=== PATIENT | female | born 1980 | race Caucasian/White ===

== ENCOUNTER 2020-05-01 00:35 | Emergency (ER) | payer OTHER, SELFPAY ==
[2020-05-01 02:18] VITALS: BP 119/70; PULSE 99; RESP 18; TEMP 37.2; O2SAT 98; BMI 32.9
--- NOTE | 2020-05-01 02:30 | XR_ITS ---
EXAMINATION: XR TIBIA AND FIBULA, LEFT CLINICAL INFORMATION: Inflammation. COMPARISON: None TECHNIQUE: AP and lateral views of the left tibia and fibula were obtained. FINDINGS: No fracture or cortical disruption. No osseous erosion. Appropriate alignment of the knee and ankle. The soft tissues are unremarkable. IMPRESSION: Normal left tibia and fibula.
[2020-05-01 02:35] LABS: MANUAL DIFF FLAG NO
[2020-05-01 02:36] LABS: Basophils Percent Auto 0.3 % (0-2); Eosinophils Percent Auto 0.1 % (0-4); Hematocrit 32.9 % (37-47); Hemoglobin 10.9 g/dl (12.0-16.0); Imm Gran Abs Auto 0.08 X10*3/uL (0.00-0.03); Imm Gran Pct Auto 0.6 % (0.0-0.4); Lymphocytes Absolute Auto 2.3 X10*3/uL (1.2-4.9); Mean Corpuscular HGB Conc 33.1 g/dl (31.0-35.0); Mean Corpuscular Hemoglobin 28.4 pg (27.0-33.0); Mean Corpuscular Volume 85.7 fL (80-98); Mean Platelet Volume 9.7 fL (9.4-12.3); Monocytes Absolute Auto 1.2 X10*3/uL (0.1-1.2); Monocytes Percent Auto 8.3 % (2-11); Neutrophils Absolute Auto 10.6 X10*3/uL (2.0-8.3); Neutrophils Percent Auto 74.7 % (45-73); Platelet Count 291 X10*3/uL (160-400); Red Blood Count 3.84 X10*6/uL (4.20-5.50); Red Cell Distribution Width 12.5 % (11.0-16.0); White Blood Count 14.2 X10*3/uL (4.8-10.8)
[2020-05-01 02:41] LABS: INTERNATIONAL NORM RATIO 1.3 (0.9-1.1); Prothrombin Time 15.6 SEC (10.8-13.0)
[2020-05-01 02:44] LABS: Partial Thromboplastin Time 30.7 SEC (24.1-38.0)
[2020-05-01 03:02] LABS: Anion Gap 15 (12-20); Blood Urea Nitrogen 19 mg/dL (9-16); Calcium 8.3 mg/dL (8.4-10.2); Carbon Dioxide 24 mmol/L (22-29); Chloride 98 mmol/L (96-108); Creatinine Clr Calc Pharmacy 89.8; Estimated Glomerular Filt Rate > 60; Glucose Random 213 mg/dL (60-115); Potassium 3.6 mmol/l (3.3-5.1); Sodium 133 mmol/L (135-145)
[2020-05-01 04:00] VITALS: BP 103/55; PULSE 94; RESP 16; TEMP 36.5; O2SAT 95
[2020-05-01 04:24] LABS: Glucose, Whole Blood 253 mg/dL (60-115)
--- NOTE | 2020-05-01 05:06 | ED_ITS ---
HPI - Extremity Problem General Chief complaint: Extremity Problem Time Seen by Provider: 05/01/20 05:06 Source: patient Mode of arrival: ambulatory History of Present Illness HPI Narrative: left leg pain Complaint: extremity pain Onset (ago): day(s) (3) Pain Consistency: constant Radiation: none Associated symptoms: fever, myalgias and other (chills) Related Data Home Medications Medication Instructions Recorded Confirmed insulin glargine [Basaglar KwikPen 10 unit SUBCUT BEDTIME 05/01/20 05/01/20 U-100 Insulin] metformin 1 tab PO BID 05/01/20 05/01/20 Previous Rx's Medication Instructions Recorded cephalexin [Keflex] 500 mg PO QID #40 cap 05/01/20 naproxen [EC-Naprosyn] 375 mg PO BID #20 tab 05/01/20 Allergies Allergy/AdvReac Type Severity Reaction Status Date / Time No Known Allergies Allergy Verified 05/01/20 04:12 [No Known Allergies*] Review of Systems Constitutional: Constitutional: Reports fatigue and Reports fever(s) Eyes: Eyes: Reports no additional eye complaints ENT: Denies dizziness Cardiovascular: Cardiovascular: Reports no additional cardiovascular complaints Respiratory: Respiratory: Reports as per HPI Gastrointestinal: Gastrointestinal: Reports no additional gastrointestinal complaints Genitourinary: Genitourinary: Reports no additional female genitourinary complaints Musculoskeletal: Musculoskeletal: Reports no additional musculoskeletal complaints Integumentary/Breasts: Skin/Breast: Denies rash Neurologic: Reports system reviewed and no additional complaints, except as documented, Denies dizziness and Denies Sensory deficit (Neuro) Psychiatric: Psychiatric: Denies anxiety Endocrine: Endocrine: Reports fatigue [facility] Past Medical History Medical History 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, managed as type 2 Social History Social History Alcohol intake: current Alcohol intake frequency: holidays/special occasions only Smoking Status: Never smoker Use of substances other than those prescribed or required for medical reasons: No Advance Directives: No Advance Directives Information Provided: No Physical Exam Vital Signs and I&O and Narrative: Vital Signs and I&O: Vital Signs Temp 97.7 F 05/01/20 04:00 Pulse 94 05/01/20 04:00 Resp 16 05/01/20 04:00 BP 103/55 L 05/01/20 04:00 Pulse Ox 95 05/01/20 04:00 Intake & Output 04/30/20 04/30/20 05/01/20 06:59 18:59 06:59 Weight 81.647 kg Body Mass Index 32.9 Const: General: healthy appearing Nutritional Appearance: average body habitus Orientation/consciousness: oriented to person and patient oriented x3 Limitations: no limitations HENMT: Head: Yes normal to inspection Ears: external ears normal General nose exam: Normal external nose present Mouth: Normal oral and palatal mucosa present and oropharynx normal Throat: Yes posterior oropharynx normal Eyes: General: appearance normal, both eyes and all related structures Neck: Other: supple Neck: Yes normal visual inspection Chest: Chest palpation & inspection: normal inspection of the chest Resp: Auscultation: clear to auscultation bilaterally Cardio: Jugular venous distension: no JVD Rate: regular rate Rhythm: regular rhythm Heart sounds: S1 normal heart sound present and S2 normal heart sound present GI: Inspection: Yes normal to inspection Palpation (GI): Soft to palpation, nontender and No hepatosplenomegaly present Auscultation: normal bowel sounds : General: Yes no CVA tenderness Back/Spine/Pelvis: Back: no CVA tenderness Skin: Other: erythema to lower extremitiy consistent with cellulitis. There is tenderness to the area Neuro: General: oriented to person and patient oriented x3 Cranial nerves: Yes CN's II-XII intact bilaterally Motor exam (neuro): 5/5 motor strength present throughout Sensory Exam: No Sensory deficit (Neuro) Extrem: General: Yes normal to inspection Psych: Appearance: grossly normal Course Course Course Narrative: patient to recieve toradol and keflex for cellulitis MDM - Extremity (Nontraumatic) MDM Narrative Medical decision making narrative: cellulitis will treate with keflex Lab Data Result diagrams: 05/01/20 02:29 05/01/20 02:29 Labs: Lab Results 05/01/20 05/01/20 05/01/20 Range/Units 02:29 02:29 02:29 WBC 14.2 H (4.8-10.8) X10*3/uL RBC 3.84 L (4.20-5.50) X10*6/uL Hgb 10.9 L (12.0-16.0) g/dl Hct 32.9 L (37-47) % MCV 85.7 (80-98) fL MCH 28.4 (27.0-33.0) pg MCHC 33.1 (31.0-35.0) g/dl RDW 12.5 (11.0-16.0) % Plt Count 291 (160-400) X10*3/uL MPV 9.7 (9.4-12.3) fL Immature Gran % (Auto) 0.6 H (0.0-0.4) % Neut % (Auto) 74.7 H (45-73) % Lymph % (Auto) 16.0 L (20-40) % [place] % (Auto) 8.3 (2-11) % Eos % (Auto) 0.1 (0-4) % Baso % (Auto) 0.3 (0-2) % Neut # (Auto) 10.6 H (2.0-8.3) X10*3/uL Lymph # (Auto) 2.3 (1.2-4.9) X10*3/uL [place] # (Auto) 1.2 (0.1-1.2) X10*3/uL Eos # (Auto) 0.0 (0.0-0.4) X10*3/uL Baso # (Auto) 0.0 (0.0-0.2) X10*3/uL Abs Immat Gran (auto) 0.08 H (0.00-0.03) X10*3/uL Absolute Nucleated RBC 0.000 (0.0-0.012) X10*3/uL Nucleated RBC % (auto) 0.0 (0.0-0.2) /100WBC PT 15.6 H (10.8-13.0) SEC INR 1.3 H (0.9-1.1) APTT 30.7 (24.1-38.0) SEC Sodium 133 L (135-145) mmol/L Potassium 3.6 (3.3-5.1) mmol/l Chloride 98 (96-108) mmol/L Carbon Dioxide 24 (22-29) mmol/L Anion Gap 15 (12-20) BUN 19 H (9-16) mg/dL Creatinine 0.84 (0.5-1.4) mg/dL Estim Creat Clear Calc 89.8 Estimated GFR > 60 POC Glucose (60-115) mg/dL Random Glucose 213 H (60-115) mg/dL Calcium 8.3 L (8.4-10.2) mg/dL 05/01/20 Range/Units 04:20 WBC (4.8-10.8) X10*3/uL RBC (4.20-5.50) X10*6/uL Hgb (12.0-16.0) g/dl Hct (37-47) % MCV (80-98) fL MCH (27.0-33.0) pg MCHC (31.0-35.0) g/dl RDW (11.0-16.0) % Plt Count (160-400) X10*3/uL MPV (9.4-12.3) fL Immature Gran % (Auto) (0.0-0.4) % Neut % (Auto) (45-73) % Lymph % (Auto) (20-40) % [place] % (Auto) (2-11) % Eos % (Auto) (0-4) % Baso % (Auto) (0-2) % Neut # (Auto) (2.0-8.3) X10*3/uL Lymph # (Auto) (1.2-4.9) X10*3/uL [place] # (Auto) (0.1-1.2) X10*3/uL Eos # (Auto) (0.0-0.4) X10*3/uL Baso # (Auto) (0.0-0.2) X10*3/uL Abs Immat Gran (auto) (0.00-0.03) X10*3/uL Absolute Nucleated RBC (0.0-0.012) X10*3/uL Nucleated RBC % (auto) (0.0-0.2) /100WBC PT (10.8-13.0) SEC INR (0.9-1.1) APTT (24.1-38.0) SEC Sodium (135-145) mmol/L Potassium (3.3-5.1) mmol/l Chloride (96-108) mmol/L Carbon Dioxide (22-29) mmol/L Anion Gap (12-20) BUN (9-16) mg/dL Creatinine (0.5-1.4) mg/dL Estim Creat Clear Calc Estimated GFR POC Glucose 253 H (60-115) mg/dL Random Glucose (60-115) mg/dL Calcium (8.4-10.2) mg/dL Discharge Plan Discharge Clinical Impression: Cellulitis Qualifiers: Site of cellulitis: extremity Site of cellulitis of extremity: lower extremity Laterality: left Qualified Code(s): L03.116 - Cellulitis of left lower limb Patient Disposition: Home, Self-Care Instructions: Cellulitis (ED) Additional Instructions: follow up with your doctor this week Prescriptions: New cephalexin [Keflex] 500 mg capsule 500 mg PO QID Qty: 40 RF: 0 naproxen [EC-Naprosyn] 375 mg tablet,delayed release (DR/EC) 375 mg PO BID Qty: 20 RF: 0 No Action metformin 500 mg tablet 1 tab PO BID RF: 0 Basaglar KwikPen U-100 Insulin 100 unit/mL (3 mL) insulin pen 10 unit subcut BEDTIME RF: 0
[2020-05-01] MEDS: cephALEXin 500 MG CAPSULE PO (05:41)
[2020-05-01] MEDS: Ketorolac Tromethamine 60 MG/2 ML VIAL IM (05:41)
== END 2020-05-01 05:55 | disposition home or self-care (01) ==
PROVIDERS: Emergency Provider Emergency Medicine
DX: L03.116 Cellulitis of left lower limb (principal); Z79.899 Other long term (current) drug therapy
CPT/HCPCS: 36415; 73590; 80048; 82947; 85025; 85610; 85730; 96372; 99284; J1885

== ENCOUNTER 2021-02-08 12:35 | Emergency (ER) | payer OTHER, SELFPAY ==
[2021-02-08] VITALS (7 sets, daily range): BP systolic 153–197; BP diastolic 89–103; PULSE 80–89; RESP 16–18; TEMP 37.2; O2SAT 99; BMI 32.9
--- NOTE | ~2021-02-08 | CT_ITS ---
EXAMINATION: CT HEAD WITHOUT CONTRAST CLINICAL INFORMATION: Hypertensive. COMPARISON: None TECHNIQUE: Contiguous axial imaging was performed from the skull base to vertex without intravenous administration of contrast. This CT examination was performed using dose optimization techniques as appropriate, variously including the following: *Automated exposure control *Adjustment of mA and/or kV according to patient size (this includes techniques or standardized protocols for targeted exams where dose is matched to indication/reason for exam; i.e. extremities or head) *Use of iterative reconstruction technique DLP: 768 mGy-cm FINDINGS: No intracranial hemorrhage tumors or infarcts are identified. The ventricles and sulci are normal in size and configuration. No focal parenchymal lesions of the brain or abnormal extra-axial fluid collections are identified. The visualized paranasal sinuses, mastoid air cells and middle ear cavities are clear. The orbits and globes are normal in appearance. CT/CT head/brain wo con IMPRESSION: Normal unenhanced CT of the head.
--- NOTE | 2021-02-08 13:15 | ECG_ITS ---
Test Reason : HTN Blood Pressure : / mmHG Vent. Rate : 084 BPM Atrial Rate : 084 BPM P-R Int : 146 ms QRS Dur : 086 ms QT Int : 388 ms P-R-T Axes : 045 -13 026 degrees QTc Int : 458 ms Normal sinus rhythm Possible Left atrial enlargement Borderline ECG No previous ECGs available Referred By: Barbara Cosby Electronically Signed By:Boogie Cartagena
--- NOTE | 2021-02-08 14:15 | ED.GENADULT ---
HPI - General Adult General Chief complaint: General Medical Stated complaint: hbp Time Seen by Provider: 02/08/21 13:15 Source: patient Mode of arrival: ambulatory Limitations: no limitations History of Present Illness HPI narrative: Patient presents to ED for elevated blood pressure during preop. Patient has known history of high blood pressure. Patient is taking lisinopril. Patient denies any chest pain, shortness of breath, headache, dizziness, weakness, fever, chills, blurry vision, loss of vision, slurred speech, facial droop, or paralysis of extremities. Related Data Home Medications Medication Instructions Recorded Confirmed insulin glargine [Basaglar KwikPen 10 unit SUBCUT BEDTIME 05/01/20 05/01/20 U-100 Insulin] metformin 1 tab PO BID 05/01/20 05/01/20 Previous Rx's Medication Instructions Recorded cephalexin [Keflex] 500 mg PO QID #40 cap 05/01/20 naproxen [EC-Naprosyn] 375 mg PO BID #20 tab 05/01/20 Allergies Allergy/AdvReac Type Severity Reaction Status Date / Time No Known Allergies Allergy Verified 02/08/21 13:01 [No Known Allergies*] Review of Systems Review of Systems: Yes all other systems are reviewed and are negative Constitutional: Constitutional: Reports as per HPI and Reports no additional constitutional complaints Eyes: Eyes: Reports as per HPI and Reports no additional eye complaints ENT: Reports system reviewed and no additional complaints, except as documented and Reports as per HPI Cardiovascular: Cardiovascular: Reports as per HPI and Reports no additional cardiovascular complaints Respiratory: Respiratory: Reports as per HPI and Reports no additional respiratory complaints Gastrointestinal: Gastrointestinal: Reports as per HPI and Reports no additional gastrointestinal complaints Musculoskeletal: Musculoskeletal: Reports no additional musculoskeletal complaints and Reports as per HPI Neurologic: Reports system reviewed and no additional complaints, except as documented and Reports as per HPI Psychiatric: Psychiatric: Reports no additional psychiatric complaints and Reports as per HPI [facility] Past Medical History Medical History 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, managed as type 2 Social History Social History Alcohol intake: unknown Patient Tobacco Use Status: Never used Tobacco Use of substances other than those prescribed or required for medical reasons: No Advance Directives: No Advance Directives Information Provided: Yes Patient : No Physical Exam Vital Signs: Vital Signs: Last Vital Signs Temp 98.9 F 02/08/21 13:02 Pulse 80 02/08/21 16:00 Resp 16 02/08/21 16:00 BP 153/89 H 02/08/21 16:00 Pulse Ox 99 02/08/21 13:02 Body Mass Index 32.9 Const: General: cooperative, healthy appearing, comfortable, no acute distress, well developed, alert and awake Orientation/consciousness: patient oriented x3 HENMT: Head: Yes normal to inspection, Yes No palpable skull fracture present, Yes normocephalic, Yes atraumatic and No abrasion Eyes: General: appearance normal, both eyes and all related structures Neck: Neck: Yes normal visual inspection, Yes full ROM, Yes no lymphadenopathy, Yes no meningeal signs, Yes trachea midline, Yes supple and No tender Chest: Chest palpation & inspection: normal inspection of the chest and normal palpation of entire chest wall Resp: Effort & Inspection: normal respiratory effort and able to speak in complete sentences Auscultation: clear to auscultation bilaterally Cardio: Jugular venous distension: no JVD Heart sounds: S1 normal heart sound present and S2 normal heart sound present GI: Inspection: Yes normal to inspection and No abdominal wall ecchymosis Palpation (GI): Soft to palpation, not firm, nontender, no guarding and not rigid : General: No CVA tenderness and Yes no CVA tenderness Back/Spine/Pelvis: Back: no CVA tenderness, No CVA tenderness and No back tenderness Skin: General skin exam: no rashes or lesions noted and elasticity normal Neuro: Other: Negative facial droop. Negative slurred speech. Negative for any drift. All extremities equal strength 5+. [id number] rapid hand movement intact. Negative Romberg. General: patient oriented x3, gait normal, no meningeal signs and CN's II-XI intact bilaterally Cranial nerves: Yes CN's II-XII intact bilaterally Extrem: General: Yes normal to inspection and Yes full ROM Psych: Appearance: grossly normal, well kempt and not disheveled Course Course Course Narrative: Patient asymptomatic blood will do labs and make sure patient is not in hypertensive emergency. Systolic blood pressure 188 Reevaluation(s) Reevaluation #1: Patient given clonidine p.o. for blood pressure control for patient sent for head CT scan due to elevated pressure although patient neuro exam is intact. Patient's troponin negative patient's EKG negative. Rest of labs are normal. Waiting for CT results Time: 15:03 Reevaluation #2: CT scan results of the head came back normal. Patient blood pressure improved. Patient is still asymptomatic. Patient troponin came back negative. Patient's kidney function came back normal. Patient informed to follow-up with her PCP. Time: 17:43 Medical Decision Making MDM Narrative Medical decision making narrative: Hypertension Lab Data Result diagrams: 02/08/21 15:03 02/08/21 15:03 Labs: Lab Results 02/08/21 02/08/21 02/08/21 Range/Units 15:03 15:03 15:03 WBC 8.6 (4.8-10.8) X10*3/uL RBC 3.33 L (4.20-5.50) X10*6/uL Hgb 9.5 L (12.0-16.0) g/dl Hct 28.3 L (37-47) % MCV 85.0 (80-98) fL MCH 28.5 (27.0-33.0) pg MCHC 33.6 (31.0-35.0) g/dl RDW 12.4 (11.0-16.0) % Plt Count 367 D (160-400) X10*3/uL MPV 9.4 (9.4-12.3) fL Immature Gran % (Auto) 0.4 (0.0-0.4) % Neut % (Auto) 55.6 (45-73) % Lymph % (Auto) 33.3 (20-40) % [place] % (Auto) 7.9 (2-11) % Eos % (Auto) 2.3 (0-4) % Baso % (Auto) 0.5 (0-2) % Lymph # (Auto) 2.9 (1.2-4.9) X10*3/uL [place] # (Auto) 0.7 (0.1-1.2) X10*3/uL Eos # (Auto) 0.2 (0.0-0.4) X10*3/uL Baso # (Auto) 0.0 (0.0-0.2) X10*3/uL Abs Immat Gran (auto) 0.03 (0.00-0.03) X10*3/uL Absolute Neuts (auto) 4.8 (2.0-8.3) X10*3/uL Absolute Nucleated RBC 0.000 (0.0-0.012) X10*3/uL Nucleated RBC % (auto) 0.0 (0.0-0.2) /100WBC PT 10.3 (9.9-13.0) SEC INR 0.9 (0.9-1.1) APTT 33.7 (24.1-38.0) SEC Sodium 138 (135-145) mmol/L Potassium 4.3 (3.3-5.1) mmol/L Chloride 105 (96-108) mmol/L Carbon Dioxide 26 (22-29) mmol/L Anion Gap 11 L (12-20) BUN 20 H (9-16) mg/dL Creatinine 0.99 (0.5-1.4) mg/dL Estim Creat Clear Calc 75.5 Estimated GFR > 60 Random Glucose 273 H (60-115) mg/dL Calcium 9.0 D (8.4-10.2) mg/dL Total Bilirubin 0.3 (0.0-1.0) mg/dL AST 14 (5-31) U/L ALT 13 (0-31) U/L Alkaline Phosphatase 97 (39-117) U/L Troponin I High Sens (<3.5-17.0) ng/L Total Protein 7.4 (6.5-8.0) g/dL Albumin 3.8 (3.5-5.0) g/dL 02/08/21 Range/Units 15:03 WBC (4.8-10.8) X10*3/uL RBC (4.20-5.50) X10*6/uL Hgb (12.0-16.0) g/dl Hct (37-47) % MCV (80-98) fL MCH (27.0-33.0) pg MCHC (31.0-35.0) g/dl RDW (11.0-16.0) % Plt Count (160-400) X10*3/uL MPV (9.4-12.3) fL Immature Gran % (Auto) (0.0-0.4) % Neut % (Auto) (45-73) % Lymph % (Auto) (20-40) % [place] % (Auto) (2-11) % Eos % (Auto) (0-4) % Baso % (Auto) (0-2) % Lymph # (Auto) (1.2-4.9) X10*3/uL [place] # (Auto) (0.1-1.2) X10*3/uL Eos # (Auto) (0.0-0.4) X10*3/uL Baso # (Auto) (0.0-0.2) X10*3/uL Abs Immat Gran (auto) (0.00-0.03) X10*3/uL Absolute Neuts (auto) (2.0-8.3) X10*3/uL Absolute Nucleated RBC (0.0-0.012) X10*3/uL Nucleated RBC % (auto) (0.0-0.2) /100WBC PT (9.9-13.0) SEC INR (0.9-1.1) APTT (24.1-38.0) SEC Sodium (135-145) mmol/L Potassium (3.3-5.1) mmol/L Chloride (96-108) mmol/L Carbon Dioxide (22-29) mmol/L Anion Gap (12-20) BUN (9-16) mg/dL Creatinine (0.5-1.4) mg/dL Estim Creat Clear Calc Estimated GFR Random Glucose (60-115) mg/dL Calcium (8.4-10.2) mg/dL Total Bilirubin (0.0-1.0) mg/dL AST (5-31) U/L ALT (0-31) U/L Alkaline Phosphatase (39-117) U/L Troponin I High Sens 3.8 (<3.5-17.0) ng/L Total Protein (6.5-8.0) g/dL Albumin (3.5-5.0) g/dL ECG Data Interpretation: Normal sinus rhythm. Ventricular rate 84. Pr interval 146. QRS 86. QTC 418 Discharge Plan Discharge Clinical Impression: Hypertension Patient Disposition: Home, Self-Care Instructions: Hypertension (ED) Additional Instructions: Return to the ED for any headache, slurred speech, loss of vision, paralysis of extremities, weakness, dizziness, abdominal pain, chest pain, shortness of breath, or any other concerning symptoms. Please follow-up with your PCP in in regards to blood pressure management. Prescriptions: No Action metformin 500 mg tablet 1 tab PO BID RF: 0 Basaglar KwikPen U-100 Insulin 100 unit/mL (3 mL) insulin pen 10 unit subcut BEDTIME RF: 0 cephalexin [Keflex] 500 mg capsule 500 mg PO QID Qty: 40 RF: 0 naproxen [EC-Naprosyn] 375 mg tablet,delayed release (DR/EC) 375 mg PO BID Qty: 20 RF: 0 Print Language: Swedish
[2021-02-08 15:11] LABS: MANUAL DIFF FLAG NO
[2021-02-08 15:15] LABS: Basophils Percent Auto 0.5 % (0-2); Eosinophils Absolute Auto 0.2 X10*3/uL (0.0-0.4); Eosinophils Percent Auto 2.3 % (0-4); Hematocrit 28.3 % (37-47); Hemoglobin 9.5 g/dl (12.0-16.0); Imm Gran Abs Auto 0.03 X10*3/uL (0.00-0.03); Imm Gran Pct Auto 0.4 % (0.0-0.4); Lymphocytes Absolute Auto 2.9 X10*3/uL (1.2-4.9); Lymphocytes Percent Auto 33.3 % (20-40); Mean Corpuscular HGB Conc 33.6 g/dl (31.0-35.0); Mean Corpuscular Hemoglobin 28.5 pg (27.0-33.0); Mean Platelet Volume 9.4 fL (9.4-12.3); Monocytes Absolute Auto 0.7 X10*3/uL (0.1-1.2); Monocytes Percent Auto 7.9 % (2-11); Neutrophils Absolute Auto 4.8 X10*3/uL (2.0-8.3); Neutrophils Percent Auto 55.6 % (45-73); Platelet Count 367 X10*3/uL (160-400); Red Blood Count 3.33 X10*6/uL (4.20-5.50); Red Cell Distribution Width 12.4 % (11.0-16.0); White Blood Count 8.6 X10*3/uL (4.8-10.8)
[2021-02-08 15:20] LABS: INTERNATIONAL NORM RATIO 0.9 (0.9-1.1); Prothrombin Time 10.3 SEC (9.9-13.0)
[2021-02-08 15:23] LABS: Partial Thromboplastin Time 33.7 SEC (24.1-38.0)
[2021-02-08 15:40] LABS: Alanine Aminotransferase 13 U/L (0-31); Albumin Level 3.8 g/dL (3.5-5.0); Alkaline Phosphatase 97 U/L (39-117); Anion Gap 11 (12-20); Aspartate Amino Transferase 14 U/L (5-31); Bilirubin Total 0.3 mg/dL (0.0-1.0); Blood Urea Nitrogen 20 mg/dL (9-16); Carbon Dioxide 26 mmol/L (22-29); Chloride 105 mmol/L (96-108); Creatinine Clr Calc Pharmacy 75.5; Estimated Glomerular Filt Rate > 60; Glucose Random 273 mg/dL (60-115); Potassium 4.3 mmol/L (3.3-5.1); Sodium 138 mmol/L (135-145); Total Protein 7.4 g/dL (6.5-8.0)
[2021-02-08 15:42] LABS: Troponin-I High Sensitivity 3.8 ng/L (<3.5-17.0)
[2021-02-08] MEDS: cloNIDine HCL 0.1 MG TABLET PO (15:45)
== END 2021-02-08 18:16 | disposition home or self-care (01) ==
PROVIDERS: Emergency Medicine; Physician Assistant; Emergency Provider Internal Medicine; PCP Nurse Practitioner Family
DX: I10 Essential (primary) hypertension (principal); E13.9 Other specified diabetes mellitus without complications; Z79.84 Long term (current) use of oral hypoglycemic drugs; Z79.899 Other long term (current) drug therapy
CPT/HCPCS: 36415; 70450; 80053; 84484; 85025; 85610; 85730; 93005; 99285

== ENCOUNTER 2021-02-14 05:59 | Inpatient (IN) | payer OTHER, SELFPAY ==
[2021-02-14] VITALS (7 sets, daily range): BP systolic 109–191; BP diastolic 63–100; PULSE 83–96; RESP 16–20; TEMP 36.2–37.3; O2SAT 97–100; BMI 32.9
--- NOTE | ~2021-02-14 | CT_ITS ---
EXAMINATION: CT ABDOMEN AND PELVIS WITHOUT CONTRAST CLINICAL INFORMATION: Abdominal pain COMPARISON: None TECHNIQUE: Multidetector volumetric imaging was performed from the superior aspect of the liver through the pubic symphysis. Sagittal and coronal reformatted images were obtained on the technologist's workstation. This CT examination was performed using dose optimization techniques as appropriate, variously including the following: *Automated exposure control *Adjustment of mA and/or kV according to patient size (this includes techniques or standardized protocols for targeted exams where dose is matched to indication/reason for exam; i.e. extremities or head) *Use of iterative reconstruction technique DLP: 620 mGy-cm FINDINGS: LUNG BASES: There is platelike atelectasis in the lingula. The lung bases are clear. The heart size is normal. LIVER, GALLBLADDER, AND BILIARY TREE: The liver is normal in size, shape, and attenuation. No focal hepatic lesion or biliary ductal dilatation is present. There are at least 2 or maybe more small radiopaque mobile gallstones in the range of 2 to 3 mm. There is a larger 2.5 impacted stone in the fundus. No gallbladder wall thickening seen no pericholecystic fluid collection. PANCREAS: Unremarkable. SPLEEN: The spleen is unremarkable except for a punctate central gland calcification. ADRENAL GLANDS: Unremarkable. KIDNEYS AND URETERS: The kidneys are normal in size, shape, and attenuation. No hydronephrosis, hydroureter, or calculi seen. No perinephric stranding. BLADDER: Unremarkable. GASTROINTESTINAL TRACT: There is scattered stool and gas seen in colon without distention. The stomach is unremarkable. The small bowel loops are normal caliber. The appendix is normal caliber. ABDOMINAL WALL: No significant hernia is appreciated. LYMPH NODES: Normal. VASCULAR: Unremarkable. PELVIC VISCERA: The uterus is anteverted and appears unremarkable. There are several phleboliths along the cervix. There is no free fluid or free air. OSSEOUS STRUCTURES: Mild degenerative disc changes L4-L5 disc level with posterior spondylosis CT/CT abdomen pelvis wo con IMPRESSION: Cholelithiasis with a large 2.5 cm impacted gallstone in the fundus. No wall thickening seen. No radiopaque urolith or hydronephrosis. Mild constipation.
[2021-02-14 07:21] LABS: Glucose, Whole Blood 187 mg/dL (60-115)
--- NOTE | 2021-02-14 07:25 | ED.ABDPAIN ---
HPI - Abdominal Pain General Chief Complaint: Abdominal Pain Stated Complaint: multiple complaints Time Seen by Provider: 02/14/21 07:23 History of Present Illness HPI narrative: 40-year-old female presented with having abdominal pain nausea vomiting diarrhea generalized malaise. Positive coughing as well. Patient is from home. She works at a gas station. Coughing nonproductive in nature. Vomiting mostly food. Patient had previous history of hysterectomy in the past no other abdominal surgery. She had tubal ligation over 10 years ago have not been since. No fever positive generalized malaise. Symptoms been ongoing for few days. Patient is not vaccinated. Related Data Home Medications Medication Instructions Recorded Confirmed atorvastatin 1 tab PO DAILY 02/14/21 insulin glargine [Lantus Solostar 19 unit SUBCUT BEDTIME 02/14/21 U-100 Insulin] lisinopril 1 tab PO DAILY 02/14/21 metformin 1 tab PO BID 02/14/21 sertraline 1 tab PO DAILY 02/14/21 Allergies Allergy/AdvReac Type Severity Reaction Status Date / Time No Known Allergies Allergy Verified 02/08/21 13:01 [No Known Allergies*] Review of Systems Review of Systems Positive nausea, vomiting, diarrhea Positive coughing upper respiratory symptoms All systems reviewed otherwise negative Physical Exam Vital Signs: Vital Signs: Last Vital Signs Temp 98.5 F 02/14/21 07:09 Pulse 89 02/14/21 11:59 Resp 16 02/14/21 11:59 BP 175/98 H 02/14/21 11:59 Pulse Ox 98 02/14/21 11:59 Body Mass Index 32.9 Appearance: Alert. Oriented X3. No acute distress. Eyes: Pupils equal, round and reactive to light. ENT: Pharynx normal. Neck: Normal inspection. Neck supple. No lymph nodes noted. No crepitus CVS: Normal heart rate and rhythm. Pulses normal. Normal S1 and S2 Respiratory: No respiratory distress. Breath sounds normal. No Wheezing. No rales Abdomen: Soft and nontender. No rigidity. No distention. good BS x4 Skin: Skin warm and dry. Normal skin color. Normal skin turgor. Extremities: No lower extremity edema. Neurovascular intact to all extremities. No Lacerations. No Rash Neuro: Oriented X 3. No motor deficit. No sensory deficit. Moving all extermities. No slurred speech MDM - Abdominal Pain MDM Narrative Medical decision making narrative: Patient's labs has an elevated BUN and creatinine consistent with pre renal insufficiency. Will give additional IV fluids. CT scan of the abdomen did not show any acute evidence of obstruction or abscess. There is a large gallstone at the neck of the gallbladder. However there is no abdominal pain there is no gallbladder wall thickening and LFTs are normal adult think this is the acute problem. Will admit patient for further hydration and monitoring of kidney functions. Lab Data Result diagrams: 02/14/21 08:20 02/14/21 08:20 Labs: Lab Results 02/14/21 02/14/21 02/14/21 Range/Units 07:18 08:15 08:16 WBC (4.8-10.8) X10*3/uL RBC (4.20-5.50) X10*6/uL Hgb (12.0-16.0) g/dl Hct (37-47) % MCV (80-98) fL MCH (27.0-33.0) pg MCHC (31.0-35.0) g/dl RDW (11.0-16.0) % Plt Count (160-400) X10*3/uL MPV (9.4-12.3) fL Immature Gran % (Auto) (0.0-0.4) % Neut % (Auto) (45-73) % Lymph % (Auto) (20-40) % [place] % (Auto) (2-11) % Eos % (Auto) (0-4) % Baso % (Auto) (0-2) % Lymph # (Auto) (1.2-4.9) X10*3/uL [place] # (Auto) (0.1-1.2) X10*3/uL Eos # (Auto) (0.0-0.4) X10*3/uL Baso # (Auto) (0.0-0.2) X10*3/uL Abs Immat Gran (auto) (0.00-0.03) X10*3/uL Absolute Neuts (auto) (2.0-8.3) X10*3/uL Absolute Nucleated RBC (0.0-0.012) X10*3/uL Nucleated RBC % (auto) (0.0-0.2) /100WBC Sodium (135-145) mmol/L Potassium (3.3-5.1) mmol/L Chloride (96-108) mmol/L Carbon Dioxide (22-29) mmol/L Anion Gap (12-20) BUN (9-16) mg/dL Creatinine (0.5-1.4) mg/dL Estim Creat Clear Calc Estimated GFR POC Glucose 187 H (60-115) mg/dL Random Glucose (60-115) mg/dL Calcium (8.4-10.2) mg/dL Total Bilirubin (0.0-1.0) mg/dL Direct Bilirubin (0.0-0.5) mg/dL AST (5-31) U/L ALT (0-31) U/L Alkaline Phosphatase (39-117) U/L Total Protein (6.5-8.0) g/dL Albumin (3.5-5.0) g/dL Lipase (8-78) U/L Urine Color YELLOW Urine Appearance HAZY Urine pH 6.0 (5.0-8.0) Ur Specific [place] 1.015 (1.005-1.025) Urine Protein 2+ H (NEG-TRACE) MG/DL Urine Glucose (UA) NEG (NEG) MG/DL Urine Ketones NEG (NEG) MG/DL Urine Blood TRACE (NEG) Urine Nitrite NEG (NEG) Ur Leukocyte Esterase 1+ H (NEG) Urine RBC 0-2 (0) /HPF Urine WBC 30-49 H (0-4) /HPF Ur Squamous Epith Cells 2+ /LPF Urine Bacteria 4+ /LPF Urine Test (NEGATIVE) COVID-19 (ANN MARIE) Negative (Negative) COVID-19 Clin Com See Note 02/14/21 02/14/21 02/14/21 Range/Units 08:16 08:20 08:20 WBC 8.7 (4.8-10.8) X10*3/uL RBC 3.50 L (4.20-5.50) X10*6/uL Hgb 10.1 L (12.0-16.0) g/dl Hct 29.7 L (37-47) % MCV 84.9 (80-98) fL MCH 28.9 (27.0-33.0) pg MCHC 34.0 (31.0-35.0) g/dl RDW 12.4 (11.0-16.0) % Plt Count 379 (160-400) X10*3/uL MPV 9.7 (9.4-12.3) fL Immature Gran % (Auto) 0.2 (0.0-0.4) % Neut % (Auto) 60.4 (45-73) % Lymph % (Auto) 28.7 (20-40) % [place] % (Auto) 8.1 (2-11) % Eos % (Auto) 2.0 (0-4) % Baso % (Auto) 0.6 (0-2) % Lymph # (Auto) 2.5 (1.2-4.9) X10*3/uL [place] # (Auto) 0.7 (0.1-1.2) X10*3/uL Eos # (Auto) 0.2 (0.0-0.4) X10*3/uL Baso # (Auto) 0.1 (0.0-0.2) X10*3/uL Abs Immat Gran (auto) 0.02 (0.00-0.03) X10*3/uL Absolute Neuts (auto) 5.3 (2.0-8.3) X10*3/uL Absolute Nucleated RBC 0.020 H (0.0-0.012) X10*3/uL Nucleated RBC % (auto) 0.2 (0.0-0.2) /100WBC Sodium 136 (135-145) mmol/L Potassium 4.3 (3.3-5.1) mmol/L Chloride 96 (96-108) mmol/L Carbon Dioxide 29 (22-29) mmol/L Anion Gap 15 (12-20) BUN 31 H D (9-16) mg/dL Creatinine 2.32 H (0.5-1.4) mg/dL Estim Creat Clear Calc 32.2 Estimated GFR 23 POC Glucose (60-115) mg/dL Random Glucose 175 H D (60-115) mg/dL Calcium 9.0 (8.4-10.2) mg/dL Total Bilirubin 0.5 (0.0-1.0) mg/dL Direct Bilirubin 0.2 (0.0-0.5) mg/dL AST 22 D (5-31) U/L ALT 19 (0-31) U/L Alkaline Phosphatase 84 (39-117) U/L Total Protein 7.4 (6.5-8.0) g/dL Albumin 3.8 (3.5-5.0) g/dL Lipase 56 (8-78) U/L Urine Color Urine Appearance Urine pH (5.0-8.0) Ur Specific [place] (1.005-1.025) Urine Protein (NEG-TRACE) MG/DL Urine Glucose (UA) (NEG) MG/DL Urine Ketones (NEG) MG/DL Urine Blood (NEG) Urine Nitrite (NEG) Ur Leukocyte Esterase (NEG) Urine RBC (0) /HPF Urine WBC (0-4) /HPF Ur Squamous Epith Cells /LPF Urine Bacteria /LPF Urine Test NEGATIVE (NEGATIVE) COVID-19 (ANN MARIE) (Negative) COVID-19 Clin Com Discharge Plan Discharge Clinical Impression: Dehydration, Renal failure Patient Disposition: Admitted As Inpatient [facility] Past Medical History Attestation statement: The following information was validated with the patient. 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
[2021-02-14] MEDS: Metoclopramide HCl 10 MG/2 ML VIAL IVPUSH (08:03)
[2021-02-14] MEDS: 0.9 % Sodium Chloride 1,000 ML 999 ML IV ×3 (08:03→13:15)
[2021-02-14 08:27] LABS: MANUAL DIFF FLAG NO
[2021-02-14 08:30] LABS: Glucose Urine UA NEG (NEG); Leukocyte Esterase Urine 1+ (NEG); Nitrite Urine NEG (NEG); Specific Gravity - Urine 1.015 (1.005-1.025); UACC Culture Trigger YES; Urine Blood TRACE (NEG); Urine Ketones NEG (NEG); Urine Protein 2+ MG/DL (NEG-TRACE)
[2021-02-14 08:32] LABS: Appearance Urine HAZY; Color Urine YELLOW
[2021-02-14 08:33] LABS: UPreg QC Valid YES; Urine Pregnancy NEGATIVE (NEGATIVE)
[2021-02-14 08:34] LABS: Basophils Absolute Auto 0.1 X10*3/uL (0.0-0.2); Basophils Percent Auto 0.6 % (0-2); Eosinophils Absolute Auto 0.2 X10*3/uL (0.0-0.4); Hematocrit 29.7 % (37-47); Hemoglobin 10.1 g/dl (12.0-16.0); Imm Gran Abs Auto 0.02 X10*3/uL (0.00-0.03); Imm Gran Pct Auto 0.2 % (0.0-0.4); Lymphocytes Absolute Auto 2.5 X10*3/uL (1.2-4.9); Lymphocytes Percent Auto 28.7 % (20-40); Mean Corpuscular Hemoglobin 28.9 pg (27.0-33.0); Mean Corpuscular Volume 84.9 fL (80-98); Mean Platelet Volume 9.7 fL (9.4-12.3); Monocytes Absolute Auto 0.7 X10*3/uL (0.1-1.2); Monocytes Percent Auto 8.1 % (2-11); NRBC Pct Auto 0.2 /100WBC (0.0-0.2); Neutrophils Absolute Auto 5.3 X10*3/uL (2.0-8.3); Neutrophils Percent Auto 60.4 % (45-73); Platelet Count 379 X10*3/uL (160-400); Red Cell Distribution Width 12.4 % (11.0-16.0); White Blood Count 8.7 X10*3/uL (4.8-10.8)
[2021-02-14 08:37] LABS: Bacteria Urine 4+ /LPF; RBC Urine 0-2 /HPF (0); Squamous Epithelial Cell Urine 2+ /LPF; WBC Urine 30-49 /HPF (0-4)
[2021-02-14 08:42] LABS: COVID-19 Test Negative (Negative)
[2021-02-14 09:03] LABS: Alanine Aminotransferase 19 U/L (0-31); Albumin Level 3.8 g/dL (3.5-5.0); Alkaline Phosphatase 84 U/L (39-117); Anion Gap 15 (12-20); Aspartate Amino Transferase 22 U/L (5-31); Bilirubin Direct 0.2 mg/dL (0.0-0.5); Bilirubin Total 0.5 mg/dL (0.0-1.0); Blood Urea Nitrogen 31 mg/dL (9-16); Carbon Dioxide 29 mmol/L (22-29); Chloride 96 mmol/L (96-108); Creatinine Clr Calc Pharmacy 32.2; Estimated Glomerular Filt Rate 23; Glucose Random 175 mg/dL (60-115); Lipase 56 U/L (8-78); Potassium 4.3 mmol/L (3.3-5.1); Sodium 136 mmol/L (135-145); Total Protein 7.4 g/dL (6.5-8.0)
--- NOTE | 2021-02-14 13:16 | PM.IMHP ---
History of Present Illness Date of Service: 02/14/21 Chief Complaint: n/v 40F presented with about 3 days of nausea, vomitting, inability to tolerate po, mild diffuse abd pain. denies chest pain, sob, fever, chills. some family members did have URI, but no GI symptoms. in ED found to have AMISHA, creatinine 2.32, CT abd normal expect large gallstone, no cholecystitis, LFTs normal, no RUQ tenderness, and vague mild abdominal pain not c/w with gallstone cause. 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, managed as type 2 Social History Alcohol intake: unknown Patient Tobacco Use Status: Never used Tobacco Advance Directives: No Advance Directives Information Provided: Yes Meds Allergies Allergy/AdvReac Type Severity Reaction Status Date / Time No Known Allergies Allergy Verified 02/08/21 13:01 [No Known Allergies*] Active Medications: Current Medications Generic Name Dose Route Start Last Admin Trade Name Freq PRN Reason Stop Dose Admin Sodium Chloride 1,000 mls @ 999 mls/hr 02/14/21 12:45 02/14/21 13:15 Ns IV 02/14/21 13:45 999 mls/hr .[id number] LUIS Administration Pharmacy Consult 1 each 02/14/21 12:33 Consult Rx Perform Med Rec MISCELLANE ONCE PRN Consult order Home Medications Medication Instructions Recorded Confirmed Last Taken Type atorvastatin 1 tab PO DAILY 02/14/21 Unknown History insulin glargine [Lantus Solostar 19 unit SUBCUT BEDTIME 02/14/21 Unknown History U-100 Insulin] lisinopril 1 tab PO DAILY 02/14/21 Unknown History metformin 1 tab PO BID 02/14/21 Unknown History sertraline 1 tab PO DAILY 02/14/21 Unknown History Physical Exam Vital Signs and Narrative: Vital Signs: Last Vital Signs Temp 98.5 F 02/14/21 07:09 Pulse 89 02/14/21 11:59 Resp 16 02/14/21 11:59 BP 175/98 H 02/14/21 11:59 Pulse Ox 98 02/14/21 11:59 Body Mass Index 32.9 General: no acute distress HEENT: atraumatic Neck: normal to visual inspection CVS: S1, S2, RRR Resp: CTA bilateral Chest: non tender GI: soft, non tender, non distended : no CVA tenderness Skin: no rashes Extremities: no edema Neuro: Oriented X3, grossly intact Psych: cooperative Results Labs CBC and Chem 7: 02/14/21 08:20 02/14/21 08:20 Labs: Laboratory Results - last 24 hr 02/14/21 02/14/21 02/14/21 07:18 08:15 08:16 MCV MCH MCHC RDW Plt Count MPV Immature Gran % (Auto) Neut % (Auto) Lymph % (Auto) [place] % (Auto) Eos % (Auto) Baso % (Auto) Lymph # (Auto) [place] # (Auto) Eos # (Auto) Baso # (Auto) Abs Immat Gran (auto) Absolute Neuts (auto) Absolute Nucleated RBC Nucleated RBC % (auto) Anion Gap Estim Creat Clear Calc Estimated GFR POC Glucose 187 H Random Glucose Calcium Total Bilirubin Direct Bilirubin AST ALT Alkaline Phosphatase Total Protein Albumin Lipase Urine Color YELLOW Urine Appearance HAZY Urine pH 6.0 Ur Specific [place] 1.015 Urine Protein 2+ H Urine Glucose (UA) NEG Urine Ketones NEG Urine Blood TRACE Urine Nitrite NEG Ur Leukocyte Esterase 1+ H Urine RBC 0-2 Urine WBC 30-49 H Ur Squamous Epith Cells 2+ Urine Bacteria 4+ Urine Test COVID-19 (ANN MARIE) Negative COVID-19 Clin Com See Note 02/14/21 02/14/21 02/14/21 08:16 08:20 08:20 MCV 84.9 MCH 28.9 MCHC 34.0 RDW 12.4 Plt Count 379 MPV 9.7 Immature Gran % (Auto) 0.2 Neut % (Auto) 60.4 Lymph % (Auto) 28.7 [place] % (Auto) 8.1 Eos % (Auto) 2.0 Baso % (Auto) 0.6 Lymph # (Auto) 2.5 [place] # (Auto) 0.7 Eos # (Auto) 0.2 Baso # (Auto) 0.1 Abs Immat Gran (auto) 0.02 Absolute Neuts (auto) 5.3 Absolute Nucleated RBC 0.020 H Nucleated RBC % (auto) 0.2 Anion Gap 15 Estim Creat Clear Calc 32.2 Estimated GFR 23 POC Glucose Random Glucose 175 H D Calcium 9.0 Total Bilirubin 0.5 Direct Bilirubin 0.2 AST 22 D ALT 19 Alkaline Phosphatase 84 Total Protein 7.4 Albumin 3.8 Lipase 56 Urine Color Urine Appearance Urine pH Ur Specific [place] Urine Protein Urine Glucose (UA) Urine Ketones Urine Blood Urine Nitrite Ur Leukocyte Esterase Urine RBC Urine WBC Ur Squamous Epith Cells Urine Bacteria Urine Test NEGATIVE COVID-19 (ANN MARIE) COVID-19 Clin Com Imaging Radiologist's Impressions: Impressions Abdomen/Pelvis CT 02/14/21 07:23 IMPRESSION: Cholelithiasis with a large 2.5 cm impacted gallstone in the fundus. No wall thickening seen. No radiopaque urolith or hydronephrosis. Mild constipation. Assessment and Plan (1) Dehydration: Status: Acute 40F presented with n/v found to have AMISHA AMISHA due to n/v/dehydration IVF, hold jered-i, metformin monitor nausea improved, will start diet DM basal bolus insulin HTN- uncontrolled hold jered-i, will start amlodipine anxiety sertraline hld statin gallstone appears asymptomatic can follow up with surgery outpatient if symptoms develop Quality Stroke Does the patient have a stroke diagnosis?: No VTE Prior VTE?: No VTE Risk Level:: Medical - moderate - high VTE Device Contraindication: Treatment Not Indicated VTE Drug Contraindication: N/A - Med Ordered
[2021-02-14] MEDS: amLODIPine Besylate 5 MG TABLET PO (13:32)
--- NOTE | 2021-02-14 13:36 | PHA.MEDREC ---
Pharmacy Consult ? Medication Reconciliation Pharmacy has completed the medication reconciliation. There aer no remarkable issues for provider's attention. Ludmila Sepulveda, DashawnD
[2021-02-14] MEDS: 0.9 % Sodium Chloride Flush 3 ML SYRINGE IVFLUSH (15:52)
[2021-02-14] MEDS: Lactated Ringers 1,000 ML 100 ML IVCONT ×2 (16:14→22:43)
[2021-02-14 18:32] LABS: Glucose, Whole Blood 130 mg/dL (60-115)
[2021-02-14 21:27] LABS: Glucose, Whole Blood 174 mg/dL (60-115)
[2021-02-14] MEDS: Insulin Glargine,Hum.rec.anlog 100 UNIT/ML 10 ML VIAL 19 UNIT SUBCUT (22:42)
[2021-02-15 06:23] LABS: Hematocrit 28.9 % (37-47); Hemoglobin 9.5 g/dl (12.0-16.0); Mean Corpuscular HGB Conc 32.9 g/dl (31.0-35.0); Mean Corpuscular Hemoglobin 28.6 pg (27.0-33.0); Mean Platelet Volume 9.9 fL (9.4-12.3); Platelet Count 350 X10*3/uL (160-400); Red Blood Count 3.32 X10*6/uL (4.20-5.50); Red Cell Distribution Width 12.2 % (11.0-16.0); White Blood Count 8.1 X10*3/uL (4.8-10.8)
[2021-02-15 06:57] LABS: Anion Gap 11 (12-20); Blood Urea Nitrogen 23 mg/dL (9-16); Calcium 8.7 mg/dL (8.4-10.2); Carbon Dioxide 27 mmol/L (22-29); Chloride 104 mmol/L (96-108); Creatinine Clr Calc Pharmacy 49.5; Estimated Glomerular Filt Rate 38; Glucose Random 149 mg/dL (60-115); Potassium 4.6 mmol/L (3.3-5.1); Sodium 137 mmol/L (135-145)
[2021-02-15 07:30] LABS: Glucose, Whole Blood 251 mg/dL (60-115)
[2021-02-15 08:00] VITALS: BP 168/88; PULSE 86; RESP 18; TEMP 36.5; O2SAT 98
[2021-02-15 08:11] VITALS: BP 168/88
[2021-02-15] MEDS: Sertraline HCL 50 MG TABLET PO (08:11)
[2021-02-15] MEDS: Insulin Lispro 100 UNIT/ML 3 ML VIAL SUBCUT (08:11)
[2021-02-15] MEDS: amLODIPine Besylate 5 MG TABLET PO (08:11)
--- NOTE | 2021-02-15 08:47 | PM.DS ---
DS: Providers Provider Date of Service: 02/15/21 Date of admission: 02/14/21 13:14 Primary care physician: Hailey Daniel NP DS: Diagnosis Discharge Diagnosis (1) Dehydration: Status: Acute (2) Renal failure: Status: Acute DS: Medications Discharge Medications Home Medications: Home Medications Medication Instructions Recorded Confirmed Lantus Solostar U-100 Insulin 19 unit SUBCUT BEDTIME 02/14/21 02/14/21 metformin 1 tab PO BID 02/14/21 02/14/21 sertraline 1 tab PO DAILY 02/14/21 02/14/21 Previous Rx's Medication Instructions Recorded amlodipine 5 mg PO DAILY #30 tab 02/15/21 DS: Summary Hospital Course Hospital Course: patient was admitted for gastroenteritis complicated by dehydration and AMISHA. she was given IV fluids, antiemetics. her nausea improved and she was able to tolerate solid diet. her creatinine improved from 2.32 to 1.51. her lisinopril was held and she was started on amlodipine 5mg daily. henok is feeling much better and would like to go home. she will follow up labs in about one week, continue amlodipine instead of lisinpril, if labs okay and BP still elevated would restart lisinopril. patient was incenditally noted to have large gallstone on CT. this was not felt to be etiology of her symptoms, but if she does develop RUQ pain in future, should be considered. Time Spent with Patient Time attestation: Total time spent providing and/or coordinating discharge services: Discharge coordination time: Greater than 30 minutes Quality: Stroke Does the patient have a stroke diagnosis?: No Physical Exam Vital Signs: Vital Signs: Last Vital Signs Temp 97.7 F 02/15/21 08:00 Pulse 86 02/15/21 08:00 Resp 18 02/15/21 08:00 BP 168/88 H 02/15/21 08:11 Pulse Ox 98 02/15/21 08:00 Body Mass Index 32.9 General: AO X 3, no acute distress Resp: CTA bilateral CVS: S1,S2,RRR GI: soft, non tender, non distended Neuro: motor grossly intact Psych: appropriate affect DS: Data Data Completed and Pending Labs on day of discharge: Laboratory Results - last 24 hr 02/14/21 02/14/21 02/14/21 08:20 18:24 21:20 WBC RBC Hgb Hct MCV MCH MCHC RDW Plt Count MPV Absolute Nucleated RBC Nucleated RBC % (auto) Sodium 136 Potassium 4.3 Chloride 96 Carbon Dioxide 29 Anion Gap 15 BUN 31 H D Creatinine 2.32 H Estim Creat Clear Calc 32.2 Estimated GFR 23 POC Glucose 130 H 174 H Random Glucose 175 H D Calcium 9.0 Total Bilirubin 0.5 Direct Bilirubin 0.2 AST 22 D ALT 19 Alkaline Phosphatase 84 Total Protein 7.4 Albumin 3.8 Lipase 56 02/15/21 02/15/21 02/15/21 05:44 05:44 07:19 WBC 8.1 RBC 3.32 L Hgb 9.5 L Hct 28.9 L MCV 87.0 MCH 28.6 MCHC 32.9 RDW 12.2 Plt Count 350 MPV 9.9 Absolute Nucleated RBC 0.000 Nucleated RBC % (auto) 0.0 Sodium 137 Potassium 4.6 Chloride 104 Carbon Dioxide 27 Anion Gap 11 L BUN 23 H Creatinine 1.51 H Estim Creat Clear Calc 49.5 Estimated GFR 38 POC Glucose 251 H Random Glucose 149 H Calcium 8.7 Total Bilirubin Direct Bilirubin AST ALT Alkaline Phosphatase Total Protein Albumin Lipase Discharge Plan Discharge Patient Disposition: Home, Self-Care Discharge Diagnosis: amisha Referrals: Hailey Daniel NP [Primary Care Provider] - 1 Week Discharge Medications: New amlodipine 5 mg Tablet 5 mg PO DAILY Qty: 30 RF: 0 Continued metformin 1,000 mg tablet 1 tab PO BID RF: 0 sertraline 50 mg tablet 1 tab PO DAILY RF: 0 Lantus Solostar U-100 Insulin 100 unit/mL (3 mL) insulin pen 19 unit subcut BEDTIME RF: 0 Discontinued lisinopril 5 mg tablet 1 tab PO DAILY RF: 0 Discharge Orders: Discharge Order (Routine); Ordered 02/15/21 Ordered By: Kin Vines Diet: advance to usual diet Activity on Discharge: As tolerated Stand Alone Forms: Patient Portal Discharge page Other Ambulatory Orders: Basic Metabolic Panel (Routine) Timeframe: 1 Week Facility: [facility] - Location: Laboratory Ordered By: Kin Vines Care Plan Goals: recovery Health Concerns: amisha Plan of Treatment: stop lisinopril for now, take amlodipine instead, recheck labs in about one week, follow up with pcp, consider restarting lisinpril if labs ok and bp still high Assessment: see above
--- NOTE | 2021-02-15 08:53 | MHC.CM.PN ---
PT CLEARED TO [facility] [facility] TODAY WITH NO SERVICES.
== END 2021-02-15 10:01 | disposition home or self-care (01) | DRG 249 ==
LOC: HO.ED 12:34 → HO.EDOVER 13:26 → HO.IMC 19:41
PROVIDERS: Admitting Provider Internal Medicine; Emergency Provider Emergency Medicine Emergency Medical Services; PCP Nurse Practitioner Family; Visit Provider Internal Medicine
DX: K52.9 Noninfective gastroenteritis and colitis, unspecified (principal); N17.9 Acute kidney failure, unspecified; K80.80 Other cholelithiasis without obstruction; E86.0 Dehydration; E11.9 Type 2 diabetes mellitus without complications; I10 Essential (primary) hypertension; F41.9 Anxiety disorder, unspecified; Z20.822 Contact with and (suspected) exposure to COVID-19; Z79.4 Long term (current) use of insulin; Z79.899 Other long term (current) drug therapy
CPT/HCPCS: 36415; 74176; 80048; 80076; 81001; 81003; 81025; 82947; 83690; 85025; 85027; 87086; 87088; 87186; 87635; 99285; J2765

== ENCOUNTER 2021-12-16 12:37 | Emergency (ER) | payer OTHER, SELFPAY ==
--- NOTE | 2021-12-15 06:24 | ECG_ITS ---
Test Reason : BILAT LEGSWELLING Blood Pressure : / mmHG Vent. Rate : 094 BPM Atrial Rate : 094 BPM P-R Int : 138 ms QRS Dur : 084 ms QT Int : 374 ms P-R-T Axes : 049 -22 046 degrees QTc Int : 467 ms Normal sinus rhythm Cannot rule out Anterior infarct , age undetermined Abnormal ECG When compared with ECG of 08-FEB-2021 13:55, No significant change was found Referred By: Generic ED Physician Electronically Signed By:Boogie Cartagena
[2021-12-16 13:31] VITALS: BP 219/102; PULSE 88; RESP 20; TEMP 36.9; O2SAT 96; BMI 31.7
== END 2021-12-16 22:47 | disposition left against medical advice (07) ==
LOC: HO.ED 22:55
PROVIDERS: Emergency Provider Emergency Medicine
DX: M79.89 Other specified soft tissue disorders (principal); I10 Essential (primary) hypertension; E11.9 Type 2 diabetes mellitus without complications
CPT/HCPCS: 93005; 99281; 99283

== ENCOUNTER 2022-07-12 08:31 | Inpatient (IN) | payer OTHER, SELFPAY ==
[2022-07-12] VITALS (10 sets, daily range): BP systolic 152–219; BP diastolic 68–99; PULSE 94–109; RESP 14–27; TEMP 36.2–37.1; O2SAT 91–100; BMI 36.6
--- NOTE | ~2022-07-12 | CT_ITS ---
EXAMINATION: CT ABDOMEN AND PELVIS WITHOUT CONTRAST CLINICAL INFORMATION: Acute kidney injury COMPARISON: CT abdomen pelvis February 14, 2021 TECHNIQUE: Multidetector volumetric imaging was performed from the superior aspect of the liver through the pubic symphysis. Sagittal and coronal reformatted images were obtained on the technologist's workstation. This CT examination was performed using dose optimization techniques as appropriate, variously including the following: *Automated exposure control *Adjustment of mA and/or kV according to patient size (this includes techniques or standardized protocols for targeted exams where dose is matched to indication/reason for exam; i.e. extremities or head) *Use of iterative reconstruction technique DLP: 852 mGy-cm FINDINGS: Visualized lung bases demonstrate small bilateral pleural effusions with overlying airspace disease, suspect atelectasis. The liver demonstrates normal size, contour and attenuation. Gallstones are again appreciated within a decompressed gallbladder. The pancreas, spleen and adrenal glands are unremarkable. Symmetrically sized kidneys. No renal calculi or hydronephrosis of either kidney. There is mild bilateral perinephric stranding which appears new compared with prior imaging from January 2021. Debris-filled stomach. Normal caliber loops of small and large bowel. There is diffuse subcutaneous edema/stranding in the region of the umbilicus without well-defined fluid collection, nonspecific. Normal caliber abdominal aorta demonstrating only minimal atherosclerotic disease. No retroperitoneal lymphadenopathy. The bladder is normally distended and unremarkable in appearance. Unremarkable CT appearance of the uterus no gross free pelvic fluid. Shotty bilateral inguinal lymph nodes appear similar. No acute osseous abnormality. CT/CT abdomen pelvis wo IV con IMPRESSION: 1. No renal calculi or hydronephrosis of either kidney. There is mild bilateral perinephric stranding which appears new compared with prior imaging from January 2021. Clinical correlation recommended. 2. Cholelithiasis. 3. Small bilateral pleural effusions with overlying airspace disease, suspect atelectasis. 4. Diffuse subcutaneous edema/stranding in the region of the umbilicus without well-defined fluid collection. Fleischner guidelines were followed.
--- NOTE | ~2022-07-12 | XR_ITS ---
EXAMINATION: XR CHEST CLINICAL INFORMATION: Dyspnea COMPARISON: Chest x-ray June 27, 2019 TECHNIQUE: Frontal view of the chest was obtained. FINDINGS: Cardiac silhouette is at the upper limits of normal in size. The lungs are adequately aerated. No lobar consolidation. No pleural effusion or pneumothorax. XR/XR chest 1V IMPRESSION: No acute pulmonary pathology.
--- NOTE | 2022-07-12 09:04 | ECG_ITS ---
Test Reason : SOB Blood Pressure : / mmHG Vent. Rate : 098 BPM Atrial Rate : 098 BPM P-R Int : 124 ms QRS Dur : 082 ms QT Int : 364 ms P-R-T Axes : 044 -03 065 degrees QTc Int : 464 ms Normal sinus rhythm Normal ECG When compared with ECG of 16-DEC-2021 13:36, No significant change was found Referred By: Generic ED Physician Electronically Signed By:KARINA ROSARIO
--- NOTE | 2022-07-12 09:09 | ED_ITS ---
HPI - SOB/Dyspnea General Chief Complaint: Dyspnea Stated Complaint: diff breathing, swollen legs/feet Time Seen by Provider: 07/12/22 09:08 Source: patient and old records reviewed Mode of arrival: ambulatory Limitations: no limitations History of Present Illness HPI Narrative: 41 yo female with history of DM on insulin, HTN, HLD, depression who has been noncompliant with all medications for the last few months presents to the ER for evaluation of worsening SOB and LE swelling for the last week. She states her breathing has been getting worse over the last week or so, it is worse with any exertion or when lying down. She has not been sleeping well due to the shortness of breath. She also reports pain due to lower extremity swelling, both of her lower legs are tense and tender. she states she has not taken her water pills, insulin or blood pressure medications in several months. She is upset at herself for being noncompliant. she reports poor p.o. intake due to ongoing nausea. She states her medications make her feel unwell and nauseous. MD elicited complaint: shortness of breath Pertinent past history: diabetes Onset (ago): week(s) (1) Timing: progressively worsening Severity: moderate Exacerbating factors: lying flat and exertion Relieving factors: oxygen and upright position Known history of: diabetes Associated symptoms: abdominal pain Treatment prior to arrival: none Related Data Home oxygen amount: none Home Medications Medication Instructions Recorded Confirmed insulin glargine 100 unit/mL (3 19 unit subcut BEDTIME 02/14/21 02/14/21 mL) subcutaneous pen (Lantus Solostar U-100 Insulin) metformin 1,000 mg tablet 1 tab PO BID 02/14/21 02/14/21 sertraline 50 mg tablet 1 tab PO DAILY 02/14/21 02/14/21 Previous Rx's Medication Instructions Recorded amlodipine 5 mg tablet 5 mg PO DAILY #30 tabs 02/15/21 Allergies Allergy/AdvReac Type Severity Reaction Status Date / Time No Known Allergies Allergy Verified 07/12/22 09:01 [No Known Allergies*] Review of Systems Review of Systems: Constitutional: No Fever, No Chills ENT/Mouth: No sore throat, No Rhinorrhea, No Swallowing Difficulty Eyes: No Eye Pain, No Swelling, No Redness Cardiovascular: No Chest Pain, +SOB, + Orthopnea, + Edema Respiratory: No Cough, No Sputum, No Wheezing, + dyspnea Gastrointestinal: + Nausea, No Vomiting, No Diarrhea, + abdominal Pain, No Hematochezia, No Melena Genitourinary: No Dysuria, No Urinary Frequency, No Hematuria Musculoskeletal: No joint pain, No Myalgias Skin: No Skin Lesions, No rash Neuro: No Weakness, No Numbness, No Dizziness, No Headache Psych: + Anxiety/Panic, + Depression Heme/Lymph: No Bruising, No Lymphadenopathy Endocrine: No Polyuria, No Polydipsia [facility] Past Medical History Medical History Anxiety 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, managed as type 2 Social History Social History Household Members: Family Housing: House Do you presently have visiting nurse or other home services: No Unable to assess alcohol history related to: Unknown Alcohol intake: current Alcohol intake frequency: holidays/special occasions only Patient Tobacco Use Status: Never used Tobacco Smoked in Last 30 Days: Yes Use of substances other than those prescribed or required for medical reasons: No Advance Directives: No Patient : No Physical Exam Vital Signs: Vital Signs: Last Vital Signs Temp 98.3 F 07/12/22 09:28 Pulse 101 H 07/12/22 10:29 Resp 26 H 07/12/22 10:29 BP 180/89 H 07/12/22 10:29 Pulse Ox 95 07/12/22 10:29 O2 Del Method 07/12/22 10:29 O2 Flow Rate 4 07/12/22 10:29 BMI result Body Mass Index 36.6 Appearance: Alert. Oriented X3. pale, mild respiratory distress with tachypnea Eyes: Pupils equal, round and reactive to light. ENT: Pharynx normal. Neck: Normal inspection. Neck supple. +JVD CVS: Tachycardic, heart rate low 1 100s, regular rhythm. Pulses normal. Respiratory: Mild respiratory distress Respiratory rate in the mid 20s. Breath sounds Diminished at the bases, no appreciated rales or wheezes. Abdomen: Soft and nontender. +BS x4 Skin: Skin warm and dry. Normal skin color. Normal skin turgor. No rashes. Extremities: 3+ pitting lower extremity edema, skin is taught and shiny without erythema or warmth. Neuro: Oriented X 3. No motor deficit. No sensory deficit. Course Course Course Narrative: 41-year-old female with history of hypertension, diabetes on insulin, depression, history of renal failure in the presents to the ER for evaluation of shortness of Breath and lower extremity edema worsening over the last 1 week in the setting of medication noncompliance. On arrival to the ER she is hypertensive with a systolic blood pressure of 219. She is tachypneic mid 20s, SpO2 91% on RA. Concern for acute CHF and volume overload. Nitro paste ordered in improve BP and reduce afterload. CXR, labs, viral swab ordered. Anticipate admission. Reevaluation(s) Reevaluation #1: now on 4 L nasal cannula with SpO2 95%. Chest x-ray is clear, although person ally reviewed and looks like she has some increased pulmonary vascular congestion. She has an AMISHA with creatinine of 3.5, potassium is 6.0 with mild peaked T waves in lateral leads. She is slightly acidotic from her renal failure. She is also anemic with hemoglobin of 7.3, likely dilutional given her volume overload. Guaiac stool is negative. She denies any melena or evidence of GI bleed at home. Hold off on transfusion for now. will treat hyperkalemia with insulin, D50, calcium, Lokelma, Lasix. Will require admission. Reevaluation #2: BNP 1100. No ECHO on file. Given 60 mg lasix. Will closely monitor UOP. Hospitalist TT for admission. Medications Administered Discontinued Medications Generic Name Dose Route Start Last Admin Trade Name Johnq PRN Reason Stop Dose Admin Dextrose 25 gm 07/12/22 10:07 07/12/22 10:21 Dextrose 50 % 25 Gm/50 Ml Syringe IVPUSH 07/12/22 10:08 25 gm ONCE ONE Administration Furosemide 60 mg 07/12/22 10:07 07/12/22 10:21 Furosemide 100 Mg/10 Ml Vial IVPUSH 07/12/22 10:08 60 mg ONCE ONE Administration Protocol Calcium Gluconate 1 gm in 50 mls @ 50 mls/hr 07/12/22 10:07 07/12/22 10:18 Calcium Gluconate IV 07/12/22 11:06 50 mls/hr ONCE ONE Administration Insulin Human Regular 5 unit 07/12/22 10:07 07/12/22 10:19 Insulin Regular, Human 100 Unit/Ml 3 Ml Vial IVPUSH 07/12/22 10:08 5 unit ONCE ONE Administration Nitroglycerin 1 inch 07/12/22 09:16 07/12/22 09:41 Nitroglycerin 2 % Oint 1 Gm Packet TRANSDERMA 07/12/22 09:17 1 inch ONCE ONE Administration Sodium Zirconium Cyclosilicate 10 gm 07/12/22 10:07 07/12/22 10:19 Sodium Zirconium Cyclosilicate 10 Gm Powd.Pack PO 07/12/22 10:08 10 gm ONCE ONE Administration Medical Decision Making Consult Healthcare Provider Management of the patient was discussed with: Hospitalist Lab Data MDM Lab Attestation statement: I reviewed the patient's lab results. Result Diagrams: 07/12/22 09:20 07/12/22 09:20 Labs: Lab Results 07/12/22 07/12/22 07/12/22 Range/Units 09:20 09:20 09:20 WBC 7.3 (4.8-10.8) X10*3/uL RBC 2.58 L (4.20-5.50) X10*6/uL Hgb 7.3 L (12.0-16.0) g/dl Hct 23.3 L (37.0-47.0) % MCV 90.3 (80.0-98.0) fL MCH 28.3 (27.0-33.0) pg MCHC 31.3 (31.0-35.0) g/dl RDW 13.2 (11.0-16.0) % Plt Count 323 (160-400) X10*3/uL MPV 10.0 (9.4-12.3) fL Immature Gran % (Auto) 0.3 (0.0-0.4) % Neut % (Auto) 66.0 (45-73) % Lymph % (Auto) 22.4 (20-40) % [place] % (Auto) 6.2 (2-11) % Eos % (Auto) 4.4 H (0-4) % Baso % (Auto) 0.7 (0-2) % Lymph # (Auto) 1.6 (1.2-4.9) X10*3/uL [place] # (Auto) 0.5 (0.1-1.2) X10*3/uL Eos # (Auto) 0.3 (0.0-0.4) X10*3/uL Baso # (Auto) 0.1 (0.0-0.2) X10*3/uL Abs Immat Gran (auto) 0.02 (0.00-0.03) X10*3/uL Absolute Neuts (auto) 4.8 (2.0-8.3) x10*3/uL Absolute Nucleated RBC 0.000 (0.0-0.012) X10*3/uL Nucleated RBC % (auto) 0.0 (0.0-0.2) /100WBC VBG pH (7.32-7.43) VBG pCO2 mmHg VBG pO2 mmHg VBG HCO3 (22-26) mmol/L VBG O2 Saturation % VBG Base Excess mmol/L Sodium 137 (135-145) mmol/L Potassium 6.0 H* D (3.3-5.1) mmol/L Chloride 113 H (96-108) mmol/L Carbon Dioxide 13 L (22-29) mmol/L Anion Gap 17 (12-20) BUN 42 H (9-16) mg/dL Creatinine 3.58 H (0.5-1.4) mg/dL Estim Creat Clear Calc 21.8 Estimated GFR 14 POC Glucose (60-115) mg/dL Random Glucose 242 H (60-115) mg/dL Calcium 7.3 L D (8.4-10.2) mg/dL Iron 26 L (30-160) mcg/dL TIBC 241 (228-428) mcg/dL % Saturation 11 L (15-50) % Unsat Iron Binding 215 ug/dL Troponin I High Sens 14.4 (<3.5-17.0) ng/L B-Natriuretic Peptide (<100) pg/mL Urine Osmolality (373-1093) mosm/kg Ur Random Sodium mmol/L Urine Creatinine mg/dL Stool Occult Blood (NEGATIVE) Influenza Type A (PCR) (Negative) Influenza Type B (PCR) (Negative) RSV RNA Qual (PCR) (Negative) SARS-CoV-2 RNA (RT-PCR) (Negative) 07/12/22 07/12/22 07/12/22 Range/Units 09:20 09:22 09:38 WBC (4.8-10.8) X10*3/uL RBC (4.20-5.50) X10*6/uL Hgb (12.0-16.0) g/dl Hct (37.0-47.0) % MCV (80.0-98.0) fL MCH (27.0-33.0) pg MCHC (31.0-35.0) g/dl RDW (11.0-16.0) % Plt Count (160-400) X10*3/uL MPV (9.4-12.3) fL Immature Gran % (Auto) (0.0-0.4) % Neut % (Auto) (45-73) % Lymph % (Auto) (20-40) % [place] % (Auto) (2-11) % Eos % (Auto) (0-4) % Baso % (Auto) (0-2) % Lymph # (Auto) (1.2-4.9) X10*3/uL [place] # (Auto) (0.1-1.2) X10*3/uL Eos # (Auto) (0.0-0.4) X10*3/uL Baso # (Auto) (0.0-0.2) X10*3/uL Abs Immat Gran (auto) (0.00-0.03) X10*3/uL Absolute Neuts (auto) (2.0-8.3) x10*3/uL Absolute Nucleated RBC (0.0-0.012) X10*3/uL Nucleated RBC % (auto) (0.0-0.2) /100WBC VBG pH (7.32-7.43) VBG pCO2 mmHg VBG pO2 mmHg VBG HCO3 (22-26) mmol/L VBG O2 Saturation % VBG Base Excess mmol/L Sodium (135-145) mmol/L Potassium (3.3-5.1) mmol/L Chloride (96-108) mmol/L Carbon Dioxide (22-29) mmol/L Anion Gap (12-20) BUN (9-16) mg/dL Creatinine (0.5-1.4) mg/dL Estim Creat Clear Calc Estimated GFR POC Glucose 226 H (60-115) mg/dL Random Glucose (60-115) mg/dL Calcium (8.4-10.2) mg/dL Iron (30-160) mcg/dL TIBC (228-428) mcg/dL % Saturation (15-50) % Unsat Iron Binding ug/dL Troponin I High Sens (<3.5-17.0) ng/L B-Natriuretic Peptide 1147 H (<100) pg/mL Urine Osmolality (373-1093) mosm/kg Ur Random Sodium mmol/L Urine Creatinine mg/dL Stool Occult Blood (NEGATIVE) Influenza Type A (PCR) NEGATIVE (Negative) Influenza Type B (PCR) NEGATIVE (Negative) RSV RNA Qual (PCR) NEGATIVE (Negative) SARS-CoV-2 RNA (RT-PCR) NEGATIVE (Negative) 07/12/22 07/12/22 07/12/22 Range/Units 09:42 09:51 10:32 WBC (4.8-10.8) X10*3/uL RBC (4.20-5.50) X10*6/uL Hgb (12.0-16.0) g/dl Hct (37.0-47.0) % MCV (80.0-98.0) fL MCH (27.0-33.0) pg MCHC (31.0-35.0) g/dl RDW (11.0-16.0) % Plt Count (160-400) X10*3/uL MPV (9.4-12.3) fL Immature Gran % (Auto) (0.0-0.4) % Neut % (Auto) (45-73) % Lymph % (Auto) (20-40) % [place] % (Auto) (2-11) % Eos % (Auto) (0-4) % Baso % (Auto) (0-2) % Lymph # (Auto) (1.2-4.9) X10*3/uL [place] # (Auto) (0.1-1.2) X10*3/uL Eos # (Auto) (0.0-0.4) X10*3/uL Baso # (Auto) (0.0-0.2) X10*3/uL Abs Immat Gran (auto) (0.00-0.03) X10*3/uL Absolute Neuts (auto) (2.0-8.3) x10*3/uL Absolute Nucleated RBC (0.0-0.012) X10*3/uL Nucleated RBC % (auto) (0.0-0.2) /100WBC VBG pH 7.31 L (7.32-7.43) VBG pCO2 27 mmHg VBG pO2 53 mmHg VBG HCO3 14 L (22-26) mmol/L VBG O2 Saturation 81.0 % VBG Base Excess -10.6 mmol/L Sodium (135-145) mmol/L Potassium (3.3-5.1) mmol/L Chloride (96-108) mmol/L Carbon Dioxide (22-29) mmol/L Anion Gap (12-20) BUN (9-16) mg/dL Creatinine (0.5-1.4) mg/dL Estim Creat Clear Calc Estimated GFR POC Glucose (60-115) mg/dL Random Glucose (60-115) mg/dL Calcium (8.4-10.2) mg/dL Iron (30-160) mcg/dL TIBC (228-428) mcg/dL % Saturation (15-50) % Unsat Iron Binding ug/dL Troponin I High Sens (<3.5-17.0) ng/L B-Natriuretic Peptide (<100) pg/mL Urine Osmolality (373-1093) mosm/kg Ur Random Sodium 87.0 mmol/L Urine Creatinine 50.47 mg/dL Stool Occult Blood NEGATIVE (NEGATIVE) Influenza Type A (PCR) (Negative) Influenza Type B (PCR) (Negative) RSV RNA Qual (PCR) (Negative) SARS-CoV-2 RNA (RT-PCR) (Negative) 07/12/22 Range/Units 10:32 WBC (4.8-10.8) X10*3/uL RBC (4.20-5.50) X10*6/uL Hgb (12.0-16.0) g/dl Hct (37.0-47.0) % MCV (80.0-98.0) fL MCH (27.0-33.0) pg MCHC (31.0-35.0) g/dl RDW (11.0-16.0) % Plt Count (160-400) X10*3/uL MPV (9.4-12.3) fL Immature Gran % (Auto) (0.0-0.4) % Neut % (Auto) (45-73) % Lymph % (Auto) (20-40) % [place] % (Auto) (2-11) % Eos % (Auto) (0-4) % Baso % (Auto) (0-2) % Lymph # (Auto) (1.2-4.9) X10*3/uL [place] # (Auto) (0.1-1.2) X10*3/uL Eos # (Auto) (0.0-0.4) X10*3/uL Baso # (Auto) (0.0-0.2) X10*3/uL Abs Immat Gran (auto) (0.00-0.03) X10*3/uL Absolute Neuts (auto) (2.0-8.3) x10*3/uL Absolute Nucleated RBC (0.0-0.012) X10*3/uL Nucleated RBC % (auto) (0.0-0.2) /100WBC VBG pH (7.32-7.43) VBG pCO2 mmHg VBG pO2 mmHg VBG HCO3 (22-26) mmol/L VBG O2 Saturation % VBG Base Excess mmol/L Sodium (135-145) mmol/L Potassium (3.3-5.1) mmol/L Chloride (96-108) mmol/L Carbon Dioxide (22-29) mmol/L Anion Gap (12-20) BUN (9-16) mg/dL Creatinine (0.5-1.4) mg/dL Estim Creat Clear Calc Estimated GFR POC Glucose (60-115) mg/dL Random Glucose (60-115) mg/dL Calcium (8.4-10.2) mg/dL Iron (30-160) mcg/dL TIBC (228-428) mcg/dL % Saturation (15-50) % Unsat Iron Binding ug/dL Troponin I High Sens (<3.5-17.0) ng/L B-Natriuretic Peptide (<100) pg/mL Urine Osmolality 384 (373-1093) mosm/kg Ur Random Sodium mmol/L Urine Creatinine mg/dL Stool Occult Blood (NEGATIVE) Influenza Type A (PCR) (Negative) Influenza Type B (PCR) (Negative) RSV RNA Qual (PCR) (Negative) SARS-CoV-2 RNA (RT-PCR) (Negative) Independent Interpretation I performed an independent interpretation of an: EKG Interpretation: normal sinus rhythm, HR 98, normal [place] interval, normla [place] interval, mild peaked T waves in V2-V5. no ST segment elevations or depressions Radiology Impression Discussion of test interpretation with radiology: I have reviewed the radiologist's reading. External Record Review External record reviewed: Prior outpatient labs and Prior outpatient radiology Chronic Conditions Patient?s care impacted by: Diabetes and Hypertension noncompliance Critical Care Time Critical Care Time Critical Care Time: Yes Total Critical Care Time: 42 Attestation: I have personally provided critical care time exclusive of time spent on separately billable procedures. Time includes review of lab data, radiology results, discussion with consultants, and monitoring for potential deco mpensation. Intervention performed as documented. Discharge Plan Discharge Clinical Impression: AMISHA (acute kidney injury), Hypertensive urgency, Acute hyperkalemia, Acute respiratory failure with hypoxia, Volume overload, Anemia Patient Disposition: Admitted As Inpatient
--- OUTSIDE RECORDS SUMMARY | 2022-07-12 09:25 | XMS_ITS | Continuity of Care Document ---
:1980 Author Organization [facility] Address [address] [place] [id number]- Care Team Providers Name Role Phone Fredy DELCID, Hailey Bowman Primary Care Physician [phone] Encounter [facility] [place] Date(s): 01/09/21 - 01/16/21 [facility] [address] [place] [id number] Encounter Diagnosis Diabetic neuropathy associated with type 2 diabetes mellitus (Discharge Diagnosis) - 01/09/21 Major depression, recurrent (Discharge Diagnosis) - 01/09/21 Attending Physician: Fredy DELCID, Hailey Bowman Referring Physician: Rajiv Lyn MD Allergies, Adverse Reactions, Alerts Substance Reaction Severity Status NKA Active Medications Alcohol Wipes See Instructions, # 100 supp, Maintenance, before meals and at bedtime., 08/31/19 16:55:00 EST, Compound, 160, cm, 08/31/19 16:27:00 EST, Height Start Date: 08/31/19 Status: Orderedaspirin 81 mg oral delayed release tablet 81 mg, 1, tablet, By Mouth, Daily, # 90 tablet, Refills 1, Tot. Refills 1, Maintenance, 06/06/20 7:49:00 EST, Route to Pharmacy Electronically, [facility] #[id number], 158.8, cm, 05/25/20 9:00:00 EDT, Height, 79.7, kg, 05/10/20 16:46:00 EDT, Dry... Start Date: 06/06/20 Status: Orderedatorvastatin 10 mg oral tablet 1 tablet = 10 mg, By Mouth, Daily, # 90 tablet, 0 Refills, Maintenance, 12/10/20 12:19:00 EDT, [facility] #[id number], 158.8, cm, 06/06/20 8:02:00 EST, Height, 79.7, kg, 05/10/20 16:46:00 EDT, DryWeight Start Date: 12/10/20 Status: OrderedGlucose Monitor See Instructions, # 1 supp, Maintenance, use it before meals and at bedtime., 06/06/17 10:31:21, Compound Start Date: 06/06/17 Status: OrderedGlucose Test Strips See Instructions, # 100 supp, Maintenance, before meals and at bedtime., 06/06/17 10:31:23, Compound Start Date: 06/06/17 Status: OrderedHome Blood Pressure Monitor See Instructions, # 1 each, Maintenance, Use to check blood pressure daily, 08/31/19 17:07:00 EST, Compound Start Date: 08/31/19 Status: OrderedInsulin Syringes See Instructions, # 100 supp, Maintenance, at bedtime., 06/06/17 10:31:27, Compound Start Date: 06/06/17 Status: OrderedLancets See Instructions, # 100 supp, Maintenance, before meals and at bedtime., 06/06/17 10:31:31, Compound Start Date: 06/06/17 Status: OrderedLantus Solostar Pen 100 units/mL subcutaneous solution = 16 units, Subcutaneous Injection, Daily at bedtime, # 12 mL, 0 Refills, Maintenance, 12/06/20 12:38:00 EDT, Solution, [facility] #[id number], Replacing Basaglar 12/06/20, 158.8, cm, 06/06/20 8:02:00 EST, Height, 79.7, kg, 05/10/20 16:46:00 EDT,... Start Date: 12/06/20 Stop Date: 03/06/21 Status: Orderedlisinopril 2.5 mg oral tablet 2.5 mg, 1, tablet, By Mouth, Daily, # 90 tablet, Refills 1, Tot. Refills 1, Maintenance, 09/12/20 8:15:00 EST, Route to Pharmacy Electronically, [email or web address] #[id number], Partial fill upon patient request if the prescription is for a schedule II op... Start Date: 09/12/20 Status: OrderedmetFORMIN 1000 mg oral tablet 1 tablet = 1,000 mg, By Mouth, 2 times a day, # 60 tablet, 6 Refills, Maintenance, 05/31/20 16:22:00EST, [facility] #[id number], 158, cm, 05/10/20 9:19:00 EDT, Height, 82, kg, 05/10/20 9:19:00 EDT, Dry Weight Start Date: 05/31/20 Stop Date: 12/27/20 Status: OrderedPen [place], 29 G x 12.7 mm BD Ultra Fine See Instructions, # 300 each, Refills 5, Tot. Refills 5, Maintenance, DMII E11.9 Use with Basaglar KWIKPEN injection, 05/07/20 13:56:00 EDT, Supply, 162, cm, 02/01/20 15:55:00 EDT, Height Start Date: 05/07/20 Stop Date: 10/29/21 Status: Orderedsertraline 50 mg oral tablet 1 tablet = 50 mg, By Mouth, Daily, # 30 tablet, 1 Refills, Maintenance, 12/10/20 12:36:00 EDT, Tablet, [email or web address] #[id number], Partial fill upon patient request if the prescription is for a schedule II opioid drug., 158.8, cm, 06/06/20 8:02:00 ES... Start Date: 12/10/20 Status: Ordered Problem List Condition Effective Dates Status Health Status Informant Hyperlipidemia(Confirmed) Active Microalbuminuria(Confirmed) Active Diabetic neuropathy associated with Active type 2 diabetes mellitus(Confirmed) Abdominal obesity(Confirmed) Active Obesity (BMI 30.0-34.9)(Confirmed) Active Major depression, recurrent(Confirmed) Active Poor dentition(Confirmed) Active Type 2 diabetes mellitus(Confirmed) Active Diagnosis Diagnosis Type Effective Dates Health Clinical Infor mant Status Service Diabetic Discharge 01/09/21 neuropathy Diagnosis associated with type 2 diabetes mellitus Major depression, Discharge 01/09/21 recurrent Diagnosis Vital Signs Most recent to oldest [Reference Range]: 1 Height 158.8 cm (01/09/21 7:40 AM) Social History Social History Type Response Smoking Status Never (less than 100 in life time) entered on: 08/31/19 Sex
--- OUTSIDE RECORDS SUMMARY | 2022-07-12 09:25 | XMS_ITS | Continuity of Care Document ---
:1980 Author Organization [facility] Address [address] [place] [id number]- Care Team Providers Name Role Phone Fredy DELCID, Hailey Bowman Primary Care Physician [phone] Encounter [facility] [place] Date(s): 02/18/21 - 03/30/21 [facility] [address] [place] [id number] Attending Physician: Not on Staff, Attending MD Allergies, Adverse Reactions, Alerts Substance Reaction Severity Status NKA Active Medications Alcohol Wipes See Instructions, # 100 supp, Maintenance, before meals and at bedtime., 08/31/19 16:55:00 EST, Compound, 160, cm, 08/31/19 16:27:00 EST, Height Start Date: 08/31/19 Status: Orderedaspirin 81 mg oral delayed release tablet 81 mg, 1, tablet, By Mouth, Daily, # 90 tablet, Refills 1, Tot. Refills 1, Maintenance, 03/06/21 8:13:00 EDT, Route to Pharmacy Electronically, [facility] #[id number], 158.8, cm, 03/06/21 8:04:00 EDT, Height, 79.7, kg, 05/10/20 16:46:00 EDT, Dry... Start Date: 03/06/21 Status: Orderedatorvastatin 10 mg oral tablet 1 tablet = 10 mg, By Mouth, Daily, # 90 tablet, 1 Refills, Maintenance, 03/06/21 8:11:00 EDT, [facility] #[id number], 158.8, cm, 03/06/21 8:04:00 EDT, Height, 79.7, kg, 05/10/20 16:46:00 EDT, Dry Weight Start Date: 03/06/21 Status: OrderedGlucose Monitor See Instructions, # 1 [...] Solostar Pen 100 units/mL subcutaneous solution = 19 units, Subcutaneous Injection, Daily at bedtime, # 12 mL, 3 Refills, Maintenance, 03/06/21 12:38:00 EDT, Solution, [facility] #[id number], Replacing Tenzin 12/06/20, 158.8, cm, 01/23/21 8:45:00 EDT, Height, 79.7, kg, 05/10/20 16:46:00 EDT,... Start Date: 03/06/21 Stop Date: 03/01/22 Status: Orderedlisinopril 5 mg oral tablet 5 mg, 1, tablet, By Mouth, Daily, # 30 tablet, Refills 0, Tot. Refills 0, Maintenance, 03/13/21 13:42:00 EDT, Route to Pharmacy Electronically, [facility] #[id number], Partial fill upon patient request if the prescription is for a schedule II opi... Start Date: 03/13/21 Status: OrderedmetFORMIN 1000 mg oral tablet 1 tablet = 1,000 mg, By Mouth, 2 times a day, # 60 tablet, 6 Refills, Maintenance, 02/08/21 11:25:00EDT, [facility] #[id number], 158.8, cm, 02/08/21 11:22:00 EDT, Height, 79.7, kg, 05/10/20 16:46:00 EDT, Dry Weight Start Date: 02/08/21 Stop Date: 09/06/21 Status: OrderedPen [place], 29 G x 12.7 mm BD Ultra Fine See Instructions, # 300 each, Refills 5, Tot. Refills 5, Maintenance, DMII E11.9 Use with Basaglar KWIKPEN injection, 05/07/20 13:56:00 EDT, Supply, 162, cm, 02/01/20 15:55:00 EDT, Height Start Date: 05/07/20 Stop Date: 10/29/21 Status: Orderedsertraline 50 mg oral tablet 1 tablet = 50 mg, By Mouth, Daily, # 90 tablet, 1 Refills, Maintenance, 03/06/21 8:12:00 EDT, Tablet, [facility] #[id number], Partial fill upon patient request if the prescription is for a schedule II opioid drug., 158.8, cm, 03/06/21 8:04:00 EDT... Start Date: 03/06/21 Status: Ordered Problem List Condition Effective Dates Status Health Status Informant Hyperlipidemia(Confirmed) Active Microalbuminuria(Confirmed) Active Diabetic neuropathy associated with Active type 2 diabetes mellitus(Confirmed) Abdominal obesity(Confirmed) Active Obesity (BMI 30.0-34.9)(Confirmed) Active Major depression, recurrent(Confirmed) Active Poor dentition(Confirmed) Active Type 2 diabetes mellitus(Confirmed) Active Social History Social History Type Response Smoking Status Never (less than 100 in life time) entered on: 08/31/19 Sex
--- OUTSIDE RECORDS SUMMARY | 2022-07-12 09:25 | XMS_ITS | Continuity of Care Document ---
:1980 Author Organization [facility] Address [address] [place] [id number]- Care Team Providers Name Role Phone Fredy DELCID, Hailey Bowman Primary Care Physician [phone] Encounter [facility] [place] [id number] Date(s): 09/12/20 - 09/19/20 [facility] [address] [place] [address]- Encounter Diagnosis Type 2 diabetes mellitus (Discharge Diagnosis) - 09/12/20 Depression (Discharge Diagnosis) - 09/12/20 Diabetic neuropathy associated with type 2 diabetes mellitus (Discharge Diagnosis) - 09/12/20 Hyperlipidemia (Discharge Diagnosis) - 09/12/20 Attending Physician: Not on Staff, Attending MD [...] 06/06/20 7:49:00 EST, Route to Pharmacy Electronically, [facility] #[id number], 158.8, cm, 05/25/20 9:00:00 EDT, Height, 79.7, kg, 05/10/20 16:46:00 EDT, Dry... Start Date: 06/06/20 Status: Orderedatorvastatin 10 mg oral tablet 1 tablet = 10 mg, By Mouth, Daily, # 90 tablet, 1 Refills, Maintenance, 06/06/20 7:51:00 EST, [facility] #[id number], 158.8, cm, 05/25/20 9:00:00 EDT, Height, 79.7, kg, 05/10/20 16:46:00 EDT, Dry Weight Start Date: 06/06/20 Status: OrderedBasaglar KwikPen 100 units/mL subcutaneous solution = 16 units, Subcutaneous Injection, Daily at bedtime, rotate injection sites, # 12 mL, 0 Refills, Maintenance, 05/07/20 13:53:00 EDT, Solution, [facility] #[id number], 162, cm, 02/01/20 15:55:00 EDT, Height Start Date: 05/07/20 Stop Date: 08/05/20 Status: OrderedGlucose Monitor See Instructions, # 1 [...] 06/06/17 10:31:31, Compound Start Date: 06/06/17 Status: Orderedlisinopril 2.5 mg oral tablet 2.5 mg, 1, tablet, By Mouth, Daily, # 90 tablet, Refills 1, Tot. Refills 1, Maintenance, 09/12/20 8:15:00 EST, Route to Pharmacy Electronically, [facility] #[id number], Partial fill upon patient request if the prescription is for a schedule II op... Start Date: 09/12/20 Status: OrderedmetFORMIN 1000 mg oral tablet 1 tablet = 1,000 mg, By Mouth, 2 times a day, # 60 tablet, 6 Refills, Maintenance, 05/31/20 16:22:00EST, [facility] #[id number], 158, cm, 05/10/20 9:19:00 EDT, Height, 82, kg, 05/10/20 9:19:00 EDT, Dry Weight Start Date: 05/31/20 Stop Date: 12/27/20 Status: OrderedPen [place], 29 G x 12.7 mm BD Ultra Fine See Instructions, # 300 each, Refills 5, Tot. Refills 5, Maintenance, DMII E11.9 Use with Basaglar KWIKPEN injection, 05/07/20 13:56:00 EDT, Supply, 162, cm, 02/01/20 15:55:00 EDT, Height Start Date: 05/07/20 Stop Date: 10/29/21 Status: Ordered Problem List Condition Effective Dates Status Health Status Informant Depression(Confirmed) Active Hyperlipidemia(Confirmed) Active Microalbuminuria(Confirmed) Active Diabetic neuropathy associated with Active type 2 diabetes mellitus(Confirmed) Abdominal obesity(Confirmed) Active Obesity (BMI 30.0-34.9)(Confirmed) Active Poor dentition(Confirmed) Active Type 2 diabetes mellitus(Confirmed) Active Diagnosis Diagnosis Type Effective Dates Health Clinical Infor mant Status Service Type 2 diabetes Discharge 09/12/20 mellitus Diagnosis Depression Discharge 09/12/20 Diagnosis Diabetic neuropathy Discharge 09/12/20 associated with type Diagnosis 2 diabetes mellitus Hyperlipidemia Discharge 09/12/20 Diagnosis Social History Social History Type Response Smoking Status Never (less than 100 in life time) entered on: 08/31/19 Sex
--- OUTSIDE RECORDS SUMMARY | 2022-07-12 09:25 | XMS_ITS | Continuity of Care Document ---
:1980 Author Organization [facility] Address [address] [place] [address]- Care Team Providers Name Role Phone Santana Bolton MDmission hospital Primary Care Physician Encounter [facility] [place] Date(s): 04/30/22 - 05/30/22 [facility] [address] [place], [place] [address] Attending Physician: Feliz Swanson Admitting Physician: Admtr, Ar8 Referring Physician: Admtr, Ar8 Allergies, Adverse Reactions, Alerts No Known Allergies Medications Albuterol (Eqv-ProAir HFA) 90 mcg/inh inhalation aerosol 2 puffs, Inhalation, Every 6 hours, PRN Wheezing/Shortness of Breath, # 6.7 Gm, 0 Refills, Maintenance, 11/22/21 14:32:00 EDT, [facility] #[id number], Partial fill upon patient request if the prescription is for a schedule II opioid drug., 2 puff... Start Date: 11/22/21 Status: Orderedatorvastatin 80 mg oral tablet 1 tablet = 80 mg, By Mouth, Daily at bedtime, # 30 tablet, 11 Refills, Maintenance, 01/01/22 12:04:00 EDT, Tablet, [facility] #[id number], Partial fill upon patient request if the prescription is for a schedule II opioid drug., 157, cm, 01/01/22... Start Date: 01/01/22 Stop Date: 12/27/22 Status: Orderedbumetanide 1 mg oral tablet 1, tablet, By Mouth, Daily, # 30 tablet, Refills 0, Maintenance, 04/30/22 10:42:00 EDT, Route to Pharmacy Electronically, [facility] #[id number], 157, cm, 02/21/22 12:45:00 EDT, Height, 88.7, kg, 09/07/21 21:40:00 EST, Dry Weight Start Date: 04/30/22 Status: Orderedfamotidine 20 mg oral tablet 20 mg, 1, tablet, By Mouth, 2 times a day, PRN, # 30 tablet, Refills 0, Tot. Refills 0, Maintenance,stomach acid, 04/30/22 9:17:00 EDT, Route to Pharmacy Electronically, [facility] #[id number], Partial fill upon patient request if the prescripti... Start Date: 04/30/22 Stop Date: 05/15/22 Status: Orderedferrous sulfate 325 mg oral enteric coated tablet 325 mg, 1, tablet, By Mouth, 2 times a day, # 60 tablet, Refills 1, Tot. Refills 1, Maintenance, 09/10/21 10:40:00 EST, Route to Pharmacy Electronically, [facility], Partial fill upon patient request if the prescription is for a schedule... Start Date: 09/10/21 Stop Date: 11/09/21 Status: Orderedgabapentin 100 mg oral capsule 100 mg, 1, capsule, By Mouth, Daily at bedtime, # 30 capsule, Refills 2, Tot. Refills 2, Maintenance, 02/21/22 16:06:00 EDT, Route to Pharmacy Electronically, [facility] #[id number], Partial fill upon patient request if the prescription is for a... Start Date: 02/21/22 Stop Date: 05/22/22 Status: Orderedinsulin glargine 100 units/mL subcutaneous solution = 20 units, Subcutaneous Injection, Daily at bedtime, # 10 mL, 0 Refills, Maintenance, 09/10/21 10:23:00 EST, Injection, [facility], pen please, 157, cm, 09/09/21 23:52:00 EST, Height, 88.7, kg, 09/07/21 21:40:00 EST, Dry Weight Start Date: 09/10/21 Stop Date: 10/10/21 Status: Orderedinsulin lispro 100 units/mL injectable solution 2-10 units, Subcutaneous Injection, 3 times a day before meals, # 15 mL, 0 Refills, Maintenance, 09/10/21 10:23:00 EST, Injection, [facility], Pen please, 157, cm, 09/09/21 23:52:00 EST, Height, 88.7, kg, 09/07/21 21:40:00 EST, Dry Weight Start Date: 09/10/21 Status: OrderedLasix 40 mg oral tablet 40 mg, 1, tablet, By Mouth, Daily, # 30 tablet, Refills 0, Tot. Refills 0, Maintenance, 03/18/22 17:04:00 EDT, Route to Pharmacy Electronically, [facility] #[id number], Partial fill upon patient request if the prescription is for a schedule II op... Start Date: 03/18/22 Status: Orderedlisinopril 40 mg oral tablet 1 tablet = 40 mg, By Mouth, Daily, # 30 tablet, 0 Refills, Maintenance, 02/05/22 11:36:00 EDT, Tablet, [facility] #[id number], Partial fill upon patient request if the prescription is for a schedule II opioid drug., 157, cm, 02/05/22 11:12:00 EDT... Start Date: 02/05/22 Status: Orderedsertraline 50 mg oral tablet 1 tablet = 50 mg, By Mouth, Daily, # 90 tablet, 1 Refills, Maintenance, 02/21/22 16:05:00 EDT, Tablet, [facility] #[id number], Partial fill upon patient request if the prescription is for a schedule II opioid drug., 157, cm, 02/21/22 12:45:00 EDT... Start Date: 02/21/22 Status: Ordered Problem List Condition Confirmation Course Effective Dates Status Health I nformant Status Diastolic CHF Confirmed Active Edema Confirmed Active LIYA (generalized Confirmed Active anxiety disorder) Hyperlipidemia Confirmed Active Hypertension Confirmed Active Diabetic neuropathy Confirmed Active associated with type 2 diabetes mellitus Abdominal obesity Confirmed Active Obese class II Confirmed Active Major depression, Confirmed Active recurrent MDD (major depressive Confirmed Active disorder), recurrent episode, moderate Poor dentition Confirmed Active Type 2 diabetes Confirmed Active mellitus Social History Social History Type Response Smoking Status Never (less than 100 in life time) entered on: 08/31/19 Sex Patient Care team information PersonnelName: Che PINZON [facility] Address: Address: [address] [place] [address] [place] [address]-
--- OUTSIDE RECORDS SUMMARY | 2022-07-12 09:25 | XMS_ITS | Continuity of Care Document ---
:1980 Author Organization [facility] Address [address] [place] [address]- Care Team Providers Name Role Phone Fredy DELCID, Hailey Bowman Primary Care Physician [place] [facility] [place] 02/28/21 - 04/03/21 [facility] [address] [place] [id number]- Attending Physician: Fredy DELCID, Hailey Bowman Referring [...] 03/06/21 8:13:00 EDT, Route to Pharmacy Electronically, [facility] #[id number], 158.8, cm, 03/06/21 8:04:00 EDT, Height, 79.7, kg, 05/10/20 16:46:00 EDT, Dry... Start Date: 03/06/21 Status: Orderedatorvastatin 10 mg oral tablet 1 tablet = 10 mg, By Mouth, Daily, # 90 tablet, 1 Refills, Maintenance, 03/06/21 8:11:00 EDT, [facility] #[id number], 158.8, cm, 03/06/21 8:04:00 EDT, Height, 79.7, [...] 3 Refills, Maintenance, 03/06/21 12:38:00 EDT, Solution, [facility] #[id number], Replacing Basaglar 12/06/20, 158.8, cm, 01/23/21 8:45:00 EDT, Height, 79.7, kg, 05/10/20 16:46:00 EDT,... Start Date: 03/06/21 Stop Date: 03/01/22 Status: Orderedlisinopril 5 mg oral tablet 5 mg, 1, tablet, By Mouth, Daily, # 30 tablet, Refills 0, Tot. Refills 0, Maintenance, 03/13/21 13:42:00 EDT, Route to Pharmacy Electronically, [facility] #[id number], Partial fill upon patient request if the prescription is for a schedule II opi... Start Date: 03/13/21 Status: OrderedmetFORMIN 1000 mg oral tablet 1 tablet = 1,000 mg, By Mouth, 2 times a day, # 60 tablet, 6 Refills, Maintenance, 02/08/21 11:25:00EDT, [facility] #[id number], 158.8, cm, 02/08/21 11:22:00 EDT, Height, 79.7, kg, 05/10/20 16:46:00 EDT, Dry Weight Start Date: 02/08/21 Stop Date: 09/06/21 Status: OrderedPen [place], 29 G x 12.7 mm BD Ultra [...] 1 Refills, Maintenance, 03/06/21 8:12:00 EDT, Tablet, [facility] #[id number], Partial fill upon patient request if the [...]
--- OUTSIDE RECORDS SUMMARY | 2022-07-12 09:25 | XMS_ITS | Continuity of Care Document ---
:1980 Author Organization [facility] Address [address] [place] [address]- Care Team Providers Name Role Phone Fredy DELCID, Hailey Bowman Primary Care Physician [place] [facility] [place] 03[place]30/21 [facility] [address] [place] [id number] Allergies, Adverse Reactions, Alerts Substance Reaction Severity [...] 03/06/21 8:13:00 EDT, Route to Pharmacy Electronically, [facility] #[id number], 158.8, cm, 03/06/21 8:04:00 EDT, Height, 79.7, kg, 05/10/20 16:46:00 EDT, Dry... Start Date: 03/06/21 Status: Orderedatorvastatin 10 mg oral tablet 1 tablet = 10 mg, By Mouth, Daily, # 90 tablet, 1 Refills, Maintenance, 03/06/21 8:11:00 EDT, [facility] #[id number], 158.8, cm, 03/06/21 8:04:00 EDT, Height, 79.7, [...] 3 Refills, Maintenance, 03/06/21 12:38:00 EDT, Solution, [facility] #[id number], Replacing Basaglar 12/06/20, 158.8, cm, 01/23/21 8:45:00 EDT, Height, 79.7, kg, 05/10/20 16:46:00 EDT,... Start Date: 03/06/21 Stop Date: 03/01/22 Status: Orderedlisinopril 5 mg oral tablet 5 mg, 1, tablet, By Mouth, Daily, # 30 tablet, Refills 0, Tot. Refills 0, Maintenance, 03/13/21 13:42:00 EDT, Route to Pharmacy Electronically, [facility] #[id number], Partial fill upon patient request if the prescription is for a schedule II opi... Start Date: 03/13/21 Status: OrderedmetFORMIN 1000 mg oral tablet 1 tablet = 1,000 mg, By Mouth, 2 times a day, # 60 tablet, 6 Refills, Maintenance, 02/08/21 11:25:00EDT, [facility] #[id number], 158.8, cm, 02/08/21 11:22:00 EDT, Height, 79.7, kg, 05/10/20 16:46:00 EDT, Dry Weight Start Date: 02/08/21 Stop Date: 09/06/21 Status: OrderedPen [place], 29 G x 12.7 mm BD Ultra [...] 1 Refills, Maintenance, 03/06/21 8:12:00 EDT, Tablet, [email or web address] #[id number], Partial fill upon patient request if the [...]
--- OUTSIDE RECORDS SUMMARY | 2022-07-12 09:25 | XMS_ITS | Continuity of Care Document ---
:1980 Author Organization [facility] Address [address] [place] [address]- Care Team Providers Name Role Phone Fredy DELCID, Hailey Bowman Primary Care Physician [place] [facility] [place] 02/08/21 - 02/15/21 [facility] [address] [place] [address] Encounter Diagnosis Type 2 diabetes mellitus (Discharge Diagnosis) - 02/08/21 Hyperlipidemia (Discharge Diagnosis) - 02/08/21 Major depression, recurrent (Discharge Diagnosis) - 02/08/21 Cough (Discharge Diagnosis) - 02/08/21 Attending Physician: Not on Staff, Attending MD Referring Physician: Rajiv Lyn MD Allergies, Adverse [...] 06/06/20 7:49:00 EST, Route to Pharmacy Electronically, [facility] #[id number], 158.8, cm, 05/25/20 9:00:00 EDT, Height, 79.7, kg, 05/10/20 16:46:00 EDT, Dry... Start Date: 06/06/20 Status: Orderedatorvastatin 10 mg oral tablet 1 tablet = 10 mg, By Mouth, Daily, # 90 tablet, 0 Refills, Maintenance, 12/10/20 12:19:00 EDT, [facility] #[id number], 158.8, cm, 06/06/20 8:02:00 EST, Height, 79.7, [...] 3 Refills, Maintenance, 03/06/21 12:38:00 EDT, Solution, [facility] #[id number], Replacing Basaglar 12/06/20, 158.8, cm, 01/23/21 8:45:00 EDT, Height, 79.7, kg, 05/10/20 16:46:00 EDT,... Start Date: 03/06/21 Stop Date: 03/01/22 Status: Orderedlisinopril 5 mg oral tablet 5 mg, 1, tablet, By Mouth, Daily, This is an increase in dose, # 30 tablet, Refills 1, Tot. Refills 1, Maintenance, 01/23/21 8:46:00 EDT, Route to Pharmacy Electronically, [facility] #[id number], Partial fill upon patient request if the prescript... Start Date: 01/23/21 Status: OrderedmetFORMIN 1000 mg oral tablet 1 tablet = 1,000 mg, By Mouth, 2 times a day, # 60 tablet, 6 Refills, Maintenance, 02/08/21 11:25:00EDT, [facility] #[id number], 158.8, cm, 02/08/21 11:22:00 EDT, Height, 79.7, kg, 05/10/20 16:46:00 EDT, Dry Weight Start Date: 02/08/21 Stop Date: 09/06/21 Status: OrderedPen [place], 29 G x 12.7 mm BD Ultra [...] 1 Refills, Maintenance, 12/10/20 12:36:00 EDT, Tablet, [facility] #[id number], Partial fill upon patient request if the [...] Diagnosis Type Effective Dates Health Clinical Infor [facility] Status Service Type 2 diabetes Discharge 02/08/21 mellitus Diagnosis Hyperlipidemia Discharge 02/08/21 Diagnosis Major depression, Discharge 02/08/21 recurrent Diagnosis Cough Discharge 02/08/21 Diagnosis Vital Signs Most recent to oldest 1 2 3 [Reference Range]: Height 158.8 cm 158.8 cm 158.8 cm (02/08/21 11:38 AM) (02/08/21 11:22 AM) (02/08/21 1 1:10 AM) Weight 81 kg (02/08/21 11:10 AM) Oxygen Saturation [94-100 %] 100 % (02/08/21 11:10 AM) Pulse Rate [55-90 bpm] 91 bpm *H* (02/08/21 11:10 AM) Body Mass Index [18.5-24.99] 32.12 *>HHI* (02/08/21 11:10 AM) Blood Pressure [90-138/55-84 200/105 mm Hg 185/104 mm Hg 182 /99 mm Hg mm Hg] *H* *H* *H* (02/08/21 11:38 AM) (02/08/21 11:22 AM) (02/08/21 1 1:10 AM) Mode of Delivery (Oxygen) Room air (02/08/21 11:10 AM) Blood pressure sites Arm, left Arm, left (02/08/21 11:22 AM) (02/08/21 11:10 AM) Weight Obtained Via Standing scale (02/08/21 11:10 AM) Social History Social History Type Response Smoking Status Never (less than 100 in life time) entered on: 08/31/19 Sex
--- OUTSIDE RECORDS SUMMARY | 2022-07-12 09:25 | XMS_ITS | Continuity of Care Document ---
:1980 Author Organization [facility] Address [address] [place] [id number]- Care Team Providers Name Role Phone Fredy DELCID, Hailey Bowman Primary Care Physician Encounter [facility] [place] Date(s): 05/10/20 - 05/12/[address] [address] [facility] Discharge Disposition: A-D/C Home Attending Physician: Kristal Bhatia MD Admitting Physician: Moi Foster DO Referring Physician: Not on Staff, Referring MD Allergies, Adverse Reactions, Alerts Substance Reaction Severity Status NKA Active Medications acetaminophen 325 mg oral tablet 650 mg, 2, tablet, By Mouth, Every 6 hours, Refills 0, Maintenance, 05/12/20 8:32:00 EDT Start Date: 05/12/20 Status: OrderedAlcohol Wipes See Instructions, # 100 supp, Maintenance, before meals and at bedtime., 08/31/19 16:55:00 EST, [facility], 160, cm, 08/31/19 16:27:00 EST, Height Start Date: 08/31/19 Status: OrderedBasaglar KwikPen 100 units/mL subcutaneous solution = 10 units, Subcutaneous Injection, Daily at bedtime, # 10 mL, 0 Refills, Maintenance, 05/07/20 13:53:00 EDT, Solution, [facility] #[id number], 162, cm, 02/01/20 15:55:00 EDT, Height Start Date: 05/07/20 Stop Date: 08/05/20 Status: Ordereddoxycycline hyclate 100 mg oral tablet 1 capsule, By Mouth, Every 12 hours, for 5 days, # 10 tablet, 0 Refills, Acute 05/17/20 8:33:00 EDT,05/12/20 8:33:00 EDT, Capsule, [facility] #[id number], 158, cm, 05/12/20 8:19:00 EDT, Height, 79.7, kg, 05/10/20 16:46:00 EDT, Dry Weight Start Date: 05/12/20 Stop Date: 05/17/20 Status: Orderedescitalopram 10 mg oral tablet 1 tablet = 10 mg, By Mouth, Daily, # 30 tablet, 1 Refills, Maintenance, 02/01/20 16:27:00 EDT, Tablet, [facility] #[id number], 162, cm, 02/01/20 15:55:00 EDT, Height Start Date: 02/01/20 Status: OrderedGlucose Monitor See Instructions, # 1 [...] EST, Compound Start Date: 08/31/19 Status: OrderedInsulin Glargine Inj 0.16 mL = 16 units, Subcutaneous Injection, Daily at bedtime, 0 Refills, Maintenance, 05/12/20 8:32:00 EDT, Injection Start Date: 05/12/20 Status: OrderedInsulin Syringes See Instructions, # 100 supp, Maintenance, at bedtime., 06/06/17 10:31:27, Compound Start Date: 06/06/17 Status: OrderedLancets See Instructions, # 100 supp, Maintenance, before meals and at bedtime., 06/06/17 10:31:31, Compound Start Date: 06/06/17 Status: OrderedmetFORMIN 1000 mg oral tablet 1 tablet = 1,000 mg, By Mouth, 2 times a day, # 60 tablet, 6 Refills, Maintenance, 05/31/20 16:22:00EST, [facility] #[id number], 158, cm, 05/10/20 9:19:00 EDT, Height, 82, kg, 05/10/20 9:19:00 EDT, Dry Weight Start Date: 05/31/20 Stop Date: 12/27/20 Status: OrderedmetFORMIN 1000 mg oral tablet 1 tablet = 1,000 mg, By Mouth, 2 times a day, for 30 days, # 60 tablet, 3 Refills, Hard Stop 05/31/20 16:22:00 EST, 02/01/20 16:22:00 EDT, [facility] #[id number], 162, cm, 02/01/20 15:55:00 EDT, Height Start Date: 02/01/20 Stop Date: 05/31/20 Status: OrderedPen [place], 29 G x 12.7 mm BD Ultra Fine See Instructions, # 300 each, Refills 5, Tot. Refills 5, Maintenance, DMII E11.9 Use with Basaglar KWIKPEN injection, 05/07/20 13:56:00 EDT, Supply, 162, cm, 02/01/20 15:55:00 EDT, Height Start Date: 05/07/20 Stop Date: 10/29/21 Status: Ordered Problem List Condition Effective Dates Status Health Status Informant Depression(Confirmed) Active Abdominal obesity(Confirmed) Active Obesity (BMI 30.0-34.9)(Confirmed) Active Poor dentition(Confirmed) Active Type 2 diabetes, HbA1c goal < Active 7%(Confirmed) Vital Signs Most recent to oldest 1 2 3 [Reference Range]: Height 158 cm 158 cm 158 cm (05/12/20 8:19 AM) (05/12/20 3:00 AM) (05/11/20 8:34 PM) Weight 79.7 kg 80.5 kg 82 kg (05/10/20 4:46 PM) (05/10/20 4:05 PM) (05/10/20 9:19 AM) Oxygen Saturation [94-100 %] 92 % 99 % 95 % *L* (05/12/20 3:00 AM) (05/11/20 8:3 4 PM) (05/12/20 8:19 AM) Pulse Rate [55-90 bpm] 76 bpm 84 bpm 67 bpm (05/12/20 8:19 AM) (05/12/20 3:00 AM) (05/11/20 8:34 PM) Body Mass Index [18.5-24.99] 31.93 32.25 *>HHI* *>HHI* (05/10/20 4:46 PM) (05/10/20 4:05 PM) Blood Pressure [90-138/55-84 134/85 mm Hg 133/79 mm Hg 130 /59 mm Hg mm Hg] (05/12/20 8:19 AM) (05/12/20 3:00 AM) (05/11/20 8:34 PM) Respiratory Rate [16-30 18 br/min 18 br/min 17 br/mi n br/min] (05/12/20 8:19 AM) (05/12/20 8:00 AM) (05/12/20 4:03 AM) Temperature [96.8-100.4 98.2 DegF 98.6 DegF 98.2 Deg F DegF] (05/12/20 8:19 AM) (05/12/20 3:00 AM) (05/11/20 8:34 PM) Mode of Delivery (Oxygen) Room air Room air Room a ir (05/12/20 8:19 AM) (05/12/20 3:00 AM) (05/11/20 8:34 PM) Blood pressure sites Arm, right Arm, right Arm, right (05/12/20 3:00 AM) (05/11/20 8:34 PM) (05/11/20 3:26 PM) Temperature Route Oral Oral Oral (05/12/20 8:19 AM) (05/12/20 3:00 AM) (05/11/20 8:34 PM) Dry Weight 79.7 kg 82 kg (05/10/20 4:46 PM) (05/10/20 9:19 AM) Weight Obtained Via Bed scale (05/10/20 4:05 PM) Social History Social History Type Response Smoking Status Never (less than 100 in life time) entered on: 08/31/19 Sex
--- OUTSIDE RECORDS SUMMARY | 2022-07-12 09:25 | XMS_ITS | Continuity of Care Document ---
:1980 Author Organization [facility] Address [address] [place] [address]- Care Team Providers Name Role Phone Fredy DELCID, Hailey Bowman Primary Care Physician [phone] Encounter [facility] [place] Date(s): 02/03/20 - 03/18/[address] [address]- [facility] Attending Physician: Lopez Ladd MD Admitting Physician: Lopez Ladd MD Referring Physician: Fredy DELCID, Hailey Bowman Allergies, Adverse Reactions, Alerts Substance Reaction Severity Status NKA Active Medications Alcohol Wipes See Instructions, # 100 supp, Maintenance, before meals and at bedtime., 08/31/19 16:55:00 EST, [facility], 160, cm, 08/31/19 16:27:00 EST, Height Start Date: 08/31/19 Status: OrderedBasaglar KwikPen 100 units/mL subcutaneous solution = 10 units, Subcutaneous Injection, Daily at bedtime, # 10 mL, 0 Refills, Maintenance, 09/01/19 9:07:00 EST, Solution, [facility] [address], 160, cm, 08/31/19 17:04:00 EST, Height Start Date: 09/01/19 Status: Orderedescitalopram 10 mg oral tablet 1 tablet = 10 mg, By Mouth, Daily, # 30 tablet, 1 Refills, Maintenance, 02/01/20 16:27:00 EDT, Tablet, [facility] #[id number], 162, cm, 02/01/20 15:55:00 EDT, Height Start [...] 2 times a day, # 60 tablet, 3 Refills, Maintenance, 02/01/20 16:22:00EDT, [facility][id number], 162, cm, 02/01/20 15:55:00 EDT, Height Start Date: 02/01/20 Stop Date: 05/31/20 Status: Ordered Problem List Condition Effective Dates Status Health Status Informant Depression(Confirmed) Active Abdominal obesity(Confirmed) Active Obesity (BMI 30.0-34.9)(Confirmed) Active Poor dentition(Confirmed) Active Type 2 diabetes, HbA1c goal < Active 7%(Confirmed) Social History Social History Type Response Smoking Status Never (less than 100 in life time) entered on: 08/31/19 Sex
--- OUTSIDE RECORDS SUMMARY | 2022-07-12 09:25 | XMS_ITS | Continuity of Care Document ---
:1980 Author Organization [facility] Adult Address [address] [place] [address]- Care Team Providers Name Role Phone Fredy DELCID, Hailey Bowman Primary Care Physician [place] [facility] [place](s): 03/05/21 - 04/04/21 [facility] Adult [address] [place] [address]- Allergies, Adverse Reactions, Alerts Substance Reaction Severity [...] 03/06/21 8:13:00 EDT, Route to Pharmacy Electronically, [facility] #[id number], 158.8, cm, 03/06/21 8:04:00 EDT, Height, 79.7, kg, 05/10/20 16:46:00 EDT, Dry... Start Date: 03/06/21 Status: Orderedatorvastatin 10 mg oral tablet 1 tablet = 10 mg, By Mouth, Daily, # 90 tablet, 1 Refills, Maintenance, 03/06/21 8:11:00 EDT, [facility] #[id number], 158.8, cm, 03/06/21 8:04:00 EDT, Height, 79.7, [...] 3 Refills, Maintenance, 03/06/21 12:38:00 EDT, Solution, [facility] #[id number], Replacing Basaglar 12/06/20, 158.8, cm, 01/23/21 8:45:00 EDT, Height, 79.7, kg, 05/10/20 16:46:00 EDT,... Start Date: 03/06/21 Stop Date: 03/01/22 Status: Orderedlisinopril 5 mg oral tablet 5 mg, 1, tablet, By Mouth, Daily, # 30 tablet, Refills 0, Tot. Refills 0, Maintenance, 03/13/21 13:42:00 EDT, Route to Pharmacy Electronically, [facility] #[id number], Partial fill upon patient request if the prescription is for a schedule II opi... Start Date: 03/13/21 Status: OrderedmetFORMIN 1000 mg oral tablet 1 tablet = 1,000 mg, By Mouth, 2 times a day, # 60 tablet, 6 Refills, Maintenance, 02/08/21 11:25:00EDT, [facility] #[id number], 158.8, cm, 02/08/21 11:22:00 EDT, Height, 79.7, kg, 05/10/20 16:46:00 EDT, Dry Weight Start Date: 02/08/21 Stop Date: 09/06/21 Status: OrderedPen [place], 29 G x 12.7 mm BD Ultra [...] 1 Refills, Maintenance, 03/06/21 8:12:00 EDT, Tablet, [email or web address] #[id number], Partial fill upon patient request if the [...]
--- OUTSIDE RECORDS SUMMARY | 2022-07-12 09:26 | XMS_ITS | Continuity of Care Document ---
:1980 Author Organization [facility] Adult Address [address] [place] [address]- Care Team Providers Name Role Phone Fredy DELCID, Hailey Bowman Primary Care Physician [phone] [place] [facility] [place](s[place] 09/30/21 - 11/03/[address] [address] Attending Physician: Not on Staff, Attending MD Allergies, Adverse Reactions, Alerts No Known Allergies Medications atorvastatin 80 mg oral tablet 1 tablet = 80 mg, By Mouth, Daily at bedtime, # 30 tablet, 1 Refills, Maintenance, 09/10/21 10:20:00EST, Tablet, [facility], Partial fill upon patient request if the prescription is for a schedule II opioid drug., 157, cm, 09/09/21 23:5... Start Date: 09/10/21 Stop Date: 11/09/21 Status: Orderedbumetanide 1 mg oral tablet 1 mg, 1, tablet, By Mouth, Daily, # 30 tablet, Refills 1, Tot. Refills 1, Maintenance, 09/18/21 9:12:00 EST, Route to Pharmacy Electronically, [facility] #[id number], Partial fill upon patient request if the prescription is for a schedule II opio... Start Date: 09/18/21 Status: Orderedferrous sulfate 325 mg oral enteric coated tablet 325 mg, 1, tablet, By Mouth, 2 times a day, # 60 tablet, Refills 1, Tot. Refills 1, Maintenance, 09/10/21 10:40:00 EST, Route to Pharmacy Electronically, [facility], Partial fill upon patient request if the prescription is for a schedule... Start Date: 09/10/21 Stop Date: 11/09/21 Status: Orderedinsulin glargine 100 units/mL subcutaneous solution = 20 units, Subcutaneous Injection, Daily at bedtime, # 10 mL, 0 Refills, Maintenance, 09/10/21 10:23:00 EST, Injection, [facility], pen please, 157, cm, 09/09/21 23:52:00 EST, Height, 88.7, kg, 09/07/21 21:40:00 EST, Dry Weight Start Date: 09/10/21 Stop Date: 10/10/21 Status: Orderedinsulin lispro 100 units/mL injectable solution 2-10 units, Subcutaneous Injection, 3 times a day before meals, # 15 mL, 0 Refills, Maintenance, 09/10/21 10:23:00 EST, Injection, [facility], Pen please, 157, cm, 09/09/21 23:52:00 EST, Height, 88.7, kg, 09/07/21 21:40:00 EST, Dry Weight Start Date: 09/10/21 Status: OrderedNIFEdipine 90 mg oral tablet, extended release 90 mg, 1, tablet, By Mouth, Daily, # 30 tablet, Refills 1, Tot. Refills 1, Maintenance, 09/10/21 10:22:00 EST, Route to Pharmacy Electronically, [facility], Partial fill upon patient request if the prescription is for a schedule II opioi... Start Date: 09/10/21 Status: Orderedsertraline 50 mg oral tablet 1 tablet = 50 mg, By Mouth, Daily, # 90 tablet, 1 Refills, Maintenance, 03/06/21 8:12:00 EDT, Tablet, [facility] #[id number], Partial fill upon patient request if the prescription is for a schedule II opioid drug., 158.8, cm, 03/06/21 8:04:00 EDT... Start Date: 03/06/21 Status: Ordered Problem List Condition Effective Dates Status Health Status Informant Hyperlipidemia(Confirmed) Active Hypertension(Confirmed) Active Microalbuminuria(Confirmed) Active Diabetic neuropathy associated with Active type 2 diabetes mellitus(Confirmed) Abdominal obesity(Confirmed) Active Obese class I(Confirmed) Active Major depression, recurrent(Confirmed) Active Poor dentition(Confirmed) Active Type 2 diabetes mellitus(Confirmed) Active Social History Social History Type Response Smoking Status Never (less than 100 in life time) entered on: 08/31/19 Sex
--- OUTSIDE RECORDS SUMMARY | 2022-07-12 09:26 | XMS_ITS | Continuity of Care Document ---
:1980 Author Organization [facility] Adult Address [address] [place] [address]- Care Team Providers Name Role Phone Fredy DELCID, Hailey Bowman Primary Care Physician [phone] Encounter [facility] [place] Date(s): 09/18/21 - 09/25/21 [facility] Adult [address] [place] [address]- Encounter Diagnosis Acute CHF (congestive heart failure) (Discharge Diagnosis) - 09/18/21 Hypertension (Discharge Diagnosis) - 09/18/21 Type 2 diabetes mellitus (Discharge Diagnosis) - 09/18/21 Acute kidney injury (Discharge Diagnosis) - 09/18/21 Hyperlipidemia (Discharge Diagnosis) - 09/18/21 Major depression, recurrent (Discharge Diagnosis) - 09/18/21 Attending Physician: Not on Staff, Attending MD [...] 09/18/21 9:12:00 EST, Route to Pharmacy Electronically, [facility] #[id number], Partial fill upon patient request if the prescription is for a schedule II opio... Start Date: 09/18/21 Status: Orderedferrous sulfate 325 mg oral enteric coated tablet 325 mg, 1, tablet, By Mouth, 2 times a day, # 60 tablet, Refills 1, Tot. Refills 1, Maintenance, 09/10/21 10:40:00 EST, Route to Pharmacy Electronically, [facility], Partial fill upon patient request if the prescription is for a schedule... Start Date: 09/10/21 Stop Date: 11/09/21 Status: Orderedinsulin glargine 100 units/mL subcutaneous solution = 20 units, Subcutaneous Injection, Daily at bedtime, # 10 mL, 0 Refills, Maintenance, 09/10/21 10:23:00 EST, Injection, [facility], pen please, 157, cm, 09/09/21 23:52:00 EST, Height, 88.7, kg, 09/07/21 21:40:00 EST, Dry Weight Start Date: 09/10/21 Stop Date: 10/10/21 Status: Orderedinsulin lispro 100 units/mL injectable solution 2-10 units, Subcutaneous Injection, 3 times a day before meals, # 15 mL, 0 Refills, Maintenance, 09/10/21 10:23:00 EST, Injection, [facility] 3, Pen please, 157, cm, 09/09/21 23:52:00 EST, Height, 88.7, kg, 09/07/21 21:40:00 EST, Dry Weight Start Date: 09/10/21 Status: OrderedNIFEdipine 90 mg oral tablet, extended release 90 mg, 1, tablet, By Mouth, Daily, # 30 tablet, Refills 1, Tot. Refills 1, Maintenance, 09/10/21 10:22:00 EST, Route to Pharmacy Electronically, [facility], Partial fill upon patient request if the prescription is for a schedule II opioi... Start Date: 09/10/21 Status: Orderedsertraline 50 mg oral tablet 1 tablet = 50 mg, By Mouth, Daily, # 90 tablet, 1 Refills, Maintenance, 03/06/21 8:12:00 EDT, Tablet, [facility] #[id number], Partial fill upon patient request if the [...] Dates Health Clinical Infor mant Status Service Acute CHF Discharge 09/18/21 (congestive heart Diagnosis failure) Hypertension Discharge 09/18/21 Diagnosis Type 2 diabetes Discharge 09/18/21 mellitus Diagnosis Acute kidney injury Discharge 09/18/21 Diagnosis Hyperlipidemia Discharge 09/18/21 Diagnosis Major depression, Discharge 09/18/21 recurrent Diagnosis Vital Signs Most recent to oldest [Reference Range]: 1 Height 157 cm (09/18/21 8:43 AM) Weight 82.72 kg (09/18/21 8:43 AM) Body Mass Index [18.5-24.99] 33.56 *>HHI* (09/18/21 8:43 AM) Social History Social History Type Response Smoking Status Never (less than 100 in life time) entered on: 08/31/19 Sex
--- OUTSIDE RECORDS SUMMARY | 2022-07-12 09:26 | XMS_ITS | Continuity of Care Document ---
:1980 Author Organization [facility] Adult Address [address] [place] [address]- Care Team Providers Name Role Phone Fredy DELCID, Hailey Bowman Primary Care Physician [phone] [place] [facility] [place](s): 01/23/21 - 01/30/21 [facility] Adult [address] [place] [address]- Encounter Diagnosis Type 2 diabetes mellitus (Discharge Diagnosis) - 01/23/21 Elevated blood pressure reading (Discharge Diagnosis) - 01/23/21 Major depression, recurrent (Discharge Diagnosis) - 01/23/21 Attending Physician: Fredy DELCID, Hailey Bowman Referring [...] 06/06/20 7:49:00 EST, Route to Pharmacy Electronically, [facility] #[id number], 158.8, cm, 05/25/20 9:00:00 EDT, Height, 79.7, kg, 05/10/20 16:46:00 EDT, Dry... Start Date: 06/06/20 Status: Orderedatorvastatin 10 mg oral tablet 1 tablet = 10 mg, By Mouth, Daily, # 90 tablet, 0 Refills, Maintenance, 12/10/20 12:19:00 EDT, [facility] #[id number], 158.8, cm, 06/06/20 8:02:00 EST, Height, 79.7, [...] 3 Refills, Maintenance, 03/06/21 12:38:00 EDT, Solution, [facility] #[id number], Replacing Basaglar 12/06/20, 158.8, cm, 01/23/21 8:45:00 EDT, Height, 79.7, kg, 05/10/20 16:46:00 EDT,... Start Date: 03/06/21 Stop Date: 03/01/22 Status: OrderedLantus Solostar Pen 100 units/mL subcutaneous solution = 16 units, Subcutaneous Injection, Daily at bedtime, for 90 days, # 12 mL, 0 Refills, Hard Stop 03/06/21 12:38:00 EDT, 12/06/20 12:38:00 EDT, Solution, [facility] #[id number], Replacing Basaglar 12/06/20, 158.8, cm, 06/06/20 8:02:00 EST, Height,... Start Date: 12/06/20 Stop Date: 03/06/21 Status: Orderedlisinopril 5 mg oral tablet 5 mg, 1, tablet, By Mouth, Daily, This is an increase in dose, # 30 tablet, Refills 1, Tot. Refills 1, Maintenance, 01/23/21 8:46:00 EDT, Route to Pharmacy Electronically, [facility] #[id number], Partial fill upon patient request if the prescript... Start Date: 01/23/21 Status: OrderedmetFORMIN 1000 mg oral tablet 1 tablet = 1,000 mg, By Mouth, 2 times a day, # 60 tablet, 6 Refills, Maintenance, 05/31/20 16:22:00EST, [facility] #[id number], 158, cm, 05/10/20 9:19:00 EDT, Height, 82, kg, 05/10/20 9:19:00 EDT, Dry Weight Start Date: 05/31/20 Stop Date: 12/27/20 Status: OrderedPen [place], 29 G x 12.7 mm BD Ultra [...] 1 Refills, Maintenance, 12/10/20 12:36:00 EDT, Tablet, [facility] #[id number], Partial fill upon patient request if the [...] Active Diagnosis Diagnosis Type Effective Dates Health Status Clinical In formant Service Type 2 diabetes Discharge 01/23/21 mellitus Diagnosis Elevated blood Discharge 01/23/21 pressure reading Diagnosis Major Discharge 01/23/21 depression, Diagnosis recurrent Vital Signs Most recent to oldest 1 2 3 [Reference Range]: Height 158.8 cm 158.8 cm 158.8 cm (01/23/21 8:45 AM) (01/23/21 8:37 AM) (01/23/21 8:3 3 AM) Weight 81.3 kg (01/23/21 8:33 AM) Oxygen Saturation [94-100 %] 98 % (01/23/21 8:33 AM) Pulse Rate [55-90 bpm] 99 bpm 101 bpm *H* *H* (01/23/21 8:45 AM) (01/23/21 8:33 AM) Body Mass Index [18.5-24.99] 32.24 *>HHI* (01/23/21 8:33 AM) Blood Pressure [90-138/55-84 mm 158/99 mm Hg 163/101 mm Hg 173/97 mm Hg Hg] *H* *H* *H* (01/23/21 8:45 AM) (01/23/21 8:37 AM) (01/23/21 8:3 3 AM) Mode of Delivery (Oxygen) Room air (01/23/21 8:33 AM) Blood pressure sites Arm, left Arm, left (01/23/21 8:37 AM) (01/23/21 8:33 AM) Weight Obtained Via Standing scale (01/23/21 8:33 AM) Social History Social History Type Response Smoking Status Never (less than 100 in life time) entered on: 08/31/19 Sex
--- OUTSIDE RECORDS SUMMARY | 2022-07-12 09:26 | XMS_ITS | Continuity of Care Document ---
:1980 Author Organization [facility] Adult Address [address] [place] [address]- Care Team Providers Name Role Phone Fredy DELCID, Hailey Bowman Primary Care Physician [phone] En[place] [facility] [id number] Date(s): 06/06/20 - 07/20/20 [facility] Adult [address] [place] [id number] Attending Physician: Not on Staff, Attending [...] 06/06/20 7:49:00 EST, Route to Pharmacy Electronically, [facility] #[id number], 158.8, cm, 05/25/20 9:00:00 EDT, Height, 79.7, kg, 05/10/20 16:46:00 EDT, Dry... Start Date: 06/06/20 Status: Orderedatorvastatin 10 mg oral tablet 1 tablet = 10 mg, By Mouth, Daily, # 90 tablet, 1 Refills, Maintenance, 06/06/20 7:51:00 EST, [facility] #[id number], 158.8, cm, 05/25/20 9:00:00 EDT, Height, 79.7, kg, 05/10/20 16:46:00 EDT, Dry Weight Start Date: 06/06/20 Status: OrderedBasaglar KwikPen 100 units/mL subcutaneous solution = 16 units, Subcutaneous Injection, Daily at bedtime, rotate injection sites, # 12 mL, 0 Refills, Maintenance, 05/07/20 13:53:00 EDT, Solution, [facility] #[id number], 162, cm, 02/01/20 15:55:00 EDT, Height Start [...] 17:07:00 EST, Compound Start Date: 08/31/19 Status: OrderedhydrOXYzine hydrochloride 25 mg oral tablet 1 tablet = 25 mg, By Mouth, 4 times a day, PRN for anxiety, # 40 tablet, 1 Refills, Maintenance, 05/25/20 9:23:00 EDT, Tablet, [facility] #[id number], 158.8, cm, 05/25/20 9:00:00 EDT, Height, 79.7, kg, 05/10/20 16:46:00 EDT, Dry Weight Start Date: 05/25/20 Status: OrderedInsulin Syringes See Instructions, # 100 supp, Maintenance, at bedtime., 06/06/17 10:31:27, Compound Start Date: 06/06/17 Status: OrderedLancets See Instructions, # 100 supp, Maintenance, before meals and at bedtime., 06/06/17 10:31:31, Compound Start Date: 06/06/17 Status: OrderedmetFORMIN 1000 mg oral tablet 1 tablet = 1,000 mg, By Mouth, 2 times a day, # 60 tablet, 6 Refills, Maintenance, 05/31/20 16:22:00EST, [facility] #[id number], 158, cm, 05/10/20 9:19:00 EDT, Height, 82, kg, 05/10/20 9:19:00 EDT, Dry Weight Start Date: 05/31/20 Stop Date: 12/27/20 Status: OrderedPen [place], 29 G x 12.7 mm BD Ultra Fine See Instructions, # 300 each, Refills 5, Tot. Refills 5, Maintenance, DMII E11.9 Use with Basaglar KWIKPEN injection, 05/07/20 13:56:00 EDT, Supply, 162, cm, 02/01/20 15:55:00 EDT, Height Start Date: 05/07/20 Stop Date: 10/29/21 Status: Ordered Problem List Condition Effective Dates Status Health Status Informant Depression(Confirmed) Active Diabetic neuropathy associated with Active type 2 diabetes mellitus(Confirmed) Abdominal obesity(Confirmed) Active Obesity (BMI 30.0-34.9)(Confirmed) Active Poor dentition(Confirmed) Active Social History Social History Type Response Smoking Status Never (less than 100 in life time) entered on: 08/31/19 Sex
--- OUTSIDE RECORDS SUMMARY | 2022-07-12 09:26 | XMS_ITS | Continuity of Care Document ---
:1980 Author Organization [facility] Adult Address [address] [place] [address]- Care Team Providers Name Role Phone Kayode Bolton MD Primary Care Physician [place] [facility] [place] [facility] [address] [place] [address]- Encounter Diagnosis Diabetic neuropathy associated with type 2 diabetes mellitus (Discharge Diagnosis) - 02/21/22 Diastolic CHF (Discharge Diagnosis) - 02/21/22 Major depression, recurrent (Discharge Diagnosis) - 02/21/22 Obese class II (Discharge Diagnosis) - 02/21/22 Attending Physician: Kayode Bolton MD Allergies, Adverse Reactions, Alerts No Known Allergies Medications Albuterol (Eqv-ProAir HFA) 90 mcg/inh inhalation aerosol 2 puffs, Inhalation, Every 6 hours, PRN Wheezing/Shortness of Breath, # 6.7 Gm, 0 Refills, Maintenance, 11/22/21 14:32:00 EDT, [facility] #[id number], Partial fill upon patient request if the prescription is for a schedule II opioid drug., 2 puff... Start Date: 11/22/21 Status: Orderedatorvastatin 80 mg oral tablet 1 tablet = 80 mg, By Mouth, Daily at bedtime, # 30 tablet, 11 Refills, Maintenance, 01/01/22 12:04:00 EDT, [facility] #[id number], Partial fill upon patient request if the prescription is for a schedule II opioid drug., 157, cm, 01/01/22... Start Date: 01/01/22 Stop Date: 12/27/22 Status: Orderedferrous sulfate 325 mg oral enteric coated tablet 325 mg, 1, tablet, By Mouth, 2 times a day, # 60 tablet, Refills 1, Tot. Refills 1, Maintenance, 09/10/21 10:40:00 EST, Route to Pharmacy Electronically, [facility], Partial fill upon patient request if the prescription is for a schedule... Start Date: 09/10/21 Stop Date: 11/09/21 Status: Orderedgabapentin 100 mg oral capsule 100 mg, 1, capsule, By Mouth, Daily at bedtime, # 30 capsule, Refills 2, Tot. Refills 2, Maintenance, 02/21/22 16:06:00 EDT, Route to Pharmacy Electronically, [facility] #[id number], Partial fill upon patient request if the prescription is for a... Start Date: 02/21/22 Stop Date: 05/22/22 Status: Orderedinsulin glargine 100 units/mL subcutaneous solution = 20 units, Subcutaneous Injection, Daily at bedtime, # 10 mL, 0 Refills, Maintenance, 09/10/21 10:23:00 EST, Injection, [facility] 3, pen please, 157, cm, 09/09/21 23:52:00 EST, Height, 88.7, kg, 09/07/21 21:40:00 EST, Dry Weight Start Date: 09/10/21 Stop Date: 10/10/21 Status: Orderedinsulin lispro 100 units/mL injectable solution 2-10 units, Subcutaneous Injection, 3 times a day before meals, # 15 mL, 0 Refills, Maintenance, 09/10/21 10:23:00 EST, Injection, [facility] 3, Pen please, 157, cm, 09/09/21 23:52:00 EST, Height, 88.7, kg, 09/07/21 21:40:00 EST, Dry Weight Start Date: 09/10/21 Status: OrderedLasix 40 mg oral tablet 40 mg, 1, tablet, By Mouth, Daily, # 30 tablet, Refills 0, Tot. Refills 0, Maintenance, 02/05/22 11:36:00 EDT, Route to Pharmacy Electronically, [facility] #[id number], Partial fill upon patient request if the prescription is for a schedule II op... Start Date: 02/05/22 Status: Orderedlisinopril 40 mg oral tablet 1 tablet = 40 mg, By Mouth, Daily, # 30 tablet, 0 Refills, Maintenance, 02/05/22 11:36:00 EDT, Tablet, [facility] #[id number], Partial fill upon patient request if the prescription is for a schedule II opioid drug., 157, cm, 02/05/22 11:12:00 EDT... Start Date: 02/05/22 Status: Orderedsertraline 50 mg oral tablet 1 tablet = 50 mg, By Mouth, Daily, # 90 tablet, 1 Refills, Maintenance, 02/21/22 16:05:00 EDT, Tablet, [facility] #[id number], Partial fill upon patient request if the prescription is for a schedule II opioid drug., 157, cm, 02/21/22 12:45:00 EDT... Start Date: 02/21/22 Status: Ordered Problem List Condition Effective Dates Status Health Status Informant Diastolic CHF(Confirmed) Active Edema(Confirmed) Active Hyperlipidemia(Confirmed) Active Hypertension(Confirmed) Active Diabetic neuropathy associated with Active type 2 diabetes mellitus(Confirmed) Abdominal obesity(Confirmed) Active Obese class II(Confirmed) Active Major depression, recurrent(Confirmed) Active Poor dentition(Confirmed) Active Type 2 diabetes mellitus(Confirmed) Active Diagnosis Diagnosis Type Effective Dates Health Clinical Infor [facility] Status Service Diabetic Discharge 02/21/22 neuropathy Diagnosis associated with type 2 diabetes mellitus Diastolic CHF Discharge 02/21/22 Diagnosis Major depression, Discharge 02/21/22 recurrent Diagnosis Obese class II Discharge 02/21/22 Diagnosis Vital Signs Most recent to oldest [Reference Range]: 1 Height 157 cm (02/21/22 12:45 PM) Weight 86.36 kg (02/21/22 12:45 PM) Body Mass Index [18.5-24.99] 35.04 *>HHI* (02/21/22 12:45 PM) Weight Obtained Via Patient/family stated (02/21/22 12:45 PM) Social History Social History Type Response Smoking Status Never (less than 100 in life time) entered on: 08/31/19 Sex
--- OUTSIDE RECORDS SUMMARY | 2022-07-12 09:26 | XMS_ITS | Continuity of Care Document ---
:1980 Author Organization [facility] Adult Address [address] [place] [phone]- Care Team Providers Name Role Phone Che PINZON, [facility] Primary Care Physician Encounter [facility] [place] [place] Date(s): 05/08/22 - 06/07/22 [facility] Adult [address] [place] [id number] Attending Physician: Kiki, Feliz Admitting Physician: Admtr, Ar8 Referring Physician: Admtr, Ar8 Allergies, Adverse Reactions, Alerts No Known Allergies Medications Albuterol (Eqv-ProAir HFA) 90 mcg/inh inhalation aerosol 2 puffs, Inhalation, Every 6 hours, PRN Wheezing/Shortness of Breath, # 6.7 Gm, 0 Refills, Maintenance, 11/22/21 14:32:00 EDT, [facility] #[id number], Partial fill upon patient request if the prescription is for a schedule II opioid drug., 2 puff... Start Date: 11/22/21 Status: Orderedatorvastatin 80 mg oral tablet 1 tablet = 80 mg, By Mouth, Daily at bedtime, # 30 tablet, 11 Refills, Maintenance, 01/01/22 12:04:00 EDT, Tablet, [facility] #[id number], Partial fill upon patient request if the prescription is for a schedule II opioid drug., 157, cm, 01/01/22... Start Date: 01/01/22 Stop Date: 12/27/22 Status: Orderedbumetanide 1 mg oral tablet 1, tablet, By Mouth, Daily, # 30 tablet, Refills 0, Maintenance, 04/30/22 10:42:00 EDT, Route to Pharmacy Electronically, [facility] #[id number], 157, cm, 02/21/22 12:45:00 EDT, Height, 88.7, kg, 09/07/21 21:40:00 EST, Dry Weight Start Date: 04/30/22 Status: Orderedfamotidine 20 mg oral tablet 20 mg, 1, tablet, By Mouth, 2 times a day, PRN, # 30 tablet, Refills 0, Tot. Refills 0, Maintenance,stomach acid, 04/30/22 9:17:00 EDT, Route to Pharmacy Electronically, [facility] #[id number], Partial fill upon patient request if the prescripti... Start Date: 04/30/22 Stop Date: 05/15/22 Status: Orderedferrous sulfate 325 mg oral enteric coated tablet 325 mg, 1, tablet, By Mouth, 2 times a day, # 60 tablet, Refills 1, Tot. Refills 1, Maintenance, 09/10/21 10:40:00 EST, Route to Pharmacy Electronically, [facility], Partial fill upon patient request if the prescription is for a schedule... Start Date: 09/10/21 Stop Date: 11/09/21 Status: Orderedgabapentin 100 mg oral capsule 100 mg, 1, capsule, By Mouth, Daily at bedtime, # 30 capsule, Refills 2, Tot. Refills 2, Maintenance, 02/21/22 16:06:00 EDT, Route to Pharmacy Electronically, [facility] #[id number], Partial fill upon patient request if the prescription is for a... Start Date: 02/21/22 Stop Date: 05/22/22 Status: Orderedinsulin glargine 100 units/mL subcutaneous solution = 20 units, Subcutaneous Injection, Daily at bedtime, # 10 mL, 0 Refills, Maintenance, 09/10/21 10:23:00 EST, Injection, [facility], pen please, 157, cm, 09/09/21 23:52:00 EST, Height, 88.7, kg, 09/07/21 21:40:00 EST, Dry Weight Start Date: 09/10/21 Stop Date: 10/10/21 Status: Orderedinsulin lispro 100 units/mL injectable solution 2-10 units, Subcutaneous Injection, 3 times a day before meals, # 15 mL, 0 Refills, Maintenance, 09/10/21 10:23:00 EST, Injection, [facility], Pen please, 157, cm, 09/09/21 23:52:00 EST, Height, 88.7, kg, 09/07/21 21:40:00 EST, Dry Weight Start Date: 09/10/21 Status: OrderedLasix 40 mg oral tablet 40 mg, 1, tablet, By Mouth, Daily, # 30 tablet, Refills 0, Tot. Refills 0, Maintenance, 03/18/22 17:04:00 EDT, Route to Pharmacy Electronically, [facility] #[id number], Partial fill upon patient request if the prescription is for a schedule II op... Start Date: 03/18/22 Status: Orderedlisinopril 40 mg oral tablet 1 tablet = 40 mg, By Mouth, Daily, # 30 tablet, 0 Refills, Maintenance, 02/05/22 11:36:00 EDT, Tablet, [facility] #[id number], Partial fill upon patient request if the prescription is for a schedule II opioid drug., 157, cm, 02/05/22 11:12:00 EDT... Start Date: 02/05/22 Status: Orderedsertraline 50 mg oral tablet 1 tablet = 50 mg, By Mouth, Daily, # 90 tablet, 1 Refills, Maintenance, 02/21/22 16:05:00 EDT, Tablet, [facility] #[id number], Partial fill upon patient request if the [...] on: 08/31/19 Sex Patient Care team information Care Team PersonnelName: Hailey Meza Position: [facility] Outreach Member Role: Primary Care Nurse Name: Kd Grewal RN Position: [facility] RN Member Role: Primary Care Nurse Name: Tracy Mckeon RN Position: [facility] RN Member Role: Primary Care Nurse Name: Rosanna Gar RN Position: [facility] RN Member Role: Primary Care Nurse Name: Kayode Bolton MD Position: [facility] Primary Care Physician Member Role: PCP Address: Address: [address] [place] [address] [address] [place], [place] [id number] Name: Hailey Gonzalez RN Position: [facility] RN Member Role: Primary Care Nurse Name: Marika Ortiz RN Position: [facility] RN Member Role: Primary Care Nurse Name: Lou Medina RN Position: [facility] RN Member Role: Primary Care Nurse Name: Gaurang Wade RN Position: [facility] ED RN W/OE and Tasks Member Role: Primary Care Nurse Care Team Related PersonsName: SHWETHA TANG Address: [address] [address] Name: CHELSEA WHITING Address: [facility]
--- OUTSIDE RECORDS SUMMARY | 2022-07-12 09:26 | XMS_ITS | Continuity of Care Document ---
:1980 Author Organization [facility] Address [address] [place] [phone]- Care Team Providers Name Role Phone Fredy DELCID, Hailey Bowman Primary Care Physician [place] [facility] [place](s): 11/22/21 - 12/22/21 [facility] [address] [place] [id number] Allergies, Adverse Reactions, Alerts No Known Allergies Medications Albuterol (Eqv-ProAir HFA) 90 mcg/inh inhalation aerosol 2 puffs, Inhalation, Every 6 hours, PRN Wheezing/Shortness of Breath, # 6.7 Gm, 0 Refills, Maintenance, 11/22/21 14:32:00 EDT, [email or web address] #[id number], Partial fill upon patient request if the prescription is for a schedule II opioid drug., 2 puff... Start Date: 11/22/21 Status: Orderedatorvastatin 80 mg oral tablet 1 tablet = 80 mg, By Mouth, Daily at bedtime, # 30 tablet, 1 Refills, Maintenance, 09/10/21 10:20:00EST, Tablet, [facility], Partial fill upon patient request if the prescription is for a schedule II opioid drug., 157, cm, 09/09/21 23:5... Start Date: 09/10/21 Stop Date: 11/09/21 Status: Orderedbumetanide 1 mg oral tablet 1 mg, 1, tablet, By Mouth, Daily, # 30 tablet, Refills 1, Tot. Refills 1, Maintenance, 09/18/21 9:12:00 EST, Route to Pharmacy Electronically, [facility] #[id number], Partial fill upon patient request if the prescription is for a schedule II opio... Start Date: 09/18/21 Status: Orderedferrous sulfate 325 mg oral enteric coated tablet 325 mg, 1, tablet, By Mouth, 2 times a day, # 60 tablet, Refills 1, Tot. Refills 1, Maintenance, 09/10/21 10:40:00 EST, Route to Pharmacy Electronically, [facility], Partial fill upon patient request if the prescription is for a schedule... Start Date: 09/10/21 Stop Date: 11/09/21 Status: Orderedinsulin glargine 100 units/mL subcutaneous solution = 20 units, Subcutaneous Injection, Daily at bedtime, # 10 mL, 0 Refills, Maintenance, 09/10/21 10:23:00 EST, Injection, [facility], pen please, 157, cm, 09/09/21 23:52:00 EST, Height, 88.7, kg, 09/07/21 21:40:00 EST, Dry Weight Start Date: 09/10/21 Stop Date: 10/10/21 Status: Orderedinsulin lispro 100 units/mL injectable solution 2-10 units, Subcutaneous Injection, 3 times a day before meals, # 15 mL, 0 Refills, Maintenance, 09/10/21 10:23:00 EST, Injection, [facility], Pen please, 157, cm, 09/09/21 23:52:00 EST, Height, 88.7, kg, 09/07/21 21:40:00 EST, Dry Weight Start Date: 09/10/21 Status: OrderedNIFEdipine 90 mg oral tablet, extended release 90 mg, 1, tablet, By Mouth, Daily, # 30 tablet, Refills 1, Tot. Refills 1, Maintenance, 09/10/21 10:22:00 EST, Route to Pharmacy Electronically, [facility], Partial fill upon patient request if the prescription is for a schedule II opioi... Start Date: 09/10/21 Status: Orderedsertraline 50 mg oral tablet 1 tablet = 50 mg, By Mouth, Daily, # 90 tablet, 1 Refills, Maintenance, 03/06/21 8:12:00 EDT, Tablet, [facility] #[id number], Partial fill upon patient request if the [...]
--- OUTSIDE RECORDS SUMMARY | 2022-07-12 09:26 | XMS_ITS | Continuity of Care Document ---
:1980 Author Organization [facility] Adult Address [address] [place] [phone]- Care Team Providers Name Role Phone Fredy DELCID, Hailey Bowman Primary Care Physician [phone] [place] [facility] [place]/12/[place] - 10/12/[address] [address] Allergies, Adverse Reactions, Alerts No Known Allergies Medications atorvastatin 80 mg oral tablet 1 tablet = 80 mg, By Mouth, Daily at bedtime, # 30 tablet, 1 Refills, Maintenance, 09/10/21 10:20:00EST, Tablet, [facility], Partial fill upon patient request if the prescription is for a schedule II opioid drug., 157, cm, 09/09/21 23:5... Start Date: 09/10/21 Stop Date: 11/09/21 Status: Orderedbumetanide 1 mg oral tablet 1 mg, 1, tablet, By Mouth, Daily, # 30 tablet, Refills 1, Tot. Refills 1, Maintenance, 09/18/21 9:12:00 EST, Route to Pharmacy Electronically, [facility] #[id number], Partial fill upon patient request if the prescription is for a schedule II opio... Start Date: 09/18/21 Status: Orderedferrous sulfate 325 mg oral enteric coated tablet 325 mg, 1, tablet, By Mouth, 2 times a day, # 60 tablet, Refills 1, Tot. Refills 1, Maintenance, 09/10/21 10:40:00 EST, Route to Pharmacy Electronically, [facility], Partial fill upon patient request if the prescription is for a schedule... Start Date: 09/10/21 Stop Date: 11/09/21 Status: Orderedinsulin glargine 100 units/mL subcutaneous solution = 20 units, Subcutaneous Injection, Daily at bedtime, # 10 mL, 0 Refills, Maintenance, 09/10/21 10:23:00 EST, Injection, [facility], pen please, 157, cm, 09/09/21 23:52:00 EST, Height, 88.7, kg, 09/07/21 21:40:00 EST, Dry Weight Start Date: 09/10/21 Stop Date: 10/10/21 Status: Orderedinsulin lispro 100 units/mL injectable solution 2-10 units, Subcutaneous Injection, 3 times a day before meals, # 15 mL, 0 Refills, Maintenance, 09/10/21 10:23:00 EST, Injection, [facility], Pen please, 157, cm, 09/09/21 23:52:00 EST, Height, 88.7, kg, 09/07/21 21:40:00 EST, Dry Weight Start Date: 09/10/21 Status: OrderedNIFEdipine 90 mg oral tablet, extended release 90 mg, 1, tablet, By Mouth, Daily, # 30 tablet, Refills 1, Tot. Refills 1, Maintenance, 09/10/21 10:22:00 EST, Route to Pharmacy Electronically, [facility], Partial fill upon patient request if the prescription is for a schedule II opioi... Start Date: 09/10/21 Status: Orderedsertraline 50 mg oral tablet 1 tablet = 50 mg, By Mouth, Daily, # 90 tablet, 1 Refills, Maintenance, 03/06/21 8:12:00 EDT, Tablet, [facility] #[id number], Partial fill upon patient request if the [...]
--- OUTSIDE RECORDS SUMMARY | 2022-07-12 09:26 | XMS_ITS | Continuity of Care Document ---
:1980 [address] [facility] Adult Address [address] [place] [address]- Care Team Providers Name Role Phone Che PINZON, Kyaode Primary Care Physician Encounter [facility] [place] Date(s): 02/21/22 - 03/23/[address] [facility] Adult [address] [place] [phone]- Attending Physician: Feliz Swanson Admitting Physician: Admtr, Shemar8 Referring Physician: Admtr, Ar8 Allergies, Adverse Reactions, Alerts No Known Allergies Medications Albuterol (Eqv-ProAir HFA) 90 mcg/inh inhalation aerosol 2 puffs, Inhalation, Every 6 hours, PRN Wheezing/Shortness of Breath, # 6.7 Gm, 0 Refills, Maintenance, 11/22/21 14:32:00 EDT, [facility] #[id number], Partial fill upon patient request if the prescription is for a schedule II opioid drug., 2 puff... Start Date: 11/22/21 Status: Orderedatorvastatin 80 mg oral tablet 1 tablet = 80 mg, By Mouth, Daily at bedtime, # 30 tablet, 11 Refills, Maintenance, 01/01/22 12:04:00 EDT, Tablet, [facility] #[id number], Partial fill upon patient request if the prescription is for a schedule II opioid drug., 157, cm, 01/01/22... Start Date: 01/01/22 Stop Date: 12/27/22 Status: Orderedferrous sulfate 325 mg oral enteric coated tablet 325 mg, 1, tablet, By Mouth, 2 times a day, # 60 tablet, Refills 1, Tot. Refills 1, Maintenance, 09/10/21 10:40:00 EST, Route to Pharmacy Electronically, [facility], Partial fill upon patient request if the prescription is for a schedule... Start Date: 09/10/21 Stop Date: 11/09/21 Status: Orderedgabapentin 100 mg oral capsule 100 mg, 1, capsule, By Mouth, Daily at bedtime, # 30 capsule, Refills 2, Tot. Refills 2, Maintenance, 02/21/22 16:06:00 EDT, Route to Pharmacy Electronically, [facility] #[id number], Partial fill upon patient request if the prescription is for a... Start Date: 02/21/22 Stop Date: 05/22/22 Status: Orderedinsulin glargine 100 units/mL subcutaneous solution = 20 units, Subcutaneous Injection, Daily at bedtime, # 10 mL, 0 Refills, Maintenance, 09/10/21 10:23:00 EST, Injection, [facility], pen please, 157, cm, 09/09/21 23:52:00 EST, Height, 88.7, kg, 09/07/21 21:40:00 EST, Dry Weight Start Date: 09/10/21 Stop Date: 10/10/21 Status: Orderedinsulin lispro 100 units/mL injectable solution 2-10 units, Subcutaneous Injection, 3 times a day before meals, # 15 mL, 0 Refills, Maintenance, 09/10/21 10:23:00 EST, Injection, [facility], Pen please, 157, cm, 09/09/21 23:52:00 EST, Height, 88.7, kg, 09/07/21 21:40:00 EST, Dry Weight Start Date: 09/10/21 Status: OrderedLasix 40 mg oral tablet 40 mg, 1, tablet, By Mouth, Daily, # 30 tablet, Refills 0, Tot. Refills 0, Maintenance, 03/18/22 17:04:00 EDT, Route to Pharmacy Electronically, [facility] #[id number], Partial fill upon patient request if the prescription is for a schedule II op... Start Date: 03/18/22 Status: Orderedlisinopril 40 mg oral tablet 1 tablet = 40 mg, By Mouth, Daily, # 30 tablet, 0 Refills, Maintenance, 02/05/22 11:36:00 EDT, Tablet, [facility] #[id number], Partial fill upon patient request if the prescription is for a schedule II opioid drug., 157, cm, 02/05/22 11:12:00 EDT... Start Date: 02/05/22 Status: Orderedsertraline 50 mg oral tablet 1 tablet = 50 mg, By Mouth, Daily, # 90 tablet, 1 Refills, Maintenance, 02/21/22 16:05:00 EDT, Tablet, [facility][id number], Partial fill upon patient request if the prescription is for a schedule II opioid drug., 157, cm, 02/21/22 12:45:00 EDT... Start Date: 02/21/22 Status: Ordered Problem List Condition Effective Dates Status Health Status Informant Diastolic CHF(Confirmed) Active Edema(Confirmed) Active LIYA (generalized anxiety Active disorder)(Confirmed) Hyperlipidemia(Confirmed) Active Hypertension(Confirmed) Active Diabetic neuropathy associated with Active type 2 diabetes mellitus(Confirmed) Abdominal obesity(Confirmed) Active Obese class II(Confirmed) Active Major depression, recurrent(Confirmed) Active MDD (major depressive disorder), Active recurrent episode, moderate(Confirmed) Poor dentition(Confirmed) Active Type 2 diabetes mellitus(Confirmed) Active Social History Social History Type Response Smoking Status Never (less than 100 in life time) entered on: 08/31/19 Sex Care Team PersonnelName: Che PINZON, [facility] Address: [address] [place] [address] [address] [place], [place] [address]
--- OUTSIDE RECORDS SUMMARY | 2022-07-12 09:26 | XMS_ITS | Continuity of Care Document ---
:1980 Author Organization [facility] Adult Address [address] [place] [phone]- Care Team Providers Name Role Phone Fredy DELCID, Hailey Bowman Primary Care Physician Encounter [facility] [place] Date(s): 03/06/21 - 03/13/21 [facility] Adult [address] [place] [id number] Encounter Diagnosis Dehydration (Discharge Diagnosis) - 03/06/21 Poor dentition (Discharge Diagnosis) - 03/06/21 Type 2 diabetes mellitus (Discharge Diagnosis) - 03/06/21 Hyperlipidemia (Discharge Diagnosis) - 03/06/21 Major depression, recurrent (Discharge Diagnosis) - 03/06/21 Microalbuminuria (Discharge Diagnosis) - 03/06/21 Attending Physician: Fredy DELCID, Hailey Bowman Referring [...] 03/06/21 8:13:00 EDT, Route to Pharmacy Electronically, [facility] #[id number], 158.8, cm, 03/06/21 8:04:00 EDT, Height, 79.7, kg, 05/10/20 16:46:00 EDT, Dry... Start Date: 03/06/21 Status: Orderedatorvastatin 10 mg oral tablet 1 tablet = 10 mg, By Mouth, Daily, # 90 tablet, 1 Refills, Maintenance, 03/06/21 8:11:00 EDT, [facility] #[id number], 158.8, cm, 03/06/21 8:04:00 EDT, Height, 79.7, [...] 3 Refills, Maintenance, 03/06/21 12:38:00 EDT, Solution, [facility] #[id number], Replacing Basaglar 12/06/20, 158.8, cm, 01/23/21 8:45:00 EDT, Height, 79.7, kg, 05/10/20 16:46:00 EDT,... Start Date: 03/06/21 Stop Date: 03/01/22 Status: Orderedlisinopril 5 mg oral tablet 5 mg, 1, tablet, By Mouth, Daily, # 30 tablet, Refills 0, Tot. Refills 0, Maintenance, 03/13/21 13:42:00 EDT, Route to Pharmacy Electronically, [facility] #[id number], Partial fill upon patient request if the prescription is for a schedule II opi... Start Date: 03/13/21 Status: OrderedmetFORMIN 1000 mg oral tablet 1 tablet = 1,000 mg, By Mouth, 2 times a day, # 60 tablet, 6 Refills, Maintenance, 02/08/21 11:25:00EDT, [facility] #[id number], 158.8, cm, 02/08/21 11:22:00 EDT, Height, 79.7, kg, 05/10/20 16:46:00 EDT, Dry Weight Start Date: 02/08/21 Stop Date: 09/06/21 Status: OrderedPen [place], 29 G x 12.7 mm BD Ultra [...] 1 Refills, Maintenance, 03/06/21 8:12:00 EDT, Tablet, [facility] #[id number], Partial fill upon patient request if the [...] diabetes mellitus(Confirmed) Active Diagnosis Diagnosis Type Effective Health Clinical Informant Dates Status Service Type 2 diabetes Discharge 03/06/21 mellitus Diagnosis Hyperlipidemia Discharge 03/06/21 Diagnosis Major depression, Discharge 03/06/21 recurrent Diagnosis Poor dentition Discharge 03/06/21 Diagnosis Dehydration Discharge 03/06/21 Diagnosis Microalbuminuria Discharge 03/06/21 Diagnosis Vital Signs Most recent to oldest [Reference Range]: 1 Height 158.8 cm (03/06/21 8:04 AM) Weight 80 kg (03/06/21 8:04 AM) Oxygen Saturation [94-100 %] 98 % (03/06/21 8:04 AM) Pulse Rate [55-90 bpm] 98 bpm *H* (03/06/21 8:04 AM) Body Mass Index [18.5-24.99] 31.72 *>HHI* (03/06/21 8:04 AM) Blood Pressure [90-138/55-84 mm Hg] 133/77 mm Hg (03/06/21 8:04 AM) Mode of Delivery (Oxygen) Room air (03/06/21 8:04 AM) Blood pressure sites Arm, left (03/06/21 8:04 AM) Weight Obtained Via Standing scale (03/06/21 8:04 AM) Social History Social History Type Response Smoking Status Never (less than 100 in life time) entered on: 08/31/19 Sex
--- OUTSIDE RECORDS SUMMARY | 2022-07-12 09:26 | XMS_ITS | Continuity of Care Document ---
:1980 Author Organization [facility] Address [address] [place] [id number]- Care Team Providers Name Role Phone Fredy DELCID, Hailey Bowman Primary Care Physician [place] [facility] [place] 03/[place]21 - 07/04/21 [facility] [address] [place] [id number] Attending Physician: Kole DELCID, Ruth Mills Admitting Physician: Kole DELCID, Ruth Mills Referring Physician: Fredy DELCID, Hailey Bowman Allergies, [...] 03/06/21 8:13:00 EDT, Route to Pharmacy Electronically, [facility] #[id number], 158.8, cm, 03/06/21 8:04:00 EDT, Height, 79.7, kg, 05/10/20 16:46:00 EDT, Dry... Start Date: 03/06/21 Status: Orderedatorvastatin 10 mg oral tablet 1 tablet = 10 mg, By Mouth, Daily, # 90 tablet, 1 Refills, Maintenance, 03/06/21 8:11:00 EDT, [facility] #[id number], 158.8, cm, 03/06/21 8:04:00 EDT, Height, 79.7, [...] 3 Refills, Maintenance, 03/06/21 12:38:00 EDT, Solution, [facility] #[id number], Replacing Basaglar 12/06/20, 158.8, cm, 01/23/21 8:45:00 EDT, Height, 79.7, kg, 05/10/20 16:46:00 EDT,... Start Date: 03/06/21 Stop Date: 03/01/22 Status: Orderedlisinopril 5 mg oral tablet 5 mg, 1, tablet, By Mouth, Daily, # 30 tablet, Refills 0, Tot. Refills 0, Maintenance, 04/18/21 14:44:00 EDT, Route to Pharmacy Electronically, [facility] #[id number], Partial fill upon patient request if the prescription is for a schedule II opi... Start Date: 04/18/21 Status: OrderedmetFORMIN 1000 mg oral tablet 1 tablet = 1,000 mg, By Mouth, 2 times a day, # 60 tablet, 6 Refills, Maintenance, 02/08/21 11:25:00EDT, [facility] #[id number], 158.8, cm, 02/08/21 11:22:00 EDT, Height, 79.7, kg, 05/10/20 16:46:00 EDT, Dry Weight Start Date: 02/08/21 Stop Date: 09/06/21 Status: OrderedPen [place], 29 G x 12.7 mm BD [...] 1 Refills, Maintenance, 03/06/21 8:12:00 EDT, Tablet, [facility] #[id number], Partial fill upon patient request if the [...]
--- OUTSIDE RECORDS SUMMARY | 2022-07-12 09:26 | XMS_ITS | Continuity of Care Document ---
:1980 Author Organization [facility] Adult Address [address] [place] [phone]- Care Team Providers Name Role Phone Fredy DELCID, Hailey Bowman Primary Care Physician [phone] [place] [facility] [place](s): 10/04/21 - 11/03/[address] [id number] Allergies, Adverse Reactions, Alerts No Known Allergies Medications atorvastatin 80 mg oral tablet 1 tablet = 80 mg, By Mouth, Daily at bedtime, # 30 tablet, 1 Refills, Maintenance, 09/10/21 10:20:00EST, Tablet, [facility], Partial fill upon patient request if the prescription is for a schedule II opioid drug., 157, cm, 09/09/21 23:5... Start Date: 09/10/21 Stop Date: 11/09/21 Status: Orderedbumetanide 1 mg oral tablet 1 mg, 1, tablet, By Mouth, Daily, # 30 tablet, Refills 1, Tot. Refills 1, Maintenance, 09/18/21 9:12:00 EST, Route to Pharmacy Electronically, [facility][id number], Partial fill upon patient request if the prescription is for a schedule II opio... Start Date: 09/18/21 Status: Orderedferrous sulfate 325 mg oral enteric coated tablet 325 mg, 1, tablet, By Mouth, 2 times a day, # 60 tablet, Refills 1, Tot. Refills 1, Maintenance, 09/10/21 10:40:00 EST, Route to Pharmacy Electronically, [facility], Partial fill upon patient request if the prescription is for a schedule... Start Date: 09/10/21 Stop Date: 11/09/21 Status: Orderedinsulin glargine 100 units/mL subcutaneous solution = 20 units, Subcutaneous Injection, Daily at bedtime, # 10 mL, 0 Refills, Maintenance, 09/10/21 10:23:00 EST, Injection, [facility], pen please, 157, cm, 09/09/21 23:52:00 EST, Height, 88.7, kg, 09/07/21 21:40:00 EST, Dry Weight Start Date: 09/10/21 Stop Date: 10/10/21 Status: Orderedinsulin lispro 100 units/mL injectable solution 2-10 units, Subcutaneous Injection, 3 times a day before meals, # 15 mL, 0 Refills, Maintenance, 09/10/21 10:23:00 EST, Injection, [facility], Pen please, 157, cm, 09/09/21 23:52:00 EST, Height, 88.7, kg, 09/07/21 21:40:00 EST, Dry Weight Start Date: 09/10/21 Status: OrderedNIFEdipine 90 mg oral tablet, extended release 90 mg, 1, tablet, By Mouth, Daily, # 30 tablet, Refills 1, Tot. Refills 1, Maintenance, 09/10/21 10:22:00 EST, Route to Pharmacy Electronically, [facility], Partial fill upon patient request if the prescription is for a schedule II opioi... Start Date: 09/10/21 Status: Orderedsertraline 50 mg oral tablet 1 tablet = 50 mg, By Mouth, Daily, # 90 tablet, 1 Refills, Maintenance, 03/06/21 8:12:00 EDT, Tablet, [facility][id number], Partial fill upon patient request if the [...]
--- OUTSIDE RECORDS SUMMARY | 2022-07-12 09:26 | XMS_ITS | Continuity of Care Document ---
:1980 Author Organization [facility] Adult Address [address] [place] [phone]- Care Team Providers Name Role Phone Che PINZON, Kayode Primary Care Physician Encounter [facility] [place] Date(s): 01/01/22 - 01/08/22 [facility] [address] [place] [phone]- Encounter Diagnosis Edema (Discharge Diagnosis) - 01/01/22 Hypertension (Discharge Diagnosis) - 01/01/22 Attending Physician: Yarelis INDUSTRIAL [employer]YCHOLOGY TEACHER, Frances Carrillo Allergies, Adverse Reactions, Alerts No Known Allergies Medications Albuterol (Eqv-ProAir HFA) 90 mcg/inh inhalation aerosol 2 puffs, Inhalation, Every 6 hours, PRN Wheezing/Shortness of Breath, # 6.7 Gm, 0 Refills, Maintenance, 11/22/21 14:32:00 EDT, [facility][id number], Partial fill upon patient request if the prescription is for a schedule II opioid drug., 2 puff... Start Date: 11/22/21 Status: Orderedatorvastatin 80 mg oral tablet 1 tablet = 80 mg, By Mouth, Daily at bedtime, # 30 tablet, 11 Refills, Maintenance, 01/01/22 12:04:00 EDT, Tablet, [facility] #[id number], Partial fill upon patient request if the prescription is for a schedule II opioid drug., 157, cm, 01/01/22... Start Date: 01/01/22 Stop Date: 12/27/22 Status: Orderedbumetanide 1 mg oral tablet 1 mg, 1, tablet, By Mouth, Daily, # 30 tablet, Refills 11, Tot. Refills 11, Maintenance, 01/01/22 11:51:00 EDT, Route to Pharmacy Electronically, [facility] #[id number], Partial fill upon patient request if the prescription is for a schedule II o... Start Date: 01/01/22 Stop Date: 12/27/22 Status: Orderedferrous sulfate 325 mg oral enteric coated tablet 325 mg, 1, tablet, By Mouth, 2 times a day, # 60 tablet, Refills 1, Tot. Refills 1, Maintenance, 09/10/21 10:40:00 EST, Route to Pharmacy Electronically, [facility], Partial fill upon patient request if the prescription is for a schedule... Start Date: 09/10/21 Stop Date: 11/09/21 Status: Orderedinsulin glargine 100 units/mL subcutaneous solution = 20 units, Subcutaneous Injection, Daily at bedtime, # 10 mL, 0 Refills, Maintenance, 09/10/21 10:23:00 EST, Injection, [facility], pen please, 157, cm, 09/09/21 23:52:00 EST, Height, 88.7, kg, 09/07/21 21:40:00 EST, Dry Weight Start Date: 09/10/21 Stop Date: 10/10/21 Status: Orderedinsulin lispro 100 units/mL injectable solution 2-10 units, Subcutaneous Injection, 3 times a day before meals, # 15 mL, 0 Refills, Maintenance, 09/10/21 10:23:00 EST, Injection, [facility], Pen please, 157, cm, 09/09/21 23:52:00 EST, Height, 88.7, kg, 09/07/21 21:40:00 EST, Dry Weight Start Date: 09/10/21 Status: OrderedNIFEdipine 90 mg oral tablet, extended release 90 mg, 1, tablet, By Mouth, Daily, # 30 tablet, Refills 11, Tot. Refills 11, Maintenance, 01/01/22 11:51:00 EDT, Route to Pharmacy Electronically, [facility] #[id number], Partial fill upon patientrequest if the prescription is for a schedule II... Start Date: 01/01/22 Stop Date: 12/27/22 Status: Orderedsertraline 50 mg oral tablet 1 tablet = 50 mg, By Mouth, Daily, # 90 tablet, 1 Refills, Maintenance, 03/06/21 8:12:00 EDT, Tablet, [facility][id number], Partial fill upon patient request if the prescription is for a schedule II opioid drug., 158.8, cm, 03/06/21 8:04:00 EDT... Start Date: 03/06/21 Status: Ordered Problem List Condition Effective Dates Status Health Status Informant Edema(Confirmed) Active Hyperlipidemia(Confirmed) Active Hypertension(Confirmed) Active Microalbuminuria(Confirmed) Active Diabetic neuropathy associated with Active type 2 diabetes mellitus(Confirmed) Abdominal obesity(Confirmed) Active Obese class II(Confirmed) Active Major depression, recurrent(Confirmed) Active Poor dentition(Confirmed) Active Type 2 diabetes mellitus(Confirmed) Active Diagnosis Diagnosis Type Effective Dates Health Status Clinical In formant Service Edema Discharge 01/01/22 Diagnosis Hypertension Discharge 01/01/22 Diagnosis Vital Signs Most recent to oldest 1 2 3 [Reference Range]: Height 157 cm 157 cm 157 cm (01/01/22 12:03 PM) (01/01/22 11:38 AM) (01/01/22 11:2 4 AM) Weight 87.2 kg (01/01/22 11:24 AM) Oxygen Saturation [94-100 %] 100 % (01/01/22 11:24 AM) Pulse Rate [55-90 bpm] 86 bpm (01/01/22 11:24 AM) Body Mass Index [18.5-24.99] 35.38 *>HHI* (01/01/22 11:24 AM) Blood Pressure [90-138/55-84 mm 174/72 mm Hg 178/92 mm Hg 188/98 mm Hg Hg] *H* *H* *H* (01/01/22 12:03 PM) (01/01/22 11:38 AM) (01/01/22 11:2 4 AM) Temperature [96.8-100.4 DegF] 97.7 DegF (01/01/22 11:24 AM) Mode of Delivery (Oxygen) Room air (01/01/22 11:24 AM) Blood pressure sites Arm, left Arm, left Arm, left (01/01/22 12:03 PM) (01/01/22 11:38 AM) (01/01/22 11:2 4 AM) Temperature Route Temporal (01/01/22 11:24 AM) Weight Obtained Via Standing scale (01/01/22 11:24 AM) Social History Social History Type Response Smoking Status Never (less than 100 in life time) entered on: 08/31/19 Sex
--- OUTSIDE RECORDS SUMMARY | 2022-07-12 09:26 | XMS_ITS | Continuity of Care Document ---
:1980 Author Organization [facility] Address [address] [place] [phone]- Care Team Providers Name Role Phone Fredy DELCID, Hailey Bowman Primary Care Physician Encounter [facility] [place] Date(s): 09/07/21 - 09/10/[address] [phone]- Discharge Disposition: A-D/C Home Attending Physician: Harika Muñoz MD Admitting Physician: Dulce Armstrong MD Referring Physician: Not on Staff, Referring MD Allergies, Adverse Reactions, Alerts No Known Allergies Medications atorvastatin 80 mg oral tablet 1 tablet = 80 mg, By Mouth, Daily at bedtime, # 30 tablet, 1 Refills, Maintenance, 09/10/21 10:20:00EST, Tablet, [facility], Partial fill upon patient request if the prescription is for a schedule II opioid drug., 157, cm, 09/09/21 23:5... Start Date: 09/10/21 Stop Date: 11/09/21 Status: Orderedbumetanide 1 mg oral tablet 1 mg, 1, tablet, By Mouth, Daily, # 30 tablet, Refills 1, Tot. Refills 1, Maintenance, 09/10/21 10:22:00 EST, Route to Pharmacy Electronically, [facility], Partial fill upon patient request if the prescription is for a schedule II opioid... Start Date: 09/10/21 Status: Orderedferrous sulfate 325 mg oral enteric coated tablet 325 mg, 1, tablet, By Mouth, 2 times a day, # 60 tablet, Refills 1, Tot. Refills 1, Maintenance, 09/10/21 10:40:00 EST, Route to Pharmacy Electronically, [facility], Partial fill upon patient request if the prescription is for a schedule... Start Date: 09/10/21 Stop Date: 11/09/21 Status: Orderedinsulin glargine 100 units/mL subcutaneous solution = 20 units, Subcutaneous Injection, Daily at bedtime, # 10 mL, 0 Refills, Maintenance, 09/10/21 10:23:00 EST, Injection, [facility], pen please, 157, cm, 09/09/21 23:52:00 EST, Height, 88.7, kg, 09/07/21 21:40:00 EST, Dry Weight Start Date: 09/10/21 Stop Date: 10/10/21 Status: Orderedinsulin lispro 100 units/mL injectable solution 2-10 units, Subcutaneous Injection, 3 times a day before meals, # 15 mL, 0 Refills, Maintenance, 09/10/21 10:23:00 EST, Injection, [facility], Pen please, 157, cm, 09/09/21 23:52:00 EST, Height, 88.7, kg, 09/07/21 21:40:00 EST, Dry Weight Start Date: 09/10/21 Status: OrderedNIFEdipine 30 mg oral tablet, extended release 60 mg, ER Tablet, By Mouth, 09/10/21 9:00:00 EST Start Date: 09/10/21 Stop Date: 09/10/21 Status: CompletedNIFEdipine 90 mg oral tablet, extended release 90 mg, 1, tablet, By Mouth, Daily, # 30 tablet, Refills 1, Tot. Refills 1, Maintenance, 09/10/21 10:22:00 EST, Route to Pharmacy Electronically, [facility], Partial fill upon patient request if the prescription is for a schedule II opioi... Start Date: 09/10/21 Status: Orderedsertraline 50 mg oral tablet 1 tablet = 50 mg, By Mouth, Daily, # 90 tablet, 1 Refills, Maintenance, 03/06/21 8:12:00 EDT, Tablet, [facility] #[id number], Partial fill upon patient request if the [...] dentition(Confirmed) Active Type 2 diabetes mellitus(Confirmed) Active Results Radiology Reports Exam Date Time Procedure Performing Provider Status 09/07/21 2:22 PM Chest 2 Views Frontal and Lat Ying Cuellar; Auth (Verified) Notes:(Chest 2 Views Frontal and Lat) Reason For Exam: Chest Pain;Other:RESULT: Chest 2 Views Frontal and Lat Chest 2 Views Frontal and Lat Hx of Present Illness: pt reports bilateral lower leg swelling - I haven't been to my doctor yet -pt also reports intermittent lower chest pain and sob after eating - I fell bloated - pt denies any n v - no cough - no fever - STOPPED TAKING HER MEDS *; Reason: Other:; Chest Pain; Clinical Question(s): CHF COMPARISON: None. FINDINGS: LINES AND TUBES: None. LUNGS AND PLEURA: Bilateral opacification with lower lung predominance. No effusion on lateral view No pneumothorax. HEART, MEDIASTINUM AND VITO: Heart is normal in size. Normal upper mediastinal and hilar contour. BONES AND SOFT TISSUES: No acute abnormality. IMPRESSION: Bilateral opacification with lower lung predominance on the frontal view suggesting edema. However, this is not confirmed on the lateral view and therefore findings may be at least in part due to underpenetration on account of body habitus and overlying breasts. WSN: [id number] Ordering Physician: Anahi Madrid Dictated By: Rajiv Chandler MD Dictated Date/Time: 09/07/21 2:34 pm Reviewed By: Rajiv Chandler MD Signed By: Rajiv Chandler MD Signed Date/Time: 09/07/21 2:34 pm Transcribed By: JOYCELYN Transcribed Date/Time: 09/07/21 2:31 pm Vital Signs Most recent to oldest 1 2 3 [Reference Range]: Height 157 cm 157 cm 157 cm (09/10/21 11:13 AM) (09/10/21 7:46 AM) (09/10/21 7: 39 AM) Weight 83.45 kg 88.6 kg 88.7 kg (09/10/21 10:17 AM) (09/08/21 6:54 AM) (09/07/21 9: 40 PM) Oxygen Saturation [94-100 %] 95 % 96 % 100 % (09/10/21 11:13 AM) (09/10/21 7:39 AM) (09/09/21 11 :52 PM) Pulse Rate [55-90 bpm] 78 bpm 86 bpm 81 bpm (09/10/21 11:13 AM) (09/10/21 7:39 AM) (09/09/21 11 :52 PM) Body Mass Index [18.5-24.99] 35.99 *>HHI* (09/07/21 9:40 PM) Blood Pressure [90-138/55-84 153/91 mm Hg 163/82 mm Hg 163 /82 mm Hg mm Hg] *H* *H* *H* (09/10/21 11:13 AM) (09/10/21 8:19 AM) (09/10/21 7: 39 AM) Respiratory Rate [16-30 18 br/min 18 br/min 18 br/mi n br/min] (09/10/21 11:13 AM) (09/10/21 7:39 AM) (09/09/21 11 :52 PM) Temperature [96.8-100.4 98.5 DegF 97.6 DegF 97.8 Deg F DegF] (09/10/21 11:13 AM) (09/10/21 7:46 AM) (09/09/21 11 :52 PM) Liters per Minute 3 L/min 3 L/min 3 L/min (09/10/21 7:46 AM) (09/09/21 11:52 PM) (09/09/21 8: 38 PM) Mode of Delivery (Oxygen) Room air Nasal cannula Room a ir (09/10/21 11:13 AM) (09/10/21 7:46 AM) (09/10/21 7: 39 AM) Blood pressure sites Arm, right Arm, right Arm, right (09/10/21 11:13 AM) (09/10/21 7:39 AM) (09/09/21 11 :52 PM) Temperature Route Oral Oral Oral (09/10/21 11:13 AM) (09/10/21 7:46 AM) (09/09/21 11 :52 PM) Dry Weight 88.7 kg (09/07/21 9:40 PM) Weight Obtained Via Standing scale Bed scale (09/10/21 10:17 AM) (09/08/21 6:54 AM) Social History Social History Type Response Smoking Status Never (less than 100 in life time) entered on: 08/31/19 Sex
--- OUTSIDE RECORDS SUMMARY | 2022-07-12 09:26 | XMS_ITS | Continuity of Care Document ---
:1980 Author Organization [facility] Adult Address [address] [place] [phone]- Care Team Providers Name Role Phone Kayode Bolton MD Primary Care Physician Encounter [facility] Date(s): 02/05/22 - 02/12/22 [facility] [address] [place] [phone]- Encounter Diagnosis Diabetic neuropathy associated with type 2 diabetes mellitus (Discharge Diagnosis) - 02/05/22 Hyperlipidemia (Discharge Diagnosis) - 02/05/22 Hypertension (Discharge Diagnosis) - 02/05/22 Obese class II (Discharge Diagnosis) - 02/05/22 Major depression, recurrent (Discharge Diagnosis) - 02/05/22 Diastolic CHF (Discharge Diagnosis) - 02/05/22 Attending Physician: Kayode Bolton MD Allergies, Adverse Reactions, Alerts No Known Allergies Medications Albuterol (Eqv-ProAir HFA) 90 mcg/inh inhalation aerosol 2 puffs, Inhalation, Every 6 hours, PRN Wheezing/Shortness of Breath, # 6.7 Gm, 0 Refills, Maintenance, 11/22/21 14:32:00 EDT, [facility] #[id number], Partial fill upon patient request if the prescription is for a schedule II opioid drug., 2 puff... Start Date: 11/22/21 Status: Orderedatorvastatin 80 mg oral tablet 1 tablet = 80 mg, By Mouth, Daily at bedtime, # 30 tablet, 11 Refills, Maintenance, 01/01/22 12:04:00 EDT, [facility] #[id number], Partial fill upon patient request if the prescription is for a schedule II opioid drug., 157, cm, 01/01/22... Start Date: 01/01/22 Stop Date: 12/27/22 Status: Orderedferrous sulfate 325 mg oral enteric coated tablet 325 mg, 1, tablet, By Mouth, 2 times a day, # 60 tablet, Refills 1, Tot. Refills 1, Maintenance, 09/10/21 10:40:00 EST, Route to Pharmacy Electronically, [facility], Partial fill upon patient request if the prescription is for a schedule... Start Date: 09/10/21 Stop Date: 11/09/21 Status: Orderedinsulin glargine 100 units/mL subcutaneous solution = 20 units, Subcutaneous Injection, Daily at bedtime, # 10 mL, 0 Refills, Maintenance, 09/10/21 10:23:00 EST, Injection, [facility], pen please, 157, cm, 09/09/21 23:52:00 EST, Height, 88.7, kg, 09/07/21 21:40:00 EST, Dry Weight Start Date: 09/10/21 Stop Date: 10/10/21 Status: Orderedinsulin lispro 100 units/mL injectable solution 2-10 units, Subcutaneous Injection, 3 times a day before meals, # 15 mL, 0 Refills, Maintenance, 09/10/21 10:23:00 EST, Injection, [facility], Pen please, 157, cm, 09/09/21 23:52:00 EST, Height, 88.7, kg, 09/07/21 21:40:00 EST, Dry Weight Start Date: 09/10/21 Status: OrderedLasix 40 mg oral tablet 40 mg, 1, tablet, By Mouth, Daily, # 30 tablet, Refills 0, Tot. Refills 0, Maintenance, 02/05/22 11:36:00 EDT, Route to Pharmacy Electronically, [facility] #[id number], Partial fill upon patient request if the prescription is for a schedule II op... Start Date: 02/05/22 Status: Orderedlisinopril 40 mg oral tablet 1 tablet = 40 mg, By Mouth, Daily, # 30 tablet, 0 Refills, Maintenance, 02/05/22 11:36:00 EDT, Tablet, [facility] #[id number], Partial fill upon patient request if the prescription is for a schedule II opioid drug., 157, cm, 02/05/22 11:12:00 EDT... Start Date: 02/05/22 Status: Orderedsertraline 50 mg oral tablet 1 tablet = 50 mg, By Mouth, Daily, # 90 tablet, 1 Refills, Maintenance, 03/06/21 8:12:00 EDT, Tablet, [facility][id number], Partial fill upon patient request if the [...] Health Clinical Infor mant Status Service Diabetic neuropathy Discharge 02/05/22 associated with type Diagnosis 2 diabetes mellitus Hyperlipidemia Discharge 02/05/22 Diagnosis Hypertension Discharge 02/05/22 Diagnosis Obese class II Discharge 02/05/22 Diagnosis Major depression, Discharge 02/05/22 recurrent Diagnosis Diastolic CHF Discharge 02/05/22 Diagnosis Vital Signs Most recent to oldest [Reference Range]: 1 2 Height 157 cm 157 cm (02/05/22 11:12 AM) (02/05/22 10:59 AM) Weight 89 kg (02/05/22 10:59 AM) Oxygen Saturation [94-100 %] 99 % (02/05/22 10:59 AM) Pulse Rate [55-90 bpm] 89 bpm (02/05/22 10:59 AM) Body Mass Index [18.5-24.99] 36.11 *>HHI* (02/05/22 10:59 AM) Blood Pressure [90-138/55-84 mm Hg] 183/101 mm Hg 178/ 98 mm Hg *H* *H* (02/05/22 11:12 AM) (02/05/22 10:59 AM) Mode of Delivery (Oxygen) Room air (02/05/22 10:59 AM) Blood pressure sites Arm, left Arm, left (02/05/22 11:12 AM) (02/05/22 10:59 AM) Weight Obtained Via Standing scale (02/05/22 10:59 AM) Social History Social History Type Response Smoking Status Never (less than 100 in life time) entered on: 08/31/19 Sex
--- OUTSIDE RECORDS SUMMARY | 2022-07-12 09:26 | XMS_ITS | Continuity of Care Document ---
:1980 Author Organization [facility] Adult Address [address] [place] [address]- Care Team Providers Name Role Phone Che PINZON, Kayode Primary Care Physician [place] [facility] [place] 12/17/21 - 01/16/22 [facility] [address] [place] [address] [id number] Attending Physician: Yarelis DELCID, Frances Carrillo Allergies, Adverse Reactions, Alerts No Known Allergies Medications Albuterol (Eqv-ProAir HFA) 90 mcg/inh inhalation aerosol 2 puffs, Inhalation, Every 6 hours, PRN Wheezing/Shortness of Breath, # 6.7 Gm, 0 Refills, Maintenance, 11/22/21 14:32:00 EDT, [facility] #[id number], Partial fill upon patient request if the prescription is for a schedule II opioid drug., 2 puff... Start Date: 11/22/21 Status: Orderedatorvastatin 80 mg oral tablet 1 tablet = 80 mg, By Mouth, Daily at bedtime, # 30 tablet, 11 Refills, Maintenance, 01/01/22 12:04:00 EDT, Tablet, [facility] #[id number], Partial fill upon patient request if the prescription is for a schedule II opioid drug., 157, cm, 01/01/22... Start Date: 01/01/22 Stop Date: 12/27/22 Status: Orderedbumetanide 2 mg oral tablet 1 tablet = 2 mg, By Mouth, Daily, # 30 tablet, 0 Refills, Maintenance, 01/15/22 10:42:00 EDT, Tablet, [facility] #[id number], Partial fill upon patient request if the prescription is for a schedule II opioid drug., 157, cm, 01/15/22 10:16:00 EDT,... Start Date: 01/15/22 Stop Date: 02/14/22 Status: Orderedferrous sulfate 325 mg oral enteric coated tablet 325 mg, 1, tablet, By Mouth, 2 times a day, # 60 tablet, Refills 1, Tot. Refills 1, Maintenance, 09/10/21 10:40:00 EST, Route to Pharmacy Electronically, [facility], Partial fill upon patient request if the prescription is for a schedule... Start Date: 09/10/21 Stop Date: 11/09/21 Status: Orderedinsulin glargine 100 units/mL subcutaneous solution = 20 units, Subcutaneous Injection, Daily at bedtime, # 10 mL, 0 Refills, Maintenance, 09/10/21 10:23:00 EST, Injection, [facility], pen please, 157, cm, 09/09/21 23:52:00 EST, Height, 88.7, kg, 09/07/21 21:40:00 EST, Dry Weight Start Date: 09/10/21 Stop Date: 10/10/21 Status: Orderedinsulin lispro 100 units/mL injectable solution 2-10 units, Subcutaneous Injection, 3 times a day before meals, # 15 mL, 0 Refills, Maintenance, 09/10/21 10:23:00 EST, Injection, [facility], Pen please, 157, cm, 09/09/21 23:52:00 EST, Height, 88.7, kg, 09/07/21 21:40:00 EST, Dry Weight Start Date: 09/10/21 Status: OrderedNIFEdipine 90 mg oral tablet, extended release 90 mg, 1, tablet, By Mouth, Daily, # 30 tablet, Refills 11, Tot. Refills 11, Maintenance, 01/01/22 11:51:00 EDT, Route to Pharmacy Electronically, [facility] #[id number], Partial fill upon patientrequest if the prescription is for a schedule II... Start Date: 01/01/22 Stop Date: 12/27/22 Status: Orderedsertraline 50 mg oral tablet 1 tablet = 50 mg, By Mouth, Daily, # 90 tablet, 1 Refills, Maintenance, 03/06/21 8:12:00 EDT, Tablet, [facility] #[id number], Partial fill upon patient request if the [...]
--- OUTSIDE RECORDS SUMMARY | 2022-07-12 09:26 | XMS_ITS | Continuity of Care Document ---
:1980 Author Organization [facility] Adult Address [address] [place] [id number]- Care Team Providers Name Role Phone Kayode Bolton MD Primary Care Physician Encounter [facility] [place] Date(s): 02/06/22 - 06/06/22 [facility] Adult [address] [place] [phone]- Attending Physician: Kayode Bolton MD Allergies, Adverse Reactions, Alerts No Known Allergies Medications Albuterol (Eqv-ProAir HFA) 90 mcg/inh inhalation aerosol 2 puffs, Inhalation, Every 6 hours, PRN Wheezing/Shortness of Breath, # 6.7 Gm, 0 Refills, Maintenance, 11/22/21 14:32:00 EDT, [facility] #[id number], Partial fill upon patient request if the prescription is for a schedule II opioid drug., 2 puff... Start Date: 11/22/21 Status: Orderedatorvastatin 80 mg oral tablet 1 tablet = 80 mg, By Mouth, Daily at bedtime, # 30 tablet, 11 Refills, Maintenance, 01/01/22 12:04:00 EDT, Tablet, [facility] #[id number], Partial fill upon patient request if the prescription is for a schedule II opioid drug., 157, cm, 01/01/22... Start Date: 01/01/22 Stop Date: 12/27/22 Status: Orderedbumetanide 1 mg oral tablet 1, tablet, By Mouth, Daily, # 30 tablet, Refills 0, Maintenance, 04/30/22 10:42:00 EDT, Route to Pharmacy Electronically, [facility] #[id number], 157, cm, 02/21/22 12:45:00 EDT, Height, 88.7, kg, 09/07/21 21:40:00 EST, Dry Weight Start Date: 04/30/22 Status: Orderedfamotidine 20 mg oral tablet 20 mg, 1, tablet, By Mouth, 2 times a day, PRN, # 30 tablet, Refills 0, Tot. Refills 0, Maintenance,stomach acid, 04/30/22 9:17:00 EDT, Route to Pharmacy Electronically, [facility] #[id number], Partial fill upon patient request if the prescripti... Start Date: 04/30/22 Stop Date: 05/15/22 Status: Orderedferrous sulfate 325 mg oral enteric coated tablet 325 mg, 1, tablet, By Mouth, 2 times a day, # 60 tablet, Refills 1, Tot. Refills 1, Maintenance, 09/10/21 10:40:00 EST, Route to Pharmacy Electronically, [facility], Partial fill upon patient request if the prescription is for a schedule... Start Date: 09/10/21 Stop Date: 11/09/21 Status: Orderedgabapentin 100 mg oral capsule 100 mg, 1, capsule, By Mouth, Daily at bedtime, # 30 capsule, Refills 2, Tot. Refills 2, Maintenance, 02/21/22 16:06:00 EDT, Route to Pharmacy Electronically, [facility] #[id number], Partial fill upon patient request if the prescription is for a... Start Date: 02/21/22 Stop Date: 05/22/22 Status: Orderedinsulin glargine 100 units/mL subcutaneous solution = 20 units, Subcutaneous Injection, Daily at bedtime, # 10 mL, 0 Refills, Maintenance, 09/10/21 10:23:00 EST, Injection, [facility], pen please, 157, cm, 09/09/21 23:52:00 EST, Height, 88.7, kg, 09/07/21 21:40:00 EST, Dry Weight Start Date: 09/10/21 Stop Date: 10/10/21 Status: Orderedinsulin lispro 100 units/mL injectable solution 2-10 units, Subcutaneous Injection, 3 times a day before meals, # 15 mL, 0 Refills, Maintenance, 09/10/21 10:23:00 EST, Injection, [facility], Pen please, 157, cm, 09/09/21 23:52:00 EST, Height, 88.7, kg, 09/07/21 21:40:00 EST, Dry Weight Start Date: 09/10/21 Status: OrderedLasix 40 mg oral tablet 40 mg, 1, tablet, By Mouth, Daily, # 30 tablet, Refills 0, Tot. Refills 0, Maintenance, 03/18/22 17:04:00 EDT, Route to Pharmacy Electronically, [facility] #[id number], Partial fill upon patient request if the prescription is for a schedule II op... Start Date: 03/18/22 Status: Orderedlisinopril 40 mg oral tablet 1 tablet = 40 mg, By Mouth, Daily, # 30 tablet, 0 Refills, Maintenance, 02/05/22 11:36:00 EDT, Tablet, [facility] #[id number], Partial fill upon patient request if the prescription is for a schedule II opioid drug., 157, cm, 02/05/22 11:12:00 EDT... Start Date: 02/05/22 Status: Orderedsertraline 50 mg oral tablet 1 tablet = 50 mg, By Mouth, Daily, # 90 tablet, 1 Refills, Maintenance, 02/21/22 16:05:00 EDT, Tablet, [facility] #[id number], Partial fill upon patient request if the [...] information Care Team PersonnelName: Hailey Meza Position: [facility] Outreach Member Role: Primary Care Nurse Name: Kd Grewal RN Position: [facility] RN Member Role: Primary Care Nurse Name: Tracy Mckeon RN Position: S RN Member Role: Primary Care Nurse Name: Rosanna Gar RN Position: [facility] RN Member Role: Primary Care Nurse Name: Kayode Bolton MD Position: [facility] Primary Care Physician Member Role: PCP Address: Address: [address] [place] [id number]- Name: Hailey Gonzalez RN Position: [facility] RN Member Role: Primary Care Nurse Name: Marika Ortiz RN Position: [facility] RN Member Role: Primary Care Nurse Name: Lou Medina RN Position: [facility] RN Member Role: Primary Care Nurse Name: Gaurang Wade RN Position: [facility] ED RN W/OE and Tasks Member Role: Primary Care Nurse Care Team Related PersonsName: SHWETHA TANG Address: [address] [address] Name: CHELSEA WHITING Address: [facility]
--- OUTSIDE RECORDS SUMMARY | 2022-07-12 09:26 | XMS_ITS | Continuity of Care Document ---
:1980 Author Organization [facility] Adult Address [address] [place] [address]- Care Team Providers Name Role Phone Fredy DELCID, Hailey Bowman Primary Care Physician [place] [facility] [id number] Date(s): 12/10/20 - 12/17/20 [facility] Adult [address] [place] [id number] Attending Physician: Not on Staff, Attending MD [...] 06/06/20 7:49:00 EST, Route to Pharmacy Electronically, [facility] #[id number], 158.8, cm, 05/25/20 9:00:00 EDT, Height, 79.7, kg, 05/10/20 16:46:00 EDT, Dry... Start Date: 06/06/20 Status: Orderedatorvastatin 10 mg oral tablet 1 tablet = 10 mg, By Mouth, Daily, # 90 tablet, 0 Refills, Maintenance, 12/10/20 12:19:00 EDT, [facility] #[id number], 158.8, cm, 06/06/20 8:02:00 EST, Height, 79.7, [...] 0 Refills, Maintenance, 12/06/20 12:38:00 EDT, Solution, [facility] #[id number], Replacing Tenzin 12/06/20, 158.8, cm, 06/06/20 8:02:00 EST, Height, 79.7, kg, 05/10/20 16:46:00 EDT,... Start Date: 12/06/20 Stop Date: 03/06/21 Status: Orderedlisinopril 2.5 mg oral tablet 2.5 mg, 1, tablet, By Mouth, Daily, # 90 tablet, Refills 1, Tot. Refills 1, Maintenance, 09/12/20 8:15:00 EST, Route to Pharmacy Electronically, [facility] #[id number], Partial fill upon patient request if the prescription is for a schedule II op... Start Date: 09/12/20 Status: OrderedmetFORMIN 1000 mg oral tablet 1 tablet = 1,000 mg, By Mouth, 2 times a day, # 60 tablet, 6 Refills, Maintenance, 05/31/20 16:22:00EST, [facility] #[id number], 158, cm, 05/10/20 9:19:00 EDT, Height, 82, kg, 05/10/20 9:19:00 EDT, Dry Weight Start Date: 05/31/20 Stop Date: 12/27/20 Status: OrderedPen [place], 29 G x 12.7 mm BD Ultra [...] 1 Refills, Maintenance, 12/10/20 12:36:00 EDT, Tablet, [facility] #[id number], Partial fill upon patient request if the [...]
--- OUTSIDE RECORDS SUMMARY | 2022-07-12 09:26 | XMS_ITS | Continuity of Care Document ---
:1980 Author Organization [facility] Adult Address [address] [place] [address]- Care Team Providers Name Role Phone Fredy DELCID, Hailey Bowman Primary Care Physician [place] [facility] [place] 04[place]21 [facility] Adult [address] [place] [id number]- Attending Physician: Admshae, Shemar8 Admitting Physician: Admtr, Ar8 Referring Physician: Admtr, Ar8 Allergies, Adverse Reactions, Alerts Substance Reaction Severity [...] 03/06/21 8:13:00 EDT, Route to Pharmacy Electronically, [facility] #[id number], 158.8, cm, 03/06/21 8:04:00 EDT, Height, 79.7, kg, 05/10/20 16:46:00 EDT, Dry... Start Date: 03/06/21 Status: Orderedatorvastatin 10 mg oral tablet 1 tablet = 10 mg, By Mouth, Daily, # 90 tablet, 1 Refills, Maintenance, 03/06/21 8:11:00 EDT, [facility] #[id number], 158.8, cm, 03/06/21 8:04:00 EDT, Height, 79.7, [...] 3 Refills, Maintenance, 03/06/21 12:38:00 EDT, Solution, [facility] #[id number], Replacing Basaglar 12/06/20, 158.8, cm, 01/23/21 8:45:00 EDT, Height, 79.7, kg, 05/10/20 16:46:00 EDT,... Start Date: 03/06/21 Stop Date: 03/01/22 Status: Orderedlisinopril 5 mg oral tablet 5 mg, 1, tablet, By Mouth, Daily, # 30 tablet, Refills 0, Tot. Refills 0, Maintenance, 04/18/21 14:44:00 EDT, Route to Pharmacy Electronically, [facility] #[id number], Partial fill upon patient request if the prescription is for a schedule II opi... Start Date: 04/18/21 Status: OrderedmetFORMIN 1000 mg oral tablet 1 tablet = 1,000 mg, By Mouth, 2 times a day, # 60 tablet, 6 Refills, Maintenance, 02/08/21 11:25:00EDT, [facility] #[id number], 158.8, cm, 02/08/21 11:22:00 EDT, Height, 79.7, kg, 05/10/20 16:46:00 EDT, Dry Weight Start Date: 02/08/21 Stop Date: 09/06/21 Status: OrderedPen [place], 29 G x 12.7 mm BD Ultra [...] 1 Refills, Maintenance, 03/06/21 8:12:00 EDT, Tablet, [facility] #[id number], Partial fill upon patient request if the [...]
--- OUTSIDE RECORDS SUMMARY | 2022-07-12 09:26 | XMS_ITS | Continuity of Care Document ---
:1980 Author Organization [facility] Adult Address [address] [place] [address]- Care Team Providers Name Role Phone Fredy DELCID, Hailey Bowman Primary Care Physician [phone] En[place] [facility] [place] Date(s): 03/13/21 - 05/04/21 [facility] Adult [address] [place] [id number] Attending Physician: Che PINZON, Kayode Allergies, Adverse Reactions, Alerts Substance Reaction Severity [...] 03/06/21 8:13:00 EDT, Route to Pharmacy Electronically, [facility] #[id number], 158.8, cm, 03/06/21 8:04:00 EDT, Height, 79.7, kg, 05/10/20 16:46:00 EDT, Dry... Start Date: 03/06/21 Status: Orderedatorvastatin 10 mg oral tablet 1 tablet = 10 mg, By Mouth, Daily, # 90 tablet, 1 Refills, Maintenance, 03/06/21 8:11:00 EDT, [facility] #[id number], 158.8, cm, 03/06/21 8:04:00 EDT, Height, 79.7, [...] 3 Refills, Maintenance, 03/06/21 12:38:00 EDT, Solution, [facility] #[id number], Replacing Basaglar 12/06/20, 158.8, cm, 01/23/21 8:45:00 EDT, Height, 79.7, kg, 05/10/20 16:46:00 EDT,... Start Date: 03/06/21 Stop Date: 03/01/22 Status: Orderedlisinopril 5 mg oral tablet 5 mg, 1, tablet, By Mouth, Daily, # 30 tablet, Refills 0, Tot. Refills 0, Maintenance, 04/18/21 14:44:00 EDT, Route to Pharmacy Electronically, [facility] #[id number], Partial fill upon patient request if the prescription is for a schedule II opi... Start Date: 04/18/21 Status: OrderedmetFORMIN 1000 mg oral tablet 1 tablet = 1,000 mg, By Mouth, 2 times a day, # 60 tablet, 6 Refills, Maintenance, 02/08/21 11:25:00EDT, [facility] #[id number], 158.8, cm, 07/16/21 11:22:00 EDT, Height, 79.7, kg, 05/10/20 16:46:00 EDT, Dry Weight Start Date: 02/08/21 Stop Date: 09/06/21 Status: OrderedPen [place], 29 G x 12.7 mm BD Ultra [...] 1 Refills, Maintenance, 03/06/21 8:12:00 EDT, Tablet, [facility] #[id number], Partial fill upon patient request if the [...]
--- OUTSIDE RECORDS SUMMARY | 2022-07-12 09:26 | XMS_ITS | Continuity of Care Document ---
:1980 Author Organization [facility] Adult Address [address] [place] [address]- Care Team Providers Name Role Phone Kayode Bolton MD Primary Care Physician [place] [facility] [place] 06/07/22 [facility] Adult [address] [place] [phone]- Attending Physician: Izzy Alvarez Referring Physician: Kayode Bolton MD Allergies, Adverse Reactions, Alerts No Known Allergies Medications Albuterol (Eqv-ProAir HFA) 90 mcg/inh inhalation aerosol 2 puffs, Inhalation, Every 6 hours, PRN Wheezing/Shortness of Breath, # 6.7 Gm, 0 Refills, Maintenance, 11/22/21 14:32:00 EDT, [facility] #[id number], Partial fill upon patient request if the prescription is for a schedule II opioid drug., 2 puff... Start Date: 11/22/21 Status: Orderedatorvastatin 80 mg oral tablet 1 tablet = 80 mg, By Mouth, Daily at bedtime, # 30 tablet, 11 Refills, Maintenance, 01/01/22 12:04:00 EDT, Tablet, [facility] #[id number], Partial fill upon patient request if the prescription is for a schedule II opioid drug., 157, cm, 01/01/22... Start Date: 01/01/22 Stop Date: 12/27/22 Status: Orderedbumetanide 1 mg oral tablet 1, tablet, By Mouth, Daily, # 30 tablet, Refills 0, Maintenance, 04/30/22 10:42:00 EDT, Route to Pharmacy Electronically, [facility] #[id number], 157, cm, 02/21/22 12:45:00 EDT, Height, 88.7, kg, 09/07/21 21:40:00 EST, Dry Weight Start Date: 04/30/22 Status: Orderedfamotidine 20 mg oral tablet 20 mg, 1, tablet, By Mouth, 2 times a day, PRN, # 30 tablet, Refills 0, Tot. Refills 0, Maintenance,stomach acid, 04/30/22 9:17:00 EDT, Route to Pharmacy Electronically, [facility] #[id number], Partial fill upon patient request if the prescripti... Start Date: 04/30/22 Stop Date: 05/15/22 Status: Orderedferrous sulfate 325 mg oral enteric coated tablet 325 mg, 1, tablet, By Mouth, 2 times a day, # 60 tablet, Refills 1, Tot. Refills 1, Maintenance, 09/10/21 10:40:00 EST, Route to Pharmacy Electronically, [facility], Partial fill upon patient request if the prescription is for a schedule... Start Date: 09/10/21 Stop Date: 11/09/21 Status: Orderedgabapentin 100 mg oral capsule 100 mg, 1, capsule, By Mouth, Daily at bedtime, # 30 capsule, Refills 2, Tot. Refills 2, Maintenance, 02/21/22 16:06:00 EDT, Route to Pharmacy Electronically, [facility] #[id number], Partial fill upon patient request if the prescription is for a... Start Date: 02/21/22 Stop Date: 05/22/22 Status: Orderedinsulin glargine 100 units/mL subcutaneous solution = 20 units, Subcutaneous Injection, Daily at bedtime, # 10 mL, 0 Refills, Maintenance, 09/10/21 10:23:00 EST, Injection, [facility], pen please, 157, cm, 09/09/21 23:52:00 EST, Height, 88.7, kg, 09/07/21 21:40:00 EST, Dry Weight Start Date: 09/10/21 Stop Date: 10/10/21 Status: Orderedinsulin lispro 100 units/mL injectable solution 2-10 units, Subcutaneous Injection, 3 times a day before meals, # 15 mL, 0 Refills, Maintenance, 09/10/21 10:23:00 EST, Injection, [facility], Pen please, 157, cm, 09/09/21 23:52:00 EST, Height, 88.7, kg, 09/07/21 21:40:00 EST, Dry Weight Start Date: 09/10/21 Status: OrderedLasix 40 mg oral tablet 40 mg, 1, tablet, By Mouth, Daily, # 30 tablet, Refills 0, Tot. Refills 0, Maintenance, 03/18/22 17:04:00 EDT, Route to Pharmacy Electronically, [facility] #[id number], Partial fill upon patient request if the prescription is for a schedule II op... Start Date: 03/18/22 Status: Orderedlisinopril 40 mg oral tablet 1 tablet = 40 mg, By Mouth, Daily, # 30 tablet, 0 Refills, Maintenance, 02/05/22 11:36:00 EDT, Tablet, [facility] #[id number], Partial fill upon patient request if the prescription is for a schedule II opioid drug., 157, cm, 02/05/22 11:12:00 EDT... Start Date: 02/05/22 Status: Orderedsertraline 50 mg oral tablet 1 tablet = 50 mg, By Mouth, Daily, # 90 tablet, 1 Refills, Maintenance, 02/21/22 16:05:00 EDT, Tablet, [facility] #[id number], Partial fill upon patient request if the [...] information Care Team PersonnelName: Hailey Meza Position: [facility] Outreach Member Role: Primary Care Nurse Name: Kd Grewal RN Position: [facility] RN Member Role: Primary Care Nurse Name: Tracy Mckeon RN Position: [facility] RN Member Role: Primary Care Nurse Name: Rosanna Gar RN Position: [facility] RN Member Role: Primary Care Nurse Name: Kayode Bolton MD Position: [facility] Primary Care Physician Member Role: PCP Address: Address: [address] [place] [id number] Name: Hailey Gonzalez RN Position: [facility] RN Member Role: Primary Care Nurse Name: Marika Ortiz RN Position: [facility] RN Member Role: Primary Care Nurse Name: Lou Medina RN Position: [facility] RN Member Role: Primary Care Nurse Name: Gaurang Wade RN Position: [facility] ED RN W/OE and Tasks Member Role: Primary Care Nurse Care Team Related PersonsName: SHWETHA TANG Address: [address] [address] Name: CHELSEA WHITING Address: [facility]
--- OUTSIDE RECORDS SUMMARY | 2022-07-12 09:26 | XMS_ITS | Continuity of Care Document ---
:1980 Author Organization [facility] Adult Address [address] [place] [address]- Care Team Providers Name Role Phone Fredy DELCID, Hailey Bowman Primary Care Physician Encounter [facility] [place] Date(s): 09/30/21 - 10/30/[address] [id number] Allergies, Adverse Reactions, Alerts No Known Allergies Medications atorvastatin 80 mg oral tablet 1 tablet = 80 mg, By Mouth, Daily at bedtime, # 30 tablet, 1 Refills, Maintenance, 09/10/21 10:20:00EST, Tablet, [facility], Partial fill upon patient request if the prescription is for a schedule II opioid drug., 157, cm, 09/09/21 23:5... Start Date: 09/10/21 Stop Date: 11/09/21 Status: Orderedbumetanide 1 mg oral tablet 1 mg, 1, tablet, By Mouth, Daily, # 30 tablet, Refills 1, Tot. Refills 1, Maintenance, 09/18/21 9:12:00 EST, Route to Pharmacy Electronically, [facility] #[id number], Partial fill upon patient request if the prescription is for a schedule II opio... Start Date: 09/18/21 Status: Orderedferrous sulfate 325 mg oral enteric coated tablet 325 mg, 1, tablet, By Mouth, 2 times a day, # 60 tablet, Refills 1, Tot. Refills 1, Maintenance, 09/10/21 10:40:00 EST, Route to Pharmacy Electronically, [facility], Partial fill upon patient request if the prescription is for a schedule... Start Date: 09/10/21 Stop Date: 11/09/21 Status: Orderedinsulin glargine 100 units/mL subcutaneous solution = 20 units, Subcutaneous Injection, Daily at bedtime, # 10 mL, 0 Refills, Maintenance, 09/10/21 10:23:00 EST, Injection, [facility], pen please, 157, cm, 09/09/21 23:52:00 EST, Height, 88.7, kg, 09/07/21 21:40:00 EST, Dry Weight Start Date: 09/10/21 Stop Date: 10/10/21 Status: Orderedinsulin lispro 100 units/mL injectable solution 2-10 units, Subcutaneous Injection, 3 times a day before meals, # 15 mL, 0 Refills, Maintenance, 09/10/21 10:23:00 EST, Injection, [facility], Pen please, 157, cm, 09/09/21 23:52:00 EST, Height, 88.7, kg, 09/07/21 21:40:00 EST, Dry Weight Start Date: 09/10/21 Status: OrderedNIFEdipine 90 mg oral tablet, extended release 90 mg, 1, tablet, By Mouth, Daily, # 30 tablet, Refills 1, Tot. Refills 1, Maintenance, 09/10/21 10:22:00 EST, Route to Pharmacy Electronically, [facility], Partial fill upon patient request if the prescription is for a schedule II opioi... Start Date: 09/10/21 Status: Orderedsertraline 50 mg oral tablet 1 tablet = 50 mg, By Mouth, Daily, # 90 tablet, 1 Refills, Maintenance, 03/06/21 8:12:00 EDT, Tablet, [facility] #[id number], Partial fill upon patient request if the [...]
--- OUTSIDE RECORDS SUMMARY | 2022-07-12 09:26 | XMS_ITS | Continuity of Care Document ---
:1980 [address] [facility] Adult Address [address] [place] [id number]- Care Team Providers Name Role Phone Fredy DELCID, Hailey Bowman Primary Care Physician [phone] En[place] [facility] [place] Date(s): 01/23/21 - 03/15/[address] [facility] Adult [address] [place] [id number] Attending Physician: Hailey Daniel NP Allergies, Adverse Reactions, Alerts Substance Reaction Severity [...] 03/06/21 8:13:00 EDT, Route to Pharmacy Electronically, [facility] #[id number], 158.8, cm, 03/06/21 8:04:00 EDT, Height, 79.7, kg, 05/10/20 16:46:00 EDT, Dry... Start Date: 03/06/21 Status: Orderedatorvastatin 10 mg oral tablet 1 tablet = 10 mg, By Mouth, Daily, # 90 tablet, 1 Refills, Maintenance, 03/06/21 8:11:00 EDT, [facility] #[id number], 158.8, cm, 03/06/21 8:04:00 EDT, Height, 79.7, [...] 3 Refills, Maintenance, 03/06/21 12:38:00 EDT, Solution, [facility] #[id number], Replacing Tenzin 12/06/20, 158.8, cm, 01/23/21 8:45:00 EDT, Height, 79.7, kg, 05/10/20 16:46:00 EDT,... Start Date: 03/06/21 Stop Date: 03/01/22 Status: Orderedlisinopril 5 mg oral tablet 5 mg, 1, tablet, By Mouth, Daily, # 30 tablet, Refills 0, Tot. Refills 0, Maintenance, 03/13/21 13:42:00 EDT, Route to Pharmacy Electronically, [facility] #[id number], Partial fill upon patient request if the prescription is for a schedule II opi... Start Date: 03/13/21 Status: OrderedmetFORMIN 1000 mg oral tablet 1 tablet = 1,000 mg, By Mouth, 2 times a day, # 60 tablet, 6 Refills, Maintenance, 02/08/21 11:25:00EDT, [facility] #[id number], 158.8, cm, 02/08/21 11:22:00 EDT, Height, 79.7, kg, 05/10/20 16:46:00 EDT, Dry Weight Start Date: 02/08/21 Stop Date: 09/06/21 Status: OrderedPen [place], 29 G x 12.7 mm BD Ultra [...] 1 Refills, Maintenance, 03/06/21 8:12:00 EDT, Tablet, [facility] #[id number], Partial fill upon patient request if the [...]
--- OUTSIDE RECORDS SUMMARY | 2022-07-12 09:26 | XMS_ITS | Continuity of Care Document ---
:[address] [facility] Address [address] [place] [address]- Care Team Providers Name Role Phone Che PINZON, Kayode Primary Care Physician Encounter [facility] [place] Date(s): 12/17/21 - 01/16/[address] [facility] [address] [place] [address]- Allergies, Adverse Reactions, Alerts No Known Allergies Medications Albuterol (Eqv-ProAir HFA) 90 mcg/inh inhalation aerosol 2 puffs, Inhalation, Every 6 hours, PRN Wheezing/Shortness of Breath, # 6.7 Gm, 0 Refills, Maintenance, 11/22/21 14:32:00 EDT, [facility] #[id number], Partial fill upon patient request if the prescription is for a schedule II opioid drug., 2 puff... Start Date: 11/22/21 Status: Orderedatorvastatin 80 mg oral tablet 1 tablet = 80 mg, By Mouth, Daily at bedtime, # 30 tablet, 11 Refills, Maintenance, 01/01/22 12:04:00 EDT, [facility][id number], Partial fill upon patient request if the prescription is for a schedule II opioid drug., 157, cm, 01/01/22... Start Date: 01/01/22 Stop Date: 12/27/22 Status: Orderedbumetanide 2 mg oral tablet 1 tablet = 2 mg, By Mouth, Daily, # 30 tablet, 0 Refills, Maintenance, 01/15/22 10:42:00 EDT, [facility] #[id number], Partial fill upon patient request if the prescription is for a schedule II opioid drug., 157, cm, 01/15/22 10:16:00 EDT,... Start Date: 01/15/22 Stop Date: 02/14/22 Status: Orderedferrous sulfate 325 mg oral enteric coated tablet 325 mg, 1, tablet, By Mouth, 2 times a day, # 60 tablet, Refills 1, Tot. Refills 1, Maintenance, 09/10/21 10:40:00 EST, Route to Pharmacy Electronically, [facility], Partial fill upon patient request if the prescription is for a schedule... Start Date: 09/10/21 Stop Date: 11/09/21 Status: Orderedinsulin glargine 100 units/mL subcutaneous solution = 20 units, Subcutaneous Injection, Daily at bedtime, # 10 mL, 0 Refills, Maintenance, 09/10/21 10:23:00 EST, Injection, [facility], pen please, 157, cm, 09/09/21 23:52:00 EST, Height, 88.7, kg, 09/07/21 21:40:00 EST, Dry Weight Start Date: 09/10/21 Stop Date: 10/10/21 Status: Orderedinsulin lispro 100 units/mL injectable solution 2-10 units, Subcutaneous Injection, 3 times a day before meals, # 15 mL, 0 Refills, Maintenance, 09/10/21 10:23:00 EST, Injection, [facility], Pen please, 157, cm, 09/09/21 23:52:00 EST, Height, 88.7, kg, 09/07/21 21:40:00 EST, Dry Weight Start Date: 09/10/21 Status: OrderedNIFEdipine 90 mg oral tablet, extended release 90 mg, 1, tablet, By Mouth, Daily, # 30 tablet, Refills 11, Tot. Refills 11, Maintenance, 01/01/22 11:51:00 EDT, Route to Pharmacy Electronically, [facility] #[id number], Partial fill upon patientrequest if the prescription is for a schedule II... Start Date: 01/01/22 Stop Date: 12/27/22 Status: Orderedsertraline 50 mg oral tablet 1 tablet = 50 mg, By Mouth, Daily, # 90 tablet, 1 Refills, Maintenance, 03/06/21 8:12:00 EDT, Tablet, [facility] #[id number], Partial fill upon patient request if the [...]
--- OUTSIDE RECORDS SUMMARY | 2022-07-12 09:26 | XMS_ITS | Continuity of Care Document ---
:[address] [facility] Address [address] [place] [address]- Care Team Providers Name Role Phone Fredy DELCID, Hailey Bowman Primary Care Physician Encounter [facility] [place] Date(s): 03/13/21 - 03/20/21 [facility] [address] [place] [phone]- Encounter Diagnosis Microalbuminuria (Discharge Diagnosis) - 03/13/21 Type 2 diabetes mellitus (Discharge Diagnosis) - 03/13/21 Major depression, recurrent (Discharge Diagnosis) - 03/13/21 Hyperlipidemia (Discharge Diagnosis) - 03/13/21 Snoring (Discharge Diagnosis) - 03/13/21 Daytime sleepiness (Discharge Diagnosis) - 03/13/21 Pre-op exam (Discharge Diagnosis) - 03/13/21 Attending Physician: Fredy DELCID, Hailey Bowman Referring Physician: Garry Liang MD Allergies, Adverse Reactions, Alerts Substance Reaction [...] 03/06/21 8:13:00 EDT, Route to Pharmacy Electronically, [email or web address] #[id number], 158.8, cm, 03/06/21 8:04:00 EDT, Height, 79.7, kg, 05/10/20 16:46:00 EDT, Dry... Start Date: 03/06/21 Status: Orderedatorvastatin 10 mg oral tablet 1 tablet = 10 mg, By Mouth, Daily, # 90 tablet, 1 Refills, Maintenance, 03/06/21 8:11:00 EDT, [facility] #[id number], 158.8, cm, 03/06/21 8:04:00 EDT, Height, 79.7, [...] 3 Refills, Maintenance, 03/06/21 12:38:00 EDT, Solution, [facility] #[id number], Replacing Basaglar 12/06/20, 158.8, cm, 01/23/21 8:45:00 EDT, Height, 79.7, kg, 05/10/20 16:46:00 EDT,... Start Date: 03/06/21 Stop Date: 03/01/22 Status: Orderedlisinopril 5 mg oral tablet 5 mg, 1, tablet, By Mouth, Daily, # 30 tablet, Refills 0, Tot. Refills 0, Maintenance, 03/13/21 13:42:00 EDT, Route to Pharmacy Electronically, [facility] #[id number], Partial fill upon patient request if the prescription is for a schedule II opi... Start Date: 03/13/21 Status: OrderedmetFORMIN 1000 mg oral tablet 1 tablet = 1,000 mg, By Mouth, 2 times a day, # 60 tablet, 6 Refills, Maintenance, 02/08/21 11:25:00EDT, [facility] #[id number], 158.8, cm, 02/08/21 11:22:00 EDT, Height, 79.7, kg, 05/10/20 16:46:00 EDT, Dry Weight Start Date: 02/08/21 Stop Date: 09/06/21 Status: OrderedPen [place], 29 G x 12.7 mm BD Ultra [...] 1 Refills, Maintenance, 03/06/21 8:12:00 EDT, Tablet, [facility] #[id number], Partial fill upon patient request if the [...] Dates Status Service Type 2 diabetes Discharge 03/13/21 mellitus Diagnosis Hyperlipidemia Discharge 03/13/21 Diagnosis Major depression, Discharge 03/13/21 recurrent Diagnosis Pre-op exam Discharge 03/13/21 Diagnosis Microalbuminuria Discharge 03/13/21 Diagnosis Snoring Discharge 03/13/21 Diagnosis Daytime sleepiness Discharge 03/13/21 Diagnosis Vital Signs Most recent to oldest 1 2 3 [Reference Range]: Height 158.8 cm 158.8 cm 158.8 cm (03/13/21 8:10 AM) (03/13/21 8:00 AM) (03/13/21 7:2 0 AM) Weight 81 kg (03/13/21 7:20 AM) Oxygen Saturation [94-100 %] 99 % (03/13/21 7:20 AM) Pulse Rate [55-90 bpm] 92 bpm *H* (03/13/21 7:20 AM) Body Mass Index [18.5-24.99] 32.12 *>HHI* (03/13/21 7:20 AM) Blood Pressure [90-138/55-84 mm 179/99 mm Hg 182/99 mm Hg 173/93 mm Hg Hg] *H* *H* *H* (03/13/21 8:10 AM) (03/13/21 8:00 AM) (03/13/21 7:2 0 AM) Mode of Delivery (Oxygen) Room air (03/13/21 7:20 AM) Blood pressure sites Arm, left Arm, left (03/13/21 8:00 AM) (03/13/21 7:20 AM) Weight Obtained Via Standing scale (03/13/21 7:20 AM) Social History Social History Type Response Smoking Status Never (less than 100 in life time) entered on: 08/31/19 Sex
--- OUTSIDE RECORDS SUMMARY | 2022-07-12 09:26 | XMS_ITS | Continuity of Care Document ---
:1980 Author Organization [facility] Address [address] [place] [address]- Care Team Providers Name Role Phone Fredy DELCID, Hailey Bowman Primary Care Physician Encounter [facility] Date(s): 05/10/20 - 05/17/20 [facility] [address] [place] [phone]- [facility] Encounter Diagnosis Cellulitis of left leg (Discharge Diagnosis) - 05/10/20 Attending Physician: Not on Staff, Attending MD Referring Physician: Hailey Daniel NP Allergies, Adverse Reactions, [...] 0 Refills, Maintenance, 05/07/20 13:53:00 EDT, Solution, [facility] #[id number], 162, cm, 02/01/20 15:55:00 EDT, Height Start Date: 05/07/20 Stop Date: 08/05/20 Status: Orderedescitalopram 10 mg oral tablet 1 tablet = 10 mg, By Mouth, Daily, # 30 tablet, 1 Refills, Maintenance, 02/01/20 16:27:00 EDT, Tablet, [facility] #[id number], 162, cm, 02/01/20 15:55:00 EDT, Height Start [...] 60 tablet, 6 Refills, Maintenance, 05/31/20 16:22:00EST, [facility] #[id number], 158, cm, 05/10/20 9:19:00 EDT, Height, 82, kg, 05/10/20 9:19:00 EDT, Dry Weight Start Date: 05/31/20 Stop Date: 12/27/20 Status: OrderedmetFORMIN 1000 mg oral tablet 1 tablet = 1,000 mg, By Mouth, 2 times a day, for 30 days, # 60 tablet, 3 Refills, Hard Stop 05/31/20 16:22:00 EST, 02/01/20 16:22:00 EDT, [facility] #[id number], 162, cm, 02/01/20 15:55:00 EDT, Height Start Date: 02/01/20 Stop Date: 05/31/20 Status: OrderedPen [place], 29 G x 12.7 mm BD Ultra [...] 2 diabetes, HbA1c goal < Active 7%(Confirmed) Diagnosis Diagnosis Type Effective Dates Health Clinical [facility] Status Service Cellulitis of Discharge 05/10/20 left leg Diagnosis Vital Signs Most recent to oldest [Reference Range]: 1 2 Height 162 cm 162 cm (05/10/20 8:31 AM) (05/10/20 8:19 AM) Weight 82.5 kg (05/10/20 8:19 AM) Oxygen Saturation [94-100 %] 99 % (05/10/20 8:19 AM) Pulse Rate [55-90 bpm] 97 bpm *H* (05/10/20 8:19 AM) Body Mass Index [18.5-24.99] 31.44 *>HHI* (05/10/20 8:19 AM) Blood Pressure [90-138/55-84 mm Hg] 155/80 mm Hg 156/ 90 mm Hg *H* *H* (05/10/20 8:31 AM) (05/10/20 8:19 AM) Temperature [96.8-100.4 DegF] 99 DegF (05/10/20 8:19 AM) Mode of Delivery (Oxygen) Room air (05/10/20 8:19 AM) Blood pressure sites Arm, left Arm, left (05/10/20 8:31 AM) (05/10/20 8:19 AM) Temperature Route Oral (05/10/20 8:19 AM) Weight Obtained Via Standing scale (05/10/20 8:19 AM) Social History Social History Type Response Smoking Status Never (less than 100 in life time) entered on: 08/31/19 Sex
--- OUTSIDE RECORDS SUMMARY | 2022-07-12 09:26 | XMS_ITS | Continuity of Care Document ---
:1980 Author Organization [facility] Address [address] [place] [address]- Care Team Providers Name Role Phone Fredy DELCID, Hailey Bowman Primary Care Physician Encounter [facility] [place] Date(s): 09/12/21 - 10/12/[address] [address] Allergies, Adverse Reactions, Alerts No Known Allergies Medications atorvastatin 80 mg oral tablet 1 tablet = 80 mg, By Mouth, Daily at bedtime, # 30 tablet, 1 Refills, Maintenance, 09/10/21 10:20:00EST, Tablet, [facility], Partial fill upon patient request if the prescription is for a schedule II opioid drug., 157, cm, 09/09/21 23:5... Start Date: 09/10/21 Stop Date: 11/09/21 Status: Orderedbumetanide 1 mg oral tablet 1 mg, 1, tablet, By Mouth, Daily, # 30 tablet, Refills 1, Tot. Refills 1, Maintenance, 09/18/21 9:12:00 EST, Route to Pharmacy Electronically, [facility] #[id number], Partial fill upon patient request if the prescription is for a schedule II opio... Start Date: 09/18/21 Status: Orderedferrous sulfate 325 mg oral enteric coated tablet 325 mg, 1, tablet, By Mouth, 2 times a day, # 60 tablet, Refills 1, Tot. Refills 1, Maintenance, 09/10/21 10:40:00 EST, Route to Pharmacy Electronically, [facility], Partial fill upon patient request if the prescription is for a schedule... Start Date: 09/10/21 Stop Date: 11/09/21 Status: Orderedinsulin glargine 100 units/mL subcutaneous solution = 20 units, Subcutaneous Injection, Daily at bedtime, # 10 mL, 0 Refills, Maintenance, 09/10/21 10:23:00 EST, Injection, [facility], pen please, 157, cm, 09/09/21 23:52:00 EST, Height, 88.7, kg, 09/07/21 21:40:00 EST, Dry Weight Start Date: 09/10/21 Stop Date: 10/10/21 Status: Orderedinsulin lispro 100 units/mL injectable solution 2-10 units, Subcutaneous Injection, 3 times a day before meals, # 15 mL, 0 Refills, Maintenance, 09/10/21 10:23:00 EST, Injection, [facility], Pen please, 157, cm, 09/09/21 23:52:00 EST, Height, 88.7, kg, 09/07/21 21:40:00 EST, Dry Weight Start Date: 09/10/21 Status: OrderedNIFEdipine 90 mg oral tablet, extended release 90 mg, 1, tablet, By Mouth, Daily, # 30 tablet, Refills 1, Tot. Refills 1, Maintenance, 09/10/21 10:22:00 EST, Route to Pharmacy Electronically, [facility], Partial fill upon patient request if the prescription is for a schedule II opioi... Start Date: 09/10/21 Status: Orderedsertraline 50 mg oral tablet 1 tablet = 50 mg, By Mouth, Daily, # 90 tablet, 1 Refills, Maintenance, 03/06/21 8:12:00 EDT, Tablet, [facility] #[id number], Partial fill upon patient request if the [...]
--- OUTSIDE RECORDS SUMMARY | 2022-07-12 09:27 | XMS_ITS | Continuity of Care Document ---
:1980 Author Organization [facility] Address [address] [place] [address]- Care Team Providers Name Role Phone Fredy DELCID, Hailey Bowman Primary Care Physician Encounter [facility] Date(s): 10/04/21 - 11/03/[address] [address] Attending Physician: Feliz Swanson Admitting Physician: AdmFeliz kaufman Referring Physician: AdmtrFeliz Allergies, Adverse Reactions, Alerts No Known Allergies Medications atorvastatin 80 mg oral tablet 1 tablet = 80 mg, By Mouth, Daily at bedtime, # 30 tablet, 1 Refills, Maintenance, 09/10/21 10:20:00EST, Tablet, [facility], Partial fill upon patient request if the prescription is for a schedule II opioid drug., 157, cm, 09/09/21 23:5... Start Date: 09/10/21 Stop Date: 11/09/21 Status: Orderedbumetanide 1 mg oral tablet 1 mg, 1, tablet, By Mouth, Daily, # 30 tablet, Refills 1, Tot. Refills 1, Maintenance, 09/18/21 9:12:00 EST, Route to Pharmacy Electronically, [facility] #[id number], Partial fill upon patient request if the prescription is for a schedule II opio... Start Date: 09/18/21 Status: Orderedferrous sulfate 325 mg oral enteric coated tablet 325 mg, 1, tablet, By Mouth, 2 times a day, # 60 tablet, Refills 1, Tot. Refills 1, Maintenance, 09/10/21 10:40:00 EST, Route to Pharmacy Electronically, [facility], Partial fill upon patient request if the prescription is for a schedule... Start Date: 09/10/21 Stop Date: 11/09/21 Status: Orderedinsulin glargine 100 units/mL subcutaneous solution = 20 units, Subcutaneous Injection, Daily at bedtime, # 10 mL, 0 Refills, Maintenance, 09/10/21 10:23:00 EST, Injection, [facility], pen please, 157, cm, 09/09/21 23:52:00 EST, Height, 88.7, kg, 09/07/21 21:40:00 EST, Dry Weight Start Date: 09/10/21 Stop Date: 10/10/21 Status: Orderedinsulin lispro 100 units/mL injectable solution 2-10 units, Subcutaneous Injection, 3 times a day before meals, # 15 mL, 0 Refills, Maintenance, 09/10/21 10:23:00 EST, Injection, [facility], Pen please, 157, cm, 09/09/21 23:52:00 EST, Height, 88.7, kg, 09/07/21 21:40:00 EST, Dry Weight Start Date: 09/10/21 Status: OrderedNIFEdipine 90 mg oral tablet, extended release 90 mg, 1, tablet, By Mouth, Daily, # 30 tablet, Refills 1, Tot. Refills 1, Maintenance, 09/10/21 10:22:00 EST, Route to Pharmacy Electronically, [facility], Partial fill upon patient request if the prescription is for a schedule II opioi... Start Date: 09/10/21 Status: Orderedsertraline 50 mg oral tablet 1 tablet = 50 mg, By Mouth, Daily, # 90 tablet, 1 Refills, Maintenance, 03/06/21 8:12:00 EDT, Tablet, [facility] #[id number], Partial fill upon patient request if the [...]
--- OUTSIDE RECORDS SUMMARY | 2022-07-12 09:27 | XMS_ITS | Continuity of Care Document ---
:1980 Author Organization [facility] Address [address] [place] [address]- Care Team Providers Name Role Phone Fredy DELCID, Hailey Bowman Primary Care Physician Encounter [facility] [place] Date(s): 06/04/21 - 07/04/21 [facility] [address] [place] [address] [id number] Attending Physician: Feliz Swanson Admitting Physician: AdmtrFeliz Referring Physician: Admtr, ArMiriam Allergies, Adverse Reactions, Alerts Substance Reaction Severity [...] 03/06/21 8:13:00 EDT, Route to Pharmacy Electronically, [facility] #[id number], 158.8, cm, 03/06/21 8:04:00 EDT, Height, 79.7, kg, 05/10/20 16:46:00 EDT, Dry... Start Date: 03/06/21 Status: Orderedatorvastatin 10 mg oral tablet 1 tablet = 10 mg, By Mouth, Daily, # 90 tablet, 1 Refills, Maintenance, 03/06/21 8:11:00 EDT, [facility] #[id number], 158.8, cm, 03/06/21 8:04:00 EDT, Height, 79.7, [...] 3 Refills, Maintenance, 03/06/21 12:38:00 EDT, Solution, [facility] #[id number], Replacing Basaglar 12/06/20, 158.8, cm, 01/23/21 8:45:00 EDT, Height, 79.7, kg, 05/10/20 16:46:00 EDT,... Start Date: 03/06/21 Stop Date: 03/01/22 Status: Orderedlisinopril 5 mg oral tablet 5 mg, 1, tablet, By Mouth, Daily, # 30 tablet, Refills 0, Tot. Refills 0, Maintenance, 04/18/21 14:44:00 EDT, Route to Pharmacy Electronically, [facility] #[id number], Partial fill upon patient request if the prescription is for a schedule II opi... Start Date: 04/18/21 Status: OrderedmetFORMIN 1000 mg oral tablet 1 tablet = 1,000 mg, By Mouth, 2 times a day, # 60 tablet, 6 Refills, Maintenance, 02/08/21 11:25:00EDT, [facility] #[id number], 158.8, cm, 02/08/21 11:22:00 EDT, Height, 79.7, kg, 05/10/20 16:46:00 EDT, Dry Weight Start Date: 02/08/21 Stop Date: 09/06/21 Status: OrderedPen [place], 29 G x 12.7 mm BD Ultra [...] 1 Refills, Maintenance, 03/06/21 8:12:00 EDT, Tablet, [facility] #[id number], Partial fill upon patient request if the [...]
--- OUTSIDE RECORDS SUMMARY | 2022-07-12 09:27 | XMS_ITS | Continuity of Care Document ---
:1980 Author Organization [facility] Address [address] [place] [address]- Care Team Providers Name Role Phone Che PINZON, Kayode Primary Care Physician Encounter [facility] [place] Date(s): 04/30/22 - 05/07/22 [facility] [address] [place], [place] [address] Attending Physician: Not on Staff, Attending MD Referring Physician: Kayode Bolton MD Allergies, Adverse Reactions, Alerts No Known Allergies Medications Albuterol (Eqv-ProAir HFA) 90 mcg/inh inhalation aerosol 2 puffs, Inhalation, Every 6 hours, PRN Wheezing/Shortness of Breath, # 6.7 Gm, 0 Refills, Maintenance, 11/22/21 14:32:00 EDT, [facility] #[id number], Partial fill upon patient request if the prescription is for a schedule II opioid drug., 2 puff... Start Date: 11/22/21 Status: Orderedatorvastatin 80 mg oral tablet 1 tablet = 80 mg, By Mouth, Daily at bedtime, # 30 tablet, 11 Refills, Maintenance, 01/01/22 12:04:00 EDT, Tablet, [facility] #[id number], Partial fill upon patient request if the prescription is for a schedule II opioid drug., 157, cm, 01/01/22... Start Date: 01/01/22 Stop Date: 12/27/22 Status: Orderedbumetanide 1 mg oral tablet 1, tablet, By Mouth, Daily, # 30 tablet, Refills 0, Maintenance, 04/30/22 10:42:00 EDT, Route to Pharmacy Electronically, [facility] #[id number], 157, cm, 02/21/22 12:45:00 EDT, Height, 88.7, kg, 09/07/21 21:40:00 EST, Dry Weight Start Date: 04/30/22 Status: Orderedfamotidine 20 mg oral tablet 20 mg, 1, tablet, By Mouth, 2 times a day, PRN, # 30 tablet, Refills 0, Tot. Refills 0, Maintenance,stomach acid, 04/30/22 9:17:00 EDT, Route to Pharmacy Electronically, [facility] #[id number], Partial fill upon patient request if the prescripti... Start Date: 04/30/22 Stop Date: 05/15/22 Status: Orderedferrous sulfate 325 mg oral enteric coated tablet 325 mg, 1, tablet, By Mouth, 2 times a day, # 60 tablet, Refills 1, Tot. Refills 1, Maintenance, 09/10/21 10:40:00 EST, Route to Pharmacy Electronically, [facility], Partial fill upon patient request if the prescription is for a schedule... Start Date: 09/10/21 Stop Date: 11/09/21 Status: Orderedgabapentin 100 mg oral capsule 100 mg, 1, capsule, By Mouth, Daily at bedtime, # 30 capsule, Refills 2, Tot. Refills 2, Maintenance, 02/21/22 16:06:00 EDT, Route to Pharmacy Electronically, [facility] #[id number], Partial fill upon patient request if the prescription is for a... Start Date: 02/21/22 Stop Date: 05/22/22 Status: Orderedinsulin glargine 100 units/mL subcutaneous solution = 20 units, Subcutaneous Injection, Daily at bedtime, # 10 mL, 0 Refills, Maintenance, 09/10/21 10:23:00 EST, Injection, [facility], pen please, 157, cm, 09/09/21 23:52:00 EST, Height, 88.7, kg, 09/07/21 21:40:00 EST, Dry Weight Start Date: 09/10/21 Stop Date: 10/10/21 Status: Orderedinsulin lispro 100 units/mL injectable solution 2-10 units, Subcutaneous Injection, 3 times a day before meals, # 15 mL, 0 Refills, Maintenance, 09/10/21 10:23:00 EST, Injection, [facility], Pen please, 157, cm, 09/09/21 23:52:00 EST, Height, 88.7, kg, 09/07/21 21:40:00 EST, Dry Weight Start Date: 09/10/21 Status: OrderedLasix 40 mg oral tablet 40 mg, 1, tablet, By Mouth, Daily, # 30 tablet, Refills 0, Tot. Refills 0, Maintenance, 03/18/22 17:04:00 EDT, Route to Pharmacy Electronically, [facility] #[id number], Partial fill upon patient request if the prescription is for a schedule II op... Start Date: 03/18/22 Status: Orderedlisinopril 40 mg oral tablet 1 tablet = 40 mg, By Mouth, Daily, # 30 tablet, 0 Refills, Maintenance, 02/05/22 11:36:00 EDT, Tablet, [facility] #[id number], Partial fill upon patient request if the prescription is for a schedule II opioid drug., 157, cm, 02/05/22 11:12:00 EDT... Start Date: 02/05/22 Status: Orderedsertraline 50 mg oral tablet 1 tablet = 50 mg, By Mouth, Daily, # 90 tablet, 1 Refills, Maintenance, 02/21/22 16:05:00 EDT, Tablet, [facility] #[id number], Partial fill upon patient request if the [...] 08/31/19 Sex Patient Care team information PersonnelName: Kayode Bolton MD Address: Address: [address] [place] [address] [address]
--- OUTSIDE RECORDS SUMMARY | 2022-07-12 09:27 | XMS_ITS | Continuity of Care Document ---
:1980 Author Organization [facility] Address [address] [place] [address]- Care Team Providers Name Role Phone Fredy DELCID, Hailey Bowman Primary Care Physician [phone] Encounter [facility] [place] Date(s): 04/30/21 - 06/05/[address] [address]- Attending Physician: Kole DELCID, Ruth Mills Admitting Physician: Kole DELCID, Ruth Mills Referring Physician: Kole DELCID, Ruth Mills Allergies, Adverse Reactions, Alerts Substance Reaction Severity [...] 03/06/21 8:13:00 EDT, Route to Pharmacy Electronically, [facility] #[id number], 158.8, cm, 03/06/21 8:04:00 EDT, Height, 79.7, kg, 05/10/20 16:46:00 EDT, Dry... Start Date: 03/06/21 Status: Orderedatorvastatin 10 mg oral tablet 1 tablet = 10 mg, By Mouth, Daily, # 90 tablet, 1 Refills, Maintenance, 03/06/21 8:11:00 EDT, [facility] #[id number], 158.8, cm, 03/06/21 8:04:00 EDT, Height, 79.7, [...] 3 Refills, Maintenance, 03/06/21 12:38:00 EDT, Solution, [facility] #[id number], Replacing Basaglar 12/06/20, 158.8, cm, 01/23/21 8:45:00 EDT, Height, 79.7, kg, 05/10/20 16:46:00 EDT,... Start Date: 03/06/21 Stop Date: 03/01/22 Status: Orderedlisinopril 5 mg oral tablet 5 mg, 1, tablet, By Mouth, Daily, # 30 tablet, Refills 0, Tot. Refills 0, Maintenance, 04/18/21 14:44:00 EDT, Route to Pharmacy Electronically, [facility] #[id number], Partial fill upon patient request if the prescription is for a schedule II opi... Start Date: 04/18/21 Status: OrderedmetFORMIN 1000 mg oral tablet 1 tablet = 1,000 mg, By Mouth, 2 times a day, # 60 tablet, 6 Refills, Maintenance, 02/08/21 11:25:00EDT, [facility] #[id number], 158.8, cm, 02/08/21 11:22:00 EDT, Height, 79.7, kg, 05/10/20 16:46:00 EDT, Dry Weight Start Date: 02/08/21 Stop Date: 09/06/21 Status: OrderedPen [place], 29 G x 12.7 mm BD Ultra [...] 1 Refills, Maintenance, 03/06/21 8:12:00 EDT, Tablet, [facility] #[id number], Partial fill upon patient request if the [...]
--- OUTSIDE RECORDS SUMMARY | 2022-07-12 09:27 | XMS_ITS | Continuity of Care Document ---
:1980 Author Organization [facility] Address [address] [place] [id number]- Care Team Providers Name Role Phone Che PINZON, [facility] Primary Care Physician [place] [facility] [place](s): 02/05/22 - 03/20/22 [facility] [address] [place] [id number]- Attending Physician: Not on Staff, Attending MD Allergies, Adverse Reactions, Alerts No Known Allergies Medications Albuterol (Eqv-ProAir HFA) 90 mcg/inh inhalation aerosol 2 puffs, Inhalation, Every 6 hours, PRN Wheezing/Shortness of Breath, # 6.7 Gm, 0 Refills, Maintenance, 11/22/21 14:32:00 EDT, [facility] #[id number], Partial fill upon patient request if the prescription is for a schedule II opioid drug., 2 puff... Start Date: 11/22/21 Status: Orderedatorvastatin 80 mg oral tablet 1 tablet = 80 mg, By Mouth, Daily at bedtime, # 30 tablet, 11 Refills, Maintenance, 01/01/22 12:04:00 EDT, Tablet, [facility] #[id number], Partial fill upon patient request if the prescription is for a schedule II opioid drug., 157, cm, 01/01/22... Start Date: 01/01/22 Stop Date: 12/27/22 Status: Orderedferrous sulfate 325 mg oral enteric coated tablet 325 mg, 1, tablet, By Mouth, 2 times a day, # 60 tablet, Refills 1, Tot. Refills 1, Maintenance, 09/10/21 10:40:00 EST, Route to Pharmacy Electronically, [facility], Partial fill upon patient request if the prescription is for a schedule... Start Date: 09/10/21 Stop Date: 11/09/21 Status: Orderedgabapentin 100 mg oral capsule 100 mg, 1, capsule, By Mouth, Daily at bedtime, # 30 capsule, Refills 2, Tot. Refills 2, Maintenance, 02/21/22 16:06:00 EDT, Route to Pharmacy Electronically, [facility] #[id number], Partial fill upon patient request if the prescription is for a... Start Date: 02/21/22 Stop Date: 05/22/22 Status: Orderedinsulin glargine 100 units/mL subcutaneous solution = 20 units, Subcutaneous Injection, Daily at bedtime, # 10 mL, 0 Refills, Maintenance, 09/10/21 10:23:00 EST, Injection, [facility], pen please, 157, cm, 09/09/21 23:52:00 EST, Height, 88.7, kg, 09/07/21 21:40:00 EST, Dry Weight Start Date: 09/10/21 Stop Date: 10/10/21 Status: Orderedinsulin lispro 100 units/mL injectable solution 2-10 units, Subcutaneous Injection, 3 times a day before meals, # 15 mL, 0 Refills, Maintenance, 09/10/21 10:23:00 EST, Injection, [facility], Pen please, 157, cm, 09/09/21 23:52:00 EST, Height, 88.7, kg, 09/07/21 21:40:00 EST, Dry Weight Start Date: 09/10/21 Status: OrderedLasix 40 mg oral tablet 40 mg, 1, tablet, By Mouth, Daily, # 30 tablet, Refills 0, Tot. Refills 0, Maintenance, 03/18/22 17:04:00 EDT, Route to Pharmacy Electronically, [facility] #[id number], Partial fill upon patient request if the prescription is for a schedule II op... Start Date: 03/18/22 Status: Orderedlisinopril 40 mg oral tablet 1 tablet = 40 mg, By Mouth, Daily, # 30 tablet, 0 Refills, Maintenance, 02/05/22 11:36:00 EDT, Tablet, [facility] #[id number], Partial fill upon patient request if the prescription is for a schedule II opioid drug., 157, cm, 02/05/22 11:12:00 EDT... Start Date: 02/05/22 Status: Orderedsertraline 50 mg oral tablet 1 tablet = 50 mg, By Mouth, Daily, # 90 tablet, 1 Refills, Maintenance, 02/21/22 16:05:00 EDT, Tablet, [id number], Partial fill upon patient request if the [...] Sex Care Team PersonnelName: Che PINZON, [facility] Address: [address] [facility] [address]rd Floor [place], [place] [address]
--- OUTSIDE RECORDS SUMMARY | 2022-07-12 09:27 | XMS_ITS | Continuity of Care Document ---
:1980 Author Organization [facility] Address [address] [place] [id number]- Care Team Providers Name Role Phone Fredy DELCID, Hailey Bowman Primary Care Physician Encounter [facility] [place] Date(s): 02/17/20 - 03/18/[address] [address]- [facility] Attending Physician: Admshae, Feliz Admitting Physician: Admtr, Ar8 Referring Physician: [...] 9:07:00 EST, Solution, [facility] [address], 160, cm, 08/31/19 17:04:00 EST, Height Start Date: 09/01/19 Status: Orderedescitalopram 10 mg oral tablet 1 tablet = 10 mg, By Mouth, Daily, # 30 tablet, 1 Refills, Maintenance, 02/01/20 16:27:00 EDT, Tablet, [facility] #[id number], 162, cm, 02/01/20 15:55:00 EDT, Height Start [...] 60 tablet, 3 Refills, Maintenance, 02/01/20 16:22:00EDT, [facility] #[id number], 162, cm, 02/01/20 15:55:00 EDT, Height Start [...]
--- OUTSIDE RECORDS SUMMARY | 2022-07-12 09:27 | XMS_ITS | Continuity of Care Document ---
:1980 Author Organization [facility] Adult Address [address] [place] [address]- Care Team Providers Name Role Phone Fredy DELCID, Hailey Bowman Primary Care Physician Encounter [facility] [place] Date(s): 05/04/20 - 06/03/20 [facility] Adult [address] [place] [id number] Allergies, Adverse Reactions, Alerts Substance Reaction [...] 0 Refills, Maintenance, 05/07/20 13:53:00 EDT, Solution, [facility] #[id number], 162, cm, 02/01/20 15:55:00 EDT, Height Start [...] 1 Refills, Maintenance, 05/25/20 9:23:00 EDT, Tablet, [facility] #[id number], 158.8, cm, 05/25/20 9:00:00 EDT, Height, 79.7, [...] 60 tablet, 6 Refills, Maintenance, 05/31/20 16:22:00EST, [facility] #[id number], 158, cm, 05/10/20 9:19:00 EDT, Height, 82, kg, 05/10/20 9:19:00 EDT, Dry Weight Start Date: 05/31/20 Stop Date: 12/27/20 Status: OrderedPen [place], 29 G x 12.7 mm BD Ultra [...]
--- OUTSIDE RECORDS SUMMARY | 2022-07-12 09:27 | XMS_ITS | Continuity of Care Document ---
:1980 Author Organization [facility] Adult Address [address] [place] [phone]- Care Team Providers Name Role Phone Che PINZON, Kayode Primary Care Physician [place] [facility] [place] 01/15/22 - 01/22/[address] [address]- Encounter Diagnosis Hypertension (Discharge Diagnosis) - 01/15/22 Edema (Discharge Diagnosis) - 01/15/22 Attending Physician: Yarelis LOAN MANAGER, Frances Carrillo Allergies, Adverse Reactions, Alerts No Known Allergies Medications Albuterol (Eqv-ProAir HFA) 90 mcg/inh inhalation aerosol 2 puffs, Inhalation, Every 6 hours, PRN Wheezing/Shortness of Breath, # 6.7 Gm, 0 Refills, Maintenance, 11/22/21 14:32:00 [id number], Partial fill upon patient request if the prescription is for a schedule II opioid drug., 2 puff... Start Date: 11/22/21 Status: Orderedatorvastatin 80 mg oral tablet 1 tablet = 80 mg, By Mouth, Daily at bedtime, # 30 tablet, 11 Refills, Maintenance, 01/01/22 12:04:00 EDT, [facility] #[id number], Partial fill upon patient request if the prescription is for a schedule II opioid drug., 157, cm, 01/01/22... Start Date: 01/01/22 Stop Date: 12/27/22 Status: Orderedbumetanide 2 mg oral tablet 1 tablet = 2 mg, By Mouth, Daily, # 30 tablet, 0 Refills, Maintenance, 01/15/22 10:42:00 EDT, [facility] #[id number], Partial fill upon patient request if the prescription is for a schedule II opioid drug., 157, cm, 01/15/22 10:16:00 EDT,... Start Date: 01/15/22 Stop Date: 02/14/22 Status: Orderedferrous sulfate 325 mg oral enteric coated tablet 325 mg, 1, tablet, By Mouth, 2 times a day, # 60 tablet, Refills 1, Tot. Refills 1, Maintenance, 09/10/21 10:40:00 EST, Route to Pharmacy Electronically, [facility], Partial fill upon patient request if the prescription is for a schedule... Start Date: 09/10/21 Stop Date: 11/09/21 Status: Orderedinsulin glargine 100 units/mL subcutaneous solution = 20 units, Subcutaneous Injection, Daily at bedtime, # 10 mL, 0 Refills, Maintenance, 09/10/21 10:23:00 EST, Injection, [facility] 3, pen please, 157, cm, 09/09/21 23:52:00 EST, Height, 88.7, kg, 09/07/21 21:40:00 EST, Dry Weight Start Date: 09/10/21 Stop Date: 10/10/21 Status: Orderedinsulin lispro 100 units/mL injectable solution 2-10 units, Subcutaneous Injection, 3 times a day before meals, # 15 mL, 0 Refills, Maintenance, 09/10/21 10:23:00 EST, Injection, [facility] 3, Pen please, 157, cm, 09/09/21 23:52:00 EST, Height, 88.7, kg, 09/07/21 21:40:00 EST, Dry Weight Start Date: 09/10/21 Status: OrderedNIFEdipine 90 mg oral tablet, extended release 90 mg, 1, tablet, By Mouth, Daily, # 30 tablet, Refills 11, Tot. Refills 11, Maintenance, 01/01/22 11:51:00 EDT, Route to Pharmacy Electronically, [facility] #[id number], Partial fill upon patientrequest if the prescription is for a schedule II... Start Date: 01/01/22 Stop Date: 12/27/22 Status: Orderedsertraline 50 mg oral tablet 1 tablet = 50 mg, By Mouth, Daily, # 90 tablet, 1 Refills, Maintenance, 03/06/21 8:12:00 EDT, Tablet, [facility] #[id number], Partial fill upon patient request if the [...] Dates Health Status Clinical In formant Service Hypertension Discharge 01/15/22 Diagnosis Edema Discharge 01/15/22 Diagnosis Vital Signs Most recent to oldest [Reference Range]: 1 2 Height 157 cm 157 cm (01/15/22 10:17 AM) (01/15/22 10:08 AM) Weight 87.4 kg (01/15/22 10:08 AM) Oxygen Saturation [94-100 %] 99 % (01/15/22 10:08 AM) Pulse Rate [55-90 bpm] 96 bpm *H* (01/15/22 10:08 AM) Body Mass Index [18.5-24.99] 35.46 *>HHI* (01/15/22 10:08 AM) Blood Pressure [90-138/55-84 mm Hg] 161/84 mm Hg 165/ 93 mm Hg *H* *H* (01/15/22 10:17 AM) (01/15/22 10:08 AM) Temperature [96.8-100.4 DegF] 98.5 DegF (01/15/22 10:08 AM) Mode of Delivery (Oxygen) Room air (01/15/22 10:08 AM) Blood pressure sites Arm, left Arm, left (01/15/22 10:17 AM) (01/15/22 10:08 AM) Temperature Route Temporal (01/15/22 10:08 AM) Weight Obtained Via Standing scale (01/15/22 10:08 AM) Social History Social History Type Response Smoking Status Never (less than 100 in life time) entered on: 08/31/19 Sex
--- OUTSIDE RECORDS SUMMARY | 2022-07-12 09:27 | XMS_ITS | Continuity of Care Document ---
:1980 Author Organization [facility] Address [address] [place] [address]- Care Team Providers Name Role Phone Fredy DELCID, Hailey Bowman Primary Care Physician [place] [facility] [place] [facility] [address] [place] [id number] Attending Physician: Feliz Swanson Admitting Physician: Admtr, [...] 06/06/20 7:49:00 EST, Route to Pharmacy Electronically, [facility] #[id number], 158.8, cm, 05/25/20 9:00:00 EDT, Height, 79.7, kg, 05/10/20 16:46:00 EDT, Dry... Start Date: 06/06/20 Status: Orderedatorvastatin 10 mg oral tablet 1 tablet = 10 mg, By Mouth, Daily, # 90 tablet, 1 Refills, Maintenance, 06/06/20 7:51:00 EST, [facility] #[id number], 158.8, cm, 05/25/20 9:00:00 EDT, Height, 79.7, kg, 05/10/20 16:46:00 EDT, Dry Weight Start Date: 06/06/20 Status: OrderedBasaglar KwikPen 100 units/mL subcutaneous solution = 16 units, Subcutaneous Injection, Daily at bedtime, rotate injection sites, # 12 mL, 0 Refills, Maintenance, 05/07/20 13:53:00 EDT, Solution, [facility] #[id number], 162, cm, 02/01/20 15:55:00 EDT, Height Start [...] 1 Refills, Maintenance, 05/25/20 9:23:00 EDT, Tablet, [facility] #[id number], 158.8, cm, 05/25/20 9:00:00 EDT, Height, 79.7, [...] 60 tablet, 6 Refills, Maintenance, 05/31/20 16:22:00EST, [facility] #[id number], 158, cm, 05/10/20 9:19:00 EDT, Height, 82, kg, 05/10/20 9:19:00 EDT, Dry Weight Start Date: 05/31/20 Stop Date: 12/27/20 Status: OrderedPen [place], 29 G x 12.7 mm BD Ultra [...]
[2022-07-12 09:28] LABS: MANUAL DIFF FLAG NO
[2022-07-12 09:30] LABS: Basophils Absolute Auto 0.1 X10*3/uL (0.0-0.2); Basophils Percent Auto 0.7 % (0-2); Eosinophils Absolute Auto 0.3 X10*3/uL (0.0-0.4); Eosinophils Percent Auto 4.4 % (0-4); Hematocrit 23.3 % (37.0-47.0); Hemoglobin 7.3 g/dl (12.0-16.0); Imm Gran Abs Auto 0.02 X10*3/uL (0.00-0.03); Imm Gran Pct Auto 0.3 % (0.0-0.4); Lymphocytes Absolute Auto 1.6 X10*3/uL (1.2-4.9); Lymphocytes Percent Auto 22.4 % (20-40); Mean Corpuscular HGB Conc 31.3 g/dl (31.0-35.0); Mean Corpuscular Hemoglobin 28.3 pg (27.0-33.0); Mean Corpuscular Volume 90.3 fL (80.0-98.0); Monocytes Absolute Auto 0.5 X10*3/uL (0.1-1.2); Monocytes Percent Auto 6.2 % (2-11); Neutrophils Absolute Auto 4.8 x10*3/uL (2.0-8.3); Platelet Count 323 X10*3/uL (160-400); Red Blood Count 2.58 X10*6/uL (4.20-5.50); Red Cell Distribution Width 13.2 % (11.0-16.0); White Blood Count 7.3 X10*3/uL (4.8-10.8)
[2022-07-12] MEDS: Nitroglycerin 2 % Oint 1 GM Packet 1 INCH TRANSDERMA (09:41)
[2022-07-12 09:53] LABS: OBS Int Ctl Valid YES; OBS1 NEGATIVE (NEGATIVE)
[2022-07-12 09:55] LABS: Troponin-I High Sensitivity 14.4 ng/L (<3.5-17.0)
[2022-07-12 09:56] LABS: Venous Blood Gas Refer to POC result
[2022-07-12 09:57] LABS: VBG Base Excess -10.6 mmol/L; VBG HCO3 14 mmol/L (22-26); VBG pCO2 27 mmHg; VBG pH 7.31 (7.32-7.43); VBG pO2 53 mmHg
[2022-07-12 10:08] LABS: Anion Gap 17 (12-20); Blood Urea Nitrogen 42 mg/dL (9-16); Calcium 7.3 mg/dL (8.4-10.2); Carbon Dioxide 13 mmol/L (22-29); Chloride 113 mmol/L (96-108); Creatinine Clr Calc Pharmacy 21.8; Estimated Glomerular Filt Rate 14; Glucose Random 242 mg/dL (60-115); Iron 26 mcg/dL (30-160); Percent Iron Saturation 11 % (15-50); Sodium 137 mmol/L (135-145); Total Iron Binding Capacity 241 mcg/dL (228-428); Unsaturated Iron Binding 215 ug/dL
[2022-07-12 10:14] LABS: Influenza A PCR NEGATIVE (Negative); Influenza B PCR NEGATIVE (Negative); Resp Syncy Virus RNA Qual PCR NEGATIVE (Negative); SARS COV2 PCR INHOUSE NEGATIVE (Negative)
[2022-07-12] MEDS: Calcium Gluconate/NaCl,Iso-Osm 1 GM/50 ML PLAST..BAG IV (10:18)
[2022-07-12] MEDS: Insulin Regular, Human 100 UNIT/ML 3 ML VIAL IVPUSH (10:19)
[2022-07-12] MEDS: Sodium Zirconium Cyclosilicate 10 GM POWD.PACK PO (10:19)
[2022-07-12] MEDS: Dextrose 50 % 25 GM/50 ML SYRINGE IVPUSH (10:21)
[2022-07-12] MEDS: Furosemide 100 MG/10 ML VIAL 60 MG IVPUSH ×2 (10:21→17:04)
[2022-07-12 10:36] LABS: Glucose, Whole Blood 226 mg/dL (60-115)
[2022-07-12 10:43] LABS: Appearance Urine Clear; Color Urine Yellow; Glucose Urine UA 500 mg/dL (Negative); Leukocyte Esterase Urine Negative (Negative); Nitrite Urine Negative (Negative); Specific Gravity - Urine 1.015 (1.005-1.025); UMIC TRIGGER UACC YES; Urine Blood Small (1+) (Negative); Urine Ketones Negative (Negative); Urine Protein >=1000 (4+) mg/dL (Neg-Trace)
[2022-07-12 10:54] LABS: Creatinine Urine 50.47 mg/dL
[2022-07-12 11:04] LABS: B Type Natriuretic Peptide 1147 pg/mL (<100)
[2022-07-12 11:05] LABS: Osmolality Urine 384 mosm/kg (373-1093)
[2022-07-12 11:15] LABS: Bacteria Urine None Seen (None Seen); Hyaline Casts Urine 0-2 /LPF (0-2); Squamous Epithelial Cell Urine 0-2 /HPF (0-2); WBC Urine 0-5 /HPF (0-5)
--- NOTE | 2022-07-12 11:18 | PHA.MEDREC ---
Pharmacy Consult ? Medication Reconciliation Pharmacy has completed the medication reconciliation. Patient states they are not adherent to medications. Pt says they should still be taking sertraline, lisinopril, atorvastatin, lantus, and metformin but have not filled or taken medication in a while. Patient is unsure whether they are supposed to be taking furosemide and nifedipine as well.
--- NOTE | 2022-07-12 12:02 | PM.IMHP ---
History of Present Illness Date of Service: 07/12/22 Chief Complaint: Shortness of breath 41 yo female with history of DM on insulin, HTN, HLD, depression who has been noncompliant with all medications for the last few months presents to the ER for evaluation of worsening SOB and LE swelling for the last week. ? She states her breathing has been getting worse over the last week or so, it is worse with any exertion or when lying down.? She has not been sleeping well due to the shortness of breath.? She also reports pain due to lower extremity swelling, both of her lower legs are tense and tender.? she states she has not taken her water pills, insulin or blood pressure medications in several months.? She is upset at herself for being noncompliant.? ?she reports poor p.o. intake due to ongoing nausea.? She states her medications make her feel unwell and nauseous. ER Course Initial saturation in the ER 91% on room air improved to 95% on 4 L. checks x-ray consistent with mild pulmonary vascular congestion. Creatinine elevated at 3.5 with a potassium of 6. She received calcium gluconate and Lokelma in the ER along with insulin and D50. She was given 60 mg of Lasix and call was made to admit Review of Systems Review of Systems: Denies chest pain Admits to shortness of breath Denies nausea vomiting diarrhea Denies fever and chills Admits lower extremity edema and feeling of fullness in her abdomen [facility] Medical History (Updated 07/12/22 @ 12:06 by Vidal Rosas DO) Anxiety 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, managed as type 2 Social History Household Members: Family Housing: House Do you presently have visiting nurse or other home services: No Unable to assess alcohol history related to: Unknown Alcohol intake: current Alcohol intake frequency: holidays/special occasions only Patient Tobacco Use Status: Never used Tobacco Smoked in Last 30 Days: Yes Use of substances other than those prescribed or required for medical reasons: No Advance Directives: No Patient : No Meds Allergies Allergy/AdvReac Type Severity Reaction Status Date / Time No Known Allergies Allergy Verified 07/12/22 09:01 [No Known Allergies*] Active Medications: Current Medications Acetaminophen (Acetaminophen 325 Mg Tablet) 650 mg PO Q6H PRN PRN Reason: Pain, Mild (Pain Scale 1-3) Amlodipine Besylate (Amlodipine Besylate 10 Mg Tablet) 10 mg PO DAILY [facility]; Protocol Dextrose (Dextrose 50 % 25 Gm/50 Ml Syringe) 25 gm IVPUSH Q15M PRN; Protocol PRN Reason: per Hypoglycemia Standing Ord. Famotidine (Famotidine 20 Mg Tablet) 20 mg PO BID PRN PRN Reason: indigestion Furosemide (Furosemide 100 Mg/10 Ml Vial) 60 mg IVPUSH BID@0900,1800 [facility]; Protocol Gabapentin (Gabapentin 100 Mg Capsule) 100 mg PO BEDTIME [facility] Glucose (Glucose Gel 15 Gm Gel..Gram.) 15 gm PO Q15M PRN; Protocol PRN Reason: per Hypoglycemia Standing Ord. Heparin Sodium (Porcine) (Heparin Sodium,Porcine 5,000 Unit/Ml Vial) 5,000 unit SUBCUT Q8H [facility] Insulin Human Lispro (Insulin Lispro 100 Unit/Ml 3 Ml Vial) 0 unit SUBCUT QIDACHS [facility]; Protocol Ondansetron HCl (Ondansetron Hcl 4 Mg/2 Ml Vial) 4 mg IVPUSH Q8H PRN PRN Reason: Nausea and Vomiting Pharmacy Consult (Consult Rx Perform Med Rec) 1 each MISCELLANE ONCE PRN PRN Reason: Consult order Pharmacy Consult (Consult Rx Perform Med Rec) 1 each MISCELLANE ONCE PRN PRN Reason: Consult order Sodium Chloride (0.9 % Sodium Chloride Flush 3 Ml Syringe) 3 ml IVFLUSH QSHIFT [facility] Home Medications Medication Instructions Recorded Confirmed Last Taken Type bumetanide 1 mg tablet 1 tab PO DAILY 07/12/22 07/12/22 2 Days Ago History ~07/10/22 famotidine 20 mg tablet 1 tab PO BID PRN indigestion 07/12/22 07/12/22 Unknown History gabapentin 100 mg capsule 1 cap PO BEDTIME 07/12/22 07/12/22 07/11/22 History Physical Exam Vital Signs and Narrative: Vital Signs: Last Vital Signs Temp 98.3 F 07/12/22 09:28 Pulse 101 H 07/12/22 10:29 Resp 26 H 07/12/22 10:29 BP 180/89 H 07/12/22 10:29 Pulse Ox 95 07/12/22 10:29 O2 Del Method 07/12/22 10:29 O2 Flow Rate 4 07/12/22 10:29 BMI result Body Mass Index 36.6 Const: Other: Awake alert oriented x3 no acute distress HEENT: Other: JVD to angle of jaw at 35 degrees Resp: Other: Diminished at bases with scattered crackles at bases Cardio: Other: No S4; positive S1-S2; no S3 murmurs rubs gallops GI: Other: Soft nontender nondistended normoactive bowel sounds Extrem: Other: 2+ pitting edema bilaterally Results Labs CBC and Chem 7: 07/12/22 09:20 07/12/22 09:20 Labs: Laboratory Results - last 24 hr 07/12/22 07/12/22 07/12/22 09:20 09:20 09:20 MCV 90.3 MCH 28.3 MCHC 31.3 RDW 13.2 Plt Count 323 MPV 10.0 Immature Gran % (Auto) 0.3 Neut % (Auto) 66.0 Lymph % (Auto) 22.4 [place] % (Auto) 6.2 Eos % (Auto) 4.4 H Baso % (Auto) 0.7 Lymph # (Auto) 1.6 [place] # (Auto) 0.5 Eos # (Auto) 0.3 Baso # (Auto) 0.1 Abs Immat Gran (auto) 0.02 Absolute Neuts (auto) 4.8 Absolute Nucleated RBC 0.000 Nucleated RBC % (auto) 0.0 VBG pH VBG pCO2 VBG pO2 VBG HCO3 VBG O2 Saturation VBG Base Excess Anion Gap 17 Estim Creat Clear Calc 21.8 Estimated GFR 14 POC Glucose Random Glucose 242 H Calcium 7.3 L D Iron 26 L TIBC 241 % Saturation 11 L Unsat Iron Binding 215 Troponin I High Sens 14.4 B-Natriuretic Peptide Urine Color Urine Appearance Urine pH Ur Specific [place] Urine Protein Urine Glucose (UA) Urine Ketones Urine Blood Urine Nitrite Ur Leukocyte Esterase Urine RBC Urine WBC Ur Squamous Epith Cells Urine Bacteria Hyaline Casts Urine Osmolality Ur Random Sodium Urine Creatinine Stool Occult Blood Influenza Type A (PCR) Influenza Type B (PCR) RSV RNA Qual (PCR) SARS-CoV-2 RNA (RT-PCR) 07/12/22 07/12/22 07/12/22 09:20 09:22 09:38 MCV MCH MCHC RDW Plt Count MPV Immature Gran % (Auto) Neut % (Auto) Lymph % (Auto) [place] % (Auto) Eos % (Auto) Baso % (Auto) Lymph # (Auto) [place] # (Auto) Eos # (Auto) Baso # (Auto) Abs Immat Gran (auto) Absolute Neuts (auto) Absolute Nucleated RBC Nucleated RBC % (auto) VBG pH VBG pCO2 VBG pO2 VBG HCO3 VBG O2 Saturation VBG Base Excess Anion Gap Estim Creat Clear Calc Estimated GFR POC Glucose 226 H Random Glucose Calcium Iron TIBC % Saturation Unsat Iron Binding Troponin I High Sens B-Natriuretic Peptide 1147 H Urine Color Urine Appearance Urine pH Ur Specific [place] Urine Protein Urine Glucose (UA) Urine Ketones Urine Blood Urine Nitrite Ur Leukocyte Esterase Urine RBC Urine WBC Ur Squamous Epith Cells Urine Bacteria Hyaline Casts Urine Osmolality Ur Random Sodium Urine Creatinine Stool Occult Blood Influenza Type A (PCR) NEGATIVE Influenza Type B (PCR) NEGATIVE RSV RNA Qual (PCR) NEGATIVE SARS-CoV-2 RNA (RT-PCR) NEGATIVE 07/12/22 07/12/22 07/12/22 09:42 09:51 10:23 MCV MCH MCHC RDW Plt Count MPV Immature Gran % (Auto) Neut % (Auto) Lymph % (Auto) [place] % (Auto) Eos % (Auto) Baso % (Auto) Lymph # (Auto) [place] # (Auto) Eos # (Auto) Baso # (Auto) Abs Immat Gran (auto) Absolute Neuts (auto) Absolute Nucleated RBC Nucleated RBC % (auto) VBG pH 7.31 L VBG pCO2 27 VBG pO2 53 VBG HCO3 14 L VBG O2 Saturation 81.0 VBG Base Excess -10.6 Anion Gap Estim Creat Clear Calc Estimated GFR POC Glucose Random Glucose Calcium Iron TIBC % Saturation Unsat Iron Binding Troponin I High Sens B-Natriuretic Peptide Urine Color Yellow Urine Appearance Clear Urine pH 6.0 Ur Specific [place] 1.015 Urine Protein >=1000 (4+) H Urine Glucose (UA) 500 H Urine Ketones Negative Urine Blood Small (1+) H Urine Nitrite Negative Ur Leukocyte Esterase Negative Urine RBC 6-10 H Urine WBC 0-5 Ur Squamous Epith Cells 0-2 Urine Bacteria None Seen Hyaline Casts 0-2 Urine Osmolality Ur Random Sodium Urine Creatinine Stool Occult Blood NEGATIVE Influenza Type A (PCR) Influenza Type B (PCR) RSV RNA Qual (PCR) SARS-CoV-2 RNA (RT-PCR) 07/12/22 07/12/22 10:32 10:32 MCV MCH MCHC RDW Plt Count MPV Immature Gran % (Auto) Neut % (Auto) Lymph % (Auto) [place] % (Auto) Eos % (Auto) Baso % (Auto) Lymph # (Auto) [place] # (Auto) Eos # (Auto) Baso # (Auto) Abs Immat Gran (auto) Absolute Neuts (auto) Absolute Nucleated RBC Nucleated RBC % (auto) VBG pH VBG pCO2 VBG pO2 VBG HCO3 VBG O2 Saturation VBG Base Excess Anion Gap Estim Creat Clear Calc Estimated GFR POC Glucose Random Glucose Calcium Iron TIBC % Saturation Unsat Iron Binding Troponin I High Sens B-Natriuretic Peptide Urine Color Urine Appearance Urine pH Ur Specific [place] Urine Protein Urine Glucose (UA) Urine Ketones Urine Blood Urine Nitrite Ur Leukocyte Esterase Urine RBC Urine WBC Ur Squamous Epith Cells Urine Bacteria Hyaline Casts Urine Osmolality 384 Ur Random Sodium 87.0 Urine Creatinine 50.47 Stool Occult Blood Influenza Type A (PCR) Influenza Type B (PCR) RSV RNA Qual (PCR) SARS-CoV-2 RNA (RT-PCR) Imaging Radiologist's Impressions: Impressions Chest X-Ray 07/12/22 09:26 IMPRESSION: No acute pulmonary pathology. Assessment and Plan (1) AMISHA (acute kidney injury): Status: Acute (2) Hypertensive urgency: Status: Acute (3) Diabetes: Status: Acute Plan 41-year-old female with an admitted history of noncompliance presents with approximately 1 week of worsening shortness of breath. She also notes bilateral lower extremity swelling. She states shortness of breath has been worsening over time. She is unclear of her last A1c and the last time she saw kidney doctor. 1.AMISHA /CKD(edema with a history of proteinuria) -examines hypervolemic -hold Bumex in favor of IV Lasix 60 mg q.12 hours -will CT abdomen and pelvis to rule out any mechanical obstruction -renal consult in a.m. -follow renals/divalents 2. Dyspnea on exertion (suspicious for CHF) -IV Lasix as ordered -trend BMP -check 2D echo -titrate O2 to maintain sats greater than equal to 92% 3. Diabetes type 2 requiring insulin -unknown control; admits to poor compliance. Add on A1c -cover with Lispro correctional scale 4.HTN -poor control -add Norvasc and follow clinical response -adjust as indicated Full code Lovenox Will require 2 inpatient nights to correct abnormal fluid balance and investigate abnormalities. This cannot be done and a lesser acute setting Time Spent With Patient Time: Total time managing care of this patient today ____ minutes. Quality Stroke Does the patient have a stroke diagnosis?: No VTE Prior VTE?: No VTE Risk Level:: Medical - moderate - high VTE Device Contraindication: Treatment Not Indicated VTE Drug Contraindication: N/A - Med Ordered
[2022-07-12 12:20] LABS: UPreg QC Valid YES; Urine Pregnancy NEGATIVE (NEGATIVE)
[2022-07-12 12:41] LABS: Estimated Average Glucose 174 mg/dL; Hemoglobin A1c % 7.7 %
[2022-07-12] MEDS: Heparin Sodium,Porcine 5,000 UNIT/ML VIAL 5000 UNIT SUBCUT ×2 (12:55→21:51)
[2022-07-12] MEDS: amLODIPine Besylate 10 MG TABLET PO (12:55)
[2022-07-12 12:56] LABS: Glucose, Whole Blood 111 mg/dL (60-115)
--- NOTE | 2022-07-12 13:11 | PC.NURSE ---
report given to ANISA Mccullough. Transporter [facility] notified to transport pt to room 443. pt aware of plan.
[2022-07-12] MEDS: hydrALAZINE HCl 20 MG/ML VIAL 5 MG IVPUSH (13:49)
[2022-07-12 16:25] LABS: Glucose, Whole Blood 191 mg/dL (60-115)
[2022-07-12] MEDS: Insulin Lispro 100 UNIT/ML 3 ML VIAL SUBCUT ×2 (17:04→21:50)
[2022-07-12 17:24] LABS: Hematocrit 21.6 % (37.0-47.0); Mean Corpuscular HGB Conc 31.9 g/dl (31.0-35.0); Mean Corpuscular Hemoglobin 28.4 pg (27.0-33.0); Mean Corpuscular Volume 88.9 fL (80.0-98.0); Platelet Count 321 X10*3/uL (160-400); Red Blood Count 2.43 X10*6/uL (4.20-5.50); Red Cell Distribution Width 13.3 % (11.0-16.0); White Blood Count 8.4 X10*3/uL (4.8-10.8)
[2022-07-12 17:31] LABS: Hemoglobin 6.9 g/dl (12.0-16.0)
[2022-07-12 17:55] LABS: Anion Gap 13 (12-20); Blood Urea Nitrogen 44 mg/dL (9-16); Calcium 7.6 mg/dL (8.4-10.2); Carbon Dioxide 18 mmol/L (22-29); Chloride 113 mmol/L (96-108); Estimated Glomerular Filt Rate 13; Glucose Random 181 mg/dL (60-115); Potassium 5.5 mmol/L (3.3-5.1); Sodium 138 mmol/L (135-145)
[2022-07-12 20:48] LABS: Glucose, Whole Blood 161 mg/dL (60-115)
[2022-07-12] MEDS: Gabapentin 100 MG CAPSULE PO (21:50)
[2022-07-12] MEDS: 0.9 % Sodium Chloride Flush 3 ML SYRINGE IVFLUSH (21:51)
[2022-07-13] VITALS (8 sets, daily range): BP systolic 145–185; BP diastolic 67–98; PULSE 86–95; RESP 12–18; TEMP 36.4–36.9; O2SAT 95–99
[2022-07-13] MEDS: Heparin Sodium,Porcine 5,000 UNIT/ML VIAL 5000 UNIT SUBCUT ×3 (03:58→20:07)
[2022-07-13 06:55] LABS: MANUAL DIFF FLAG NO
[2022-07-13 07:21] LABS: Basophils Percent Auto 0.6 % (0-2); Eosinophils Absolute Auto 0.3 X10*3/uL (0.0-0.4); Eosinophils Percent Auto 5.2 % (0-4); Hematocrit 23.8 % (37.0-47.0); Hemoglobin 7.4 g/dl (12.0-16.0); Imm Gran Abs Auto 0.02 X10*3/uL (0.00-0.03); Imm Gran Pct Auto 0.3 % (0.0-0.4); Lymphocytes Absolute Auto 1.6 X10*3/uL (1.2-4.9); Lymphocytes Percent Auto 25.3 % (20-40); Mean Corpuscular HGB Conc 31.1 g/dl (31.0-35.0); Mean Corpuscular Hemoglobin 27.8 pg (27.0-33.0); Mean Corpuscular Volume 89.5 fL (80.0-98.0); Mean Platelet Volume 10.6 fL (9.4-12.3); Monocytes Absolute Auto 0.5 X10*3/uL (0.1-1.2); Monocytes Percent Auto 8.2 % (2-11); Neutrophils Absolute Auto 3.8 x10*3/uL (2.0-8.3); Neutrophils Percent Auto 60.4 % (45-73); Platelet Count 303 X10*3/uL (160-400); Red Blood Count 2.66 X10*6/uL (4.20-5.50); Red Cell Distribution Width 13.4 % (11.0-16.0); White Blood Count 6.3 X10*3/uL (4.8-10.8)
[2022-07-13 07:29] LABS: Alanine Aminotransferase 18 U/L (0-31); Albumin Level 2.8 g/dL (3.5-5.0); Alkaline Phosphatase 114 U/L (39-117); Anion Gap 14 (12-20); Aspartate Amino Transferase 13 U/L (5-31); Bilirubin Total 0.5 mg/dL (0.0-1.0); Blood Urea Nitrogen 46 mg/dL (9-16); Calcium 7.5 mg/dL (8.4-10.2); Carbon Dioxide 16 mmol/L (22-29); Chloride 114 mmol/L (96-108); Creatinine Clr Calc Pharmacy 21.2; Estimated Glomerular Filt Rate 14; Glucose Fasting 147 mg/dL (60-99); Potassium 5.8 mmol/L (3.3-5.1); Sodium 138 mmol/L (135-145); Total Protein 5.7 g/dL (6.5-8.0)
[2022-07-13 07:41] LABS: Glucose, Whole Blood 147 mg/dL (60-115)
[2022-07-13] MEDS: Furosemide 100 MG/10 ML VIAL 60 MG IVPUSH ×2 (07:58→17:48)
[2022-07-13] MEDS: 0.9 % Sodium Chloride Flush 3 ML SYRINGE IVFLUSH ×2 (07:58→15:06)
[2022-07-13] MEDS: amLODIPine Besylate 10 MG TABLET PO (07:58)
[2022-07-13 08:28] LABS: B Type Natriuretic Peptide 1045 pg/mL (<100)
--- NOTE | 2022-07-13 11:01 | P.PNIM_ITS ---
Subjective Subjective Date of Service: 07/13/22 Interval History: 41-year-old admitted with acute kidney injury and likely CHF related to hypertension. Good response to Lasix clinically somewhat improved Review of Systems Denies chest pain Admits to shortness of breath Denies nausea vomiting diarrhea Denies fever and chills Admits lower extremity edema and feeling of fullness in her abdomen Physical Exam Vital Signs: Vital Signs: Last Vital Signs Temp 97.7 F 07/13/22 07:43 Pulse 88 07/13/22 07:43 Resp 14 07/13/22 07:43 BP 164/79 H 07/13/22 07:43 Pulse Ox 99 07/13/22 07:43 O2 Del Method 07/13/22 07:43 O2 Flow Rate 4 07/13/22 07:43 BMI result Body Mass Index 36.6 Const: Other: Awake alert oriented x3 no acute distress HEENT: Other: JVD to angle of jaw at 35 degrees Resp: Other: Diminished at bases with scattered crackles at bases Cardio: Other: No S4; positive S1-S2; no S3 murmurs rubs gallops GI: Other: Soft nontender nondistended normoactive bowel sounds Extrem: Other: 2+ pitting edema bilaterally Objective Data Active Medications Acetaminophen (Acetaminophen 325 Mg Tablet) 650 mg PO Q6H PRN PRN Reason: Pain, Mild (Pain Scale 1-3) Amlodipine Besylate (Amlodipine Besylate 10 Mg Tablet) 10 mg PO DAILY [facility]; Protocol Last Admin: 07/13/22 07:58 Dose: 10 mg Documented By: GUY Dextrose (Dextrose 50 % 25 Gm/50 Ml Syringe) 25 gm IVPUSH Q15M PRN; Protocol PRN Reason: per Hypoglycemia Standing Ord. Famotidine (Famotidine 20 Mg Tablet) 20 mg PO BID PRN PRN Reason: indigestion Furosemide (Furosemide 100 Mg/10 Ml Vial) 60 mg IVPUSH BID@0900,1800 [facility]; Protocol Last Admin: 07/13/22 07:58 Dose: 60 mg Documented By: GUY Gabapentin (Gabapentin 100 Mg Capsule) 100 mg PO BEDTIME LUIS Last Admin: 07/12/22 21:50 Dose: 100 mg Documented By: BRINDA Glucose (Glucose Gel 15 Gm Gel..Gram.) 15 gm PO Q15M PRN; Protocol PRN Reason: per Hypoglycemia Standing Ord. Heparin Sodium (Porcine) (Heparin Sodium,Porcine 5,000 Unit/Ml Vial) 5,000 unit SUBCUT Q8H [facility] Last Admin: 07/13/22 03:58 Dose: 5,000 unit Documented By: BRINDA Insulin Human Lispro (Insulin Lispro 100 Unit/Ml 3 Ml Vial) 0 unit SUBCUT QIDACHS [facility]; Protocol Last Admin: 07/13/22 07:58 Dose: Not Given Documented By: GUY Non-Admin Reason: No Insulin Coverage Loperamide HCl (Loperamide Hcl 2 Mg Capsule) 2 mg PO Q6H PRN PRN Reason: Diarrhea Melatonin (Melatonin 3 Mg Tablet) 6 mg PO BEDTIME PRN PRN Reason: Insomnia Ondansetron HCl (Ondansetron Hcl 4 Mg/2 Ml Vial) 4 mg IVPUSH Q8H PRN PRN Reason: Nausea and Vomiting Pharmacy Consult (Consult Rx Perform Med Rec) 1 each MISCELLANE ONCE PRN PRN Reason: Consult order Pharmacy Consult (Consult Rx Perform Med Rec) 1 each MISCELLANE ONCE PRN PRN Reason: Consult order Sodium Chloride (0.9 % Sodium Chloride Flush 3 Ml Syringe) 3 ml IVFLUSH QSHIFT [facility] Last Admin: 07/13/22 07:58 Dose: 3 ml Documented By: GUY Labs CBC & Chem 7: 07/13/22 06:15 07/13/22 06:15 Labs: Laboratory Results - last 24 hr 07/12/22 07/12/22 07/12/22 09:20 09:20 10:23 MCV MCH MCHC RDW Plt Count MPV Immature Gran % (Auto) Neut % (Auto) Lymph % (Auto) Tyrrell % (Auto) Eos % (Auto) Baso % (Auto) Lymph # (Auto) Tyrrell # (Auto) Eos # (Auto) Baso # (Auto) Abs Immat Gran (auto) Absolute Neuts (auto) Absolute Nucleated RBC Nucleated RBC % (auto) Anion Gap Estim Creat Clear Calc Estimated GFR POC Glucose Random Glucose Fasting Glucose Estimat Average Glucose 174 Hemoglobin A1c % 7.7 Calcium Total Bilirubin AST ALT Alkaline Phosphatase B-Natriuretic Peptide 1147 H Total Protein Albumin Urine Color Yellow Urine Appearance Clear Urine pH 6.0 Ur Specific [place] 1.015 Urine Protein >=1000 (4+) H Urine Glucose (UA) 500 H Urine Ketones Negative Urine Blood Small (1+) H Urine Nitrite Negative Ur Leukocyte Esterase Negative Urine RBC 6-10 H Urine WBC 0-5 Ur Squamous Epith Cells 0-2 Urine Bacteria None Seen Hyaline Casts 0-2 Urine Osmolality Urine Test Blood Type Antibody Screen Crossmatch 07/12/22 07/12/22 07/12/22 10:32 10:36 12:52 MCV MCH MCHC RDW Plt Count MPV Immature Gran % (Auto) Neut % (Auto) Lymph % (Auto) Tyrrell % (Auto) Eos % (Auto) Baso % (Auto) Lymph # (Auto) [place] # (Auto) Eos # (Auto) Baso # (Auto) Abs Immat Gran (auto) Absolute Neuts (auto) Absolute Nucleated RBC Nucleated RBC % (auto) Anion Gap Estim Creat Clear Calc Estimated GFR POC Glucose 111 Random Glucose Fasting Glucose Estimat Average Glucose Hemoglobin A1c % Calcium Total Bilirubin AST ALT Alkaline Phosphatase B-Natriuretic Peptide Total Protein Albumin Urine Color Urine Appearance Urine pH Ur Specific [place] Urine Protein Urine Glucose (UA) Urine Ketones Urine Blood Urine Nitrite Ur Leukocyte Esterase Urine RBC Urine WBC Ur Squamous Epith Cells Urine Bacteria Hyaline Casts Urine Osmolality 384 Urine Test NEGATIVE Blood Type Antibody Screen Crossmatch 07/12/22 07/12/22 07/12/22 16:16 17:07 17:07 MCV 88.9 MCH 28.4 MCHC 31.9 RDW 13.3 Plt Count 321 MPV 10.0 Immature Gran % (Auto) Neut % (Auto) Lymph % (Auto) Tyrrell % (Auto) Eos % (Auto) Baso % (Auto) Lymph # (Auto) [place] # (Auto) Eos # (Auto) Baso # (Auto) Abs Immat Gran (auto) Absolute Neuts (auto) Absolute Nucleated RBC 0.000 Nucleated RBC % (auto) 0.0 Anion Gap 13 Estim Creat Clear Calc 21.0 Estimated GFR 13 POC Glucose 191 H Random Glucose 181 H Fasting Glucose Estimat Average Glucose Hemoglobin A1c % Calcium 7.6 L Total Bilirubin AST ALT Alkaline Phosphatase B-Natriuretic Peptide Total Protein Albumin Urine Color Urine Appearance Urine pH Ur Specific [place] Urine Protein Urine Glucose (UA) Urine Ketones Urine Blood Urine Nitrite Ur Leukocyte Esterase Urine RBC Urine WBC Ur Squamous Epith Cells Urine Bacteria Hyaline Casts Urine Osmolality Urine Test Blood Type Antibody Screen Crossmatch 07/12/22 07/12/22 07/13/22 18:48 20:45 06:15 MCV 89.5 MCH 27.8 MCHC 31.1 RDW 13.4 Plt Count 303 MPV 10.6 Immature Gran % (Auto) 0.3 Neut % (Auto) 60.4 Lymph % (Auto) 25.3 Tyrrell % (Auto) 8.2 Eos % (Auto) 5.2 H Baso % (Auto) 0.6 Lymph # (Auto) 1.6 Tyrrell # (Auto) 0.5 Eos # (Auto) 0.3 Baso # (Auto) 0.0 Abs Immat Gran (auto) 0.02 Absolute Neuts (auto) 3.8 Absolute Nucleated RBC 0.000 Nucleated RBC % (auto) 0.0 Anion Gap Estim Creat Clear Calc Estimated GFR POC Glucose 161 H Random Glucose Fasting Glucose Estimat Average Glucose Hemoglobin A1c % Calcium Total Bilirubin AST ALT Alkaline Phosphatase B-Natriuretic Peptide Total Protein Albumin Urine Color Urine Appearance Urine pH Ur Specific [place] Urine Protein Urine Glucose (UA) Urine Ketones Urine Blood Urine Nitrite Ur Leukocyte Esterase Urine RBC Urine WBC Ur Squamous Epith Cells Urine Bacteria Hyaline Casts Urine Osmolality Urine Test Blood Type B Positive Antibody Screen NEGATIVE Crossmatch See Detail 07/13/22 07/13/22 07/13/22 06:15 06:15 07:30 MCV MCH MCHC RDW Plt Count MPV Immature Gran % (Auto) Neut % (Auto) Lymph % (Auto) [place]rell % (Auto) Eos % (Auto) Baso % (Auto) Lymph # (Auto) [place] # (Auto) Eos # (Auto) Baso # (Auto) Abs Immat Gran (auto) Absolute Neuts (auto) Absolute Nucleated RBC Nucleated RBC % (auto) Anion Gap 14 Estim Creat Clear Calc 21.2 Estimated GFR 14 POC Glucose 147 H Random Glucose Fasting Glucose 147 H Estimat Average Glucose Hemoglobin A1c % Calcium 7.5 L Total Bilirubin 0.5 AST 13 ALT 18 Alkaline Phosphatase 114 B-Natriuretic Peptide 1045 H Total Protein 5.7 L Albumin 2.8 L Urine Color Urine Appearance Urine pH Ur Specific [place] Urine Protein Urine Glucose (UA) Urine Ketones Urine Blood Urine Nitrite Ur Leukocyte Esterase Urine RBC Urine WBC Ur Squamous Epith Cells Urine Bacteria Hyaline Casts Urine Osmolality Urine Test Blood Type Antibody Screen Crossmatch Assessment and Plan (1) AMISHA (acute kidney injury): Status: Acute (2) Hypertensive urgency: Status: Acute (3) Diabetes: Status: Acute Plan 41-year-old female with an admitted history of noncompliance presents with approximately 1 week of worsening shortness of breath. She also notes bilateral lower extremity swelling. She states shortness of breath has been worsening over time. She is unclear of her last A1c and the last time she saw kidney doctor. 1.AMISHA /CKD(edema with a history of proteinuria) -diuresing with Lasix -CT failed to demonstrate any acute obstructive issues -follow renals/divalents 2. Dyspnea on exertion (suspicious for CHF) -IV Lasix with fair results -trend BMP -check 2D echo -titrate O2 to maintain sats greater than equal to 92% 3. Diabetes type 2 requiring insulin -unknown control; admits to poor compliance. Add on A1c -cover with Lispro correctional scale 4.HTN -poor control -add Norvasc/hydralazine -adjust as indicated Full code Morenax Requires ongoing hospitalization for IV diuresis and workup of cardiac issues Time Spent With Patient Time: Total time managing care of this patient today ____ minutes. Quality Stroke Does the patient have a stroke diagnosis?: No VTE Prior VTE?: No VTE Risk Level:: Medical - moderate - high VTE Device Contraindication: Treatment Not Indicated VTE Drug Contraindication: N/A - Med Ordered
[2022-07-13 12:03] LABS: Glucose, Whole Blood 229 mg/dL (60-115)
[2022-07-13] MEDS: Insulin Lispro 100 UNIT/ML 3 ML VIAL SUBCUT ×2 (12:07→16:53)
[2022-07-13] MEDS: Sodium Zirconium Cyclosilicate 10 GM POWD.PACK PO (12:09)
[2022-07-13] MEDS: hydrALAZINE HCl 25 MG TABLET PO ×2 (15:06→20:06)
[2022-07-13 15:56] LABS: Glucose, Whole Blood 158 mg/dL (60-115)
[2022-07-13] MEDS: Melatonin 3 MG TABLET 6 MG PO (17:43)
[2022-07-13] MEDS: Gabapentin 100 MG CAPSULE PO (20:05)
[2022-07-13 20:15] LABS: Glucose, Whole Blood 186 mg/dL (60-115)
[2022-07-13 20:21] LABS: Anion Gap 15 (12-20); Carbon Dioxide 18 mmol/L (22-29); Chloride 110 mmol/L (96-108); Potassium 5.4 mmol/L (3.3-5.1); Sodium 138 mmol/L (135-145)
[2022-07-14] MEDS: 0.9 % Sodium Chloride Flush 3 ML SYRINGE IVFLUSH ×3 (01:03→17:09)
--- NOTE | 2022-07-14 02:39 | CONS_ITS ---
DATE OF SERVICE: 07/13/2022 REASON FOR CONSULTATION: I was asked to see patient to assist in evaluation and management of patient's acute kidney injury as reflected by serum creatinine of 3.58 on admission, whereas a previous creatinine back in January 2021 was 1.5. HISTORY OF PRESENT ILLNESS: In summary, the patient is a 41-year-old female with a history of diabetes, insulin dependent, hypertension, hyperlipidemia, who has been noncompliant with all her medications for the past several months, presented to the ER with increasing leg swelling for the past week if not longer, along with some shortness of breath. She describes some orthopnea and PND. She denies any fever, sweats, or chills. Reasons are unclear. She stopped taking all her medications several months ago. In the emergency room, she had evaluation showed the acute kidney injury as well as evidence of congestive heart failure. She had a potassium of 6 and was treated with medications to lower the potassium. PAST MEDICAL HISTORY: As above. MEDICATIONS: It is not exactly clear what home medications she is normally on. What is listed is Bumex, Pepcid, and Neurontin. SOCIAL HISTORY: She is nonsmoker, nondrinker. No illicit drug use. She denies taking NSAIDs. FAMILY HISTORY: Noncontributory. REVIEW OF SYSTEMS: As noted above. PHYSICAL EXAMINATION: VITAL SIGNS: Blood pressure 145/60 with a heart rate in the 80s. She is afebrile. HEENT: Head is atraumatic and normocephalic. NECK: Supple. Mucous membranes are moist. There is no JVD. LUNGS: Decreased breath sounds at the bases. CARDIAC: Regular rate and rhythm. ABDOMEN: Soft, nontender. EXTREMITIES: Show 2+ edema. There is no asterixis. LABORATORY DATA: From this morning show sodium 138, potassium 5.8, chloride 114, bicarb 16, BUN 46, creatinine 3.7. On admission, potassium 6.0, bicarb is 13, creatinine 3.58. Serum albumin 2.8. Hemoglobin 7.4, hematocrit 23.8, white cell count 6.3, platelet count 264. Urine studies showed 4+ protein. She had a CAT scan of the abdomen and pelvis without contrast, showed no kidney stones, or hydronephrosis. IMPRESSION: 41-YEAR-OLD DIABETIC WITH ACUTE KIDNEY INJURY ON CHRONIC KIDNEY DISEASE AND HYPERKALEMIA ALONG WITH ANEMIA. 1. Acute kidney injury. This is most likely due to her medication noncompliance and a progressive diabetic kidney disease. Her last creatinine is from over a year ago of 1.5 and the current creatinine may be her new baseline due to poor medication compliance and progressive diabetic kidney disease. Other possibilities need to be ruled out with serologic and urine studies, particularly ruling out a dysproteinemia given the anemia and the advanced kidney disease. 2. Chronic kidney disease. As mentioned, most consistent with diabetic kidney disease. Other possibilities need to be ruled out with serologic urine studies as noted. 3. Hyperkalemia. This is due to the acute kidney injury along with chronic kidney disease and her metabolic acidosis, which causes translated potassium movement all contributing. 4. Anemia. Need to rule out iron deficiency. She may have significant epo deficiency state playing a significant role for chronic anemia. 5. Hypervolemia. Clearly volume overloaded on exam. Likely due to combination of factors including question of nephrotic syndrome from underlying diabetic nephropathy. She is currently on Lasix to get a negative fluid balance. 6. Metabolic bone disease. Most likely has significant metabolic bone disease related to her chronic kidney disease. 7. Hypertension. Started on blood pressure medications. Would avoid MILKA and ARBs at this point in time. RECOMMENDATIONS: 1. Obtain urine protein to creatinine ratio as well as urine microalbumin to creatinine ratio. 2. Recheck potassium and give her low count to control potassium. 3. Obtain serologies including serum immunofixation, free kappa lambda, along with hepatitis B and C serologies, JAMES, and complement levels. 4. Agree with diuresis with use of IV Lasix. 5. Blood pressure control with medications, avoiding MILKA and ARB for the time being. Check iron studies and see about starting her on Procrit. 6. Check intact PTH and phosphorus level and treat accordingly. 7. We will follow the patient closely with the team. MD JOSE CARLOS Garcia/ELDER / [phone]
[2022-07-14 06:59] LABS: MANUAL DIFF FLAG NO
--- NOTE | 2022-07-14 07:00 | CA_ITS ---
Transthoracic Echocardiogram Patient (Last, First, Middle): Erna Alvarez, Gender: Female Date of : 1980 Age: 41 Procedure Date: 07/14/2022 Procedure Type: Transthoracic Echocardiogram [place] [facility] [place]: 157.48 cm Weight: 90.72 kg BSA: 1.91 m2 Heart Rate: 92 bpm BP: 166 / 79 mmHg Light Bulb Assembler: SHERRIE Referring MD: Vidal Rosas DO Symptoms: abnormal BNP Study Quality: Adequate ECG Rhythm: Sinus Conclusions: - Normal left ventricular size and systolic function. There is mildly increased left ventricular wall thickness. The visually estimated ejection fraction is between 55-60%. - E/E prime ratio is >15, consistent with elevated filling pressures. - Mild pulmonary hypertension is present. Findings Left Ventricle Normal left ventricular size and systolic function. There is mildly increased left ventricular wall thickness. The visually estimated ejection fraction is between 55-60%. There is no evidence of regional wall motion abnormalities. Abnormal diastolic function is noted. Spectral Doppler is indicative of a pseudonormal filling pattern. E/E prime ratio is >15, consistent with elevated filling pressures. Right Ventricle Normal right ventricular cavity size and systolic function. Atria The left atrium is mildly dilated. The right atrium is normal in size. Aortic Valve Normal aortic valve structure and function. There is no aortic valve stenosis. There is no aortic valve regurgitation. Mitral Valve Normal mitral valve structure and function. There is trace mitral valve regurgitation. There is no mitral valve stenosis. Pulmonic Valve Normal pulmonic valve structure and function. There is trace pulmonic valve regurgitation. Tricuspid Valve Normal tricuspid valve structure. There is mild tricuspid valve regurgitation. The right ventricular systolic pressure is 40 mmHg. Normal right atrial pressure. Mild pulmonary hypertension is present. Great Vessels All visible segments of the aorta are normal in size. The visualized portions of the pulmonary artery and branches are normal. Venous The inferior vena cava is normal in size and collapses greater than 50% with inspiration. Pericardium/Pleural There is no evidence of pericardial effusion. Prior Study Comparison No prior study available for comparison. Measurements 2D Linear Measurements IVSd: 1.04 0.6-0.9/0.6-1.0 cm LVIDd: 4.63 3.9-5.3/4.2-5.9 cm LVIDd Index: 2.42 2.4-3.2/2.2-3.1 cm/m2 LVIDs: 3.33 2.0-3.6 cm LVPWd: 1.15 0.7-1.1 cm LA Diam: 3.80 2.7-3.8/3.0-4.0 cm LAIDs Index: 1.99 1.5-2.3 cm/m2 LV Mass: 226.68 67-162/88-224 g LV Mass Index: 118.68 43-95/49-115 g/m2 LVOT Diam: 1.90 3.0+(-)1.3 cm 2D Systolic Function EF 4C: 50.50 >55% EF 2C: 48.90 >55% EF BiP: 50.30 >55% Mitral Valve MV Pk E: 1.28 MV PK A: 0.93 MV Decel Time: 143.00 E/A: 1.40 E'Lateral: 8.59 E'Medial: 6.64 E/E' Med: 19.30 E/E' Lat: 14.90 PHT: 42.00 MVA PHT: 5.24 Decel [place]: 8.94 Aortic Valve AoV Pk Tommy: 1.55 AoV Mn Tommy: 1.07 AoV VTI: 0.30 AoV Pk Grad: 10.00 Aov Mn Grad: 5.00 DANIEL Cont.VTI: 2.15 LVOT LVOT Pk Tommy: 1.10 LVOT Mn Tommy: 0.80 LVOT VTI: 0.22 LVOT Pk Grad: 5.00 LVOT Mn Grad: 3.00 LVOT Diam: 1.90 LVOT Area: 2.84 Diastolic Function MV Pk E: 1.28 MV Pk A: 0.93 E/A: 1.40 E'Medial: 6.64 E/E' Med: 19.30 E' Laterial: 8.59 E/E' Lat: 14.90 Right Ventricle TAPSE (mm): 21.90 TVS' Tommy: 11.30 Tricuspid Valve TR Pk Tommy: 2.96 TR Pk Grad: 35.00 RA Press: 3.00 RVSP: 40.00 Great Vessels Aorta Sinus of Valsalva: 3.10 2.0-3.5 cm Ao Asc: 2.70 2.1-3.4 cm Pulmonary Valve PV Pk Tommy: 1.12 Peak PV Grad: 5.00 Updated in Other Vendor System with Status of Final Boogie Cartagena MD electronically signed on 07/15/2022 5:26:24 PM with status of Final
[2022-07-14 07:07] LABS: Basophils Percent Auto 0.4 % (0-2); Eosinophils Absolute Auto 0.3 X10*3/uL (0.0-0.4); Eosinophils Percent Auto 4.4 % (0-4); Hematocrit 23.8 % (37.0-47.0); Hemoglobin 7.6 g/dl (12.0-16.0); Imm Gran Abs Auto 0.02 X10*3/uL (0.00-0.03); Imm Gran Pct Auto 0.3 % (0.0-0.4); Lymphocytes Absolute Auto 1.7 X10*3/uL (1.2-4.9); Lymphocytes Percent Auto 24.4 % (20-40); Mean Corpuscular HGB Conc 31.9 g/dl (31.0-35.0); Mean Corpuscular Hemoglobin 27.9 pg (27.0-33.0); Mean Corpuscular Volume 87.5 fL (80.0-98.0); Monocytes Absolute Auto 0.4 X10*3/uL (0.1-1.2); Monocytes Percent Auto 6.1 % (2-11); Neutrophils Absolute Auto 4.3 x10*3/uL (2.0-8.3); Neutrophils Percent Auto 64.4 % (45-73); Platelet Count 324 X10*3/uL (160-400); Red Blood Count 2.72 X10*6/uL (4.20-5.50); Red Cell Distribution Width 13.2 % (11.0-16.0); White Blood Count 6.8 X10*3/uL (4.8-10.8)
[2022-07-14 07:17] VITALS: BP 166/79; PULSE 84; RESP 20; TEMP 36.7; O2SAT 96
[2022-07-14 07:23] LABS: Alanine Aminotransferase 15 U/L (0-31); Albumin Level 2.8 g/dL (3.5-5.0); Alkaline Phosphatase 124 U/L (39-117); Anion Gap 15 (12-20); Aspartate Amino Transferase 11 U/L (5-31); Bilirubin Total 0.3 mg/dL (0.0-1.0); Blood Urea Nitrogen 48 mg/dL (9-16); Calcium 7.9 mg/dL (8.4-10.2); Carbon Dioxide 18 mmol/L (22-29); Chloride 110 mmol/L (96-108); Creatinine Clr Calc Pharmacy 22.1; Estimated Glomerular Filt Rate 14; Glucose Fasting 144 mg/dL (60-99); Potassium 5.7 mmol/L (3.3-5.1); Sodium 137 mmol/L (135-145); Total Protein 5.8 g/dL (6.5-8.0)
[2022-07-14 07:50] LABS: Glucose, Whole Blood 136 mg/dL (60-115)
[2022-07-14] MEDS: Furosemide 100 MG/10 ML VIAL 60 MG IVPUSH ×2 (08:03→17:09)
[2022-07-14] MEDS: hydrALAZINE HCl 50 MG TABLET PO ×3 (08:04→20:27)
[2022-07-14] MEDS: amLODIPine Besylate 10 MG TABLET PO (08:04)
[2022-07-14] MEDS: Sodium Zirconium Cyclosilicate 10 GM POWD.PACK PO (08:05)
--- NOTE | 2022-07-14 11:23 | MHC.CM.PN ---
met with pt who lives with her children pt is indepdent cm intervention is not indicated
[2022-07-14 11:32] VITALS: BP 180/89; PULSE 88; RESP 20; TEMP 36.7; O2SAT 97
[2022-07-14 12:17] LABS: Glucose, Whole Blood 192 mg/dL (60-115)
[2022-07-14] MEDS: Insulin Lispro 100 UNIT/ML 3 ML VIAL SUBCUT ×2 (12:56→17:09)
--- NOTE | 2022-07-14 12:59 | P.PNIM_ITS ---
Subjective Subjective Date of Service: 07/14/22 Interval History: No acute issues overnight. Diuresing well on current therapies Review of Systems Denies chest pain Admits to shortness of breath Denies nausea vomiting diarrhea Denies fever and chills Admits lower extremity edema and feeling of fullness in her abdomen Physical Exam Vital Signs: Vital Signs: Last Vital Signs Temp 98.1 F 07/14/22 11:32 Pulse 88 07/14/22 11:32 Resp 20 07/14/22 11:32 BP 180/89 H 07/14/22 11:32 Pulse Ox 97 07/14/22 11:32 O2 Del Method 07/14/22 11:32 O2 Flow Rate 3 07/13/22 20:00 BMI result Body Mass Index 36.6 Const: Other: Awake alert oriented x3 no acute distress HEENT: Other: JVD to angle of jaw at 35 degrees Resp: Other: Diminished at bases with scattered crackles at bases Cardio: Other: No S4; positive S1-S2; no S3 murmurs rubs gallops GI: Other: Soft nontender nondistended normoactive bowel sounds Extrem: Other: 2+ pitting edema bilaterally Objective Data Active Medications Acetaminophen (Acetaminophen 325 Mg Tablet) 650 mg PO Q6H PRN PRN Reason: Pain, Mild (Pain Scale 1-3) Amlodipine Besylate (Amlodipine Besylate 10 Mg Tablet) 10 mg PO DAILY [facility]; Protocol Last Admin: 07/14/22 08:04 Dose: 10 mg Documented By: HERMES Dextrose (Dextrose 50 % 25 Gm/50 Ml Syringe) 25 gm IVPUSH Q15M PRN; Protocol PRN Reason: per Hypoglycemia Standing Ord. Famotidine (Famotidine 20 Mg Tablet) 20 mg PO BID PRN PRN Reason: indigestion Furosemide (Furosemide 100 Mg/10 Ml Vial) 60 mg IVPUSH BID@0900,1800 [facility]; Protocol Last Admin: 07/14/22 08:03 Dose: 60 mg Documented By: HERMES Gabapentin (Gabapentin 100 Mg Capsule) 100 mg PO BEDTIME [facility] Last Admin: 07/13/22 20:05 Dose: 100 mg Documented By: ANDREW Glucose (Glucose Gel 15 Gm Gel..Gram.) 15 gm PO Q15M PRN; Protocol PRN Reason: per Hypoglycemia Standing Ord. Heparin Sodium (Porcine) (Heparin Sodium,Porcine 5,000 Unit/Ml Vial) 5,000 unit SUBCUT Q8H [facility] Last Admin: 07/14/22 12:55 Dose: Not Given Documented By: HERMES Non-Admin Reason: Patient Refused Hydralazine HCl (Hydralazine Hcl 50 Mg Tablet) 50 mg PO TID [facility]; Protocol Last Admin: 07/14/22 12:56 Dose: 50 mg Documented By: HERMES Insulin Human Lispro (Insulin Lispro 100 Unit/Ml 3 Ml Vial) 0 unit SUBCUT QIDACHS [facility]; Protocol Last Admin: 07/14/22 12:56 Dose: 2 unit Documented By: HERMES Loperamide HCl (Loperamide Hcl 2 Mg Capsule) 2 mg PO Q6H PRN PRN Reason: Diarrhea Melatonin (Melatonin 3 Mg Tablet) 6 mg PO BEDTIME PRN PRN Reason: Insomnia Last Admin: 07/13/22 17:43 Dose: 6 mg Documented By: GUY Ondansetron HCl (Ondansetron Hcl 4 Mg/2 Ml Vial) 4 mg IVPUSH Q8H PRN PRN Reason: Nausea and Vomiting Pharmacy Consult (Consult Rx Perform Med Rec) 1 each MISCELLANE ONCE PRN PRN Reason: Consult order Pharmacy Consult (Consult Rx Perform Med Rec) 1 each MISCELLANE ONCE PRN PRN Reason: Consult order Sodium Chloride (0.9 % Sodium Chloride Flush 3 Ml Syringe) 3 ml IVFLUSH QSHIFT [facility] Last Admin: 07/14/22 08:05 Dose: 3 ml Documented By: HERMES Labs CBC & Chem 7: 07/14/22 06:52 07/14/22 06:52 Labs: Laboratory Results - last 24 hr 07/13/22 07/13/22 07/13/22 15:25 20:01 20:03 MCV MCH MCHC RDW Plt Count MPV Immature Gran % (Auto) Neut % (Auto) Lymph % (Auto) [place] % (Auto) Eos % (Auto) Baso % (Auto) Lymph # (Auto) [place] # (Auto) Eos # (Auto) Baso # (Auto) Abs Immat Gran (auto) Absolute Neuts (auto) Absolute Nucleated RBC Nucleated RBC % (auto) Anion Gap 15 Estim Creat Clear Calc Estimated GFR POC Glucose 158 H 186 H Fasting Glucose Calcium Total Bilirubin AST ALT Alkaline Phosphatase Total Protein Albumin Urine Microalbumin 07/14/22 07/14/22 07/14/22 06:52 06:52 07:17 MCV 87.5 MCH 27.9 MCHC 31.9 RDW 13.2 Plt Count 324 MPV 10.0 Immature Gran % (Auto) 0.3 Neut % (Auto) 64.4 Lymph % (Auto) 24.4 [place] % (Auto) 6.1 Eos % (Auto) 4.4 H Baso % (Auto) 0.4 Lymph # (Auto) 1.7 [place] # (Auto) 0.4 Eos # (Auto) 0.3 Baso # (Auto) 0.0 Abs Immat Gran (auto) 0.02 Absolute Neuts (auto) 4.3 Absolute Nucleated RBC 0.000 Nucleated RBC % (auto) 0.0 Anion Gap 15 Estim Creat Clear Calc 22.1 Estimated GFR 14 POC Glucose 136 H Fasting Glucose 144 H Calcium 7.9 L Total Bilirubin 0.3 AST 11 ALT 15 Alkaline Phosphatase 124 H Total Protein 5.8 L Albumin 2.8 L Urine Microalbumin 07/14/22 07/14/22 11:31 11:42 MCV MCH MCHC RDW Plt Count MPV Immature Gran % (Auto) Neut % (Auto) Lymph % (Auto) [place] % (Auto) Eos % (Auto) Baso % (Auto) Lymph # (Auto) [place] # (Auto) Eos # (Auto) Baso # (Auto) Abs Immat Gran (auto) Absolute Neuts (auto) Absolute Nucleated RBC Nucleated RBC % (auto) Anion Gap Estim Creat Clear Calc Estimated GFR POC Glucose 192 H Fasting Glucose Calcium Total Bilirubin AST ALT Alkaline Phosphatase Total Protein Albumin Urine Microalbumin 983.0 Assessment and Plan (1) Diabetes: Status: Acute (2) AMISHA (acute kidney injury): Status: Acute (3) Volume overload: Status: Acute Plan 41-year-old female with an admitted history of noncompliance presents with approximately 1 week of worsening shortness of breath. She also notes bilateral lower extremity swelling. She states shortness of breath has been worsening over time. She is unclear of her last A1c and the last time she saw kidney doctor. 1.AMISHA /CKD(edema with a history of proteinuria) -diuresing with Lasix -CT failed to demonstrate any acute obstructive issues -follow renals/divalents -daily Lokelma 2. Dyspnea on exertion (suspicious for CHF) -IV Lasix with fair results -trend BMP -check 2D echo... Pending -titrate O2 to maintain sats greater than equal to 92% 3. Diabetes type 2 requiring insulin -unknown control; admits to poor compliance. Add on A1c -cover with Lispro correctional scale 4.HTN -poor control - Norvasc/hydralazine... Add clonidine -adjust as indicated Full code Meenu Requires ongoing hospitalization for IV diuresis and workup of cardiac issues Time Spent With Patient Time: Total time managing care of this patient today ____ minutes. Quality Stroke Does the patient have a stroke diagnosis?: No VTE Prior VTE?: No VTE Risk Level:: Medical - moderate - high VTE Device Contraindication: Treatment Not Indicated VTE Drug Contraindication: N/A - Med Ordered
[2022-07-14 13:05] LABS: Creatinine Urine 17.89 mg/dL; Total Protein Urine Random 169 mg/dL (<12)
[2022-07-14 13:17] LABS: Microalbum/Creatinine Ratio Ur 5628.8 ug/mg cr
[2022-07-14 15:24] VITALS: BP 159/80; PULSE 91; RESP 18; TEMP 36.9; O2SAT 96
[2022-07-14 15:41] LABS: Glucose, Whole Blood 200 mg/dL (60-115)
--- NOTE | 2022-07-14 15:56 | P.PNNP_ITS ---
Subjective Subjective Date of Service: 07/14/22 Interval history: No acute issues overnight. Diuresing well on current therapies Physical Exam Vital Signs: Vital Signs: Last Vital Signs Temp 98.4 F 07/14/22 15:24 Pulse 91 07/14/22 15:24 Resp 18 07/14/22 15:24 BP 159/80 H 07/14/22 15:24 Pulse Ox 96 07/14/22 15:24 O2 Del Method 07/14/22 15:24 O2 Flow Rate 3 07/13/22 20:00 BMI result Body Mass Index 36.6 Const: Other: Awake alert oriented x3 no acute distress HEENT: Other: JVD to angle of jaw at 35 degrees Resp: Other: Diminished at bases with scattered crackles at bases Cardio: Other: No S4; positive S1-S2; no S3 murmurs rubs gallops GI: Other: Soft nontender nondistended normoactive bowel sounds Extrem: Other: 2+ pitting edema bilaterally Objective Data Labs CBC & Chem 7: 07/14/22 06:52 07/14/22 06:52 Labs: Laboratory Results - last 24 hr 07/13/22 07/13/22 07/14/22 20:01 20:03 06:52 WBC 6.8 RBC 2.72 L Hgb 7.6 L Hct 23.8 L MCV 87.5 MCH 27.9 MCHC 31.9 RDW 13.2 Plt Count 324 MPV 10.0 Immature Gran % (Auto) 0.3 Neut % (Auto) 64.4 Lymph % (Auto) 24.4 [place] % (Auto) 6.1 Eos % (Auto) 4.4 H Baso % (Auto) 0.4 Lymph # (Auto) 1.7 [place] # (Auto) 0.4 Eos # (Auto) 0.3 Baso # (Auto) 0.0 Abs Immat Gran (auto) 0.02 Absolute Neuts (auto) 4.3 Absolute Nucleated RBC 0.000 Nucleated RBC % (auto) 0.0 Sodium 138 Potassium 5.4 H Chloride 110 H Carbon Dioxide 18 L Anion Gap 15 BUN Creatinine Estim Creat Clear Calc Estimated GFR POC Glucose 186 H Fasting Glucose Calcium Total Bilirubin AST ALT Alkaline Phosphatase Total Protein Albumin U Random Total Protein Urine Creatinine Urine Microalbumin Microalb/Creat Ratio 07/14/22 07/14/22 07/14/22 06:52 07:17 11:31 WBC RBC Hgb Hct MCV MCH MCHC RDW Plt Count MPV Immature Gran % (Auto) Neut % (Auto) Lymph % (Auto) [place] % (Auto) Eos % (Auto) Baso % (Auto) Lymph # (Auto) [place] # (Auto) Eos # (Auto) Baso # (Auto) Abs Immat Gran (auto) Absolute Neuts (auto) Absolute Nucleated RBC Nucleated RBC % (auto) Sodium 137 Potassium 5.7 H Chloride 110 H Carbon Dioxide 18 L Anion Gap 15 BUN 48 H Creatinine 3.54 H Estim Creat Clear Calc 22.1 Estimated GFR 14 POC Glucose 136 H 192 H Fasting Glucose 144 H Calcium 7.9 L Total Bilirubin 0.3 AST 11 ALT 15 Alkaline Phosphatase 124 H Total Protein 5.8 L Albumin 2.8 L U Random Total Protein Urine Creatinine Urine Microalbumin Microalb/Creat Ratio 07/14/22 07/14/22 11:42 15:38 WBC RBC Hgb Hct MCV MCH MCHC RDW Plt Count MPV Immature Gran % (Auto) Neut % (Auto) Lymph % (Auto) [place] % (Auto) Eos % (Auto) Baso % (Auto) Lymph # (Auto) [place] # (Auto) Eos # (Auto) Baso # (Auto) Abs Immat Gran (auto) Absolute Neuts (auto) Absolute Nucleated RBC Nucleated RBC % (auto) Sodium Potassium Chloride Carbon Dioxide Anion Gap BUN Creatinine Estim Creat Clear Calc Estimated GFR POC Glucose 200 H Fasting Glucose Calcium Total Bilirubin AST ALT Alkaline Phosphatase Total Protein Albumin U Random Total Protein 169 H Urine Creatinine 17.89 Urine Microalbumin 1007.0 Microalb/Creat Ratio 5628.8 Procedures Date of Service Date of Service: 07/14/22 Assessment & Plan Assessment and plan (1) Diabetes: Status: Acute (2) AMISHA (acute kidney injury): Status: Acute Assessment and Plan: 41-year-old female with a history of diabetes, insulin dependent, hypertension, hyperlipidemia, who has been noncompliant with all her medications for the past several months, presented to the ER with increasing leg swelling for the past week if not longer, along with some shortness of breath.? She describes some orthopnea and PND.? She denies any fever, sweats, or chills.? Reasons are unclear.? She stopped taking all her medications several months ago. ? In the emergency room, she had evaluation showed the acute kidney injury as well as evidence of congestive heart failure.? She had a potassium of 6 and was treated with medications to lower the potassium. Kidneys wnl on CT creat improved increase lokelma to keep K <5 ?w/u for 2nd causes of CKD in process (3) Volume overload: Status: Acute Plan 41-year-old female with an admitted history of noncompliance presents with appro ximately 1 week of worsening shortness of breath. She also notes bilateral lower extremity swelling. She states shortness of breath has been worsening over time. She is unclear of her last A1c and the last time she saw kidney doctor. Time Spent With Patient Time: Total time managing care of this patient today ____ minutes. Progress Note: Quality Stroke Does the patient have a stroke diagnosis?: No
[2022-07-14 18:55] VITALS: BP 160/77; PULSE 91; RESP 20; TEMP 36.9; O2SAT 97
[2022-07-14 19:16] LABS: Glucose, Whole Blood 249 mg/dL (60-115)
[2022-07-14] MEDS: Gabapentin 100 MG CAPSULE PO (20:27)
[2022-07-14] MEDS: Melatonin 3 MG TABLET 6 MG PO (20:30)
[2022-07-15 07:24] LABS: Glucose, Whole Blood 117 mg/dL (60-115)
[2022-07-15 07:42] LABS: MANUAL DIFF FLAG NO
[2022-07-15 07:50] LABS: Basophils Percent Auto 0.4 % (0-2); Eosinophils Absolute Auto 0.3 X10*3/uL (0.0-0.4); Eosinophils Percent Auto 4.8 % (0-4); Hematocrit 26.1 % (37.0-47.0); Hemoglobin 8.6 g/dl (12.0-16.0); Imm Gran Abs Auto 0.01 X10*3/uL (0.00-0.03); Imm Gran Pct Auto 0.1 % (0.0-0.4); Lymphocytes Absolute Auto 1.8 X10*3/uL (1.2-4.9); Lymphocytes Percent Auto 26.4 % (20-40); Mean Corpuscular Hemoglobin 28.2 pg (27.0-33.0); Mean Corpuscular Volume 85.6 fL (80.0-98.0); Mean Platelet Volume 9.7 fL (9.4-12.3); Monocytes Absolute Auto 0.5 X10*3/uL (0.1-1.2); Monocytes Percent Auto 7.6 % (2-11); Neutrophils Absolute Auto 4.1 x10*3/uL (2.0-8.3); Neutrophils Percent Auto 60.7 % (45-73); Platelet Count 355 X10*3/uL (160-400); Red Blood Count 3.05 X10*6/uL (4.20-5.50); Red Cell Distribution Width 13.1 % (11.0-16.0); White Blood Count 6.8 X10*3/uL (4.8-10.8)
[2022-07-15 08:05] LABS: Alanine Aminotransferase 15 U/L (0-31); Alkaline Phosphatase 112 U/L (39-117); Anion Gap 15 (12-20); Aspartate Amino Transferase 13 U/L (5-31); Blood Urea Nitrogen 53 mg/dL (9-16); Calcium 7.9 mg/dL (8.4-10.2); Carbon Dioxide 19 mmol/L (22-29); Chloride 109 mmol/L (96-108); Creatinine Clr Calc Pharmacy 22.3; Estimated Glomerular Filt Rate 14; Glucose Fasting 127 mg/dL (60-99); Potassium 5.9 mmol/L (3.3-5.1); Sodium 137 mmol/L (135-145); Total Protein 6.3 g/dL (6.5-8.0)
--- NOTE | 2022-07-15 08:45 | HO.PM.IMPN ---
Subjective Subjective Date of Service: 07/15/22 Interval History: I just really wanna go home Patient reports that she has been anxious and she would like to go home. She states that she has not really been experiencing shortness of breath any longer Patient reports overall she feels well, denies abdominal pain, chest pain, nausea, vomiting. She reports that she has had issues with noncompliance with medication regimen as too many pills make her feel nauseous Review of Systems A complete 12 point review of systems has been performed and is negative if not noted in HPI Physical Exam Vital Signs: Vital Signs: Last Vital Signs Temp 98.4 F 07/14/22 18:55 Pulse 91 07/14/22 18:55 Resp 20 07/14/22 18:55 BP 160/77 H 07/14/22 18:55 Pulse Ox 97 07/14/22 18:55 O2 Del Method 07/14/22 18:55 O2 Flow Rate 3 07/13/22 20:00 BMI result Body Mass Index 36.6 Const: Other: General: Appears stated age, in no acute distress, answers questions accurately and appropriately, observed sitting up in bed. Respiratory: Lungs CTAB, no rales/rhonchi, no expiratory/inspiratorywheezing, Cardiac: Regular rhythm, no rubs, gallops, murmurs or clicks. No JVD/carotid bruits. Abdomen: Soft, non-distended, bowel sounds noted throughout Extremities: Faint edema noted to bilateral lower extremities without pitting Neuro: Alert and oriented x3 Psych: Mood appropriate, no agitation /restlessness noted. Objective Data Active Medications Acetaminophen (Acetaminophen 325 Mg Tablet) 650 mg PO Q6H PRN PRN Reason: Pain, Mild (Pain Scale 1-3) Amlodipine Besylate (Amlodipine Besylate 10 Mg Tablet) 10 mg PO DAILY [facility]; Protocol Last Admin: 07/14/22 08:04 Dose: 10 mg Documented By: HERMES Dextrose (Dextrose 50 % 25 Gm/50 Ml Syringe) 25 gm IVPUSH Q15M PRN; Protocol PRN Reason: per Hypoglycemia Standing Ord. Famotidine (Famotidine 20 Mg Tablet) 20 mg PO BID PRN PRN Reason: indigestion Furosemide (Furosemide 100 Mg/10 Ml Vial) 60 mg IVPUSH BID@0900,1800 [facility]; Protocol Last Admin: 07/14/22 17:09 Dose: 60 mg Documented By: HERMES Gabapentin (Gabapentin 100 Mg Capsule) 100 mg PO BEDTIME [facility] Last Admin: 07/14/22 20:27 Dose: 100 mg Documented By: HEIKE Glucose (Glucose Gel 15 Gm Gel..Gram.) 15 gm PO Q15M PRN; Protocol PRN Reason: per Hypoglycemia Standing Ord. Heparin Sodium (Porcine) (Heparin Sodium,Porcine 5,000 Unit/Ml Vial) 5,000 unit SUBCUT Q8H [facility] Last Admin: 07/15/22 02:20 Dose: Not Given Documented By: HEIKE Non-Admin Reason: Patient Refused Hydralazine HCl (Hydralazine Hcl 50 Mg Tablet) 50 mg PO TID [facility]; Protocol Last Admin: 07/14/22 20:27 Dose: 50 mg Documented By: HEIKE Insulin Human Lispro (Insulin Lispro 100 Unit/Ml 3 Ml Vial) 0 unit SUBCUT QIDACHS [facility]; Protocol Last Admin: 07/15/22 07:44 Dose: Not Given Documented By: HERMES Non-Admin Reason: No Insulin Coverage Loperamide HCl (Loperamide Hcl 2 Mg Capsule) 2 mg PO Q6H PRN PRN Reason: Diarrhea Melatonin (Melatonin 3 Mg Tablet) 6 mg PO BEDTIME PRN PRN Reason: Insomnia Last Admin: 07/14/22 20:30 Dose: 6 mg Documented By: HEIKE Ondansetron HCl (Ondansetron Hcl 4 Mg/2 Ml Vial) 4 mg IVPUSH Q8H PRN PRN Reason: Nausea and Vomiting Pharmacy Consult (Consult Rx Perform Med Rec) 1 each MISCELLANE ONCE PRN PRN Reason: Consult order Pharmacy Consult (Consult Rx Perform Med Rec) 1 each MISCELLANE ONCE PRN PRN Reason: Consult order Sodium Chloride (0.9 % Sodium Chloride Flush 3 Ml Syringe) 3 ml IVFLUSH QSHIFT [facility] Last Admin: 07/14/22 23:31 Dose: Not Given Documented By: HEIKE Non-Admin Reason: Patient Refused Labs CBC & Chem 7: 07/15/22 07:27 07/15/22 14:18 Labs: Laboratory Results - last 24 hr 07/14/22 07/14/22 07/14/22 11:31 11:42 15:38 MCV MCH MCHC RDW Plt Count MPV Immature Gran % (Auto) Neut % (Auto) Lymph % (Auto) [place] % (Auto) Eos % (Auto) Baso % (Auto) Lymph # (Auto) [place] # (Auto) Eos # (Auto) Baso # (Auto) Abs Immat Gran (auto) Absolute Neuts (auto) Absolute Nucleated RBC Nucleated RBC % (auto) Anion Gap Estim Creat Clear Calc Estimated GFR POC Glucose 192 H 200 H Fasting Glucose Calcium AST ALT Alkaline Phosphatase Total Protein Albumin U Random Total Protein 169 H Urine Creatinine 17.89 Urine Microalbumin 1007.0 Microalb/Creat Ratio 5628.8 07/14/22 07/15/22 07/15/22 18:57 07:17 07:27 MCV 85.6 MCH 28.2 MCHC 33.0 RDW 13.1 Plt Count 355 MPV 9.7 Immature Gran % (Auto) 0.1 Neut % (Auto) 60.7 Lymph % (Auto) 26.4 [place] % (Auto) 7.6 Eos % (Auto) 4.8 H Baso % (Auto) 0.4 Lymph # (Auto) 1.8 [place] # (Auto) 0.5 Eos # (Auto) 0.3 Baso # (Auto) 0.0 Abs Immat Gran (auto) 0.01 Absolute Neuts (auto) 4.1 Absolute Nucleated RBC 0.000 Nucleated RBC % (auto) 0.0 Anion Gap Estim Creat Clear Calc Estimated GFR POC Glucose 249 H 117 H Fasting Glucose Calcium AST ALT Alkaline Phosphatase Total Protein Albumin U Random Total Protein Urine Creatinine Urine Microalbumin Microalb/Creat Ratio 07/15/22 07:27 MCV MCH MCHC RDW Plt Count MPV Immature Gran % (Auto) Neut % (Auto) Lymph % (Auto) [place] % (Auto) Eos % (Auto) Baso % (Auto) Lymph # (Auto) [place] # (Auto) Eos # (Auto) Baso # (Auto) Abs Immat Gran (auto) Absolute Neuts (auto) Absolute Nucleated RBC Nucleated RBC % (auto) Anion Gap 15 Estim Creat Clear Calc 22.3 Estimated GFR 14 POC Glucose Fasting Glucose 127 H Calcium 7.9 L AST 13 D ALT 15 Alkaline Phosphatase 112 D Total Protein 6.3 L Albumin 3.0 L D U Random Total Protein Urine Creatinine Urine Microalbumin Microalb/Creat Ratio Assessment and Plan (1) Diabetes: Status: Acute (2) AMISHA (acute kidney injury): Status: Acute (3) Volume overload: Status: Acute Plan AMISHA /CKD(edema with a history of proteinuria) This is a 41-year-old female admitted with AMISHA on CKD, dyspnea on exertion and hyperkalemia amongst others as noted below -Patient is continuing to diurese well with Lasix, ? cardiorenal syndrome, awaiting echo -CT abdomen/ pelvis negative for acute findings/obstruction. -Nephrology following, continue recommendations appreciated Hyperkalemia - K+ today 5. Lokelma ordered -Nephrology recommends increasing dose of Lokelma. Will reassess K level later on and order an additional if needed Dyspnea on exertion (suspicious for CHF) - Improving. - BNP 1147 on 07/12/2022 - IV Lasix. Trend BMP. I&O. Daily weight - Check 2D echo... Pending - Patient currently off O2, on RA with O2 saturations above 95%. Diabetes type 2 requiring insulin - Admit poor compliance. A1c 7.7 - On ISS HTN - Poor control however slight improvement - Norvasc/hydralazine... clonidine recently added, adjust accordingly -Patient reports that she no longer has a kidney doctor she has not followed up. Will need Nephrology follow-up at discharge. DVT prophylaxis -Lovenox Patient is a Full code Requires ongoing hospitalization for IV diuresis and workup of cardiac issues Quality Stroke Does the patient have a stroke diagnosis?: No VTE Prior VTE?: No VTE Risk Level:: Medical - moderate - high VTE Device Contraindication: Treatment Not Indicated VTE Drug Contraindication: N/A - Med Ordered
[2022-07-15] MEDS: Sodium Zirconium Cyclosilicate 10 GM POWD.PACK PO ×2 (10:22→19:56)
[2022-07-15] MEDS: 0.9 % Sodium Chloride Flush 3 ML SYRINGE IVFLUSH ×2 (10:22→16:40)
[2022-07-15] MEDS: amLODIPine Besylate 10 MG TABLET PO (10:22)
[2022-07-15] MEDS: hydrALAZINE HCl 50 MG TABLET PO ×3 (10:22→19:55)
[2022-07-15] MEDS: Furosemide 100 MG/10 ML VIAL 60 MG IVPUSH ×2 (10:22→16:39)
[2022-07-15 10:26] VITALS: BP 180/84; PULSE 88; RESP 20; TEMP 36.2; O2SAT 96
[2022-07-15 10:26] LABS: Glucose, Whole Blood 235 mg/dL (60-115)
[2022-07-15] MEDS: Insulin Lispro 100 UNIT/ML 3 ML VIAL SUBCUT ×3 (11:17→19:55)
[2022-07-15 11:30] LABS: Bilirubin Total 0.2 mg/dL (0.0-1.0)
[2022-07-15 14:50] LABS: Anion Gap 14 (12-20); Carbon Dioxide 21 mmol/L (22-29); Chloride 106 mmol/L (96-108); Potassium 5.3 mmol/L (3.3-5.1); Sodium 136 mmol/L (135-145)
[2022-07-15 15:10] VITALS: BP 135/68; PULSE 88; RESP 17; TEMP 36; O2SAT 95
[2022-07-15 15:33] LABS: Glucose, Whole Blood 237 mg/dL (60-115)
[2022-07-15 19:16] VITALS: BP 136/69; PULSE 89; RESP 17; TEMP 36.3; O2SAT 99
[2022-07-15 19:18] LABS: Complement C3 138 mg/dL (83-193)
[2022-07-15 19:29] LABS: Glucose, Whole Blood 227 mg/dL (60-115)
[2022-07-15] MEDS: Gabapentin 100 MG CAPSULE PO (19:55)
[2022-07-15] MEDS: Heparin Sodium,Porcine 5,000 UNIT/ML VIAL 5000 UNIT SUBCUT (19:55)
[2022-07-15] MEDS: Melatonin 3 MG TABLET 6 MG PO (19:59)
[2022-07-16 05:54] LABS: HBS Num1 1.21 mIU/mL (0-7.99); Hepatitis B Core Antibody Nonreactive (Nonreactive); ~HepC Num1 0.17 S/CO (0.00-0.79); ~Hepatitis B Surface Antibody NONREACTIVE (Nonreactive); ~Hepatitis C Antibody Nonreactive (Nonreactive)
[2022-07-16 06:00] VITALS: BMI 36.0
[2022-07-16 06:18] LABS: HBsAGNum1 0.23 S/CO (0.00-0.99); Hepatitis B Surface Antigen Negative (Negative)
[2022-07-16 07:22] LABS: Glucose, Whole Blood 134 mg/dL (60-115)
[2022-07-16 09:32] LABS: Hematocrit 31.4 % (37.0-47.0); Mean Corpuscular HGB Conc 31.8 g/dl (31.0-35.0); Mean Corpuscular Hemoglobin 27.9 pg (27.0-33.0); Mean Corpuscular Volume 87.5 fL (80.0-98.0); Platelet Count 444 X10*3/uL (160-400); Red Blood Count 3.59 X10*6/uL (4.20-5.50); Red Cell Distribution Width 13.2 % (11.0-16.0); White Blood Count 6.9 X10*3/uL (4.8-10.8)
[2022-07-16] MEDS: amLODIPine Besylate 10 MG TABLET PO (09:46)
[2022-07-16] MEDS: Furosemide 100 MG/10 ML VIAL 60 MG IVPUSH ×2 (09:46→16:42)
[2022-07-16] MEDS: 0.9 % Sodium Chloride Flush 3 ML SYRINGE IVFLUSH ×2 (09:46→13:54)
[2022-07-16] MEDS: hydrALAZINE HCl 50 MG TABLET PO (09:46)
[2022-07-16 09:48] LABS: Anion Gap 15 (12-20); Blood Urea Nitrogen 60 mg/dL (9-16); Calcium 8.1 mg/dL (8.4-10.2); Carbon Dioxide 22 mmol/L (22-29); Chloride 107 mmol/L (96-108); Creatinine Clr Calc Pharmacy 21.2; Estimated Glomerular Filt Rate 14; Glucose Random 181 mg/dL (60-115); Potassium 5.8 mmol/L (3.3-5.1); Sodium 138 mmol/L (135-145)
--- NOTE | 2022-07-16 09:52 | PM.PNNEP ---
Subjective Subjective Date of Service: 07/16/22 Interval history: I just really wanna go home Patient reports that she has been anxious and she would like to go home. She states that she has not really been experiencing shortness of breath any longer Patient reports overall she feels well, denies abdominal pain, chest pain, nausea, vomiting. She reports that she has had issues with noncompliance with medication regimen as too many pills make her feel nauseous Physical Exam Vital Signs: Vital Signs: Last Vital Signs Temp 97.4 F 07/15/22 19:16 Pulse 89 07/15/22 19:16 Resp 17 07/15/22 19:16 BP 136/69 07/15/22 19:16 Pulse Ox 99 07/15/22 19:16 O2 Del Method 07/15/22 19:16 O2 Flow Rate 3 07/13/22 20:00 BMI result Body Mass Index 36.0 Objective Data Labs CBC & Chem 7: 07/16/22 08:51 07/16/22 08:51 Labs: Laboratory Results - last 24 hr 07/14/22 07/14/22 07/15/22 06:52 06:52 07:27 WBC RBC Hgb Hct MCV MCH MCHC RDW Plt Count MPV Absolute Nucleated RBC Nucleated RBC % (auto) Sodium Potassium Chloride Carbon Dioxide Anion Gap BUN Creatinine Estim Creat Clear Calc Estimated GFR POC Glucose Random Glucose Calcium Total Bilirubin 0.2 Complement C3 138 Complement C4 37 Hep Bs Antigen Negative Hep Bs Antibody NONREACTIVE Hep B Core Total Ab Nonreactive Hepatitis C Ab (EIA) Nonreactive 07/15/22 07/15/22 07/15/22 10:21 14:18 15:12 WBC RBC Hgb Hct MCV MCH MCHC RDW Plt Count MPV Absolute Nucleated RBC Nucleated RBC % (auto) Sodium 136 Potassium 5.3 H Chloride 106 Carbon Dioxide 21 L Anion Gap 14 BUN Creatinine Estim Creat Clear Calc Estimated GFR POC Glucose 235 H 237 H Random Glucose Calcium Total Bilirubin Complement C3 Complement C4 Hep Bs Antigen Hep Bs Antibody Hep B Core Total Ab Hepatitis C Ab (EIA) 07/15/22 07/16/22 07/16/22 19:18 07:08 08:51 WBC 6.9 RBC 3.59 L Hgb 10.0 L Hct 31.4 L D MCV 87.5 MCH 27.9 MCHC 31.8 RDW 13.2 Plt Count 444 H D MPV 10.0 Absolute Nucleated RBC 0.000 Nucleated RBC % (auto) 0.0 Sodium Potassium Chloride Carbon Dioxide Anion Gap BUN Creatinine Estim Creat Clear Calc Estimated GFR POC Glucose 227 H 134 H Random Glucose Calcium Total Bilirubin Complement C3 Complement C4 Hep Bs Antigen Hep Bs Antibody Hep B Core Total Ab Hepatitis C Ab (EIA) 07/16/22 08:51 WBC RBC Hgb Hct MCV MCH MCHC RDW Plt Count MPV Absolute Nucleated RBC Nucleated RBC % (auto) Sodium 138 Potassium 5.8 H Chloride 107 Carbon Dioxide 22 Anion Gap 15 BUN 60 H Creatinine 3.67 H Estim Creat Clear Calc 21.2 Estimated GFR 14 POC Glucose Random Glucose 181 H Calcium 8.1 L Total Bilirubin Complement C3 Complement C4 Hep Bs Antigen Hep Bs Antibody Hep B Core Total Ab Hepatitis C Ab (EIA) Procedures Date of Service Date of Service: 07/16/22 Assessment & Plan Assessment and plan (1) Diabetes: Status: Acute (2) AMISHA (acute kidney injury): Status: Acute Assessment and Plan: acute kidney injury is resolved she is left with 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 cardiorenal syndrome, awaiting echo -CT abdomen/ pelvis negative for acute findings/obstruction. -Nephrology following, continue recommendations appreciated Hyperkalemia - we will increase her Lokelma dose and she needs to be discharged on Lokelma as an outpatient Time Spent With Patient Time: Total time managing care of this patient today ____ minutes. Progress Note: Quality Stroke Does the patient have a stroke diagnosis?: No
[2022-07-16] MEDS: Iron Sucrose Complex 200 MG in 0.9 % Sodium Chloride 100 ML 440 MG IV (10:45)
[2022-07-16 11:08] VITALS: BP 162/89; PULSE 90; RESP 18; TEMP 36.6; O2SAT 99
[2022-07-16 11:29] LABS: Glucose, Whole Blood 246 mg/dL (60-115)
[2022-07-16] MEDS: Insulin Lispro 100 UNIT/ML 3 ML VIAL SUBCUT ×3 (11:43→19:53)
--- NOTE | 2022-07-16 12:50 | HO.PM.IMPN ---
Subjective Subjective Date of Service: 07/16/22 Interval History: Wants to leave hospital. Admits noncompliance with medications. Diuresing. SCr plateaued- new baseline. K climbing up. Denies dyspnea. Edema resolved. Review of Systems Review of Systems: Yes all other systems are reviewed and are negative Physical Exam Vital Signs: Vital Signs: Last Vital Signs Temp 97.8 F 07/16/22 11:08 Pulse 90 07/16/22 11:08 Resp 18 07/16/22 11:08 BP 162/89 H 07/16/22 11:08 Pulse Ox 99 07/16/22 11:08 O2 Del Method 07/16/22 11:08 O2 Flow Rate 3 07/13/22 20:00 BMI result Body Mass Index 36.0 Gen: in no acute distress HEENT: sclera anicteric, moist mucus membranes Neck: supple Lungs: clear to auscultation bilaterally Heart: regular rate and rhythm, no murmurs Abd: soft, non-tender, non-distended Ext: no edema Skin: warm/well-perfused Neuro: alert and oriented x3, no focal findings Psych: appropriate affect Objective Data Active Medications Acetaminophen (Acetaminophen 325 Mg Tablet) 650 mg PO Q6H PRN PRN Reason: Pain, Mild (Pain Scale 1-3) Amlodipine Besylate (Amlodipine Besylate 10 Mg Tablet) 10 mg PO DAILY FORMERLY [facility], [facility]; Protocol Last Admin: 07/16/22 09:46 Dose: 10 mg Documented By: KARLIE Dextrose (Dextrose 50 % 25 Gm/50 Ml Syringe) 25 gm IVPUSH Q15M PRN; Protocol PRN Reason: per Hypoglycemia Standing Ord. Famotidine (Famotidine 20 Mg Tablet) 20 mg PO BID PRN PRN Reason: indigestion Furosemide (Furosemide 100 Mg/10 Ml Vial) 60 mg IVPUSH BID@0900,1800 FOR[facility]LY [facility], [facility]1983; Protocol Last Admin: 07/16/22 09:46 Dose: 60 mg Documented By: KARLIE Gabapentin (Gabapentin 100 Mg Capsule) 100 mg PO BEDTIME FORMERLY [facility], [facility]1983 Last Admin: 07/15/22 19:55 Dose: 100 mg Documented By: BRAYDEN Glucose (Glucose Gel 15 Gm Gel..Gram.) 15 gm PO Q15M PRN; Protocol PRN Reason: per Hypoglycemia Standing Ord. Heparin Sodium (Porcine) (Heparin Sodium,Porcine 5,000 Unit/Ml Vial) 5,000 unit SUBCUT Q8H FOR[facility]LY [facility], [facility]1983 Last Admin: 07/16/22 09:47 Dose: Not Given Documented By: KARLIE Non-Admin Reason: Patient Refused Hydralazine HCl (Hydralazine Hcl 50 Mg Tablet) 50 mg PO TID FOR[facility]LY [facility], [facility]; Protocol Last Admin: 07/16/22 09:46 Dose: 50 mg Documented By: KARLIE Iron Sucrose 200 mg/ Sodium (Chloride) 110 mls @ 440 mls/hr IV DAILY FOR[facility], [facility]1983 Stop: 07/19/22 09:14 Last Infusion: 07/16/22 11:17 Dose: 0 mls/hr Documented By: KARLIE Insulin Human Lispro (Insulin Lispro 100 Unit/Ml 3 Ml Vial) 0 unit SUBCUT QIDACHS FOR[facility]LY [facility], [facility]; Protocol Last Admin: 07/16/22 11:43 Dose: 4 unit Documented By: KARLIE Loperamide HCl (Loperamide Hcl 2 Mg Capsule) 2 mg PO Q6H PRN PRN Reason: Diarrhea Melatonin (Melatonin 3 Mg Tablet) 6 mg PO BEDTIME PRN PRN Reason: Insomnia Last Admin: 07/15/22 19:59 Dose: 6 mg Documented By: BRAYDEN Ondansetron HCl (Ondansetron Hcl 4 Mg/2 Ml Vial) 4 mg IVPUSH Q8H PRN PRN Reason: Nausea and Vomiting Pharmacy Consult (Consult Rx Perform Med Rec) 1 each MISCELLANE ONCE PRN PRN Reason: Consult order Pharmacy Consult (Consult Rx Perform Med Rec) 1 each MISCELLANE ONCE PRN PRN Reason: Consult order Sodium Chloride (0.9 % Sodium Chloride Flush 3 Ml Syringe) 3 ml IVFLUSH QSHIFT FOR[facility], [facility] Last Admin: 07/16/22 09:46 Dose: 3 ml Documented By: KARLIE Labs CBC & Chem 7: 07/16/22 08:51 07/16/22 08:51 Labs: Laboratory Results - last 24 hr 07/14/22 07/14/22 07/15/22 06:52 06:52 14:18 MCV MCH MCHC RDW Plt Count MPV Absolute Nucleated RBC Nucleated RBC % (auto) Anion Gap 14 Estim Creat Clear Calc Estimated GFR POC Glucose Random Glucose Calcium Complement C3 138 Complement C4 37 Hep Bs Antigen Negative Hep Bs Antibody NONREACTIVE Hep B Core Total Ab Nonreactive Hepatitis C Ab (EIA) Nonreactive 07/15/22 07/15/22 07/16/22 15:12 19:18 07:08 MCV MCH MCHC RDW Plt Count MPV Absolute Nucleated RBC Nucleated RBC % (auto) Anion Gap Estim Creat Clear Calc Estimated GFR POC Glucose 237 H 227 H 134 H Random Glucose Calcium Complement C3 Complement C4 Hep Bs Antigen Hep Bs Antibody Hep B Core Total Ab Hepatitis C Ab (EIA) 07/16/22 07/16/22 07/16/22 08:51 08:51 11:24 MCV 87.5 MCH 27.9 MCHC 31.8 RDW 13.2 Plt Count 444 H D MPV 10.0 Absolute Nucleated RBC 0.000 Nucleated RBC % (auto) 0.0 Anion Gap 15 Estim Creat Clear Calc 21.2 Estimated GFR 14 POC Glucose 246 H Random Glucose 181 H Calcium 8.1 L Complement C3 Complement C4 Hep Bs Antigen Hep Bs Antibody Hep B Core Total Ab Hepatitis C Ab (EIA) TTE 07/14/22 - Normal left ventricular size and systolic function. There is ? mildly increased left ventricular wall thickness.? The visually? estimated ejection fraction is between 55-60%. ? - E/E prime ratio is >15, consistent with elevated filling ? ? ? pressures. ? - Mild pulmonary hypertension is present.? Assessment and Plan (1) Diabetes: Status: Acute (2) AMISHA (acute kidney injury): Status: Acute (3) Volume overload: Status: Acute Plan hospital d#5 41yo F with DM2, CKD3, recent noncompliance with medications presenting with dyspnea and edema, admitted for volume overload and worsening renal function concerning for AMISHA # CKD4 - appears to be at new baseline SCr around 3.6 likely due to progressive DM nephropathy - needs close outpt Nephrology f/u # hyperK - increase Lokelma dose, repeat BMP in AM # anemia of CKD - IV iron + SQ epo per Nephrology # acute-chronic HFpEF - diuresing on furosemide # HTN - continue amlodipine, increase hydralazine # DM2, A1c 7.7 - correction-dose lispro # VTE ppx: LMWH # dispo: anticipate home eventually In my clinical judgment, the patient requires continued inpatient hospitalization for the following reasons: hyperK Time Spent With Patient Time: Total time managing care of this patient today _25___ minutes. Quality Stroke Does the patient have a stroke diagnosis?: No VTE Prior VTE?: No VTE Risk Level:: Medical - moderate - high VTE Device Contraindication: Treatment Not Indicated VTE Drug Contraindication: N/A - Med Ordered
--- NOTE | 2022-07-16 12:56 | MHC.CM.PN ---
per rounds pt will be ready for dc in 1 to 2 days pt expected to transfer to [address] [place] [address]
[2022-07-16] MEDS: hydrALAZINE HCl 25 MG TABLET 75 MG PO ×2 (13:54→19:52)
[2022-07-16] MEDS: Sodium Zirconium Cyclosilicate 10 GM POWD.PACK PO ×2 (13:54→19:53)
[2022-07-16 15:28] VITALS: BP 142/77; PULSE 92; RESP 19; TEMP 36.4; O2SAT 96
[2022-07-16 15:58] LABS: Glucose, Whole Blood 239 mg/dL (60-115)
[2022-07-16] MEDS: Gabapentin 100 MG CAPSULE PO (19:52)
[2022-07-16] MEDS: traZODone HCL 50 MG TABLET PO (20:09)
[2022-07-16 22:03] LABS: IgA 531 mg/dL (47-310); IgG 1106 mg/dL (600-1640); IgM 43 mg/dL (50-300)
[2022-07-16 23:20] LABS: Glucose, Whole Blood 256 mg/dL (60-115)
[2022-07-17 07:18] VITALS: BP 168/80; PULSE 87; RESP 18; TEMP 36.2; O2SAT 96
[2022-07-17 07:19] LABS: Glucose, Whole Blood 109 mg/dL (60-115)
[2022-07-17] MEDS: hydrALAZINE HCl 25 MG TABLET 75 MG PO (08:49)
[2022-07-17] MEDS: Iron Sucrose Complex 200 MG in 0.9 % Sodium Chloride 100 ML 440 MG IV (08:49)
[2022-07-17] MEDS: 0.9 % Sodium Chloride Flush 3 ML SYRINGE IVFLUSH (08:49)
[2022-07-17] MEDS: Sodium Zirconium Cyclosilicate 10 GM POWD.PACK PO (08:49)
[2022-07-17] MEDS: Furosemide 100 MG/10 ML VIAL 60 MG IVPUSH (08:49)
[2022-07-17] MEDS: amLODIPine Besylate 10 MG TABLET PO (08:49)
--- NOTE | 2022-07-17 09:54 | PM.PNNEP ---
Subjective Subjective Date of Service: 07/17/22 Interval history: Wants to leave hospital. Admits noncompliance with medications. Diuresing. SCr plateaued- new baseline. K climbing up. Denies dyspnea. Edema resolved. Physical Exam Vital Signs: Vital Signs: Last Vital Signs Temp 97.1 F 07/17/22 07:18 Pulse 87 07/17/22 07:18 Resp 18 07/17/22 07:18 BP 168/80 H 07/17/22 07:18 Pulse Ox 96 07/17/22 07:18 O2 Del Method 07/17/22 07:18 O2 Flow Rate 3 07/13/22 20:00 BMI result Body Mass Index 36.0 Const: Other: General: Appears stated age, in no acute distress, answers questions accurately and appropriately, observed sitting up in bed. Respiratory: Lungs CTAB, no rales/rhonchi, no expiratory/inspiratorywheezing, Cardiac: Regular rhythm, no rubs, gallops, murmurs or clicks. No JVD/carotid bruits. Abdomen: Soft, non-distended, bowel sounds noted throughout Extremities: Faint edema noted to bilateral lower extremities without pitting Neuro: Alert and oriented x3 Psych: Mood appropriate, no agitation /restlessness noted. HEENT: Other: JVD to angle of jaw at 35 degrees Resp: Other: Diminished at bases with scattered crackles at bases Cardio: Other: No S4; positive S1-S2; no S3 murmurs rubs gallops GI: Other: Soft nontender nondistended normoactive bowel sounds Extrem: Other: 2+ pitting edema bilaterally Objective Data Labs CBC & Chem 7: 07/16/22 08:51 07/16/22 08:51 Labs: Laboratory Results - last 24 hr 07/14/22 07/16/22 07/16/22 06:52 11:24 15:48 POC Glucose 246 H 239 H IgG Total 1106 IgA Total 531 H IgM 43 L SHYANNE Interpretation SEE NOTE 07/16/22 07/17/22 19:38 07:13 POC Glucose 256 H 109 IgG Total IgA Total IgM SHYANNE Interpretation Procedures Date of Service Date of Service: 07/17/22 Assessment & Plan Assessment and plan (1) Diabetes: Status: Acute (2) AMISHA (acute kidney injury): Status: Acute Assessment and Plan: acute kidney injury is resolved she is left with 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 anemia iron deficiency plus chronic kidney disease treat with IV iron and Procrit we will follow her closely as an outpatient when she gets discharged (3) Volume overload: Status: Acute Plan hospital d#5 41yo F with DM2, CKD3, recent noncompliance with medications presenting with dyspnea and edema, admitted for volume overload and worsening renal function concerning for AMISHA # CKD4 - appears to be at new baseline SCr around 3.6 likely due to progressive DM nephropathy - needs close outpt Nephrology f/u WITH ME NEXT WEEK # hyperK - increase Lokelma dose 10 g TID, repeat BMP in AM Time Spent With Patient Time: Total time managing care of this patient today ____ minutes. Progress Note: Quality Stroke Does the patient have a stroke diagnosis?: No
[2022-07-17 10:37] LABS: Anion Gap 14 (12-20); Blood Urea Nitrogen 66 mg/dL (9-16); Calcium 7.9 mg/dL (8.4-10.2); Carbon Dioxide 23 mmol/L (22-29); Chloride 104 mmol/L (96-108); Creatinine Clr Calc Pharmacy 20.2; Estimated Glomerular Filt Rate 13; Glucose Random 230 mg/dL (60-115); Potassium 4.9 mmol/L (3.3-5.1); Sodium 136 mmol/L (135-145)
[2022-07-17 10:52] VITALS: BP 126/63; PULSE 88; RESP 20; TEMP 37; O2SAT 95
[2022-07-17 10:54] LABS: Glucose, Whole Blood 238 mg/dL (60-115)
[2022-07-17] MEDS: Insulin Lispro 100 UNIT/ML 3 ML VIAL SUBCUT (11:38)
--- NOTE | 2022-07-17 11:44 | PM.DS ---
DS: Providers Provider Date of Service: 07/17/22 Date of admission: 07/12/22 11:00 Date of discharge: 07/17/22 Primary care physician: Hailey Daniel CNP - [place], [place] Consults: 07/12/22 11:27 Consult to Nephrology Routine Consulting Provider: Angel Lerma Reason for consultation: AMISHA Has provider been notified: Yes DS: Diagnosis Discharge Diagnosis (1) CKD (chronic kidney disease) stage 4, GFR 15-29 ml/min: Status: Acute (2) Hypertensive urgency: Status: Acute (3) Acute hyperkalemia: Status: Acute (4) Volume overload: Status: Acute (5) Diabetes: Status: Acute (6) Anemia in CKD (chronic kidney disease): Status: Acute (7) Acute on chronic heart failure with preserved ejection fraction (HFpEF): Status: Acute DS: Summary Hospital Course Hospital Course: from admission H+P by hospitalist Vidal Rosas DO, 07/12/22: 41 yo female with history of DM on insulin, HTN, HLD, depression who has been noncompliant with all medications for the last few months presents to the ER for evaluation of worsening SOB and LE swelling for the last week. ? She states her breathing has been getting worse over the last week or so, it is worse with any exertion or when lying down.? She has not been sleeping well due to the shortness of breath.? She also reports pain due to lower extremity swelling, both of her lower legs are tense and tender.? she states she has not taken her water pills, insulin or blood pressure medications in several months.? She is upset at herself for being noncompliant.? ?she reports poor p.o. intake due to ongoing nausea.? She states her medications make her feel unwell and nauseous. ER Course Initial saturation in the ER 91% on room air improved to 95% on 4 L. checks x-ray consistent with mild pulmonary vascular congestion.? Creatinine elevated at 3.5 with a potassium of 6.? She received calcium gluconate and Lokelma in the ER along with insulin and D50.? She was given 60 mg of Lasix and call was made to admit 41yo F with DM2, CKD3, recent noncompliance with medications presenting with dyspnea and edema, admitted for volume overload and worsening renal function concerning for AMISHA. Hospital course by problem: # CKD4 - Nephrology consulted. Creatinine stable; appears to be at new baseline SCr around 3.6-3.6 likely due to progressive DM nephropathy. Needs close outpt Nephrology follow-up and the importance of adherence was counseled extensively. # hyperK - Required maintenance Lokelma to be continued as outpatient. BMP to be repeated on 07/22/22. # anemia of CKD - Transfused 1 unit pRBCs. Given IV iron + SQ epo by Nephrology. # hypertension - Started on amlodipine and hydralazine. # volume overload # acute-chronic HFpEF - Diuresed with IV furosemide and discharged on bumetanide. She was discharged home with prescriptions for Lokelma, bumetanide, amlodipine, hydralazine, and glipzide. Time Spent with Patient Time attestation: Total time managing care of this patient today _45___ minutes. Discharge coordination time: Greater than 30 minutes Quality: Safe Use of Opioids Does Pt have an Active Cancer Diagnosis on the Problem List?: No Quality: Stroke Does the patient have a stroke diagnosis?: No Physical Exam Vital Signs: Vital Signs: Last Vital Signs Temp 98.6 F 07/17/22 10:52 Pulse 88 07/17/22 10:52 Resp 20 07/17/22 10:52 BP 126/63 07/17/22 10:52 Pulse Ox 95 07/17/22 10:52 O2 Del Method 07/17/22 10:52 O2 Flow Rate 3 07/13/22 20:00 BMI result Body Mass Index 36.0 Gen: in no acute distress HEENT: sclera anicteric, moist mucus membranes Neck: supple Lungs: clear to auscultation bilaterally Heart: regular rate and rhythm, no murmurs Abd: soft, non-tender, non-distended, obese Ext: no edema Skin: warm/well-perfused Neuro: alert and oriented x3, no focal findings Psych: appropriate affect DS: Data Data Completed and Pending Completed studies during hospitalization [Text1]: Laboratory Results WBC 6.9 X10*3/uL (4.8-10.8) 07/16/22 08:51 RBC 3.59 X10*6/uL (4.20-5.50) L 07/16/22 08:51 Hgb 10.0 g/dl (12.0-16.0) L 07/16/22 08:51 Hct 31.4 % (37.0-47.0) L D 07/16/22 08:51 MCV 87.5 fL (80.0-98.0) 07/16/22 08:51 MCH 27.9 pg (27.0-33.0) 07/16/22 08:51 MCHC 31.8 g/dl (31.0-35.0) 07/16/22 08:51 RDW 13.2 % (11.0-16.0) 07/16/22 08:51 Plt Count 444 X10*3/uL (160-400) H D 07/16/22 08:51 MPV 10.0 fL (9.4-12.3) 07/16/22 08:51 Immature Gran % (Auto) 0.1 % (0.0-0.4) 07/15/22 07:27 Neut % (Auto) 60.7 % (45-73) 07/15/22 07:27 Lymph % (Auto) 26.4 % (20-40) 07/15/22 07:27 [place] % (Auto) 7.6 % (2-11) 07/15/22 07:27 Eos % (Auto) 4.8 % (0-4) H 07/15/22 07:27 Baso % (Auto) 0.4 % (0-2) 07/15/22 07:27 Lymph # (Auto) 1.8 X10*3/uL (1.2-4.9) 07/15/22 07:27 [place] # (Auto) 0.5 X10*3/uL (0.1-1.2) 07/15/22 07:27 Eos # (Auto) 0.3 X10*3/uL (0.0-0.4) 07/15/22 07:27 Baso # (Auto) 0.0 X10*3/uL (0.0-0.2) 07/15/22 07:27 Abs Immat Gran (auto) 0.01 X10*3/uL (0.00-0.03) 07/15/22 07:27 Absolute Neuts (auto) 4.1 x10*3/uL (2.0-8.3) 07/15/22 07:27 Absolute Nucleated RBC 0.000 X10*3/uL (0.0-0.012) 07/16/22 08:51 Nucleated RBC % (auto) 0.0 /100WBC (0.0-0.2) 07/16/22 08:51 VBG pH 7.31 (7.32-7.43) L 07/12/22 09:51 VBG pCO2 27 mmHg 07/12/22 09:51 VBG pO2 53 mmHg 07/12/22 09:51 VBG HCO3 14 mmol/L (22-26) L 07/12/22 09:51 VBG O2 Saturation 81.0 % 07/12/22 09:51 VBG Base Excess -10.6 mmol/L 07/12/22 09:51 Sodium 136 mmol/L (135-145) 07/17/22 09:51 Potassium 4.9 mmol/L (3.3-5.1) 07/17/22 09:51 Chloride 104 mmol/L (96-108) 07/17/22 09:51 Carbon Dioxide 23 mmol/L (22-29) 07/17/22 09:51 Anion Gap 14 (12-20) 07/17/22 09:51 BUN 66 mg/dL (9-16) H 07/17/22 09:51 Creatinine 3.84 mg/dL (0.5-1.4) H 07/17/22 09:51 Estim Creat Clear Calc 20.2 07/17/22 09:51 Estimated GFR 13 07/17/22 09:51 POC Glucose 238 mg/dL (60-115) H 07/17/22 10:46 Random Glucose 230 mg/dL (60-115) H 07/17/22 09:51 Fasting Glucose 127 mg/dL (60-99) H 07/15/22 07:27 Estimat Average Glucose 174 mg/dL 07/12/22 09:20 Hemoglobin A1c % 7.7 % 07/12/22 09:20 Calcium 7.9 mg/dL (8.4-10.2) L 07/17/22 09:51 Iron 26 mcg/dL (30-160) L 07/12/22 09:20 TIBC 241 mcg/dL (228-428) 07/12/22 09:20 % Saturation 11 % (15-50) L 07/12/22 09:20 Unsat Iron Binding 215 ug/dL 07/12/22 09:20 Total Bilirubin 0.2 mg/dL (0.0-1.0) 07/15/22 07:27 AST 13 U/L (5-31) D 07/15/22 07:27 ALT 15 U/L (0-31) 07/15/22 07:27 Alkaline Phosphatase 112 U/L (39-117) D 07/15/22 07:27 Troponin I High Sens 14.4 ng/L (<3.5-17.0) 07/12/22 09:20 B-Natriuretic Peptide 1045 pg/mL (<100) H 07/13/22 06:15 Total Protein 6.3 g/dL (6.5-8.0) L 07/15/22 07:27 Albumin 3.0 g/dL (3.5-5.0) L D 07/15/22 07:27 Urine Color Yellow 07/12/22 10:23 Urine Appearance Clear 07/12/22 10:23 Urine pH 6.0 (5.0-9.0) 07/12/22 10:23 Ur Specific [place] 1.015 (1.005-1.025) 07/12/22 10:23 Urine Protein >=1000 (4+) mg/dL (Neg-Trace) H 07/12/22 10:23 Urine Glucose (UA) 500 mg/dL (Negative) H 07/12/22 10:23 Urine Ketones Negative mg/dL (Negative) 07/12/22 10:23 Urine Blood Small (1+) (Negative) H 07/12/22 10:23 Urine Nitrite Negative (Negative) 07/12/22 10:23 Ur Leukocyte Esterase Negative (Negative) 07/12/22 10:23 Urine RBC 6-10 /HPF (0-2) H 07/12/22 10:23 Urine WBC 0-5 /HPF (0-5) 07/12/22 10:23 Ur Squamous Epith Cells 0-2 /HPF (0-2) 07/12/22 10:23 Urine Bacteria None Seen (None Seen) 07/12/22 10:23 Hyaline Casts 0-2 /LPF (0-2) 07/12/22 10:23 Urine Osmolality 384 mosm/kg (373-1093) 07/12/22 10:32 U Random Total Protein 169 mg/dL (<12) H 07/14/22 11:42 Ur Random Sodium 87.0 mmol/L 07/12/22 10:32 Urine Creatinine 17.89 mg/dL 07/14/22 11:42 Urine Microalbumin 1007.0 mg/L 07/14/22 11:42 Microalb/Creat Ratio 5628.8 ug/mg cr 07/14/22 11:42 Urine Test NEGATIVE (NEGATIVE) 07/12/22 10:36 Stool Occult Blood NEGATIVE (NEGATIVE) 07/12/22 09:42 IgG Total 1106 mg/dL (600-1640) 07/14/22 06:52 IgA Total 531 mg/dL (47-310) H 07/14/22 06:52 IgM 43 mg/dL (50-300) L 07/14/22 06:52 SHYANNE Interpretation SEE NOTE 07/14/22 06:52 Complement C3 138 mg/dL (83-193) 07/14/22 06:52 Complement C4 37 mg/dL (15-57) 07/14/22 06:52 Hep Bs Antigen Negative (Negative) 07/14/22 06:52 Hep Bs Antibody NONREACTIVE (Nonreactive) 07/14/22 06:52 Hep B Core Total Ab Nonreactive (Nonreactive) 07/14/22 06:52 Hepatitis C Ab (EIA) Nonreactive (Nonreactive) 07/14/22 06:52 Influenza Type A (PCR) NEGATIVE (Negative) 07/12/22 09:22 Influenza Type B (PCR) NEGATIVE (Negative) 07/12/22 09:22 RSV RNA Qual (PCR) NEGATIVE (Negative) 07/12/22 09:22 SARS-CoV-2 RNA (RT-PCR) NEGATIVE (Negative) 07/12/22 09:22 Blood Type B Positive 07/12/22 18:48 Antibody Screen NEGATIVE 07/12/22 18:48 Crossmatch See Detail 07/12/22 18:48 Impressions Chest X-Ray 07/12/22 09:26 IMPRESSION: No acute pulmonary pathology. Abdomen/Pelvis CT 07/12/22 13:37 IMPRESSION: 1. No renal calculi or hydronephrosis of either kidney. There is mild bilateral perinephric stranding which appears new compared with prior imaging from January 2021. Clinical correlation recommended. 2. Cholelithiasis. 3. Small bilateral pleural effusions with overlying airspace disease, suspect atelectasis. 4. Diffuse subcutaneous edema/stranding in the region of the umbilicus without well-defined fluid collection. Fleischner guidelines were followed. TTE 07/14/22 - Normal left ventricular size and systolic function. There is ? mildly increased left ventricular wall thickness.? The visually? estimated ejection fraction is between 55-60%. ? - E/E prime ratio is >15, consistent with elevated filling ? ? ? pressures. ? - Mild pulmonary hypertension is present.? Discharge Plan Discharge Anticipated Discharge Date/Time: 07/17/22 11:34 Patient Disposition: Home, Self-Care Discharge Diagnosis: volume overload, progression of renal failure to CKD4, uncontrolled hypertension, hyperkalemia, anemia of CKD Referrals: Rajiv Gilbert MD [Physician] - 1 Week Hailey Daniel NP [Nurse Practitioner] - 1 Week Discharge Medications: New amlodipine 10 mg Tablet 10 mg PO DAILY Qty: 30 0RF Protocol: Hold for SBP< HOLD for SBP < : 90 glipizide 5 mg tablet 5 mg PO BID Qty: 60 0RF Lokelma 10 gram powder in packet 10 g PO DAILY Qty: 30 0RF hydralazine 50 mg tablet 50 mg PO TID Qty: 90 0RF Continued famotidine 20 mg tablet 1 tab PO BID PRN (Reason: indigestion) gabapentin 100 mg capsule 1 cap PO BEDTIME bumetanide 1 mg tablet 1 tab PO DAILY Qty: 30 0RF Discharge Orders: Discharge Order (Routine); Ordered 07/17/22 Ordered By: Agustina Guadarrama Diet: Diabetic diet Activity on Discharge: As tolerated Stand Alone Forms: Patient Portal Discharge page Other Ambulatory Orders: Basic Metabolic Panel (Routine) Timeframe: 20220722 Facility: [facility] - Location: Laboratory Ordered By: Agustina Guadarrama Complete Blood Count no Diff (Routine) Timeframe: 20220722 Facility: [facility] - Location: Laboratory Ordered By: Agustina Guadarrama Care Plan Goals: prevention of complications of renal failure Health Concerns: volume overload, progression of renal failure to CKD4, uncontrolled hypertension, hyperkalemia, anemia of CKD Plan of Treatment: take medications as prescribed including: hypertension: hydralazine 50 mg 3x a day amlodipine 10 mg 1x a day diabetes: glipizide 5 mg 2x a day volume overload: bumetanide 1 mg 1x a day hyperkalemia: Lokelma 10g 1x a day follow diabetic, low-sodium diet avoid NSAIDs recheck labs on 07/22: BMP, CBC follow up with Dr Gilbert/Dr Lerma [graphic specialist] in 1 week Please follow up with your primary care doctor within 1 week. Return to the hospital if you experience recurrent or worsening symptoms. Assessment: See Discharge Summary.
--- NOTE | 2022-07-17 11:50 | MHC.CM.PN ---
PT IS EXPECTED TO DC HOME TODAY WITH NO SERVICES PT TO ARRANGE TRANSPORT
--- NOTE | 2022-07-17 12:06 | MHC.CM.PN ---
PT TO DC HOME TODAY WITH NO SERVICES PT TO ARRANGE TRANSPORT
[2022-07-17 12:48] LABS: Kappa Light Chain, Free Serum 124.7 mg/L (3.3-19.4); Kappa/Lambda Lt Ch Free Ratio 1.24 (0.26-1.65); Lambda Light Chain, Free Serum 100.4 mg/L (5.7-26.3)
== END 2022-07-17 13:35 | disposition home or self-care (01) | DRG 194 ==
LOC: HO.ED 10:18 → HO.EDOVER 11:06 → HO.IMC 12:02
PROVIDERS: Hospitalist; Internal Medicine Nephrology; Physician Assistant; Registered Nurse; Admitting Provider Hospitalist; Emergency Provider Emergency Medicine; Visit Provider Family Medicine
DX: I13.0 Hypertensive heart and chronic kidney disease with heart failure and stage 1 through stage 4 chronic kidney disease, or unspecified chronic kidney disease (principal); N17.9 Acute kidney failure, unspecified; D63.1 Anemia in chronic kidney disease; E87.5 Hyperkalemia; I16.0 Hypertensive urgency; N18.4 Chronic kidney disease, stage 4 (severe); I50.33 Acute on chronic diastolic (congestive) heart failure; N25.0 Renal osteodystrophy; Z91.14 Patient's other noncompliance with medication regimen; E13.22 Other specified diabetes mellitus with diabetic chronic kidney disease; F41.9 Anxiety disorder, unspecified; F32.A Depression, unspecified; Z20.822 Contact with and (suspected) exposure to COVID-19; Z79.84 Long term (current) use of oral hypoglycemic drugs; Z79.899 Other long term (current) drug therapy
CPT/HCPCS: 0241U; 36415; 71045; 74176; 80048; 80051; 80053; 81001; 81003; 81025; 82043; 82272; 82784; 82803; 82947; 83036; 83521; 83540; 83880; 83935; 84156; 84300; 84484; 85025; 85027; 86160; 86334; 86704; 86706; 86803; 86850; 86900; 86901; 86923; 87340; 93005; 93306; 99285; J0610; J1756; J1940; P9016; Q9957

== ENCOUNTER 2022-08-20 23:09 | Emergency (ER) | payer OTHER, SELFPAY ==
--- NOTE | ~2022-08-20 | XR_ITS ---
EXAMINATION: XR CHEST CLINICAL INFORMATION: Fluid overload COMPARISON: 07/12/2022 TECHNIQUE: Frontal view of the chest was obtained. FINDINGS: Lung volumes are symmetric. No focal consolidation is seen. No evidence of pneumothorax, significant pleural effusion, or overt pulmonary edema. Cardiac silhouette appears borderline enlarged. No acute osseous findings are seen. XR/XR chest 1V IMPRESSION: No overt edema. Borderline enlarged cardiac silhouette.
[2022-08-20 23:27] VITALS: BP 185/99; PULSE 80; RESP 16; TEMP 36.1; O2SAT 100; BMI 36.6
--- NOTE | 2022-08-20 23:57 | ED_ITS ---
HPI - General Adult General Chief complaint: General Medical Stated complaint: Dr told her to say kidneys are at 6.3 Time Seen by Provider: 08/20/22 23:57 Source: patient Mode of arrival: ambulatory Limitations: no limitations History of Present Illness HPI narrative: Patient has CKD stage 4 with baseline creatinine around 3.5 sent by PCP as patient had lab workup done earlier today which showed a creatinine of 6.3 patient got a phone call from PCP I asked her to go to the hospital. Patient otherwise denies any complaints feels normal has gained about 8 lb in last 1 month patient denies any shortness of breath Related Data Home Medications Medication Instructions Recorded Confirmed famotidine 20 mg tablet 1 tab PO BID PRN indigestion 07/12/22 07/12/22 gabapentin 100 mg capsule 1 cap PO BEDTIME 07/12/22 07/12/22 Previous Rx's Medication Instructions Recorded amlodipine 10 mg tablet 10 mg PO DAILY #30 tabs 07/17/22 bumetanide 1 mg tablet 1 tab PO DAILY #30 tabs 07/17/22 glipizide 5 mg tablet 5 mg PO BID #60 tabs 07/17/22 hydralazine 50 mg tablet 50 mg PO TID #90 tabs 07/17/22 sodium zirconium cyclosilicate 10 10 g PO DAILY #30 ea 07/17/22 gram oral powder packet (Lokelma) Allergies Allergy/AdvReac Type Severity Reaction Status Date / Time No Known Allergies Allergy Verified 07/12/22 09:01 [No Known Allergies*] Review of Systems Review of Systems: Yes all other systems are reviewed and are negative PMFSH Past Medical History Medical History Acute on chronic heart failure with preserved ejection fraction (HFpEF) Anxiety CKD (chronic kidney disease) stage 4, GFR 15-29 ml/min 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, managed as type 2 Social History Social History Household Members: Significant Other and Children Housing: Apartment Do you presently have visiting nurse or other home services: No Unable to assess alcohol history related to: Unknown Alcohol intake: never Patient Tobacco Use Status: Never used Tobacco Smoked in Last 30 Days: No Use of substances other than those prescribed or required for medical reasons: Yes Substance Use Type: Marijuana Substance Use Frequency: Daily Advance Directives: No Patient : No service: No Physical Exam ED Vital Signs: Vital Signs - 24 hr 08/20/22 23:27 08/21/22 00:32 08/21/22 01:28 Temperature 97.0 F 98.1 F Pulse Rate 80 91 90 Respiratory Rate 16 18 18 Blood Pressure 185/99 H 153/79 H 145/77 H Pulse Oximetry 100 97 Oxygen Delivery Method Room Air Room Air 08/21/22 02:11 08/21/22 02:24 08/21/22 02:42 Temperature 98.6 F 98.6 F 98.1 F Pulse Rate 87 87 86 Respiratory Rate 19 14 19 Blood Pressure 130/78 139/78 140/74 H Pulse Oximetry 92 Oxygen Delivery Method Room Air 08/21/22 03:38 08/21/22 04:54 08/21/22 05:09 Temperature 98.1 F 98.4 F 98.3 F Pulse Rate 89 87 88 Respiratory Rate 18 18 16 Blood Pressure 152/85 H 147/83 H 153/85 H Pulse Oximetry 93 92 Oxygen Delivery Method Room Air Room Air BMI result Body Mass Index 36.6 Appearance: Alert. Oriented X3. No acute distress. Eyes: PERRLA, No Nystagmus pallor++ ENT: Pharynx normal. Oral Mucosa moist Neck: Normal inspection. Neck supple. CVS: Normal heart rate and rhythm. Pulses normal. Respiratory: No respiratory distress. Equal air entry bilateral, no wheezing/rales/rhonchi Abdomen: Soft and nontender. Bowel sounds are present, no mass palpable, no CVA tenderness Skin: Skin warm and dry. Normal skin color. Normal skin turgor. Extremities: 2+ lower extremity edema. No calf tenderness Neuro: Oriented X 3. No motor deficit. No sensory deficit.No cerebellar signs , cranial nerves II-XII intact Medications Administered Discontinued Medications Generic Name Dose Route Start Last Admin Trade Name Freq PRN Reason Stop Dose Admin Diphenhydramine HCl 25 mg 08/21/22 03:41 08/21/22 03:48 Diphenhydramine Hcl 50 Mg/Ml Vial IVPUSH 08/21/22 03:42 25 mg ONCE ONE Administration Furosemide 40 mg 08/21/22 00:45 08/21/22 01:29 Furosemide 40 Mg/4 Ml Vial IVPUSH 08/21/22 00:46 40 mg ONCE ONE Administration Protocol Medical Decision Making Medical Decision Making [facility] Narrative: Patient's anemia with chronic kidney disease seen with Dr. Lerma in June patient advised to follow with Dr. Lerma next week was given 1 unit of blood while in the ER patient asymptomatic at this time discharge patient home Lab Data [facility] Lab Attestation statement: I reviewed the patient's lab results. 08/20/22 23:44 08/20/22 23:44 Labs: Lab Results 08/20/22 08/20/22 08/21/22 Range/Units 23:44 23:44 01:27 WBC 7.3 (4.8-10.8) X10*3/uL RBC 2.59 L D (4.20-5.50) X10*6/uL Hgb 7.2 L D (12.0-16.0) g/dl Hct 23.1 L D (37.0-47.0) % MCV 89.2 (80.0-98.0) fL MCH 27.8 (27.0-33.0) pg MCHC 31.2 (31.0-35.0) g/dl RDW 13.9 (11.0-16.0) % Plt Count 317 D (160-400) X10*3/uL MPV 9.4 (9.4-12.3) fL Absolute Nucleated RBC 0.000 (0.0-0.012) X10*3/uL Nucleated RBC % (auto) 0.0 (0.0-0.2) /100WBC Sodium 139 (135-145) mmol/L Potassium 5.3 H (3.3-5.1) mmol/L Chloride 111 H (96-108) mmol/L Carbon Dioxide 18 L (22-29) mmol/L Anion Gap 15 (12-20) BUN 44 H (9-16) mg/dL Creatinine 3.77 H (0.5-1.4) mg/dL Estim Creat Clear Calc 20.7 Estimated GFR 13 Random Glucose 198 H (60-115) mg/dL Calcium 7.2 L D (8.4-10.2) mg/dL Total Bilirubin 0.2 (0.0-1.0) mg/dL Direct Bilirubin < 0.2 (0.0-0.5) mg/dL AST 15 (5-31) U/L ALT 21 (0-31) U/L Alkaline Phosphatase 134 H (39-117) U/L Total Protein 6.7 (6.5-8.0) g/dL Albumin 3.4 L (3.5-5.0) g/dL Lipase 59 (8-78) U/L Urine Color Urine Appearance Urine pH (5.0-9.0) Ur Specific [place] (1.005-1.025) Urine Protein (Neg-Trace) mg/dL Urine Glucose (UA) (Negative) mg/dL Urine Ketones (Negative) mg/dL Urine Blood (Negative) Urine Nitrite (Negative) Ur Leukocyte Esterase (Negative) Urine RBC (0-2) /HPF Urine WBC (0-5) /HPF Ur Squamous Epith Cells (0-2) /HPF Urine Bacteria (None Seen) Hyaline Casts (0-2) /LPF Blood Type B Positive Antibody Screen NEGATIVE Crossmatch See Detail 08/21/22 Range/Units 04:01 WBC (4.8-10.8) X10*3/uL RBC (4.20-5.50) X10*6/uL Hgb (12.0-16.0) g/dl Hct (37.0-47.0) % MCV (80.0-98.0) fL MCH (27.0-33.0) pg MCHC (31.0-35.0) g/dl RDW (11.0-16.0) % Plt Count (160-400) X10*3/uL MPV (9.4-12.3) fL Absolute Nucleated RBC (0.0-0.012) X10*3/uL Nucleated RBC % (auto) (0.0-0.2) /100WBC Sodium (135-145) mmol/L Potassium (3.3-5.1) mmol/L Chloride (96-108) mmol/L Carbon Dioxide (22-29) mmol/L Anion Gap (12-20) BUN (9-16) mg/dL Creatinine (0.5-1.4) mg/dL Estim Creat Clear Calc Estimated GFR Random Glucose (60-115) mg/dL Calcium (8.4-10.2) mg/dL Total Bilirubin (0.0-1.0) mg/dL Direct Bilirubin (0.0-0.5) mg/dL AST (5-31) U/L ALT (0-31) U/L Alkaline Phosphatase (39-117) U/L Total Protein (6.5-8.0) g/dL Albumin (3.5-5.0) g/dL Lipase (8-78) U/L Urine Color Yellow Urine Appearance Clear Urine pH 6.5 (5.0-9.0) Ur Specific [place] 1.010 (1.005-1.025) Urine Protein 300 (3+) H (Neg-Trace) mg/dL Urine Glucose (UA) 100 H (Negative) mg/dL Urine Ketones Negative (Negative) mg/dL Urine Blood Negative (Negative) Urine Nitrite Negative (Negative) Ur Leukocyte Esterase Negative (Negative) Urine RBC 0-2 (0-2) /HPF Urine WBC 11-20 H (0-5) /HPF Ur Squamous Epith Cells 0-2 (0-2) /HPF Urine Bacteria None Seen (None Seen) Hyaline Casts 0-2 (0-2) /LPF Blood Type Antibody Screen Crossmatch Discharge Plan Discharge Clinical Impression: CKD (chronic kidney disease) stage 4, GFR 15-29 ml/min, Anemia in CKD (chronic kidney disease) Patient Disposition: Home, Self-Care Instructions: Chronic Kidney Disease (ED), Anemia (ED) Additional Instructions: follow-up with manager actuarial as soon as possible for further evaluation and management of kidney disease continue medications as prescribed Prescriptions: No Action famotidine 20 mg tablet 1 tab PO BID PRN (Reason: indigestion) gabapentin 100 mg capsule 1 cap PO BEDTIME amlodipine 10 mg Tablet 10 mg PO DAILY Qty: 30 0RF Protocol: Hold for SBP< HOLD for SBP < : 90 glipizide 5 mg tablet 5 mg PO BID Qty: 60 0RF Lokelma 10 gram powder in packet 10 g PO DAILY Qty: 30 0RF bumetanide 1 mg tablet 1 tab PO DAILY Qty: 30 0RF hydralazine 50 mg tablet 50 mg PO TID Qty: 90 0RF Referrals: Angel Lerma MD [Physician] - 2 days Interventions: ED Discharge Assessment Last Done: 08/21/22 05:33 Discharge Date/Time: 08/21/22 05:38
[2022-08-20 23:59] LABS: Hematocrit 23.1 % (37.0-47.0); Hemoglobin 7.2 g/dl (12.0-16.0); Mean Corpuscular HGB Conc 31.2 g/dl (31.0-35.0); Mean Corpuscular Hemoglobin 27.8 pg (27.0-33.0); Mean Corpuscular Volume 89.2 fL (80.0-98.0); Mean Platelet Volume 9.4 fL (9.4-12.3); Platelet Count 317 X10*3/uL (160-400); Red Blood Count 2.59 X10*6/uL (4.20-5.50); Red Cell Distribution Width 13.9 % (11.0-16.0); White Blood Count 7.3 X10*3/uL (4.8-10.8)
[2022-08-21] VITALS (8 sets, daily range): BP systolic 130–153; BP diastolic 74–85; PULSE 86–91; RESP 14–19; TEMP 36.7–37; O2SAT 92–97
[2022-08-21 00:16] LABS: Alanine Aminotransferase 21 U/L (0-31); Albumin Level 3.4 g/dL (3.5-5.0); Alkaline Phosphatase 134 U/L (39-117); Anion Gap 15 (12-20); Aspartate Amino Transferase 15 U/L (5-31); Bilirubin Direct < 0.2 mg/dL (0.0-0.5); Bilirubin Total 0.2 mg/dL (0.0-1.0); Blood Urea Nitrogen 44 mg/dL (9-16); Calcium 7.2 mg/dL (8.4-10.2); Carbon Dioxide 18 mmol/L (22-29); Chloride 111 mmol/L (96-108); Creatinine Clr Calc Pharmacy 20.7; Estimated Glomerular Filt Rate 13; Glucose Random 198 mg/dL (60-115); Lipase 59 U/L (8-78); Potassium 5.3 mmol/L (3.3-5.1); Sodium 139 mmol/L (135-145); Total Protein 6.7 g/dL (6.5-8.0)
--- NOTE | 2022-08-21 00:47 | ECG_ITS ---
Test Reason : hyperkalemia Blood Pressure : / mmHG Vent. Rate : 089 BPM Atrial Rate : 089 BPM P-R Int : 148 ms QRS Dur : 080 ms QT Int : 398 ms P-R-T Axes : 049 000 059 degrees QTc Int : 484 ms Normal sinus rhythm Cannot rule out Anterior infarct , age undetermined Abnormal ECG When compared with ECG of 12-JUL-2022 09:25, No significant change was found Referred By: Riki Morales Electronically Signed By:KARINA ROSARIO
[2022-08-21] MEDS: Furosemide 40 MG/4 ML VIAL IVPUSH (01:29)
--- NOTE | 2022-08-21 02:30 | PC.NURSE ---
Blood transfusion started at 2:27 am.
--- NOTE | 2022-08-21 02:44 | PC.NURSE ---
blood transfusion initial 15 minutes completed. Pt denies sob, chest pain, chills back pain, or other sx at this time.
--- NOTE | 2022-08-21 03:39 | PC.NURSE ---
Pt requested to use restroom was able to give urine sample. Pt reports feeling itchy to bilateral lower legs no hives noted. Pt denies sob cp or any other sx at this time. Blood transfusion held. Will notify Dr. Singh.
--- NOTE | 2022-08-21 03:45 | PC.NURSE ---
Plan pt to receive benadryl IV and restart blood transfusion per Dr. Singh.
[2022-08-21] MEDS: diphenhydrAMINE HCL 50 MG/ML VIAL 25 MG IVPUSH (03:48)
--- NOTE | 2022-08-21 03:55 | PC.NURSE ---
Pt medicated per Sep. Blood transfusion restarted.
--- NOTE | 2022-08-21 03:55 | PC.NURSE ---
Pt STEPHENS x 4 denies sx at this time.
[2022-08-21 04:07] LABS: Appearance Urine Clear; Color Urine Yellow; Glucose Urine UA 100 mg/dL (Negative); Leukocyte Esterase Urine Negative (Negative); Nitrite Urine Negative (Negative); PH 6.5 (5.0-9.0); UMIC TRIGGER UACC YES; Urine Blood Negative (Negative); Urine Ketones Negative (Negative); Urine Protein 300 (3+) mg/dL (Neg-Trace)
[2022-08-21 04:18] LABS: Bacteria Urine None Seen (None Seen); Hyaline Casts Urine 0-2 /LPF (0-2); RBC Urine 0-2 /HPF (0-2); Squamous Epithelial Cell Urine 0-2 /HPF (0-2); UACC Culture Trigger YES
== END 2022-08-21 05:38 | disposition home or self-care (01) ==
PROVIDERS: Emergency Provider Internal Medicine; PCP Internal Medicine
DX: E13.22 Other specified diabetes mellitus with diabetic chronic kidney disease (principal); I13.0 Hypertensive heart and chronic kidney disease with heart failure and stage 1 through stage 4 chronic kidney disease, or unspecified chronic kidney disease; N18.4 Chronic kidney disease, stage 4 (severe); I50.33 Acute on chronic diastolic (congestive) heart failure; D63.1 Anemia in chronic kidney disease; R60.0 Localized edema; Z79.899 Other long term (current) drug therapy
CPT/HCPCS: 36415; 36430; 71045; 80053; 81001; 82248; 83690; 85027; 86850; 86900; 86901; 86923; 87086; 93005; 96374; 96375; 99285; J1200; J1940; P9016

== ENCOUNTER 2022-09-08 20:47 | Inpatient (IN) | payer OTHER, SELFPAY ==
--- NOTE | ~2022-09-08 | CT_ITS ---
EXAMINATION: CT ABDOMEN AND PELVIS WITHOUT CONTRAST CLINICAL INFORMATION: Ascites COMPARISON: 07/12/2022 TECHNIQUE: Multidetector volumetric imaging was performed from the superior aspect of the liver through the pubic symphysis. Sagittal and coronal reformatted images were obtained on the technologist's workstation. This CT examination was performed using dose optimization techniques as appropriate, variously including the following: *Automated exposure control *Adjustment of mA and/or kV according to patient size (this includes techniques or standardized protocols for targeted exams where dose is matched to indication/reason for exam; i.e. extremities or head) *Use of iterative reconstruction technique DLP: 992 mGy-cm FINDINGS: LUNG BASES: Septal thickening at the lung bases may be associated with edema. Borderline prominent heart. LIVER, GALLBLADDER, AND BILIARY TREE: The liver is normal in size, shape, and attenuation. No focal hepatic lesion or biliary ductal dilatation is present. Stones in the gallbladder lumen with mild wall thickening. No adjacent significant inflammation seen. PANCREAS: Unremarkable. SPLEEN: Unremarkable. ADRENAL GLANDS: Bilateral adrenal hypertrophy. This is unchanged. KIDNEYS AND URETERS: The kidneys are normal in size, shape, and attenuation. No hydronephrosis, hydroureter, or calculi seen. Mild symmetric perinephric stranding. BLADDER: Unremarkable. GASTROINTESTINAL TRACT: The stomach is unremarkable. Normal caliber small bowel. No obstruction. Normal appendix. No colonic wall thickening or inflammation. No free air. No significant free fluid. ABDOMINAL WALL: No significant hernia. Moderate anasarca. LYMPH NODES: Normal. VASCULAR: Unremarkable. PELVIC VISCERA: The uterus and adnexa are unremarkable. OSSEOUS STRUCTURES: No acute or suspicious osseous abnormality. Mild degenerative change throughout the spine. CT/CT abdomen pelvis wo IV con IMPRESSION: 1. Cholelithiasis. Mild gallbladder wall thickening. Consider ultrasound evaluation if there is concern for cholecystitis. 2. Septal thickening at the lung bases may be associated with edema. 3. Moderate anasarca. No ascites. Fleischner guidelines were followed.
--- NOTE | ~2022-09-08 | XR_ITS ---
EXAMINATION: XR CHEST CLINICAL INFORMATION: Short of breath. Chronic kidney disease. COMPARISON: 08/21/2022 TECHNIQUE: Frontal view of the chest was obtained. FINDINGS: The lungs are well expanded. Mild chronic elevation of the right hemidiaphragm. There is no focal consolidation, edema, or effusion. No pneumothorax. The cardiomediastinal silhouette is within normal limits. No acute osseous abnormality. XR/XR chest 1V IMPRESSION: No acute pulmonary disease.
--- NOTE | ~2022-09-08 | US_ITS ---
EXAMINATION: US RETROPERITONEAL LIMITED (RENAL ONLY) CLINICAL INFORMATION: Pain. Question obstruction.. COMPARISON: None TECHNIQUE: Real-time imaging of the kidneys. FINDINGS: RIGHT KIDNEY: 12 x 7.1 x 5.4 cm (SAG x AP x TRV). The kidney is normal in size, contour, and echogenicity. Renal cortical thickness is normal. No calculi or focal parenchymal lesions. No hydronephrosis. LEFT KIDNEY: 12.9 x 4.9 x 7.1 cm (SAG x AP x TRV). The kidney is normal in size, contour, and echogenicity. Renal cortical thickness is normal. No calculi or focal parenchymal lesions. No hydronephrosis. US/US renal BI IMPRESSION: Normal appearance of the kidneys.
[2022-09-08 21:09] VITALS: BP 169/88; PULSE 86; RESP 20; TEMP 36.8; O2SAT 98; BMI 40.2
[2022-09-08 21:55] LABS: MANUAL DIFF FLAG NO
[2022-09-08 21:56] LABS: Basophils Absolute Auto 0.1 X10*3/uL (0.0-0.2); Basophils Percent Auto 0.8 % (0-2); Eosinophils Absolute Auto 0.4 X10*3/uL (0.0-0.4); Eosinophils Percent Auto 5.7 % (0-4); Hematocrit 23.9 % (37.0-47.0); Hemoglobin 7.4 g/dl (12.0-16.0); Imm Gran Abs Auto 0.02 X10*3/uL (0.00-0.03); Imm Gran Pct Auto 0.3 % (0.0-0.4); Lymphocytes Absolute Auto 0.7 X10*3/uL (1.2-4.9); Lymphocytes Percent Auto 11.7 % (20-40); Mean Corpuscular Hemoglobin 27.9 pg (27.0-33.0); Mean Corpuscular Volume 90.2 fL (80.0-98.0); Mean Platelet Volume 9.6 fL (9.4-12.3); Monocytes Absolute Auto 0.5 X10*3/uL (0.1-1.2); Monocytes Percent Auto 8.2 % (2-11); Neutrophils Absolute Auto 4.5 x10*3/uL (2.0-8.3); Neutrophils Percent Auto 73.3 % (45-73); Platelet Count 305 X10*3/uL (160-400); Red Blood Count 2.65 X10*6/uL (4.20-5.50); Red Cell Distribution Width 14.5 % (11.0-16.0); White Blood Count 6.1 X10*3/uL (4.8-10.8)
[2022-09-08 22:19] LABS: Anion Gap 17 (12-20); Blood Urea Nitrogen 68 mg/dL (9-16); Carbon Dioxide 15 mmol/L (22-29); Chloride 111 mmol/L (96-108); Creatinine Clr Calc Pharmacy 15.7; Estimated Glomerular Filt Rate 9; Glucose Random 222 mg/dL (60-115); Potassium 5.3 mmol/L (3.3-5.1); Sodium 138 mmol/L (135-145)
--- NOTE | 2022-09-08 22:38 | ED_ITS ---
HPI - General Adult General Chief complaint: General Medical Stated complaint: lower abd pain , swollen legs Time Seen by Provider: 09/08/22 22:30 Source: patient Mode of arrival: ambulatory Limitations: no limitations History of Present Illness HPI narrative: 41-year-old female with history of poorly controlled diabetes on insulin, HTN, HLD, depression, according to old record patient is has been noncompliant with her medication, patient presented today for increase weight of 20 lb with increase exertional shortness of breath patient stated that she cannot bend down and tie her shoe because the difficulty breathing. patient reported decrease urination despite her diuretic medication regularly. Patient declined fever, chills, abdominal pain, nausea, vomiting, patient is able to tolerate p.o. intake. Related Data Home Medications Medication Instructions Recorded Confirmed famotidine 20 mg tablet 1 tab PO BID PRN indigestion 07/12/22 09/09/22 gabapentin 100 mg capsule 1 cap PO BEDTIME 07/12/22 09/09/22 atorvastatin 80 mg tablet 80 mg PO DAILY 09/09/22 09/09/22 bumetanide 2 mg tablet 2 mg PO DAILY 09/09/22 09/09/22 empagliflozin 25 mg tablet 25 mg PO DAILY 09/09/22 09/09/22 (Jardiance) gabapentin 300 mg capsule 300 mg PO DAILY 09/09/22 09/09/22 losartan 25 mg tablet 25 mg PO DAILY 09/09/22 09/09/22 nifedipine 90 mg tablet,extended 90 mg PO DAILY 09/09/22 09/09/22 release 24 hr sertraline 50 mg tablet 50 mg PO DAILY 09/09/22 09/09/22 Previous Rx's Medication Instructions Recorded amlodipine 10 mg tablet 10 mg PO DAILY #30 tabs 07/17/22 glipizide 5 mg tablet 5 mg PO BID #60 tabs 07/17/22 hydralazine 50 mg tablet 50 mg PO TID #90 tabs 07/17/22 sodium zirconium cyclosilicate 10 10 g PO DAILY #30 ea 07/17/22 gram oral powder packet (Lokelma) Allergies Allergy/AdvReac Type Severity Reaction Status Date / Time No Known Allergies Allergy Verified 09/08/22 21:15 [No Known Allergies*] Review of Systems Review of Systems: All other systems are reviewed and are negative Constitutional: Reports as per HPI and Reports no additional constitutional complaints Eyes: Reports as per HPI and Reports no additional eye complaints Reports system reviewed and no additional complaints, except as documented Cardiovascular: Reports as per HPI and Reports no additional cardiovascular complaints Respiratory: Reports as per HPI and Reports no additional respiratory complaints Gastrointestinal: Reports as per HPI and Reports no additional gastrointestinal complaints Genitourinary: Reports no additional female genitourinary complaints Musculoskeletal: Reports no additional musculoskeletal complaints Skin/Breast: Reports system reviewed and no additional complaints, except as docu Psychiatric: Reports no additional psychiatric complaints Endocrine: Reports no additional endocrine complaints Hematologic/Lymphatic: Reports no additional hematologic/lymphatic complaints Allergic/Immunologic: Reports no additional allergic/immunologic complaints Reports system reviewed and no additional complaints, except as documented and Reports Abnormal speech present [facility] Past Medical History Medical History Acute on chronic heart failure with preserved ejection fraction (HFpEF) Anxiety CKD (chronic kidney disease) stage 4, GFR 15-29 ml/min 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, managed as type 2 Social History Social History Household Members: Significant Other and Children Housing: Apartment Do you presently have visiting nurse or other home services: No Unable to assess alcohol history related to: Unknown Alcohol intake: never Patient Tobacco Use Status: Never used Tobacco Smoked in Last 30 Days: No Use of substances other than those prescribed or required for medical reasons: No Substance Use Type: Marijuana Advance Directives: No Advance Directives Information Provided: No Nutrition Risks: No Nutritional Risk, Diabetes new onset/Uncontrolled and Recent weight gain Patient : No service: No Physical Exam ED Vital Signs: Vital Signs - 24 hr 09/08/22 21:09 09/09/22 00:45 Temperature 98.3 F 98.6 F Pulse Rate 86 88 Respiratory Rate 20 16 Blood Pressure 169/88 H 164/88 H Pulse Oximetry 98 98 Oxygen Delivery Method Room Air Room Air BMI result Body Mass Index 40.2 vital signs have been reviewed as appeared to be correct. Blood pressure normal. Heart rate normal. Respiration rate normal. Temperature normal. Oxygen saturation normal. Appearance: Alert. Oriented X3. No acute distress. Head: Normal external exam. Normocephalic. Atraumatic. No Ly signs noted. No raccoon eyes noted Eyes: PERRLA. EOMI. Conjunctiva and sclera normal. Eyelids normal. ENT: TM's Normal. Pharynx normal. Uvula midline. Moist mucous membranes. No trismus noted. No drooling noted. No muffled voice noted. Neck: Normal inspection. Neck supple. FROM. No adenopathy. Thyroid Normal. No meningeal signs. No neck mass noted. CVS: Normal heart rate and rhythm. Heart sound normal. No murmurs noted. Pulses normal throughout. Respiratory: No respiratory distress. Painless inspiration. Breath sounds normal. No wheezes/rales/rhonchi noted. Chest nontender. No accessory muscle usage noted or decreased air movement noted. Abdomen: Soft and nontender. Bowel sounds normal in all 4 quadrants. No distention noted. No organomegaly noted. No visible injury noted. Back: No CVA tenderness. Full range of motion noted. Skin: Skin warm and dry. Normal skin color. Normal skin turgor. No rashes/lesions/lacerations noted. Extremities: +2 Bilateral lower extremity edema. Extremities exhibit normal range of motion. Extremities nontender. Neuro: Oriented X 3. Cranial nerve exam: II-XII are grossly intact No motor deficit. No sensory deficit. Reflexes normal. Course Course Course Narrative: 41-year-old female with history of CKD stage IV secondary to diabetic nephropathy came in with deterioration of baseline renal function test and decrease urination with increase water retention in her body and gaining weight, patient will get admitted for further renal evaluation and more diuresis. Chronic iron-deficiency anemia. There is delay in getting a urine sample from the patient due to acute on chronic renal failure will admit before UA result. Reevaluation(s) Reevaluation #1: No dysuria, no frequency urination, No dysuria patient having her menstrual peroid now which causing contamination of the urine sample. will not treat UTI now. Time: 03:57 Medications Administered Generic Name Dose Route Start Last Admin Trade Name Freq PRN Reason Stop Dose Admin Enoxaparin Sodium 30 mg 09/09/22 01:00 09/09/22 01:57 Enoxaparin Sodium 30 Mg/0.3 Ml Syringe SUBCUT 30 mg BEDTIME LUIS Administration Discontinued Medications Generic Name Dose Route Start Last Admin Trade Name Freq PRN Reason Stop Dose Admin Bumetanide 2 mg 09/09/22 01:01 09/09/22 01:57 Bumetanide 1 Mg/4 Ml Vial IVPUSH 09/09/22 01:02 2 mg ONCE ONE Administration Protocol Sodium Zirconium Cyclosilicate 10 gm 09/09/22 01:08 09/09/22 01:57 Sodium Zirconium Cyclosilicate 10 Gm Powd.Pack PO 09/09/22 01:09 10 gm ONCE ONE Administration Medical Decision Making Differential Diagnosis Differential Diagnoses: The differential diagnosis associated with the presentation includes ( Acute on chronic renal failure, UTI, electrolyte dist urbance, anemia.) Admission/Observation Consideration of admission/observation: Escalation of care including admission/observation considered Consult Healthcare Provider Management of the patient was discussed with: Hospitalist Lab Data MDM Lab Attestation statement: I reviewed the patient's lab results. 09/08/22 21:51 09/08/22 21:51 Labs: Lab Results 09/08/22 09/08/22 09/08/22 Range/Units 21:51 21:51 23:51 WBC 6.1 (4.8-10.8) X10*3/uL RBC 2.65 L (4.20-5.50) X10*6/uL Hgb 7.4 L (12.0-16.0) g/dl Hct 23.9 L (37.0-47.0) % MCV 90.2 (80.0-98.0) fL MCH 27.9 (27.0-33.0) pg MCHC 31.0 (31.0-35.0) g/dl RDW 14.5 (11.0-16.0) % Plt Count 305 (160-400) X10*3/uL MPV 9.6 (9.4-12.3) fL Immature Gran % (Auto) 0.3 (0.0-0.4) % Neut % (Auto) 73.3 H (45-73) % Lymph % (Auto) 11.7 L (20-40) % Hutchinson % (Auto) 8.2 (2-11) % Eos % (Auto) 5.7 H (0-4) % Baso % (Auto) 0.8 (0-2) % Lymph # (Auto) 0.7 L (1.2-4.9) X10*3/uL [place]inson # (Auto) 0.5 (0.1-1.2) X10*3/uL Eos # (Auto) 0.4 (0.0-0.4) X10*3/uL Baso # (Auto) 0.1 (0.0-0.2) X10*3/uL Abs Immat Gran (auto) 0.02 (0.00-0.03) X10*3/uL Absolute Neuts (auto) 4.5 (2.0-8.3) x10*3/uL Absolute Nucleated RBC 0.000 (0.0-0.012) X10*3/uL Nucleated RBC % (auto) 0.0 (0.0-0.2) /100WBC Sodium 138 (135-145) mmol/L Potassium 5.3 H (3.3-5.1) mmol/L Chloride 111 H (96-108) mmol/L Carbon Dioxide 15 L (22-29) mmol/L Anion Gap 17 (12-20) BUN 68 H (9-16) mg/dL Creatinine 5.24 H* (0.5-1.4) mg/dL Estim Creat Clear Calc 15.7 Estimated GFR 9 Random Glucose 222 H (60-115) mg/dL Calcium 6.0 L* D (8.4-10.2) mg/dL Magnesium 2.0 (1.6-2.6) mg/dL Iron 24 L (30-160) mcg/dL TIBC 242 (228-428) mcg/dL % Saturation 10 L (15-50) % Unsat Iron Binding 218 ug/dL COVID-19 (ANN MARIE) Negative (Negative) COVID-19 Clin Com See Note Independent Interpretation I performed an independent interpretation of an: Plain X-Ray ( chest: No acute intrathoracic pathology.) Radiology Impression Discussion of test interpretation with radiology: I have reviewed the radiologist's reading. Chronic Conditions Patient?s care impacted by: Diabetes, Hypertension and Other ( Chronic renal disease.) Discharge Plan Discharge Clinical Impression: CKD (chronic kidney disease) stage 4, GFR 15-29 ml/min, Anemia in CKD (chronic kidney disease) Patient Disposition: Admitted As Inpatient
--- NOTE | 2022-09-08 22:49 | ECG_ITS ---
Test Reason : LEG SWELLING Blood Pressure : / mmHG Vent. Rate : 093 BPM Atrial Rate : 093 BPM P-R Int : 130 ms QRS Dur : 082 ms QT Int : 410 ms P-R-T Axes : 061 -02 056 degrees QTc Int : 509 ms Normal sinus rhythm Possible Anterior infarct (cited on or before 21-AUG-2022) Prolonged QT Abnormal ECG When compared with ECG of 21-AUG-2022 01:17, No significant change was found Referred By: Shirley Kline Electronically Signed By:Boogie Cartagena
[2022-09-09] VITALS (10 sets, daily range): BP systolic 136–186; BP diastolic 76–97; PULSE 82–91; RESP 16–20; TEMP 36.7–37.7; O2SAT 3–98; BMI 41.5
[2022-09-09 00:22] LABS: COVID-19 Test Negative (Negative); IDNOW Serial# 6674DD1D
--- NOTE | 2022-09-09 00:52 | P.HPHOSP_ITS ---
History of Present Illness Date of Service: 09/09/22 Chief Complaint: Generalized body swelling This is a 41-year-old female with pertinent history of CKD stage 4, congestive heart failure with preserved ejection fraction, essential hypertension, insulin- dependent diabetes mellitus, anemia of CKD, essential hypertension who presents to the emergency department for evaluation of generalized body swelling. Liliana nt states that over the last 1 month she has gained approximately 20 lb. Patient's feet, legs, knees, abdominal have swollen and she has been having difficulty walking or bending. Also complains of dyspnea worse with exertion. Patient admits that she is not compliant with her medications. Did not follow- up with Nephrology. States she has been trying to get compliant but misses. multiple doses throughout the week. Noticed decreased urine output. In the emergency department, creatinine and potassium noted to be elevated. 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, managed as type 2 Pertinent family history: No family history of CAD Social History Household Members: Significant Other and Children Housing: Apartment Do you presently have visiting nurse or other home services: No Unable to assess alcohol history related to: Unknown Alcohol intake: never Patient Tobacco Use Status: Never used Tobacco Substance Use Type: Marijuana Advance Directives: No Advance Directives Information Provided: No service: No Meds Allergies Allergy/AdvReac Type Severity Reaction Status Date / Time No Known Allergies Allergy Verified 09/08/22 21:15 [No Known Allergies*] Active Medications: Current Medications Acetaminophen (Acetaminophen 325 Mg Tablet) 650 mg PO Q6H PRN PRN Reason: Pain, Mild (Pain Scale 1-3) Enoxaparin Sodium (Enoxaparin Sodium 30 Mg/0.3 Ml Syringe) 30 mg SUBCUT Q24H LUIS Ondansetron HCl (Ondansetron Hcl 4 Mg/2 Ml Vial) 4 mg IVPUSH Q8H PRN PRN Reason: Nausea and Vomiting Pharmacy Consult (Consult Rx Perform Med Rec) 1 each MISCELLANE ONCE PRN PRN Reason: Consult order Sodium Chloride (0.9 % Sodium Chloride Flush 3 Ml Syringe) 3 ml IVFLUSH QSHIFT [facility] Home Medications Medication Instructions Recorded Confirmed Last Taken Type famotidine 20 mg tablet 1 tab PO BID PRN indigestion 07/12/22 07/12/22 Unknown History gabapentin 100 mg capsule 1 cap PO BEDTIME 07/12/22 07/12/22 07/11/22 History Physical Exam Vital Signs and Narrative: Vital Signs: Last Vital Signs Temp 98.6 F 09/09/22 00:45 Pulse 88 09/09/22 00:45 Resp 16 09/09/22 00:45 BP 164/88 H 09/09/22 00:45 Pulse Ox 98 09/09/22 00:45 O2 Del Method 09/09/22 00:45 BMI result Body Mass Index 40.2 Middle-aged female lying in bed in no distress Neck supple, Regular rate and rhythm, S1-S2 heard decrease breath sounds at bases Abdomen distended nontender, no guarding, no rigidity Patient is awake, alert and oriented to self, place, time and person ; no focal motor deficit Psych: Normal mood bilateral pedal edema Results Labs 09/08/22 21:51 09/08/22 21:51 Labs: Laboratory Results - last 24 hr 09/08/22 09/08/22 09/08/22 21:51 21:51 23:51 MCV 90.2 MCH 27.9 MCHC 31.0 RDW 14.5 Plt Count 305 MPV 9.6 Immature Gran % (Auto) 0.3 Neut % (Auto) 73.3 H Lymph % (Auto) 11.7 L [place] % (Auto) 8.2 Eos % (Auto) 5.7 H Baso % (Auto) 0.8 Lymph # (Auto) 0.7 L [place] # (Auto) 0.5 Eos # (Auto) 0.4 Baso # (Auto) 0.1 Abs Immat Gran (auto) 0.02 Absolute Neuts (auto) 4.5 Absolute Nucleated RBC 0.000 Nucleated RBC % (auto) 0.0 Anion Gap 17 Estim Creat Clear Calc 15.7 Estimated GFR 9 Random Glucose 222 H Calcium 6.0 L* D Magnesium 2.0 COVID-19 (ANN MARIE) Negative COVID-19 Clin Com See Note Imaging Radiologist's Impressions: Impressions Chest X-Ray 09/08/22 23:25 IMPRESSION: No acute pulmonary disease. Assessment and Plan (1) Acute on chronic heart failure with preserved ejection fraction (HFpEF): Status: Acute (2) Renal failure: Status: Acute Plan This is a 41-year-old female with pertinent history of CKD stage 4, congestive heart failure with preserved ejection fraction, essential hypertension, insulin- dependent diabetes mellitus, anemia of CKD, essential hypertension who presents to the emergency department for evaluation of generalized body swelling. #. Anasarca in a patient with: #. Acute on chronic congestive heart failure with preserved ejection fraction - due to medication noncompliance. Initiating Bumex IV. Strict I's and O's. Low-salt diet - CT abdomen pending #. Acute kidney injury on CKD stage 4: Monitor urine output and creatinine with diuresis. Consulting Nephrology. Urine studies and renal ultrasound pending. Also quantifying urine protein #. Hyperkalemia: Initiating lokelma #. [id number]-[id number] diabetes mellitus with hyperglycemia: Obtaining A1c. Initiating Accu-Cheks with sliding scale insulin #. essential hypertension: Continue home antihypertensives #. anemia of CKD: Obtaining iron studies Med rec pending DVT prophylaxis: Lovenox 30 mg daily Full code Low-salt diet Admit as inpatient and will require two night minimum hospital stay for IV diuresis Time Spent With Patient Time: Total time managing care of this patient today ____ minutes. Quality Stroke Does the patient have a stroke diagnosis?: No VTE Prior VTE?: No VTE Risk Level:: Medical - moderate - high VTE Device Contraindication: Treatment Not Indicated VTE Drug Contraindication: N/A - Med Ordered
[2022-09-09 01:33] LABS: Appearance Urine Cloudy; Color Urine Yellow; Glucose Urine UA >=1000 mg/dL (Negative); Leukocyte Esterase Urine Trace (Negative); Nitrite Urine Negative (Negative); PH 5.5 (5.0-9.0); UMIC TRIGGER UACC YES; Urine Blood Large (3+) (Negative); Urine Ketones Negative (Negative); Urine Protein 300 (3+) mg/dL (Neg-Trace)
[2022-09-09 01:35] LABS: UPreg QC Valid YES; Urine Pregnancy NEGATIVE (NEGATIVE)
[2022-09-09 01:41] LABS: Iron 24 mcg/dL (30-160); Percent Iron Saturation 10 % (15-50); Total Iron Binding Capacity 242 mcg/dL (228-428); Unsaturated Iron Binding 218 ug/dL
[2022-09-09 01:41] LABS: Creatinine Urine 27.46 mg/dL
[2022-09-09 01:52] LABS: Bacteria Urine None Seen (None Seen); Hyaline Casts Urine 0-2 /LPF (0-2); RBC Urine >20 /HPF (0-2); UACC Culture Trigger YES
[2022-09-09 01:56] LABS: Total Protein Urine Random 206 mg/dL (<12)
[2022-09-09] MEDS: Bumetanide 1 MG/4 ML VIAL 2 MG IVPUSH ×3 (01:57→17:59)
[2022-09-09] MEDS: Enoxaparin Sodium 30 MG/0.3 ML SYRINGE SUBCUT ×2 (01:57→21:55)
[2022-09-09] MEDS: Sodium Zirconium Cyclosilicate 10 GM POWD.PACK PO ×2 (01:57→08:39)
--- NOTE | 2022-09-09 02:30 | PC.NURSE ---
Med req completed
[2022-09-09 05:20] LABS: Estimated Average Glucose 120 mg/dL; Hemoglobin A1c % 5.8 %
[2022-09-09] MEDS: traMADoL HCL 50 MG TABLET PO (06:26)
--- NOTE | 2022-09-09 06:27 | PC.NURSE ---
Pt aox3. Requires assistance with ambulating. o2 sat 82% RA. Placed on 3L nc with o2 improvement to 95%. Medicated as ordered for pain. Reports LBP, 04/05. Will continue to monitor.
[2022-09-09 07:27] LABS: Glucose, Whole Blood 110 mg/dL (60-115)
[2022-09-09 07:30] LABS: MANUAL DIFF FLAG NO
[2022-09-09] MEDS: 0.9 % Sodium Chloride Flush 3 ML SYRINGE IVFLUSH ×2 (07:34→22:55)
[2022-09-09 08:02] LABS: Anion Gap 18 (12-20); Blood Urea Nitrogen 69 mg/dL (9-16); Calcium 5.9 mg/dL (8.4-10.2); Carbon Dioxide 15 mmol/L (22-29); Chloride 112 mmol/L (96-108); Creatinine Clr Calc Pharmacy 16.7; Estimated Glomerular Filt Rate 10; Glucose Random 116 mg/dL (60-115); Sodium 140 mmol/L (135-145)
[2022-09-09 08:06] LABS: Basophils Percent Auto 0.7 % (0-2); Eosinophils Absolute Auto 0.3 X10*3/uL (0.0-0.4); Eosinophils Percent Auto 6.2 % (0-4); Hematocrit 21.8 % (37.0-47.0); Imm Gran Abs Auto 0.03 X10*3/uL (0.00-0.03); Imm Gran Pct Auto 0.6 % (0.0-0.4); Lymphocytes Absolute Auto 0.9 X10*3/uL (1.2-4.9); Lymphocytes Percent Auto 15.8 % (20-40); Mean Corpuscular HGB Conc 30.7 g/dl (31.0-35.0); Mean Corpuscular Hemoglobin 27.6 pg (27.0-33.0); Mean Corpuscular Volume 89.7 fL (80.0-98.0); Monocytes Absolute Auto 0.5 X10*3/uL (0.1-1.2); Monocytes Percent Auto 8.8 % (2-11); Neutrophils Absolute Auto 3.7 x10*3/uL (2.0-8.3); Neutrophils Percent Auto 67.9 % (45-73); Platelet Count 302 X10*3/uL (160-400); Red Blood Count 2.43 X10*6/uL (4.20-5.50); Red Cell Distribution Width 14.4 % (11.0-16.0); White Blood Count 5.5 X10*3/uL (4.8-10.8)
[2022-09-09 08:09] LABS: Hemoglobin 6.7 g/dl (12.0-16.0)
--- NOTE | 2022-09-09 08:12 | PHA.MEDREC ---
Pharmacy Consult ? Medication Reconciliation Pharmacy has completed the medication reconciliation. Pharmacy has reviewed the med rec.
--- NOTE | 2022-09-09 08:19 | PC.NURSE ---
critical labs reported to
--- NOTE | 2022-09-09 08:31 | PM.CNNEP ---
History of Present Illness Reason for Consult Consult date: 09/09/22 Chief Complaint Chief complaint: Generalized body swelling History of Present Illness Narrative: 41 year old patient with history of severe CKD admitted with CHF decompensated found to have worsening kidney function and elevated serum potassium. The patient who has not been compliant with outpatient medication regimen reports at least 20 lbs weight gain with worsening shortness of breath and lower extremity edema. She reports also significant itching. 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, managed as type 2 Social History Social History Household Members: Significant Other and Children Housing: Apartment Do you presently have visiting nurse or other home services: No Unable to assess alcohol history related to: Unknown Alcohol intake: never Patient Tobacco Use Status: Never used Tobacco Smoked in Last 30 Days: No Use of substances other than those prescribed or required for medical reasons: No Substance Use Type: Marijuana Advance Directives: No Advance Directives Information Provided: No Nutrition Risks: No Nutritional Risk, Diabetes new onset/Uncontrolled and Recent weight gain Patient : No service: No Meds Allergies Allergy/AdvReac Type Severity Reaction Status Date / Time No Known Allergies Allergy Verified 09/08/22 21:15 [No Known Allergies*] Active Medications: Current Medications Acetaminophen (Acetaminophen 325 Mg Tablet) 650 mg PO Q6H PRN PRN Reason: Pain, Mild (Pain Scale 1-3) Bumetanide (Bumetanide 1 Mg/4 Ml Vial) 2 mg IVPUSH BID@0900,1700 [facility]; Protocol Dextrose (Dextrose 50 % 25 Gm/50 Ml Syringe) 25 gm IVPUSH Q15M PRN; Protocol PRN Reason: per Hypoglycemia Standing Ord. Enoxaparin Sodium (Enoxaparin Sodium 30 Mg/0.3 Ml Syringe) 30 mg SUBCUT BEDTIME LUIS Last Admin: 09/09/22 01:57 Dose: 30 mg Glucose (Glucose Gel 15 Gm Gel..Gram.) 15 gm PO Q15M PRN; Protocol PRN Reason: per Hypoglycemia Standing Ord. Insulin Human Lispro (Insulin Lispro 100 Unit/Ml 3 Ml Vial) 0 unit SUBCUT QIDACHS [facility]; Protocol Last Admin: 09/09/22 07:33 Dose: Not Given Melatonin (Melatonin 3 Mg Tablet) 6 mg PO BEDTIME PRN PRN Reason: Insomnia Ondansetron HCl (Ondansetron Hcl 4 Mg/2 Ml Vial) 4 mg IVPUSH Q8H PRN PRN Reason: Nausea and Vomiting Pharmacy Consult (Consult Rx Perform Med Rec) 1 each MISCELLANE ONCE PRN PRN Reason: Consult order Sodium Chloride (0.9 % Sodium Chloride Flush 3 Ml Syringe) [facility] Last Admin: 09/09/22 07:34 Dose: 3 ml Sodium Zirconium Cyclosilicate (Sodium Zirconium Cyclosilicate 10 Gm Powd.Pack) 10 gm PO DAILY [facility] Home Medications Medication Instructions Recorded Confirmed Last Taken Type famotidine 20 mg tablet 1 tab PO BID PRN indigestion 07/12/22 09/09/22 Unknown History atorvastatin 80 mg tablet 80 mg PO DAILY 09/09/22 09/09/22 Unknown History bumetanide 2 mg tablet 2 mg PO DAILY 09/09/22 09/09/22 Unknown History empagliflozin 25 mg tablet 25 mg PO DAILY 09/09/22 09/09/22 Unknown History (Jardiance) gabapentin 300 mg capsule 300 mg PO DAILY 09/09/22 09/09/22 Unknown History losartan 25 mg tablet 25 mg PO DAILY 09/09/22 09/09/22 Unknown History nifedipine 90 mg tablet,extended 90 mg PO DAILY 09/09/22 09/09/22 Unknown History release 24 hr sertraline 50 mg tablet 50 mg PO DAILY 09/09/22 09/09/22 Unknown History Physical Exam Vital Signs: Last Vital Signs Temp 99.4 F 09/09/22 07:57 Pulse 90 09/09/22 07:57 Resp 20 09/09/22 07:57 BP 186/97 H 09/09/22 07:57 Pulse Ox 98 09/09/22 07:57 O2 Del Method 09/09/22 07:57 O2 Flow Rate 3 09/09/22 07:57 BMI result Body Mass Index 40.2 Const General: no acute distress HEENT Head: Yes normocephalic and Yes atraumatic Neck Neck: Yes supple Resp Auscultation: diminished lung sounds Cardio Heart sounds: S1 normal heart sound present and S2 normal heart sound present GI Palpation (GI): Soft to palpation and nontender Extrem General: Yes edema Results Lab Results 09/09/22 06:58 09/09/22 06:58 Lab results: Chemistry 09/08/22 09/09/22 21:51 06:58 Sodium 138 140 Potassium 5.3 H 5.0 Carbon Dioxide 15 L 15 L BUN 68 H 69 H Creatinine 5.24 H* 4.91 H* Calcium 6.0 L* D 5.9 L* Hematology 09/08/22 09/09/22 21:51 06:58 WBC 6.1 5.5 Hgb 7.4 L 6.7 L* Plt Count 305 302 Urinalysis 09/09/22 01:19 Urine Color Yellow Urine Appearance Cloudy Urine pH 5.5 Ur Specific [place] 1.010 Urine Protein 300 (3+) H Urine Glucose (UA) >=1000 H Urine Ketones Negative Urine Blood Large (3+) H Urine Nitrite Negative Ur Leukocyte Esterase Trace H Urine RBC >20 H Urine WBC 11-20 H Ur Squamous Epith Cells 3-5 Hyaline Casts 0-2 Urine Studies 09/09/22 01:19 Urine Creatinine 27.46 Assessment and Plan (1) AMISHA (acute kidney injury): Status: Acute (2) Hyperkalemia: Status: Acute (3) (HFpEF) heart failure with preserved ejection fraction: Status: Acute (4) HTN (hypertension): Status: Acute (5) CKD (chronic kidney disease) stage 4, GFR 15-29 ml/min: Status: Acute Plan [address] [address] Nephrology Consult Note Signed Patient: Keya Verdin MR#: [id number] : 08/25/1938 Acct:[id number] Age/Sex: 84 / F Loc: [facility] [id number] ?? ? Attending Dr: Niesha Galvan NP cc: ~ History of Present Illness Reason for Consult Consult date: 09/09/22 Chief Complaint Chief complaint: CHF History of Present Illness Narrative: 84 year old patient with history of severe CKD admitted with CHF exacerbation, hypertensive urgency found to have worsening kidney function.She reports migraine headache with bilateral temporal pain and pain to the top of the head with photophobia and vomiting.?Blood pressure was found to be greater than 200 systolic. At the time of the consultation, she denies fever, chills, chest pain, shortness of breath, nausea, vomiting or diarrhea. Review of Systems Review of Systems 10 points ROS negative except for pertinent in [place] Past Medical History Medical History? Anemia Anxiety and depression Asthma Back pain Chronic anemia CKD (chronic kidney disease) COPD (chronic obstructive pulmonary disease) GERD (gastroesophageal reflux disease) Hiatal hernia Hyperlipidemia Hypertension Osteoarthritis Surgical History Surgical History?(Updated 03/19/22 @ 14:53 by Dodie Santacruz RN) H/O of rectopexy H/O: hysterectomy History of bowel resection History of cholecystectomy History of esophagogastroduodenoscopy (EGD) History of left-sided carotid endarterectomy History of open reduction and internal fixation (ORIF) procedure History of total right hip arthroplasty Hx of breast biopsy Hx of colonoscopy Social History Social History? Household Members:? Family and Other Housing:? Apartment Do you presently have visiting nurse or other home services:? Yes (physical therapy) Alcohol intake:? unknown Patient Tobacco Use Status:? Former Tobacco user Smoked in Last 30 Days:? No Second Hand Smoke Exposure:? No Use of substances other than those prescribed or required for medical reasons:? No Substance Use Type:? Marijuana Advance Directives:? Yes Advance Directives on File:? Yes Advance Directives Date on File:? 06/04/20 service:? No Current occupational status:? retired Meds Allergies Allergy/AdvReac Type Severity Reaction Status Date / Time codeine [Codeine] Allergy Mild RASH Verified 03/19/22 14:09 Sulfa (Sulfonamide Allergy Mild HIVES Verified 03/19/22 14:09 Antibiotics) ? [Sulfa (Sulfonamides)] ? ibuprofen [From Motrin] AdvReac Mild STOMACH Verified 03/19/22 14:09 ? ? ? UPSET, ? Rectal ? bleeding ? ? Active Medications: Current Medications Acetaminophen (Acetaminophen 325 Mg Tablet)? 650 mg PO Q6H PRN PRN Reason: Pain, Mild (Pain Scale 1-3) Albuterol/Ipratropium (Albuterol/Iprat 2.5/0.5mg 3 Ml Ampul.Neb)? 3 ml INHALE RQ4H WHILE AWAKE [facility] Last Admin: 09/09/22 07:52 Dose:? 3 ml Furosemide (Furosemide 20 Mg/2 Ml Vial)? 20 mg IVPUSH Q12H [facility]; Protocol Heparin Sodium (Porcine) (Heparin Sodium,Porcine 5,000 Unit/Ml Vial)? 5,000 unit SUBCUT Q12H [facility] Last Admin: 09/09/22 05:52 Dose:? 5,000 unit Hydralazine HCl (Hydralazine Hcl 10 Mg Tablet)? 10 mg PO TID [facility]; Protocol Last Admin: 09/08/22 20:58 Dose:? 10 mg Ondansetron HCl (Ondansetron Hcl 4 Mg/2 Ml Vial)? 4 mg IVPUSH Q8H PRN PRN Reason: Nausea and Vomiting Oxycodone HCl (Oxycodone Hcl Immed Release 5 Mg Tablet)? 5 mg PO Q4H PRN PRN Reason: headache Last Admin: 09/08/22 20:59 Dose:? 5 mg Pharmacy Consult (Consult Rx Perform Med Rec)? 1 each MISCELLANE ONCE PRN PRN Reason: Consult order Sodium Chloride (0.9 % Sodium Chloride Flush 3 Ml Syringe)? 3 ml IVFLUSH QSHIFT [facility] Last Admin: 09/08/22 23:46 Dose:? 3 ml Sodium Zirconium Cyclosilicate (Sodium Zirconium Cyclosilicate 10 Gm Powd.Pack)? 10 gm PO ONCE ONE Stop: 09/09/22 07:59 Home Medications ?Medication ?Instructions ?Recorded ?Confirmed ?Last Taken ?Type albuterol sulfate 2.5 mg/3 mL 1 vial inhalation QID PRN 04/27/20 09/08/22 09/08/22 History (0.083 %) solution for nebulization Shortness Of Breath ? montelukast 10 mg tablet 10 mg PO BEDTIME 04/27/20 09/08/22 09/08/22 History sodium chloride 7 % for 1 vial inhalation BID 04/27/20 09/08/22 09/08/22 History nebulization ? albuterol sulfate 90 mcg/actuation 2 puff inhalation Q6H PRN 10/06/20 02/13/23 02/13/23 History aerosol inhaler (ProAir HFA) Shortness Of Breath ? cholecalciferol (vitamin D3) 50 50 mcg PO DAILY 05/01/20 09/08/22 09/08/22 History mcg (2,000 unit) tablet ? cyclobenzaprine 10 mg tablet 10 mg PO TID PRN Muscle Spasm 05/01/20 09/08/22 09/08/22 History ferrous sulfate 325 mg (65 mg 325 mg PO BID 05/01/20 09/08/22 09/08/22 History iron) tablet ? fluoxetine 40 mg capsule 40 mg PO DAILY 05/01/20 09/08/22 09/08/22 History fluticasone propionate 50 2 spray intranasal DAILY PRN Nasal 05/01/20 09/08/22 09/08/22 History mcg/actuation nasal Congestion ? spray,suspension (Flonase Allergy ? Relief) ? lorazepam 0.5 mg tablet 0.5 mg PO BID 05/01/20 09/08/22 09/08/22 History mirtazapine 7.5 mg tablet 7.5 mg PO BEDTIME 05/01/20 09/08/22 09/08/22 History pantoprazole 40 mg tablet,delayed 40 mg PO DAILY 05/01/20 09/08/22 09/08/22 History release ? atorvastatin 40 mg tablet 40 mg PO DAILY 03/19/22 09/08/22 09/08/22 History cetirizine 10 mg tablet 10 mg PO DAILY 03/19/22 09/08/22 09/08/22 History fluticasone propionate 115 2 puff inhalation BID 03/19/22 09/08/22 09/08/22 History mcg-salmeterol 21 mcg/actuation ? HFA inhaler (Advair HFA) ? latanoprost 0.005 % eye drops 1 drp ophthalmic (eye) BEDTIME 03/19/22 09/08/22 09/08/22 History cqmapvlfra-gkrnjnwtzjqfu-mzwklruo 1 tab PO Q12H PRN Headache 09/08/22 09/08/22 Unknown History 50 mg-325 mg-40 mg tablet ? docusate sodium 100 mg capsule 200 mg PO DAILY PRN Constipation 09/08/22 09/08/22 09/08/22 History lidocaine 5 % topical ointment 1 appl topical TID PRN Knee pain 09/08/22 09/08/22 Unknown History oxycodone-acetaminophen 5 mg-325 1 tab PO Q8H PRN Pain, Moderate 09/08/22 09/08/22 Unknown History mg tablet ? terazosin 1 mg capsule 1 mg PO DAILY 09/08/22 09/08/22 09/08/22 History Physical Exam Vital Signs: Last Vital Signs Temp ?98.0 F ?09/09/22 07:17 Pulse ?77 ?09/09/22 07:54 Resp ?15 ?09/09/22 07:54 BP ?175/85 H ?09/09/22 07:17 Pulse Ox ?96 ?09/09/22 07:17 O2 Del Method ? ?09/09/22 07:17 O2 Flow Rate ?2 ?09/09/22 07:17 BMI result Body Mass Index ? 16.7? Const General: comfortable and no acute distress HEENT Head: Yes normocephalic and Yes atraumatic Neck Neck: Yes supple Resp Auscultation: diminished lung sounds Cardio Heart sounds: S1 normal heart sound present and S2 normal heart sound present GI Palpation (GI): Soft to palpation and nontender Extrem General: Yes normal to inspection Results Lab Results 09/09/22 05:23? 09/09/22 05:23? Lab results: Chemistry ? 09/08/22 09/08/22 09/09/22 ? 14:25 19:57 05:23 Sodium ?143 ?143 ?144 Potassium ?5.4 H D ?4.7 ?5.2 H Carbon Dioxide ?17 L ?19 L ?15 L BUN ?68 H ?67 H ?69 H Creatinine ?5.64 H* ?5.52 H* ?5.49 H* Calcium ?8.2 L ?8.1 L ?8.3 L Hematology ? 09/08/22 09/08/22 09/09/22 ? 14:25 19:57 05:23 WBC ?5.4 ? ?7.3 Hgb ?6.7 L* ?8.6 L D ?8.4 L Plt Count ?222 ? ?214 Assessment and Plan (1) AMISHA (acute kidney injury): ?Status:?Acute (2) Hyperkalemia: ?Status:?Acute (3) Metabolic acidosis: ?Status:?Acute (4) CHF (congestive heart failure): ?Status:?Acute (5) Anemia: ?Status:?Acute (6) CKD (chronic kidney disease) stage 4, GFR 15-29 ml/min: ?Status:?Acute Plan multifactorial AMISHA: -acute hypertensive nephrosclerosis -renal hypoperfusion in the setting of CHF decompensation cannot also exclude progression of underlying CKD suspect type 3 cardio renal syndrome HFpEF volume status above dry weight known severe CKD due to hypertensive and diabetic kidney disease baseline Scr ~ 3.5 mg/dl followed by Dr Gilbert elevated serum potassium due to poor distal flow and metabolic acidosis anemia due to CKD will require KWAN need first to check iron profile REC iron profile amlodipine 10 mg daily sodium bicarbonate 650 mg bid bumetanide 2 mg IV bid blood transfusion for Hb < 7 sodium zirconium as needed protect non dominant arm follow kidney function and electrolytes Time Spent With Patient Time: Total time managing care of this patient today ____ minutes. Procedures Date of Service Date of Service: 09/09/22
--- NOTE | 2022-09-09 09:06 | PHA.MEDREC ---
Pharmacy Consult ? Medication Reconciliation Pharmacy has reviewed the medication reconciliation.
[2022-09-09 10:00] LABS: Iron 17 mcg/dL (30-160); Percent Iron Saturation 8 % (15-50); Total Iron Binding Capacity 210 mcg/dL (228-428); Unsaturated Iron Binding 193 ug/dL
[2022-09-09 10:15] LABS: Ferritin 122 ng/mL (10-250)
--- NOTE | 2022-09-09 11:12 | MHC.CM.PN ---
PT REPORTS SHE LIVES WITH HER S/O AND DAUGHTER SHE REPORTS SHE IS INDEPENDENT WITH CARE SHE USES NO DME AND HAS NO SERVICES SHE DECLINES TO COMPLETE A HCP SHE IS NOT COVID [facility] SHE DOES NOT KNOW THE NAME OF HER PCP PCP: KIRBY GOMEZ DCP: HOME NO SERVICES PT TO ARRANGE TRANSPORT
--- NOTE | 2022-09-09 12:10 | PC.NURSE ---
Lab at bedside for pt type and screen
[2022-09-09 13:00] LABS: Glucose, Whole Blood 93 mg/dL (60-115)
[2022-09-09] MEDS: oxyCODONE HCl Immed Release 5 MG TABLET PO ×2 (13:57→21:55)
--- NOTE | 2022-09-09 14:18 | PC.NURSE ---
When blood initially spike, clot clogged IV tubing. New tubing needed to be obtained causing late start
[2022-09-09] MEDS: amLODIPine Besylate 10 MG TABLET PO (14:20)
[2022-09-09] MEDS: hydrALAZINE HCl 50 MG TABLET PO ×2 (15:35→21:55)
[2022-09-09 18:31] LABS: Glucose, Whole Blood 99 mg/dL (60-115)
[2022-09-09 18:51] LABS: Glucose, Whole Blood 106 mg/dL (60-115)
[2022-09-09] MEDS: Melatonin 3 MG TABLET 6 MG PO (21:55)
[2022-09-09] MEDS: glipiZIDE 5 MG TABLET PO (21:56)
[2022-09-09 22:33] LABS: Glucose, Whole Blood 96 mg/dL (60-115)
--- NOTE | 2022-09-09 22:35 | PC.NURSE ---
pt. reporting back pain and extreme itching in her lower extremities. Medicated per MAR for pain. Spoke with hospitalist and orders are in for benedryl for the itching. Pt. is going to room 386. Report called and given to floor RN.
[2022-09-09] MEDS: diphenhydrAMINE HCL 25 MG CAPSULE 50 MG PO (22:52)
[2022-09-10] VITALS (7 sets, daily range): BP systolic 109–196; BP diastolic 56–94; PULSE 79–90; RESP 18–20; TEMP 36–37.1; O2SAT 88–98
--- NOTE | 2022-09-10 07:00 | CA_ITS ---
Transthoracic Echocardiogram Patient (Last, First, Middle): Erna Alvarez, Gender: Female Date of : 1980 Age: 41 Procedure Date: 09/10/2022 Procedure Type: Transthoracic Echocardiogram Location: S3E Height: 157.48 cm Weight: 102.97 kg BSA: 2.02 m2 Heart Rate: 81 bpm BP: 194 / 94 mmHg Database Analyst: SB Referring MD: Damion Walton MD Symptoms: fluid overload ? cardiorenal syndrome Study Quality: Adequate ECG Rhythm: Sinus Conclusions: - Normal left ventricular size and systolic function. There is mildly increased left ventricular wall thickness. The visually estimated ejection fraction is between 55-60%. - E/E prime ratio is between 8 and 15 consistent with indeterminate filling pressures. Reduced global longitudinal strain at -15%. - Mildly increased right ventricular cavity size. There is mild to moderately decreased right ventricular systolic function. - Significantly elevated right atrial pressure. Mild pulmonary hypertension is present. - There is a trivial pericardial effusion. Findings Left Ventricle Normal left ventricular size and systolic function. There is mildly increased left ventricular wall thickness. The visually estimated ejection fraction is between 55-60%. There is no evidence of regional wall motion abnormalities. Abnormal diastolic function is noted. Spectral Doppler is indicative of a pseudonormal filling pattern. E/E prime ratio is between 8 and 15 consistent with indeterminate filling pressures. Reduced global longitudinal strain at 15%. Right Ventricle Mildly increased right ventricular cavity size. There is mild to moderately decreased right ventricular systolic function. Atria The left atrium is mildly dilated. The right atrium is normal in size. Aortic Valve Normal aortic valve structure and function. There is no aortic valve stenosis. There is no aortic valve regurgitation. Mitral Valve Normal mitral valve structure and function. There is trace mitral valve regurgitation. There is no mitral valve stenosis. Pulmonic Valve The pulmonic valve is likely normal. Tricuspid Valve Normal tricuspid valve structure. There is moderate tricuspid valve regurgitation. Significantly elevated right atrial pressure. Mild pulmonary hypertension is present. Great Vessels All visible segments of the aorta are normal in size. The visualized portions of the pulmonary artery and branches are normal. Venous The inferior vena cava is dilated and collapses less than 50% with inspiration. Pericardium/Pleural Prominent epicardial adipose tissue noted. There is a trivial pericardial effusion. Prior Study Comparison Changes noted compared to prior study dated: 07/14/2022. RV appears to be mildly dilated with mild to moderate RV dysfunction. Measurements 2D Linear Measurements IVSd: 1.18 0.6-0.9/0.6-1.0 cm LVIDd: 4.16 3.9-5.3/4.2-5.9 cm LVIDd Index: 2.06 2.4-3.2/2.2-3.1 cm/m2 LVIDs: 3.06 2.0-3.6 cm LVPWd: 1.25 0.7-1.1 cm LA Diam: 4.40 2.7-3.8/3.0-4.0 cm LAIDs Index: 2.18 1.5-2.3 cm/m2 LV Mass: 222.77 67-162/88-224 g LV Mass Index: 110.28 43-95/49-115 g/m2 LVOT Diam: 1.80 3.0+(-)1.3 cm 2D Systolic Function EF 4C: 64.00 >55% Mitral Valve MV Pk E: 1.16 MV PK A: 0.78 MV Decel Time: 155.00 E/A: 1.50 E'Lateral: 10.80 E'Medial: 7.40 E/E' Med: 15.70 E/E' Lat: 10.70 PHT: 45.00 MVA PHT: 4.89 Decel Geary: 7.49 Aortic Valve AoV Pk Tommy: 1.55 AoV Pk Grad: 10.00 DANIEL: 2.18 LVOT LVOT Pk Tommy: 1.33 LVOT Mn Tommy: 0.88 LVOT VTI: 0.24 LVOT Pk Grad: 7.00 LVOT Mn Grad: 4.00 LVOT Diam: 1.80 LVOT Area: 2.54 Diastolic Function MV Pk E: 1.16 MV Pk A: 0.78 E/A: 1.50 E'Medial: 7.40 E/E' Med: 15.70 E' Laterial: 10.80 E/E' Lat: 10.70 Right Ventricle TAPSE (mm): 16.60 TVS' Tommy: 8.70 Tricuspid Valve TR Pk Tommy: 2.58 TR Pk Grad: 27.00 RA Press: 15.00 RVSP: 42.00 Great Vessels Aorta Sinus of Valsalva: 2.40 2.0-3.5 cm Ao Asc: 2.70 2.1-3.4 cm Pulmonary Veins Pulm Vein S/D 0.70 Pulmonary Valve PV Pk Tommy: 1.04 Peak PV Grad: 4.00 Updated in Other Vendor System with Status of Final Boogie Cartagena MD electronically signed on 09/10/2022 3:51:21 PM with status of Final
[2022-09-10 07:16] LABS: Thyroid Stimulating Hormone 4.69 uIU/mL (0.32-4.0)
[2022-09-10] MEDS: ondansetron HCL 4 MG/2 ML VIAL IVPUSH ×2 (08:12→16:15)
[2022-09-10] MEDS: 0.9 % Sodium Chloride Flush 3 ML SYRINGE IVFLUSH ×2 (08:14→16:15)
[2022-09-10 08:21] LABS: Glucose, Whole Blood 78 mg/dL (60-115)
[2022-09-10 08:27] LABS: Anion Gap 19 (12-20); Blood Urea Nitrogen 62 mg/dL (9-16); Calcium 6.3 mg/dL (8.4-10.2); Carbon Dioxide 17 mmol/L (22-29); Chloride 111 mmol/L (96-108); Creatinine Clr Calc Pharmacy 18.4; Estimated Glomerular Filt Rate 11; Glucose Random 76 mg/dL (60-115); Potassium 4.5 mmol/L (3.3-5.1); Sodium 142 mmol/L (135-145)
[2022-09-10 08:37] LABS: Hematocrit 24.5 % (37.0-47.0); Hemoglobin 7.6 g/dl (12.0-16.0); Mean Corpuscular Hemoglobin 27.4 pg (27.0-33.0); Mean Corpuscular Volume 88.4 fL (80.0-98.0); Mean Platelet Volume 9.8 fL (9.4-12.3); Platelet Count 283 X10*3/uL (160-400); Red Blood Count 2.77 X10*6/uL (4.20-5.50); Red Cell Distribution Width 14.8 % (11.0-16.0); White Blood Count 3.7 X10*3/uL (4.8-10.8)
[2022-09-10] MEDS: hydrALAZINE HCl 50 MG TABLET PO (08:59)
[2022-09-10] MEDS: Sodium Zirconium Cyclosilicate 10 GM POWD.PACK PO (08:59)
[2022-09-10] MEDS: Sertraline HCL 50 MG TABLET PO (09:00)
[2022-09-10] MEDS: Gabapentin 300 MG CAPSULE PO (09:00)
[2022-09-10] MEDS: Losartan Potassium 25 MG TABLET PO (09:00)
[2022-09-10] MEDS: Atorvastatin Calcium 80 MG TABLET PO (09:00)
[2022-09-10] MEDS: NIFEdipine ER 90 MG TAB.ER.24 PO (09:00)
[2022-09-10] MEDS: Bumetanide 1 MG/4 ML VIAL 2 MG IVPUSH ×2 (09:00→16:16)
[2022-09-10] MEDS: amLODIPine Besylate 10 MG TABLET PO (09:02)
--- NOTE | 2022-09-10 11:05 | PM.PNNEP ---
Subjective Subjective Date of Service: 09/10/22 Interval history: seen and examined complains of nausea and lower extremity edema Physical Exam Vital Signs: Vital Signs: Last Vital Signs Temp 98.6 F 09/10/22 07:47 Pulse 90 09/10/22 07:47 Resp 18 09/10/22 07:47 BP 196/94 H 09/10/22 07:47 Pulse Ox 98 09/10/22 07:47 O2 Del Method 09/10/22 04:53 O2 Flow Rate 95 09/09/22 18:43 BMI result Body Mass Index 41.5 Const: General: no acute distress HEENT: Head: Yes normocephalic and Yes atraumatic Neck: Neck: Yes supple Resp: Auscultation: diminished lung sounds Cardio: Heart sounds: S1 normal heart sound present and S2 normal heart sound present GI: Palpation (GI): Soft to palpation and nontender Extrem: General: Yes edema Objective Data Labs 09/10/22 06:17 09/10/22 06:17 Labs: Laboratory Results - last 24 hr 09/09/22 09/09/22 09/09/22 11:44 12:56 18:22 WBC RBC Hgb Hct MCV MCH MCHC RDW Plt Count MPV Absolute Nucleated RBC Nucleated RBC % (auto) Sodium Potassium Chloride Carbon Dioxide Anion Gap BUN Creatinine Estim Creat Clear Calc Estimated GFR POC Glucose 93 99 Random Glucose Calcium TSH Blood Type B Positive Antibody Screen NEGATIVE Crossmatch See Detail 09/09/22 09/09/22 09/10/22 18:47 22:27 06:17 WBC RBC Hgb Hct MCV MCH MCHC RDW Plt Count MPV Absolute Nucleated RBC Nucleated RBC % (auto) Sodium 142 Potassium 4.5 Chloride 111 H Carbon Dioxide 17 L Anion Gap 19 BUN 62 H Creatinine 4.55 H* Estim Creat Clear Calc 18.4 Estimated GFR 11 POC Glucose 106 96 Random Glucose 76 Calcium 6.3 L D TSH 4.69 H Blood Type Antibody Screen Crossmatch 09/10/22 09/10/22 06:17 07:57 WBC 3.7 L RBC 2.77 L Hgb 7.6 L Hct 24.5 L MCV 88.4 MCH 27.4 MCHC 31.0 RDW 14.8 Plt Count 283 MPV 9.8 Absolute Nucleated RBC 0.000 Nucleated RBC % (auto) 0.0 Sodium Potassium Chloride Carbon Dioxide Anion Gap BUN Creatinine Estim Creat Clear Calc Estimated GFR POC Glucose 78 Random Glucose Calcium TSH Blood Type Antibody Screen Crossmatch Microbiology Microbiology Results: Microbiology 09/09/22 Unknown Urine clean catch - Urine guzmán top Urine Culture - Final Procedures Date of Service Date of Service: 09/10/22 Assessment & Plan Assessment and plan (1) AMISHA (acute kidney injury): Status: Acute (2) Hyperkalemia: Status: Acute (3) (HFpEF) heart failure with preserved ejection fraction: Status: Acute (4) HTN (hypertension): Status: Acute (5) CKD (chronic kidney disease) stage 4, GFR 15-29 ml/min: Status: Acute Plan Scr better multifactorial AMISHA: -acute hypertensive nephrosclerosis -renal hypoperfusion in the setting of CHF decompensation cannot also exclude progression of underlying CKD suspect type 3 cardio renal syndrome HFpEF volume status above dry weight known severe CKD due to hypertensive and diabetic kidney disease baseline Scr ~ 3.5 mg/dl followed by Dr Gilbert elevated serum potassium due to poor distal flow and metabolic acidosis anemia due to CKD will require KWAN iron profile showed low iron saturation high BP REC venofer 100 mg IV ordered increased hydralazine 75 mg tid sodium bicarbonate 650 mg bid bumetanide 2 mg IV bid sodium zirconium protect non dominant arm follow kidney function and electrolytes Time Spent With Patient Time: Total time managing care of this patient today ____ minutes. Progress Note: Quality Stroke Does the patient have a stroke diagnosis?: No
[2022-09-10 11:47] LABS: Glucose, Whole Blood 103 mg/dL (60-115)
[2022-09-10] MEDS: Iron Sucrose Complex 100 MG in 0.9 % Sodium Chloride 50 ML 220 MG IV (13:35)
--- NOTE | 2022-09-10 13:54 | HO.PM.IMPN ---
Subjective Subjective Date of Service: 09/10/22 Interval History: f/u AMISHA on CKD, fluid overload and uncontrolled HTN She is c/o nausea this morning, no apetite, generalized pain Physical Exam Vital Signs: Vital Signs: Last Vital Signs Temp 98.6 F 09/10/22 07:47 Pulse 90 09/10/22 07:47 Resp 18 09/10/22 07:47 BP 196/94 H 09/10/22 07:47 Pulse Ox 98 09/10/22 07:47 O2 Del Method 09/10/22 04:53 O2 Flow Rate 95 09/09/22 18:43 BMI result Body Mass Index 41.5 Const: Other: General: AO X 3, no acute distress Resp: CTA bilateral CVS: S1,S2,RRR, 3+ very tense edema GI: +BS, NT, no distention Skin: No rash Neuro: motor grossly intact Psych: appropriate affect Neck: Neck: Yes supple Objective Data Active Medications Acetaminophen (Acetaminophen 325 Mg Tablet) 650 mg PO Q6H PRN PRN Reason: Pain, Mild (Pain Scale 1-3) Amlodipine Besylate (Amlodipine Besylate 10 Mg Tablet) 10 mg PO DAILY [facility]; Protocol Last Admin: 09/10/22 09:02 Dose: 10 mg Documented By: MYRTLE Atorvastatin Calcium (Atorvastatin Calcium 80 Mg Tablet) 80 mg PO DAILY [facility] Last Admin: 09/10/22 09:00 Dose: 80 mg Documented By: MYRTLE Bumetanide (Bumetanide 1 Mg/4 Ml Vial) 2 mg IVPUSH BID@0900,1700 [facility]; Protocol Last Admin: 09/10/22 09:00 Dose: 2 mg Documented By: MYRTLE Bumetanide (Bumetanide 1 Mg Tablet) 2 mg PO DAILY [facility]; Protocol Last Admin: 09/10/22 09:03 Dose: Not Given Documented By: MYRTLE Non-Admin Reason: given iv Dextrose (Dextrose 50 % 25 Gm/50 Ml Syringe) 25 gm IVPUSH Q15M PRN; Protocol PRN Reason: per Hypoglycemia Standing Ord. Empagliflozin (Empagliflozin 25 Mg Tablet) 25 mg PO DAILY [facility] Last Admin: 09/10/22 09:05 Dose: Not Given Documented By: MYRTLE Non-Admin Reason: lwo bs Enoxaparin Sodium (Enoxaparin Sodium 30 Mg/0.3 Ml Syringe) 30 mg SUBCUT BEDTIME [facility] Last Admin: 09/09/22 21:55 Dose: 30 mg Documented By: RAMONITA Famotidine (Famotidine 20 Mg Tablet) 20 mg PO BID PRN PRN Reason: indigestion Gabapentin (Gabapentin 300 Mg Capsule) 300 mg PO DAILY [facility] Last Admin: 09/10/22 09:00 Dose: 300 mg Documented By: MYRTLE Glipizide (Glipizide 5 Mg Tablet) 5 mg PO BID [facility] Last Admin: 09/10/22 09:07 Dose: Not Given Documented By: MYRTLE Non-Admin Reason: low bs Glucose (Glucose Gel 15 Gm Gel..Gram.) 15 gm PO Q15M PRN; Protocol PRN Reason: per Hypoglycemia Standing Ord. Hydralazine HCl (Hydralazine Hcl 25 Mg Tablet) 75 mg PO TID [facility]; Protocol Insulin Human Lispro (Insulin Lispro 100 Unit/Ml 3 Ml Vial) 0 unit SUBCUT QIDACHS [facility]; Protocol Last Admin: 09/10/22 12:04 Dose: Not Given Documented By: MYRTLE Non-Admin Reason: No Insulin Coverage Losartan Potassium (Losartan Potassium 25 Mg Tablet) 25 mg PO DAILY [facility]; Protocol Last Admin: 09/10/22 09:00 Dose: 25 mg Documented By: MYRTLE Melatonin (Melatonin 3 Mg Tablet) 6 mg PO BEDTIME PRN PRN Reason: Insomnia Last Admin: 09/09/22 21:55 Dose: 6 mg Documented By: RAMONITA Nifedipine (Nifedipine Er 90 Mg Tab.Er.24) 90 mg PO DAILY [facility]; Protocol Last Admin: 09/10/22 09:00 Dose: 90 mg Documented By: MYRTLE Ondansetron HCl (Ondansetron Hcl 4 Mg/2 Ml Vial) 4 mg IVPUSH Q8H PRN PRN Reason: Nausea and Vomiting Last Admin: 09/10/22 08:12 Dose: 4 mg Documented By: MYRTLE Oxycodone HCl (Oxycodone Hcl Immed Release 5 Mg Tablet) 5 mg PO Q6H PRN PRN Reason: Pain, Severe (Pain Scale 7-10) Last Admin: 09/09/22 21:55 Dose: 5 mg Documented By: RAMONITA Pharmacy Consult (Consult Rx Perform Med Rec) 1 each MISCELLANE ONCE PRN PRN Reason: Consult order Sertraline HCl (Sertraline Hcl 50 Mg Tablet) 50 mg PO DAILY [facility] Last Admin: 09/10/22 09:00 Dose: 50 mg Documented By: MYRTLE Sodium Bicarbonate (Sodium Bicarbonate 650 Mg Tablet) 650 mg PO BID [facility] Sodium Chloride (0.9 % Sodium Chloride Flush 3 Ml Syringe) 3 ml IVFLUSH QSHIFT [facility] Last Admin: 09/10/22 08:14 Dose: 3 ml Documented By: MYRTLE Sodium Zirconium Cyclosilicate (Sodium Zirconium Cyclosilicate 10 Gm Powd.Pack) 10 gm PO DAILY [facility] Last Admin: 09/10/22 08:59 Dose: 10 gm Documented By: MYRTLE Labs 09/10/22 06:17 09/10/22 06:17 Labs: Laboratory Results - last 24 hr 09/09/22 09/09/22 09/09/22 11:44 18:22 18:47 MCV MCH MCHC RDW Plt Count MPV Absolute Nucleated RBC Nucleated RBC % (auto) Anion Gap Estim Creat Clear Calc Estimated GFR POC Glucose 99 106 Random Glucose Calcium TSH Blood Type B Positive Antibody Screen NEGATIVE Crossmatch See Detail 09/09/22 09/10/22 09/10/22 22:27 06:17 06:17 MCV 88.4 MCH 27.4 MCHC 31.0 RDW 14.8 Plt Count 283 MPV 9.8 Absolute Nucleated RBC 0.000 Nucleated RBC % (auto) 0.0 Anion Gap 19 Estim Creat Clear Calc 18.4 Estimated GFR 11 POC Glucose 96 Random Glucose 76 Calcium 6.3 L D TSH 4.69 H Blood Type Antibody Screen Crossmatch 09/10/22 09/10/22 07:57 11:33 MCV MCH MCHC RDW Plt Count MPV Absolute Nucleated RBC Nucleated RBC % (auto) Anion Gap Estim Creat Clear Calc Estimated GFR POC Glucose 78 103 Random Glucose Calcium TSH Blood Type Antibody Screen Crossmatch Microbiology Microbiology Results: Microbiology 09/09/22 Unknown Urine Culture - Final Urine clean catch - Urine guzmán top Assessment and Plan (1) CKD (chronic kidney disease) stage 4, GFR 15-29 ml/min: Status: Acute (2) HTN (hypertension): Status: Acute (3) (HFpEF) heart failure with preserved ejection fraction: Status: Acute Plan This is a 41-year-old female with pertinent history of CKD stage 4, congestive heart failure with preserved ejection fraction, essential hypertension, insulin-dependent diabetes mellitus, anemia of CKD, essential hypertension who presents to the emergency department for evaluation of generalized body swelling. #. Anasarca in a patient with: #. Acute on chronic congestive heart failure with preserved ejection fraction - due to medication noncompliance. continue Bumex IV. Strict I's and O's. Low-salt diet. Monitor weight, thus far negative 430 - CT abdomen confirmed anasarca, no other acute finding..Cardiology to help with management #. Acute kidney injury on CKD stage 4: Monitor urine output and creatinine with diuresis. Nephrology input noted, Urine studies; renal ultrasound normal #. Hyperkalemia: resolved #. [id number] diabetes mellitus with hyperglycemia: A1c = 5.8, ISS #. essential hypertension with is difficult to control on multiple meds (Bumex, amlodipine 10, losartan 25, Hydralazine 75 tid,)..Increase hydralazine to 100 tid and consider adding BB, #. anemia of CKD of likely chronic disease, s/p 1 unit of RBC on 09/09 with good effect Med rec pending DVT prophylaxis: Lovenox 30 mg daily Full code Low-salt diet Admit as inpatient and will require two night minimum hospital stay for IV diuresis Time Spent With Patient Time: Total time managing care of this patient today ____ minutes. Quality Stroke Does the patient have a stroke diagnosis?: No VTE Prior VTE?: No VTE Risk Level:: Medical - moderate - high VTE Device Contraindication: Treatment Not Indicated VTE Drug Contraindication: N/A - Med Ordered
--- NOTE | 2022-09-10 16:09 | P.CONCA_ITS ---
History of Present Illness History of Present Illness Date of Service: 09/10/22 Requesting physician: Damion Walton Chief complaint: Generalized body swelling Narrative: 41-year-old female who has history of chronic kidney disease, hypertension and diabetes presenting with significant edema, shortness of breath and abdominal pain. She has abdominal distension in complaining of generalized pain in the abdomen. She appears whole body volume overloaded. She is saying she has been experiencing shortness of breath when she is walking or going up stairs. Also on occasion she fakes of from sleep panicking which appears to be orthopnea. Blood pressure is significantly elevated despite taking multiple medications. She is anemic. She also has failure vascular disease. Nephrology is following him. She is on multiple medication and blood pressure control is not optimal. 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, managed as type 2 Social History Social History Household Members: Family Housing: Apartment Do you presently have visiting nurse or other home services: No Unable to assess alcohol history related to: Unknown Alcohol intake: never Patient Tobacco Use Status: Never used Tobacco Substance Use Type: Marijuana service: No Current occupational status: employed Meds Allergies Allergy/AdvReac Type Severity Reaction Status Date / Time No Known Allergies Allergy Verified 09/08/22 21:15 [No Known Allergies*] Active Medications: Current Medications Acetaminophen (Acetaminophen 325 Mg Tablet) 650 mg PO Q6H PRN PRN Reason: Pain, Mild (Pain Scale 1-3) Amlodipine Besylate (Amlodipine Besylate 10 Mg Tablet) 10 mg PO DAILY [facility]; Protocol Last Admin: 09/10/22 09:02 Dose: 10 mg Atorvastatin Calcium (Atorvastatin Calcium 80 Mg Tablet) 80 mg PO DAILY [facility] Last Admin: 09/10/22 09:00 Dose: 80 mg Bumetanide (Bumetanide 1 Mg/4 Ml Vial) 2 mg IVPUSH BID@0900,1700 [facility]; Protocol Last Admin: 09/10/22 09:00 Dose: 2 mg Dextrose (Dextrose 50 % 25 Gm/50 Ml Syringe) 25 gm IVPUSH Q15M PRN; Protocol PRN Reason: per Hypoglycemia Standing Ord. Empagliflozin (Empagliflozin 25 Mg Tablet) 25 mg PO DAILY [facility] Last Admin: 09/10/22 09:05 Dose: Not Given Enoxaparin Sodium (Enoxaparin Sodium 30 Mg/0.3 Ml Syringe) 30 mg SUBCUT BEDTIME [facility] Last Admin: 09/09/22 21:55 Dose: 30 mg Famotidine (Famotidine 20 Mg Tablet) 20 mg PO BID PRN PRN Reason: indigestion Gabapentin (Gabapentin 300 Mg Capsule) 300 mg PO DAILY [facility] Last Admin: 09/10/22 09:00 Dose: 300 mg Glipizide (Glipizide 5 Mg Tablet) 5 mg PO BID [facility] Last Admin: 09/10/22 09:07 Dose: Not Given Glucose (Glucose Gel 15 Gm Gel..Gram.) 15 gm PO Q15M PRN; Protocol PRN Reason: per Hypoglycemia Standing Ord. Hydralazine HCl (Hydralazine Hcl 50 Mg Tablet) 100 mg PO TID [facility]; Protocol Insulin Human Lispro (Insulin Lispro 100 Unit/Ml 3 Ml Vial) 0 unit SUBCUT QIDACHS [facility]; Protocol Last Admin: 09/10/22 12:04 Dose: Not Given Losartan Potassium (Losartan Potassium 25 Mg Tablet) 25 mg PO DAILY [facility]; Protocol Last Admin: 09/10/22 09:00 Dose: 25 mg Melatonin (Melatonin 3 Mg Tablet) 6 mg PO BEDTIME PRN PRN Reason: Insomnia Last Admin: 09/09/22 21:55 Dose: 6 mg Nifedipine (Nifedipine Er 90 Mg Tab.Er.24) 90 mg PO DAILY [facility]; Protocol Last Admin: 09/10/22 09:00 Dose: 90 mg Ondansetron HCl (Ondansetron Hcl 4 Mg/2 Ml Vial) 4 mg IVPUSH Q8H PRN PRN Reason: Nausea and Vomiting Last Admin: 09/10/22 08:12 Dose: 4 mg Oxycodone HCl (Oxycodone Hcl Immed Release 5 Mg Tablet) 5 mg PO Q6H PRN PRN Reason: Pain, Severe (Pain Scale 7-10) Last Admin: 09/09/22 21:55 Dose: 5 mg Pharmacy Consult (Consult Rx Perform Med Rec) 1 each MISCELLANE ONCE PRN PRN Reason: Consult order Sertraline HCl (Sertraline Hcl 50 Mg Tablet) 50 mg PO DAILY [facility] Last Admin: 09/10/22 09:00 Dose: 50 mg Sodium Bicarbonate (Sodium Bicarbonate 650 Mg Tablet) 650 mg PO BID [facility] Sodium Chloride (0.9 % Sodium Chloride Flush 3 Ml Syringe) 3 ml IVFLUSH QSHIFT [facility] Last Admin: 09/10/22 08:14 Dose: 3 ml Sodium Zirconium Cyclosilicate (Sodium Zirconium Cyclosilicate 10 Gm Powd.Pack) 10 gm PO DAILY [facility] Last Admin: 09/10/22 08:59 Dose: 10 gm Home Medications Medication Instructions Recorded Confirmed Last Taken Type famotidine 20 mg tablet 1 tab PO BID PRN indigestion 07/12/22 09/09/22 Unknown History atorvastatin 80 mg tablet 80 mg PO DAILY 09/09/22 09/09/22 Unknown History bumetanide 2 mg tablet 2 mg PO DAILY 09/09/22 09/09/22 Unknown History empagliflozin 25 mg tablet 25 mg PO DAILY 09/09/22 09/09/22 Unknown History (Jardiance) gabapentin 300 mg capsule 300 mg PO DAILY 09/09/22 09/09/22 Unknown History losartan 25 mg tablet 25 mg PO DAILY 09/09/22 09/09/22 Unknown History nifedipine 90 mg tablet,extended 90 mg PO DAILY 09/09/22 09/09/22 Unknown History release 24 hr sertraline 50 mg tablet 50 mg PO DAILY 09/09/22 09/09/22 Unknown History Physical Exam Vital Signs: Vital Signs: Last Vital Signs Temp 98.7 F 09/10/22 16:00 Pulse 80 09/10/22 16:00 Resp 18 09/10/22 16:00 BP 115/59 L 09/10/22 16:00 Pulse Ox 95 09/10/22 16:02 O2 Del Method 09/10/22 16:02 O2 Flow Rate 2 09/10/22 16:02 BMI result Body Mass Index 41.5 GENERAL APPEARANCE: in no acute distress, pleasant. NECK: no carotid bruit, positive jugular venous distention. SKIN: no suspicious lesions, warm and dry. HEART: no murmurs, regular rate and rhythm. LUNGS: clear to auscultation bilaterally. ABDOMEN: soft, nontender. Mildly distended. EXTREMITIES: no edema. PERIPHERAL PULSES: equal. NEUROLOGIC: No gross deficits, AAO X 3 Objective Labs and Meds 09/10/22 06:17 09/10/22 06:17 Lab results: Laboratory Results - last 24 hr 09/09/22 09/09/22 09/09/22 11:44 18:22 18:47 WBC RBC Hgb Hct MCV MCH MCHC RDW Plt Count MPV Absolute Nucleated RBC Nucleated RBC % (auto) Sodium Potassium Chloride Carbon Dioxide Anion Gap BUN Creatinine Estim Creat Clear Calc Estimated GFR POC Glucose 99 106 Random Glucose Calcium TSH Crossmatch See Detail 09/09/22 09/10/22 09/10/22 22:27 06:17 06:17 WBC 3.7 L RBC 2.77 L Hgb 7.6 L Hct 24.5 L MCV 88.4 MCH 27.4 MCHC 31.0 RDW 14.8 Plt Count 283 MPV 9.8 Absolute Nucleated RBC 0.000 Nucleated RBC % (auto) 0.0 Sodium 142 Potassium 4.5 Chloride 111 H Carbon Dioxide 17 L Anion Gap 19 BUN 62 H Creatinine 4.55 H* Estim Creat Clear Calc 18.4 Estimated GFR 11 POC Glucose 96 Random Glucose 76 Calcium 6.3 L D TSH 4.69 H Crossmatch 09/10/22 09/10/22 07:57 11:33 WBC RBC Hgb Hct MCV MCH MCHC RDW Plt Count MPV Absolute Nucleated RBC Nucleated RBC % (auto) Sodium Potassium Chloride Carbon Dioxide Anion Gap BUN Creatinine Estim Creat Clear Calc Estimated GFR POC Glucose 78 103 Random Glucose Calcium TSH Crossmatch Assessment and Plan (1) HTN (hypertension): Status: Acute (2) (HFpEF) heart failure with preserved ejection fraction: Status: Acute Plan 41-year-old female with advanced CKD, hypertension and diabetes presenting with significant volume overload. Clinically she has heart failure. I thing underlying issue is uncontrolled hypertension. She is on multiple medications right now. I think she is hypervolemic and diuresing her aggressively may help her dyspnea and potentially blood pressure also. Give metolazone 5 mg in addition to Bumex. If she does not respond to this regimen then probably will require Bumex drip. Agree with titrating hydralazine to 100 t.i.d.. I would avoid clonidine in this patient if reach a point of addition of another medication because I am not sure about compliance and withdrawal can be problematic with significantly elevated blood pressures which artery quite high. ECHO is showing [id number] RV dysfunction. I think we diurese her and reassess the right ventricular function later. She has has any Julia chronic disease. She has been started on Venofer. She is on amlodipine and nifedipine. Ideally should be on 1. Time Spent With Patient Time: Total time managing care of this patient today ____ minutes. Procedures Date of Service Date of Service: 09/10/22
[2022-09-10 16:13] LABS: Glucose, Whole Blood 127 mg/dL (60-115)
[2022-09-10] MEDS: hydrALAZINE HCl 50 MG TABLET 100 MG PO ×2 (16:15→22:12)
[2022-09-10] MEDS: metOLazone 5 MG TABLET PO (17:08)
[2022-09-10] MEDS: Sodium Bicarbonate 650 MG TABLET PO (22:12)
[2022-09-10] MEDS: Enoxaparin Sodium 30 MG/0.3 ML SYRINGE SUBCUT (22:12)
[2022-09-10] MEDS: glipiZIDE 5 MG TABLET PO (22:12)
[2022-09-10 22:38] LABS: Glucose, Whole Blood 130 mg/dL (60-115)
[2022-09-11] VITALS (7 sets, daily range): BP systolic 90–140; BP diastolic 49–77; PULSE 72–78; RESP 12–18; TEMP 36.4–37.1; O2SAT 91–98
[2022-09-11] MEDS: 0.9 % Sodium Chloride Flush 3 ML SYRINGE IVFLUSH ×3 (00:46→15:57)
[2022-09-11 07:23] LABS: Glucose, Whole Blood 71 mg/dL (60-115)
[2022-09-11] MEDS: Sodium Bicarbonate 650 MG TABLET PO ×2 (09:11→21:30)
[2022-09-11] MEDS: Bumetanide 1 MG/4 ML VIAL 2 MG IVPUSH ×2 (09:11→17:15)
[2022-09-11] MEDS: Sertraline HCL 50 MG TABLET PO (09:11)
[2022-09-11] MEDS: glipiZIDE 5 MG TABLET PO (09:11)
[2022-09-11] MEDS: Atorvastatin Calcium 80 MG TABLET PO (09:11)
[2022-09-11] MEDS: hydrALAZINE HCl 50 MG TABLET 100 MG PO ×3 (09:11→21:30)
[2022-09-11] MEDS: amLODIPine Besylate 10 MG TABLET PO (09:11)
[2022-09-11] MEDS: NIFEdipine ER 90 MG TAB.ER.24 PO (09:11)
[2022-09-11] MEDS: Sodium Zirconium Cyclosilicate 10 GM POWD.PACK PO (09:11)
[2022-09-11] MEDS: Gabapentin 300 MG CAPSULE PO (09:11)
[2022-09-11] MEDS: Empagliflozin 25 MG TABLET PO (09:11)
[2022-09-11] MEDS: Losartan Potassium 25 MG TABLET PO (09:11)
[2022-09-11 09:12] LABS: Anion Gap 17 (12-20); Blood Urea Nitrogen 64 mg/dL (9-16); Calcium 6.2 mg/dL (8.4-10.2); Carbon Dioxide 19 mmol/L (22-29); Chloride 111 mmol/L (96-108); Creatinine Clr Calc Pharmacy 17.4; Estimated Glomerular Filt Rate 10; Glucose Random 66 mg/dL (60-115); Potassium 4.7 mmol/L (3.3-5.1); Sodium 142 mmol/L (135-145)
--- NOTE | 2022-09-11 10:16 | P.PNIM_ITS ---
Subjective Subjective Date of Service: 09/11/22 Interval History: f/u AMISHA on CKD, fluid overload and uncontrolled HTN She feels a little better today, blood pressure is much better, fluid balance is + Physical Exam Vital Signs: Vital Signs: Last Vital Signs Temp 97.6 F 09/11/22 07:17 Pulse 72 09/11/22 07:17 Resp 18 09/11/22 07:17 BP 136/65 09/11/22 07:17 Pulse Ox 98 09/11/22 07:17 O2 Del Method 09/11/22 07:17 O2 Flow Rate 2 09/11/22 07:17 BMI result Body Mass Index 41.5 Const: Other: General: AO X 3, no acute distress Resp: CTA bilateral CVS: S1,S2,RRR, 3+ very tense edema GI: +BS, NT, no distention Skin: No rash Neuro: motor grossly intact Psych: appropriate affect Objective Data Active Medications Acetaminophen (Acetaminophen 325 Mg Tablet) 650 mg PO Q6H PRN PRN Reason: Pain, Mild (Pain Scale 1-3) Amlodipine Besylate (Amlodipine Besylate 10 Mg Tablet) 10 mg PO DAILY [facility]; Protocol Last Admin: 09/11/22 09:11 Dose: 10 mg Documented By: KARLIE Atorvastatin Calcium (Atorvastatin Calcium 80 Mg Tablet) 80 mg PO DAILY [facility] Last Admin: 09/11/22 09:11 Dose: 80 mg Documented By: KARLIE Bumetanide (Bumetanide 1 Mg/4 Ml Vial) 2 mg IVPUSH BID@0900,1700 [facility]; Protocol Last Admin: 09/11/22 09:11 Dose: 2 mg Documented By: KARLIE Dextrose (Dextrose 50 % 25 Gm/50 Ml Syringe) 25 gm IVPUSH Q15M PRN; Protocol PRN Reason: per Hypoglycemia Standing Ord. Empagliflozin (Empagliflozin 25 Mg Tablet) 25 mg PO DAILY [facility] Last Admin: 09/11/22 09:11 Dose: 25 mg Documented By: KARLIE Enoxaparin Sodium (Enoxaparin Sodium 30 Mg/0.3 Ml Syringe) 30 mg SUBCUT BEDTIME [facility] Last Admin: 09/10/22 22:12 Dose: 30 mg Documented By: DOBROB Famotidine (Famotidine 20 Mg Tablet) 20 mg PO BID PRN PRN Reason: indigestion Gabapentin (Gabapentin 300 Mg Capsule) 300 mg PO DAILY [facility] Last Admin: 09/11/22 09:11 Dose: 300 mg Documented By: KARLIE Glipizide (Glipizide 5 Mg Tablet) 5 mg PO BID [facility] Last Admin: 09/11/22 09:11 Dose: 5 mg Documented By: KARLIE Glucose (Glucose Gel 15 Gm Gel..Gram.) 15 gm PO Q15M PRN; Protocol PRN Reason: per Hypoglycemia Standing Ord. Hydralazine HCl (Hydralazine Hcl 50 Mg Tablet) 100 mg PO TID [facility]; Protocol Last Admin: 09/11/22 09:11 Dose: 100 mg Documented By: KARLIE Insulin Human Lispro (Insulin Lispro 100 Unit/Ml 3 Ml Vial) 0 unit SUBCUT QIDACHS [facility]; Protocol Last Admin: 09/11/22 08:42 Dose: Not Given Documented By: KARLIE Non-Admin Reason: No Insulin Coverage Losartan Potassium (Losartan Potassium 25 Mg Tablet) 25 mg PO DAILY [facility]; Protocol Last Admin: 09/11/22 09:11 Dose: 25 mg Documented By: KARLIE Melatonin (Melatonin 3 Mg Tablet) 6 mg PO BEDTIME PRN PRN Reason: Insomnia Last Admin: 09/09/22 21:55 Dose: 6 mg Documented By: RAMONITA Nifedipine (Nifedipine Er 90 Mg Tab.Er.24) 90 mg PO DAILY [facility]; Protocol Last Admin: 09/11/22 09:11 Dose: 90 mg Documented By: KARLIE Ondansetron HCl (Ondansetron Hcl 4 Mg/2 Ml Vial) 4 mg IVPUSH Q8H PRN PRN Reason: Nausea and Vomiting Last Admin: 09/10/22 16:15 Dose: 4 mg Documented By: ANDREW Oxycodone HCl (Oxycodone Hcl Immed Release 5 Mg Tablet) 5 mg PO Q6H PRN PRN Reason: Pain, Severe (Pain Scale 7-10) Last Admin: 09/09/22 21:55 Dose: 5 mg Documented By: RAMONITA Pharmacy Consult (Consult Rx Perform Med Rec) 1 each MISCELLANE ONCE PRN PRN Reason: Consult order Sertraline HCl (Sertraline Hcl 50 Mg Tablet) 50 mg PO DAILY [facility] Last Admin: 09/11/22 09:11 Dose: 50 mg Documented By: KARLIE Sodium Bicarbonate (Sodium Bicarbonate 650 Mg Tablet) 650 mg PO BID [facility] Last Admin: 09/11/22 09:11 Dose: 650 mg Documented By: KARLIE Sodium Chloride (0.9 % Sodium Chloride Flush 3 Ml Syringe) 3 ml IVFLUSH QSHIFT [facility] Last Admin: 09/11/22 09:12 Dose: 3 ml Documented By: KARLIE Sodium Zirconium Cyclosilicate (Sodium Zirconium Cyclosilicate 10 Gm Powd.Pack) 10 gm PO DAILY [facility] Last Admin: 09/11/22 09:11 Dose: 10 gm Documented By: KARLIE Labs 09/10/22 06:17 09/11/22 08:14 Labs: Laboratory Results - last 24 hr 09/10/22 09/10/22 09/10/22 11:33 16:09 21:09 Anion Gap Estim Creat Clear Calc Estimated GFR POC Glucose 103 127 H 130 H Random Glucose Calcium 09/11/22 09/11/22 07:11 08:14 Anion Gap 17 Estim Creat Clear Calc 17.4 Estimated GFR 10 POC Glucose 71 Random Glucose 66 Calcium 6.2 L Microbiology Microbiology Results: Microbiology 09/09/22 Unknown Urine Culture - Final Urine clean catch - Urine guzmán top Assessment and Plan (1) CKD (chronic kidney disease) stage 4, GFR 15-29 ml/min: Status: Acute (2) HTN (hypertension): Status: Acute (3) (HFpEF) heart failure with preserved ejection fraction: Status: Acute Plan This is a 41-year-old female with pertinent history of CKD stage 4, congestive heart failure with preserved ejection fraction, essential hypertension, insulin- dependent diabetes mellitus, anemia of CKD, essential hypertension who presents to the emergency department for evaluation of generalized body swelling. #. Anasarca in a patient with: #. Acute on chronic congestive heart failure with preserved ejection fraction - due to medication noncompliance with uncontrolled. continue Bumex IV. Strict I's and O's. Low-salt diet. Monitor weight, thus far positive fluid balna - CT abdomen confirmed anasarca, no other acute finding..Cardiology and Nephrology helping with management with discussed possible diuretics drip at this point #. Acute kidney injury on CKD stage 4: Monitor urine output and creatinine with diuresis. Nephrology input noted, Urine studies; renal ultrasound normal, Cr slightly worse today #. Hyperkalemia: resolved #. [id number] diabetes mellitus with hyperglycemia: A1c = 5.8, ISS #. essential hypertension with is difficult to control on multiple meds (Bumex, amlodipine 10, losartan 25, Hydralazine 75 tid,)..Increased hydralazine to 100 tid and consider adding BB as next step. Clonidine to be avoided per cardiology #. anemia of CKD of likely chronic disease, s/p 1 unit of RBC on 09/09 with good effect DVT prophylaxis: Lovenox 30 mg daily Full code Low-salt diet Admit as inpatient and will require two night minimum hospital stay for IV diuresis Time Spent With Patient Time: Total time managing care of this patient today ____ minutes. Quality Stroke Does the patient have a stroke diagnosis?: No VTE Prior VTE?: No VTE Risk Level:: Medical - moderate - high VTE Device Contraindication: Treatment Not Indicated VTE Drug Contraindication: N/A - Med Ordered
[2022-09-11 10:58] LABS: Glucose, Whole Blood 104 mg/dL (60-115)
--- NOTE | 2022-09-11 11:16 | PM.PNNEP ---
Subjective Subjective Date of Service: 09/11/22 Interval history: seen and examined feels better d/w medical attending Physical Exam Vital Signs: Vital Signs: Last Vital Signs Temp 97.6 F 09/11/22 07:17 Pulse 72 09/11/22 07:17 Resp 18 09/11/22 07:17 BP 136/65 09/11/22 07:17 Pulse Ox 98 09/11/22 07:17 O2 Del Method 09/11/22 07:17 O2 Flow Rate 2 09/11/22 07:17 BMI result Body Mass Index 41.5 Const: General: no acute distress HEENT: Head: Yes normocephalic and Yes atraumatic Neck: Neck: Yes supple Resp: Auscultation: diminished lung sounds Cardio: Heart sounds: S1 normal heart sound present and S2 normal heart sound present GI: Palpation (GI): Soft to palpation and nontender Extrem: General: Yes edema Objective Data Labs 09/10/22 06:17 09/11/22 08:14 Labs: Laboratory Results - last 24 hr 09/10/22 09/10/22 09/10/22 11:33 16:09 21:09 Sodium Potassium Chloride Carbon Dioxide Anion Gap BUN Creatinine Estim Creat Clear Calc Estimated GFR POC Glucose 103 127 H 130 H Random Glucose Calcium 09/11/22 09/11/22 09/11/22 07:11 08:14 10:41 Sodium 142 Potassium 4.7 Chloride 111 H Carbon Dioxide 19 L Anion Gap 17 BUN 64 H Creatinine 4.81 H* Estim Creat Clear Calc 17.4 Estimated GFR 10 POC Glucose 71 104 Random Glucose 66 Calcium 6.2 L Microbiology Microbiology Results: Microbiology 09/09/22 Unknown Urine clean catch - Urine guzmán top Urine Culture - Final Procedures Date of Service Date of Service: 09/11/22 Assessment & Plan Assessment and plan (1) AMISHA (acute kidney injury): Status: Acute (2) (HFpEF) heart failure with preserved ejection fraction: Status: Acute (3) HTN (hypertension): Status: Acute (4) CKD (chronic kidney disease) stage 4, GFR 15-29 ml/min: Status: Acute Plan Scr stable multifactorial AMISHA: -acute hypertensive nephrosclerosis -renal hypoperfusion in the setting of CHF decompensation cannot also exclude progression of underlying CKD suspect type 3 cardio renal syndrome HFpEF volume status above dry weight known severe CKD due to hypertensive and diabetic kidney disease baseline Scr ~ 3.5 mg/dl followed by Dr Gilbert elevated serum potassium due to poor distal flow and metabolic acidosis anemia due to CKD will require KWAN iron profile showed low iron saturation BP better with diuresis REC venofer IV ordered sodium bicarbonate 650 mg bid continue bumetanide 2 mg IV bid for another 24 hours sodium zirconium as needed protect non dominant arm follow kidney function and electrolytes Time Spent With Patient Time: Total time managing care of this patient today ____ minutes. Progress Note: Quality Stroke Does the patient have a stroke diagnosis?: No
[2022-09-11] MEDS: Iron Sucrose Complex 400 MG in 0.9 % Sodium Chloride 250 ML 180 MG IV (12:27)
[2022-09-11] MEDS: oxyCODONE HCl Immed Release 5 MG TABLET PO (14:31)
--- NOTE | 2022-09-11 15:11 | PM.PNCARD ---
Subjective Subjective Date of Service: 09/11/22 Interval history: Seen and examined at bedside. Feeling little tired. Her blood pressure appears to be low. She is getting Venofer currently. Physical Exam Vital Signs: Last Vital Signs Temp 97.6 F 09/11/22 07:17 Pulse 72 09/11/22 07:17 Resp 18 09/11/22 07:17 BP 136/65 09/11/22 07:17 Pulse Ox 98 09/11/22 07:17 O2 Del Method 09/11/22 07:17 O2 Flow Rate 2 09/11/22 07:17 BMI result Body Mass Index 41.5 GENERAL APPEARANCE: in no acute distress, pleasant. NECK: no carotid bruit, mild jugular venous distention. SKIN: no suspicious lesions, warm and dry. HEART: no murmurs, regular rate and rhythm. LUNGS: clear to auscultation bilaterally. ABDOMEN: soft, nontender. Mildly distended. EXTREMITIES:+ edema. PERIPHERAL PULSES: equal. NEUROLOGIC: No gross deficits, AAO X 3 Objective Labs and Meds 09/10/22 06:17 09/11/22 08:14 Lab results: Laboratory Results - last 24 hr 09/10/22 09/10/22 09/11/22 16:09 21:09 07:11 Sodium Potassium Chloride Carbon Dioxide Anion Gap BUN Creatinine Estim Creat Clear Calc Estimated GFR POC Glucose 127 H 130 H 71 Random Glucose Calcium 09/11/22 09/11/22 08:14 10:41 Sodium 142 Potassium 4.7 Chloride 111 H Carbon Dioxide 19 L Anion Gap 17 BUN 64 H Creatinine 4.81 H* Estim Creat Clear Calc 17.4 Estimated GFR 10 POC Glucose 104 Random Glucose 66 Calcium 6.2 L Progress Note: A&P Assessment and plan (1) CKD (chronic kidney disease) stage 4, GFR 15-29 ml/min: Status: Acute (2) HTN (hypertension): Status: Acute (3) (HFpEF) heart failure with preserved ejection fraction: Status: Acute Plan 41-year-old female with significantly elevated blood pressures and advanced CKD. She presented with shortness of breath and volume overload. Has been on IV diuretics currently. Continue IV diuretics today. Blood pressure interestingly has come down significantly and is lower now. I think her underlying issue is noncompliance because after giving her home medication with small changes in medication she has significantly dropped her blood pressure. I think amlodipine should be discontinued. Please cut hydralazine back to 50 mg 3 times a day. She should not have further doses of hydralazine today. Thank you for allowing me to participate in the care of your patient. Please feel free to contact me if you have any questions. Time Spent With Patient Time: Total time managing care of this patient today ____ minutes. Progress Note: Quality Stroke Does the patient have a stroke diagnosis?: No Procedures Date of Service Date of Service: 09/11/22
[2022-09-11 15:50] LABS: Glucose, Whole Blood 96 mg/dL (60-115)
[2022-09-11] MEDS: ondansetron HCL 4 MG/2 ML VIAL IVPUSH (15:55)
[2022-09-11 20:19] LABS: Glucose, Whole Blood 66 mg/dL (60-115)
[2022-09-11] MEDS: Enoxaparin Sodium 30 MG/0.3 ML SYRINGE SUBCUT (21:30)
[2022-09-11 21:38] LABS: Glucose, Whole Blood 70 mg/dL (60-115)
[2022-09-11 23:40] LABS: Glucose, Whole Blood 69 mg/dL (60-115)
[2022-09-12] MEDS: 0.9 % Sodium Chloride Flush 3 ML SYRINGE IVFLUSH ×3 (01:02→17:43)
[2022-09-12 04:00] VITALS: BP 144/74; PULSE 96; RESP 18; TEMP 37.3; O2SAT 92
[2022-09-12 06:21] LABS: Glucose, Whole Blood 50 mg/dL (60-115)
[2022-09-12 06:58] LABS: Glucose, Whole Blood 85 mg/dL (60-115)
[2022-09-12 07:23] LABS: Anion Gap 19 (12-20); Blood Urea Nitrogen 68 mg/dL (9-16); Calcium 5.9 mg/dL (8.4-10.2); Carbon Dioxide 19 mmol/L (22-29); Chloride 107 mmol/L (96-108); Creatinine Clr Calc Pharmacy 16.3; Estimated Glomerular Filt Rate 9; Glucose Random 46 mg/dL (60-115); Potassium 4.4 mmol/L (3.3-5.1); Sodium 141 mmol/L (135-145)
[2022-09-12 07:33] LABS: Glucose, Whole Blood 99 mg/dL (60-115)
[2022-09-12 08:00] VITALS: BP 138/80; PULSE 70; RESP 18; TEMP 36.8; O2SAT 99
--- NOTE | 2022-09-12 09:01 | HO.PM.IMPN ---
Subjective Subjective Date of Service: 09/12/22 Interval History: f/u AMISHA on CKD, fluid overload and uncontrolled HTN She continues to feel better, but renal function is worse, Physical Exam Vital Signs: Vital Signs: Last Vital Signs Temp 98.2 F 09/12/22 08:00 Pulse 70 09/12/22 08:00 Resp 18 09/12/22 08:00 BP 138/80 09/12/22 08:00 Pulse Ox 99 09/12/22 08:00 O2 Del Method 09/12/22 08:00 O2 Flow Rate 2 09/11/22 07:17 BMI result Body Mass Index 41.5 Const: Other: General: AO X 3, no acute distress Resp: CTA bilateral CVS: S1,S2,RRR, 3+ very tense edema GI: +BS, NT, no distention Skin: No rash Neuro: motor grossly intact Psych: appropriate affect Objective Data Active Medications Acetaminophen (Acetaminophen 325 Mg Tablet) 650 mg PO Q6H PRN PRN Reason: Pain, Mild (Pain Scale 1-3) Amlodipine Besylate (Amlodipine Besylate 10 Mg Tablet) 10 mg PO DAILY [facility]; Protocol Last Admin: 09/11/22 09:11 Dose: 10 mg Documented By: KARLIE Atorvastatin Calcium (Atorvastatin Calcium 80 Mg Tablet) 80 mg PO DAILY [facility] Last Admin: 09/11/22 09:11 Dose: 80 mg Documented By: KARLIE Bumetanide (Bumetanide 1 Mg/4 Ml Vial) 2 mg IVPUSH BID@0900,1700 [facility]; Protocol Last Admin: 09/11/22 17:15 Dose: 2 mg Documented By: KARLIE Dextrose (Dextrose 50 % 25 Gm/50 Ml Syringe) 25 gm IVPUSH Q15M PRN; Protocol PRN Reason: per Hypoglycemia Standing Ord. Diphenhydramine HCl (Diphenhydramine Hcl 50 Mg/Ml Vial) 25 mg IVPUSH Q6H PRN PRN Reason: Itching Docusate Sodium (Docusate Sodium 100 Mg Capsule) 100 mg PO BID [facility] Last Admin: 09/11/22 21:37 Dose: Not Given Documented By: ANDREW Non-Admin Reason: Patient Refused Empagliflozin (Empagliflozin 25 Mg Tablet) 25 mg PO DAILY [facility] Last Admin: 09/11/22 09:11 Dose: 25 mg Documented By: KARLIE Enoxaparin Sodium (Enoxaparin Sodium 30 Mg/0.3 Ml Syringe) 30 mg SUBCUT BEDTIME [facility] Last Admin: 09/11/22 21:30 Dose: 30 mg Documented By: ANDREW Famotidine (Famotidine 20 Mg Tablet) 20 mg PO BID PRN PRN Reason: indigestion Gabapentin (Gabapentin 300 Mg Capsule) 300 mg PO DAILY [facility] Last Admin: 09/11/22 09:11 Dose: 300 mg Documented By: KARLIE Glipizide (Glipizide 5 Mg Tablet) 5 mg PO BID [facility] Last Admin: 09/11/22 21:23 Dose: Not Given Documented By: ANDREW Non-Admin Reason: Physician Held Med Glucose (Glucose Gel 15 Gm Gel..Gram.) 15 gm PO Q15M PRN; Protocol PRN Reason: per Hypoglycemia Standing Ord. Hydralazine HCl (Hydralazine Hcl 50 Mg Tablet) 100 mg PO TID [facility]; Protocol Last Admin: 09/11/22 21:30 Dose: 100 mg Documented By: ANDREW Insulin Human Lispro (Insulin Lispro 100 Unit/Ml 3 Ml Vial) 0 unit SUBCUT QIDACHS [facility]; Protocol Last Admin: 09/12/22 08:54 Dose: Not Given Documented By: KARLIE Non-Admin Reason: No Insulin Coverage Losartan Potassium (Losartan Potassium 25 Mg Tablet) 25 mg PO DAILY [facility]; Protocol Last Admin: 09/11/22 09:11 Dose: 25 mg Documented By: KARLIE Magnesium Hydroxide (Milk Of Magnesia 30 Ml Oral.Susp) 30 ml PO DAILY PRN PRN Reason: Constipation Melatonin (Melatonin 3 Mg Tablet) 6 mg PO BEDTIME PRN PRN Reason: Insomnia Last Admin: 09/09/22 21:55 Dose: 6 mg Documented By: RAMONITA Nifedipine (Nifedipine Er 90 Mg Tab.Er.24) 90 mg PO DAILY [facility]; Protocol Last Admin: 09/11/22 09:11 Dose: 90 mg Documented By: KARLIE Ondansetron HCl (Ondansetron Hcl 4 Mg/2 Ml Vial) 4 mg IVPUSH Q8H PRN PRN Reason: Nausea and Vomiting Last Admin: 09/11/22 15:55 Dose: 4 mg Documented By: KARLIE Oxycodone HCl (Oxycodone Hcl Immed Release 5 Mg Tablet) 5 mg PO Q6H PRN PRN Reason: Pain, Severe (Pain Scale 7-10) Last Admin: 09/11/22 14:31 Dose: 5 mg Documented By: KARLIE Pharmacy Consult (Consult Rx Perform Med Rec) 1 each MISCELLANE ONCE PRN PRN Reason: Consult order Sertraline HCl (Sertraline Hcl 50 Mg Tablet) 50 mg PO DAILY [facility] Last Admin: 09/11/22 09:11 Dose: 50 mg Documented By: KARLIE Sodium Bicarbonate (Sodium Bicarbonate 650 Mg Tablet) 650 mg PO BID [facility] Last Admin: 09/11/22 21:30 Dose: 650 mg Documented By: ANDREW Sodium Chloride (0.9 % Sodium Chloride Flush 3 Ml Syringe) 3 ml IVFLUSH QSHIFT [facility] Last Admin: 09/12/22 01:02 Dose: 3 ml Documented By: JUANCHO Sodium Zirconium Cyclosilicate (Sodium Zirconium Cyclosilicate 10 Gm Powd.Pack) 10 gm PO DAILY [facility] Last Admin: 09/11/22 09:11 Dose: 10 gm Documented By: KARLIE Labs 09/10/22 06:17 09/12/22 06:23 Labs: Laboratory Results - last 24 hr 09/11/22 09/11/22 09/11/22 08:14 10:41 15:11 Anion Gap 17 Estim Creat Clear Calc 17.4 Estimated GFR 10 POC Glucose 104 96 Random Glucose 66 Calcium 6.2 L 09/11/22 09/11/22 09/11/22 20:08 21:32 23:35 Anion Gap Estim Creat Clear Calc Estimated GFR POC Glucose 66 70 69 Random Glucose Calcium 09/12/22 09/12/22 09/12/22 06:18 06:23 06:54 Anion Gap 19 Estim Creat Clear Calc 16.3 Estimated GFR 9 POC Glucose 50 L* 85 Random Glucose 46 L* Calcium 5.9 L* 09/12/22 07:30 Anion Gap Estim Creat Clear Calc Estimated GFR POC Glucose 99 Random Glucose Calcium Assessment and Plan (1) CKD (chronic kidney disease) stage 4, GFR 15-29 ml/min: Status: Acute (2) HTN (hypertension): Status: Acute (3) (HFpEF) heart failure with preserved ejection fraction: Status: Acute Plan 41-year-old female with pertinent history of CKD stage 4, congestive heart failure with preserved ejection fraction, essential hypertension, insulin-dependent diabetes mellitus, anemia of CKD, essential hypertension who presents to the emergency department for evaluation of generalized body swelling. #. Anasarca in a patient with: #. Acute on chronic congestive heart failure with preserved ejection fraction - due to medication noncompliance with uncontrolled HTN. continue Bumex IV. Strict I's and O's. Low-salt diet. Monitor weight, thus far positive fluid balance - CT abdomen confirmed anasarca, no other acute finding..Cardiology and Nephrology helping with management with discussed possible diuretics drip at this point #. Acute kidney injury on CKD stage 4: Monitor urine output and creatinine with diuresis. Nephrology input noted, Urine studies; renal ultrasound normal, Cr slightly worse today ? related to drop in BP..Reduce BP meds #. HypERkalemia: resolved #. [id number] diabetes mellitus with hyperglycemia: A1c = 5.8, ISS #. Uncontrolled HTN as part of above problem.. BP is much better and in fact has had some very number. Reduce Hydralazine to 50 tid,, hold Losartan, reduce nifedipine to 60 #. anemia of CKD of likely chronic disease, s/p 1 unit of RBC on 09/09 with good effect DVT prophylaxis: Lovenox 30 mg daily Full code Low-salt diet need for inpatient: acute renal failure, cardiorenal syndorme, needs IV diuretics close monitoring of labs and monitoring for rsponse Time Spent With Patient Time: Total time managing care of this patient today ____ minutes. Quality Stroke Does the patient have a stroke diagnosis?: No VTE Prior VTE?: No VTE Risk Level:: Medical - moderate - high VTE Device Contraindication: Treatment Not Indicated VTE Drug Contraindication: N/A - Med Ordered
[2022-09-12] MEDS: diphenhydrAMINE HCL 50 MG/ML VIAL 25 MG IVPUSH ×2 (09:27→23:01)
[2022-09-12] MEDS: Sodium Zirconium Cyclosilicate 10 GM POWD.PACK PO (09:27)
[2022-09-12] MEDS: Bumetanide 1 MG/4 ML VIAL 2 MG IVPUSH ×2 (09:27→17:42)
[2022-09-12] MEDS: Acetaminophen 325 MG TABLET 650 MG PO ×2 (09:28→17:43)
[2022-09-12] MEDS: Gabapentin 300 MG CAPSULE PO (09:28)
[2022-09-12] MEDS: glipiZIDE 5 MG TABLET PO ×2 (09:28→22:55)
[2022-09-12] MEDS: Empagliflozin 25 MG TABLET PO (09:28)
[2022-09-12] MEDS: Sertraline HCL 50 MG TABLET PO (09:28)
[2022-09-12] MEDS: Docusate Sodium 100 MG CAPSULE PO (09:28)
[2022-09-12] MEDS: Atorvastatin Calcium 80 MG TABLET PO (09:28)
[2022-09-12] MEDS: Sodium Bicarbonate 650 MG TABLET PO ×2 (09:28→22:55)
[2022-09-12] MEDS: amLODIPine Besylate 10 MG TABLET PO (09:28)
--- NOTE | 2022-09-12 10:17 | PM.PNNEP ---
Subjective Subjective Date of Service: 09/12/22 Interval history: seen and examined 'I don't feel well denies CP/SOB/V/D Physical Exam Vital Signs: Vital Signs: Last Vital Signs Temp 98.2 F 09/12/22 08:00 Pulse 70 09/12/22 08:00 Resp 18 09/12/22 08:00 BP 138/80 09/12/22 08:00 Pulse Ox 99 09/12/22 08:00 O2 Del Method 09/12/22 08:00 O2 Flow Rate 2 09/11/22 07:17 BMI result Body Mass Index 41.5 Const: General: no acute distress HEENT: Head: Yes normocephalic and Yes atraumatic Neck: Neck: Yes supple Resp: Auscultation: diminished lung sounds Cardio: Heart sounds: S1 normal heart sound present and S2 normal heart sound present GI: Palpation (GI): Soft to palpation and nontender Extrem: General: Yes edema Objective Data Labs 09/10/22 06:17 09/12/22 06:23 Labs: Laboratory Results - last 24 hr 09/11/22 09/11/22 09/11/22 10:41 15:11 20:08 Sodium Potassium Chloride Carbon Dioxide Anion Gap BUN Creatinine Estim Creat Clear Calc Estimated GFR POC Glucose 104 96 66 Random Glucose Calcium 09/11/22 09/11/22 09/12/22 21:32 23:35 06:18 Sodium Potassium Chloride Carbon Dioxide Anion Gap BUN Creatinine Estim Creat Clear Calc Estimated GFR POC Glucose 70 69 50 L* Random Glucose Calcium 09/12/22 09/12/22 09/12/22 06:23 06:54 07:30 Sodium 141 Potassium 4.4 Chloride 107 Carbon Dioxide 19 L Anion Gap 19 BUN 68 H Creatinine 5.16 H* Estim Creat Clear Calc 16.3 Estimated GFR 9 POC Glucose 85 99 Random Glucose 46 L* Calcium 5.9 L* Microbiology Microbiology Results: Microbiology 09/09/22 Unknown Urine clean catch - Urine guzmán top Urine Culture - Final Procedures Date of Service Date of Service: 09/12/22 Assessment & Plan Assessment and plan (1) AMISHA (acute kidney injury): Status: Acute (2) (HFpEF) heart failure with preserved ejection fraction: Status: Acute (3) HTN (hypertension): Status: Acute (4) CKD (chronic kidney disease) stage 4, GFR 15-29 ml/min: Status: Acute Plan Scr marginally up multifactorial AMISHA: -acute hypertensive nephrosclerosis -renal hypoperfusion in the setting of CHF decompensation cannot also exclude progression of underlying CKD suspect type 3 cardio renal syndrome HFpEF volume status above dry weight known severe CKD due to hypertensive and diabetic kidney disease baseline Scr ~ 3.5 mg/dl followed by Dr Gilbert elevated serum potassium due to poor distal flow and metabolic acidosis anemia due to CKD will require KWAN iron profile showed low iron saturation BP better with diuresis REC venofer 400 mg IV re ordered sodium bicarbonate 650 mg bid continue bumetanide 2 mg IV bid until discharge bumetanide 2 mg po upon discharge sodium zirconium as needed protect non dominant arm follow kidney function and electrolytes Time Spent With Patient Time: Total time managing care of this patient today ____ minutes. Progress Note: Quality Stroke Does the patient have a stroke diagnosis?: No
--- NOTE | 2022-09-12 10:20 | MHC.CM.PN ---
Per ROUNDS discussion, Patient has worsening Renal and Heart Failure and is not yet medically cleared for dc. Home is the goal and CM will continue to follow.
[2022-09-12 11:09] LABS: Glucose, Whole Blood 127 mg/dL (60-115)
[2022-09-12] MEDS: Iron Sucrose Complex 400 MG in 0.9 % Sodium Chloride 250 ML 180 MG IV (11:42)
[2022-09-12] MEDS: hydrALAZINE HCl 50 MG TABLET PO ×2 (15:05→22:55)
[2022-09-12 16:00] VITALS: BP 142/75; PULSE 75; RESP 18; TEMP 36.7; O2SAT 99
[2022-09-12 16:23] LABS: Urea, Random Urine 205 mg/dL
[2022-09-12 20:00] VITALS: BP 135/69; PULSE 78; RESP 18; TEMP 36.3; O2SAT 90
[2022-09-12 20:29] LABS: Glucose, Whole Blood 107 mg/dL (60-115)
[2022-09-12] MEDS: Enoxaparin Sodium 30 MG/0.3 ML SYRINGE SUBCUT (22:52)
[2022-09-12] MEDS: Melatonin 3 MG TABLET 6 MG PO (23:01)
[2022-09-13] VITALS (7 sets, daily range): BP systolic 146–193; BP diastolic 67–92; PULSE 77–87; RESP 17–20; TEMP 36.2–38.3; O2SAT 91–95
[2022-09-13 07:08] LABS: Anion Gap 16 (12-20); Blood Urea Nitrogen 63 mg/dL (9-16); Calcium 5.8 mg/dL (8.4-10.2); Carbon Dioxide 20 mmol/L (22-29); Chloride 106 mmol/L (96-108); Creatinine Clr Calc Pharmacy 16.5; Estimated Glomerular Filt Rate 9; Glucose Random 37 mg/dL (60-115); Potassium 4.2 mmol/L (3.3-5.1); Sodium 138 mmol/L (135-145)
[2022-09-13] MEDS: Glucose Gel 15 GM GEL..GRAM. PO ×2 (07:13→16:38)
[2022-09-13 07:58] LABS: Glucose, Whole Blood 121 mg/dL (60-115)
[2022-09-13] MEDS: Gabapentin 300 MG CAPSULE PO (08:40)
[2022-09-13] MEDS: Atorvastatin Calcium 80 MG TABLET PO (08:40)
[2022-09-13] MEDS: amLODIPine Besylate 10 MG TABLET PO (08:40)
[2022-09-13] MEDS: Sodium Zirconium Cyclosilicate 10 GM POWD.PACK PO (08:40)
[2022-09-13] MEDS: NIFEdipine ER 60 MG TAB.ER.24 PO (08:40)
[2022-09-13] MEDS: Sertraline HCL 50 MG TABLET PO (08:40)
[2022-09-13] MEDS: glipiZIDE 5 MG TABLET PO (08:40)
[2022-09-13] MEDS: Sodium Bicarbonate 650 MG TABLET PO ×2 (08:40→19:54)
[2022-09-13] MEDS: Empagliflozin 25 MG TABLET PO (08:40)
[2022-09-13] MEDS: hydrALAZINE HCl 50 MG TABLET PO ×3 (08:41→19:54)
[2022-09-13] MEDS: Bumetanide 1 MG/4 ML VIAL 2 MG IVPUSH ×2 (08:41→17:58)
[2022-09-13] MEDS: 0.9 % Sodium Chloride Flush 3 ML SYRINGE IVFLUSH ×3 (08:41→18:02)
--- NOTE | 2022-09-13 08:46 | P.PNIM_ITS ---
Subjective Subjective Date of Service: 09/13/22 Interval History: f/u AMISHA on CKD, fluid overload and uncontrolled HTN She continues to feel better, renal function is tad better Dizzy at times Physical Exam Vital Signs: Vital Signs: Last Vital Signs Temp 97.2 F 09/13/22 07:06 Pulse 83 09/13/22 07:06 Resp 17 09/13/22 07:06 BP 168/86 H 09/13/22 07:06 Pulse Ox 94 09/13/22 07:06 O2 Del Method 09/13/22 07:06 O2 Flow Rate 2 09/13/22 04:00 BMI result Body Mass Index 41.5 Const: Other: General: AO X 3, no acute distress Resp: CTA bilateral CVS: S1,S2,RRR, 2+ tense edema GI: +BS, NT, no distention Skin: No rash Neuro: motor grossly intact Psych: appropriate affect Neck: Neck: Yes supple Objective Data Active Medications Acetaminophen (Acetaminophen 325 Mg Tablet) 650 mg PO Q6H PRN PRN Reason: Pain, Mild (Pain Scale 1-3) Last Admin: 09/12/22 17:43 Dose: 650 mg Documented By: KARLIE Amlodipine Besylate (Amlodipine Besylate 10 Mg Tablet) 10 mg PO DAILY [facility]; Protocol Last Admin: 09/13/22 08:40 Dose: 10 mg Documented By: GUY Atorvastatin Calcium (Atorvastatin Calcium 80 Mg Tablet) 80 mg PO DAILY [facility] Last Admin: 09/13/22 08:40 Dose: 80 mg Documented By: GUY Bumetanide (Bumetanide 1 Mg/4 Ml Vial) 2 mg IVPUSH BID@0900,1700 [facility]; Protocol Last Admin: 09/13/22 08:41 Dose: 2 mg Documented By: GUY Dextrose (Dextrose 50 % 25 Gm/50 Ml Syringe) 25 gm IVPUSH Q15M PRN; Protocol PRN Reason: per Hypoglycemia Standing Ord. Diphenhydramine HCl (Diphenhydramine Hcl 50 Mg/Ml Vial) 25 mg IVPUSH Q6H PRN PRN Reason: Itching Last Admin: 09/12/22 23:01 Dose: 25 mg Documented By: ROSE Docusate Sodium (Docusate Sodium 100 Mg Capsule) 100 mg PO BID [facility] Last Admin: 09/13/22 08:41 Dose: Not Given Documented By: GUY Non-Admin Reason: Patient Refused Empagliflozin (Empagliflozin 25 Mg Tablet) 25 mg PO DAILY [facility] Last Admin: 09/13/22 08:40 Dose: 25 mg Documented By: GUY Enoxaparin Sodium (Enoxaparin Sodium 30 Mg/0.3 Ml Syringe) 30 mg SUBCUT BEDTIME [facility] Last Admin: 09/12/22 22:52 Dose: 30 mg Documented By: ROSE Famotidine (Famotidine 20 Mg Tablet) 20 mg PO BID PRN PRN Reason: indigestion Gabapentin (Gabapentin 300 Mg Capsule) 300 mg PO DAILY [facility] Last Admin: 09/13/22 08:40 Dose: 300 mg Documented By: GUY Glipizide (Glipizide 5 Mg Tablet) 5 mg PO BID [facility] Last Admin: 09/13/22 08:40 Dose: 5 mg Documented By: GUY Glucose (Glucose Gel 15 Gm Gel..Gram.) 15 gm PO Q15M PRN; Protocol PRN Reason: per Hypoglycemia Standing Ord. Last Admin: 09/13/22 07:13 Dose: 15 gm Documented By: ROSE Comments: UNABLE TO SCAN/SCANNER NOT WORKING Hydralazine HCl (Hydralazine Hcl 50 Mg Tablet) 50 mg PO TID [facility]; Protocol Last Admin: 09/13/22 08:41 Dose: 50 mg Documented By: GUY Insulin Human Lispro (Insulin Lispro 100 Unit/Ml 3 Ml Vial) 0 unit SUBCUT QIDACHS [facility]; Protocol Last Admin: 09/13/22 08:37 Dose: Not Given Documented By: GUY Non-Admin Reason: No Insulin Coverage Magnesium Hydroxide (Milk Of Magnesia 30 Ml Oral.Susp) 30 ml PO DAILY PRN PRN Reason: Constipation Melatonin (Melatonin 3 Mg Tablet) 6 mg PO BEDTIME PRN PRN Reason: Insomnia Last Admin: 09/12/22 23:01 Dose: 6 mg Documented By: ROSE Nifedipine (Nifedipine Er 60 Mg Tab.Er.24) 60 mg PO DAILY [facility]; Protocol Last Admin: 09/13/22 08:40 Dose: 60 mg Documented By: GUY Ondansetron HCl (Ondansetron Hcl 4 Mg/2 Ml Vial) 4 mg IVPUSH Q8H PRN PRN Reason: Nausea and Vomiting Last Admin: 09/11/22 15:55 Dose: 4 mg Documented By: KARLIE Oxycodone HCl (Oxycodone Hcl Immed Release 5 Mg Tablet) 5 mg PO Q6H PRN PRN Reason: Pain, Severe (Pain Scale 7-10) Last Admin: 09/11/22 14:31 Dose: 5 mg Documented By: KARLIE Pharmacy Consult (Consult Rx Perform Med Rec) 1 each MISCELLANE ONCE PRN PRN Reason: Consult order Sertraline HCl (Sertraline Hcl 50 Mg Tablet) 50 mg PO DAILY [facility] Last Admin: 09/13/22 08:40 Dose: 50 mg Documented By: GUY Sodium Bicarbonate (Sodium Bicarbonate 650 Mg Tablet) 650 mg PO BID [facility] Last Admin: 09/13/22 08:40 Dose: 650 mg Documented By: GUY Sodium Chloride (0.9 % Sodium Chloride Flush 3 Ml Syringe) 3 ml IVFLUSH QSHIFT [facility] Last Admin: 09/13/22 08:41 Dose: 3 ml Documented By: GUY Sodium Zirconium Cyclosilicate (Sodium Zirconium Cyclosilicate 10 Gm Powd.Pack) 10 gm PO DAILY [facility] Last Admin: 09/13/22 08:40 Dose: 10 gm Documented By: GUY Labs 09/10/22 06:17 09/13/22 06:25 Labs: Laboratory Results - last 24 hr 09/09/22 09/12/22 09/12/22 01:19 10:58 20:24 Anion Gap Estim Creat Clear Calc Estimated GFR POC Glucose 127 H 107 Random Glucose Calcium Ur Random Urea 205 09/13/22 09/13/22 06:25 07:54 Anion Gap 16 Estim Creat Clear Calc 16.5 Estimated GFR 9 POC Glucose 121 H Random Glucose 37 L* Calcium 5.8 L* Ur Random Urea Assessment and Plan (1) CKD (chronic kidney disease) stage 4, GFR 15-29 ml/min: Status: Acute (2) HTN (hypertension): Status: Acute (3) (HFpEF) heart failure with preserved ejection fraction: Status: Acute Plan 41-year-old female with pertinent history of CKD stage 4, congestive heart failure with preserved ejection fraction, essential hypertension, insulin- dependent diabetes mellitus, anemia of CKD, essential hypertension who presents to the emergency department for evaluation of generalized body swelling. #. Anasarca in a patient with: #. Acute on chronic congestive heart failure with preserved ejection fraction - due to medication noncompliance with uncontrolled HTN. continue Bumex IV. Strict I's and O's. Low-salt diet. Monitor weight, thus far positive fluid balance - CT abdomen confirmed anasarca, no other acute finding..Cardiology and Nephrology helping with management with discussed possible diuretics drip at this point #. Acute kidney injury on CKD stage 4: Monitor urine output and creatinine with diuresis. Nephrology input noted, Urine studies; renal ultrasound normal, Cr slightly worse today ? related to drop in BP..Reduce BP meds #. HypERkalemia: resolved, lokelma daily #. [id number] diabetes mellitus with hyperglycemia: A1c = 5.8, ISS #. Uncontrolled HTN as part of above problem.. BP is much better and in fact has had some very number. Hydralazine to 50 tid,, hold Losartan, reduce nifedipine to 60. Norvasc stopped #. anemia of CKD of likely chronic disease, s/p 1 unit of RBC on 09/09 with good effect # dizziness--check orthostatic BP DVT prophylaxis: Lovenox 30 mg daily Full code Low-salt diet need for inpatient: acute renal failure, cardiorenal syndorme, needs IV diuretics close monitoring of labs and monitoring for rsponse Time Spent With Patient Time: Total time managing care of this patient today ____ minutes. Quality Stroke Does the patient have a stroke diagnosis?: No VTE Prior VTE?: No VTE Risk Level:: Medical - moderate - high VTE Device Contraindication: Treatment Not Indicated VTE Drug Contraindication: N/A - Med Ordered
--- NOTE | 2022-09-13 10:39 | PM.PNCARD ---
Subjective Subjective Date of Service: 09/13/22 Interval history: Seen examined at bedside. Volume overload in the setting of advanced CKD. Continues to be hypervolemic but overall improving. Physical Exam Vital Signs: Last Vital Signs Temp 97.2 F 09/13/22 07:06 Pulse 83 09/13/22 07:06 Resp 17 09/13/22 07:06 BP 168/86 H 09/13/22 07:06 Pulse Ox 94 09/13/22 07:06 O2 Del Method 09/13/22 07:06 O2 Flow Rate 2 09/13/22 04:00 BMI result Body Mass Index 41.5 GENERAL APPEARANCE: in no acute distress, pleasant. NECK: no carotid bruit, mild jugular venous distention. SKIN: no suspicious lesions, warm and dry. HEART: no murmurs, regular rate and rhythm. LUNGS: clear to auscultation bilaterally. ABDOMEN: soft, nontender. Mildly distended. Shifting dullness. EXTREMITIES:+ edema. PERIPHERAL PULSES: equal. NEUROLOGIC: No gross deficits, AAO X 3 Objective Labs and Meds 09/10/22 06:17 09/13/22 06:25 Lab results: Laboratory Results - last 24 hr 09/09/22 09/12/22 09/12/22 01:19 10:58 20:24 Sodium Potassium Chloride Carbon Dioxide Anion Gap BUN Creatinine Estim Creat Clear Calc Estimated GFR POC Glucose 127 H 107 Random Glucose Calcium Ur Random Urea 205 09/13/22 09/13/22 06:25 07:54 Sodium 138 Potassium 4.2 Chloride 106 Carbon Dioxide 20 L Anion Gap 16 BUN 63 H Creatinine 5.09 H* Estim Creat Clear Calc 16.5 Estimated GFR 9 POC Glucose 121 H Random Glucose 37 L* Calcium 5.8 L* Ur Random Urea Progress Note: A&P Assessment and plan (1) HTN (hypertension): Status: Acute (2) (HFpEF) heart failure with preserved ejection fraction: Status: Acute (3) CKD (chronic kidney disease) stage 4, GFR 15-29 ml/min: Status: Acute Plan 41-year-old female with hypertensive nephrosclerosis and CKD, uncontrolled hypertension and significant volume overload. Has been on IV Bumex. Nephrology is following along. Blood pressure has been fluctuant and after giving her home medications to her for couple of days her blood pressure really bottomed out potentially pointing towards noncompliance at home. Monitor blood pressure closely. Check orthostatics as she has been getting dizziness when she stands up. Underlying issues are hypertension and kidney disease and volume overload. Unfortunately quite advanced kidney issues at young age. Thank you for allowing me to participate in the care of your patient. Please feel free to contact me if you have any questions. Time Spent With Patient Time: Total time managing care of this patient today ____ minutes. Progress Note: Quality Stroke Does the patient have a stroke diagnosis?: No Procedures Date of Service Date of Service: 09/13/22
--- NOTE | 2022-09-13 10:49 | PM.PNNEP ---
Subjective Subjective Date of Service: 09/13/22 Interval history: seen and examined events reviewed no complaints Physical Exam Vital Signs: Vital Signs: Last Vital Signs Temp 97.2 F 09/13/22 07:06 Pulse 83 09/13/22 07:06 Resp 17 09/13/22 07:06 BP 168/86 H 09/13/22 07:06 Pulse Ox 94 09/13/22 07:06 O2 Del Method 09/13/22 07:06 O2 Flow Rate 2 09/13/22 04:00 BMI result Body Mass Index 41.5 Const: General: no acute distress HEENT: Head: Yes normocephalic and Yes atraumatic Neck: Neck: Yes supple Resp: Auscultation: diminished lung sounds Cardio: Heart sounds: S1 normal heart sound present and S2 normal heart sound present GI: Palpation (GI): Soft to palpation and nontender Extrem: General: Yes edema Objective Data Labs 09/10/22 06:17 09/13/22 06:25 Labs: Laboratory Results - last 24 hr 09/09/22 09/12/22 09/12/22 01:19 10:58 20:24 Sodium Potassium Chloride Carbon Dioxide Anion Gap BUN Creatinine Estim Creat Clear Calc Estimated GFR POC Glucose 127 H 107 Random Glucose Calcium Ur Random Urea 205 09/13/22 09/13/22 06:25 07:54 Sodium 138 Potassium 4.2 Chloride 106 Carbon Dioxide 20 L Anion Gap 16 BUN 63 H Creatinine 5.09 H* Estim Creat Clear Calc 16.5 Estimated GFR 9 POC Glucose 121 H Random Glucose 37 L* Calcium 5.8 L* Ur Random Urea Microbiology Microbiology Results: Microbiology 09/09/22 Unknown Urine clean catch - Urine guzmán top Urine Culture - Final Procedures Date of Service Date of Service: 09/13/22 Assessment & Plan Assessment and plan (1) AMISHA (acute kidney injury): Status: Acute (2) (HFpEF) heart failure with preserved ejection fraction: Status: Acute (3) HTN (hypertension): Status: Acute (4) CKD (chronic kidney disease) stage 4, GFR 15-29 ml/min: Status: Acute Plan kidney fucntion stable at a new baseline multifactorial AMIHSA: -acute hypertensive nephrosclerosis -renal hypoperfusion in the setting of CHF decompensation cannot also exclude progression of underlying CKD suspect type 3 cardio renal syndrome HFpEF volume status above dry weight known severe CKD due to hypertensive and diabetic kidney disease baseline Scr ~ 3.5 mg/dl followed by Dr Gilbert elevated serum potassium due to poor distal flow and metabolic acidosis anemia due to CKD will require KWAN iron profile showed low iron saturation REC discontinue amlodipine (she is on nifedipine already) hold losartan continue sodium bicarbonate 650 mg bid continue bumetanide 2 mg IV bid until discharge bumetanide 2 mg po upon discharge sodium zirconium as needed protect non dominant arm follow kidney function and electrolytes Time Spent With Patient Time: Total time managing care of this patient today ____ minutes. Progress Note: Quality Stroke Does the patient have a stroke diagnosis?: No
[2022-09-13 11:21] LABS: Glucose, Whole Blood 102 mg/dL (60-115)
[2022-09-13 16:37] LABS: Glucose, Whole Blood 45 mg/dL (60-115)
[2022-09-13 17:10] LABS: Glucose, Whole Blood 89 mg/dL (60-115)
[2022-09-13] MEDS: Enoxaparin Sodium 30 MG/0.3 ML SYRINGE SUBCUT (19:54)
[2022-09-13] MEDS: Docusate Sodium 100 MG CAPSULE PO (19:54)
[2022-09-13] MEDS: Melatonin 3 MG TABLET 6 MG PO (19:59)
[2022-09-13 20:19] LABS: Glucose, Whole Blood 42 mg/dL (60-115)
[2022-09-13] MEDS: Dextrose 50 % 25 GM/50 ML SYRINGE IVPUSH ×2 (20:25→22:38)
--- NOTE | 2022-09-13 20:38 | PC.NURSE ---
at 1505 pt c/o dizziness when going to the bathroom. BP 149/70. MD Dr Walton notified. pt also refused to do orthostatic BP check [address] Walton. notified
[2022-09-13 21:14] LABS: Glucose, Whole Blood 85 mg/dL (60-115)
--- NOTE | 2022-09-13 22:03 | PC.NURSE ---
Addendum entered by Cecelia Florence RN 09/14/22 05:50: poc 80 pt still having episode of vomiting, made aware Addendum entered by Cecelia Florence RN 09/14/22 04:16: pts poc 47 pt states i dont feel good, made aware d50 given, new order to stop fluids d/t pt here with fluid overload, pt vomitting up orange juice given or low poc, made aware, glucagon and octerotide order. recheck 107. re check 1hr Addendum entered by Cecelia Florence RN 09/13/22 23:34: repeat poc 50 pt drank a few sips of orange juice made aware given d50 25gm and start 100ml/h d5/ns, recheck 1 hour 104 Original Note: 2014 pts poc 41 pt alert and oriented asymptomatic, pt state she has no appetite will not take any thing PO pt take small sips bessie collier md made aware, give 25gm d50 IV, see emar, 1 hour after poc 89 made aware, per md recheck 1 hour.
[2022-09-13 22:29] LABS: Glucose, Whole Blood 50 mg/dL (60-115)
--- NOTE | 2022-09-13 22:29 | PM.EVENT ---
Event Note Date of Service: 09/13/22 Event Note: Pt noted to be hypoglycemic after D50 push so will initiate D5 NS Time Spent With Patient Time: Total time managing care of this patient today ____ minutes.
[2022-09-13] MEDS: Dextrose 5 % and 0.9 % NaCl 1,000 ML 100 ML IVCONT (22:45)
[2022-09-13 23:21] LABS: Glucose, Whole Blood 102 mg/dL (60-115)
[2022-09-14 00:56] LABS: Glucose, Whole Blood 71 mg/dL (60-115)
[2022-09-14 02:09] LABS: Glucose, Whole Blood 47 mg/dL (60-115)
[2022-09-14] MEDS: Dextrose 50 % 25 GM/50 ML SYRINGE IVPUSH (02:14)
[2022-09-14] MEDS: Dextrose 5 % and 0.9 % NaCl 1,000 ML 125 ML IVCONT (02:32)
[2022-09-14] MEDS: ondansetron HCL 4 MG/2 ML VIAL IVPUSH (02:43)
[2022-09-14 03:28] VITALS: BP 147/70; PULSE 82; RESP 18; TEMP 37; O2SAT 93
[2022-09-14 03:33] LABS: Glucose, Whole Blood 107 mg/dL (60-115)
[2022-09-14] MEDS: Octreotide Acetate 100 MCG/ML AMPUL IVPUSH (03:44)
[2022-09-14 04:55] LABS: Glucose, Whole Blood 73 mg/dL (60-115)
[2022-09-14 05:52] LABS: Glucose, Whole Blood 80 mg/dL (60-115)
[2022-09-14 06:54] LABS: Anion Gap 19 (12-20); Blood Urea Nitrogen 67 mg/dL (9-16); Calcium 5.6 mg/dL (8.4-10.2); Carbon Dioxide 20 mmol/L (22-29); Chloride 103 mmol/L (96-108); Creatinine Clr Calc Pharmacy 16.8; Estimated Glomerular Filt Rate 10; Glucose Random 63 mg/dL (60-115); Potassium 4.6 mmol/L (3.3-5.1); Sodium 137 mmol/L (135-145)
[2022-09-14 07:24] LABS: Glucose, Whole Blood 71 mg/dL (60-115)
[2022-09-14] MEDS: Bumetanide 1 MG/4 ML VIAL 2 MG IVPUSH (07:55)
[2022-09-14] MEDS: Metoclopramide HCl 10 MG/2 ML VIAL IVPUSH (07:55)
[2022-09-14] MEDS: 0.9 % Sodium Chloride Flush 3 ML SYRINGE IVFLUSH ×2 (07:56→15:17)
[2022-09-14 08:00] VITALS: BP 145/77; PULSE 89; RESP 18; TEMP 37.1; O2SAT 93
--- NOTE | 2022-09-14 09:30 | PM.PNNEP ---
Subjective Subjective Date of Service: 09/14/22 Interval history: seen and examined denies CP/SOB/N/V/D Physical Exam Vital Signs: Vital Signs: Last Vital Signs Temp 98.8 F 09/14/22 08:00 Pulse 89 09/14/22 08:00 Resp 18 09/14/22 08:00 BP 145/77 H 09/14/22 08:00 Pulse Ox 93 09/14/22 08:00 O2 Del Method 09/14/22 08:00 O2 Flow Rate 2 09/13/22 23:17 BMI result Body Mass Index 41.5 Const: General: no acute distress HEENT: Head: Yes normocephalic and Yes atraumatic Neck: Neck: Yes supple Resp: Auscultation: diminished lung sounds Cardio: Heart sounds: S1 normal heart sound present and S2 normal heart sound present GI: Palpation (GI): Soft to palpation and nontender Extrem: General: Yes edema Objective Data Labs 09/10/22 06:17 09/14/22 06:02 Labs: Laboratory Results - last 24 hr 09/13/22 09/13/22 09/13/22 11:10 16:30 17:00 Sodium Potassium Chloride Carbon Dioxide Anion Gap BUN Creatinine Estim Creat Clear Calc Estimated GFR POC Glucose 102 45 L* 89 Random Glucose Calcium 09/13/22 09/13/22 09/13/22 20:15 21:10 22:26 Sodium Potassium Chloride Carbon Dioxide Anion Gap BUN Creatinine Estim Creat Clear Calc Estimated GFR POC Glucose 42 L* 85 50 L* Random Glucose Calcium 09/13/22 09/14/22 09/14/22 23:16 00:52 02:06 Sodium Potassium Chloride Carbon Dioxide Anion Gap BUN Creatinine Estim Creat Clear Calc Estimated GFR POC Glucose 102 71 47 L* Random Glucose Calcium 09/14/22 09/14/22 09/14/22 03:27 04:52 05:49 Sodium Potassium Chloride Carbon Dioxide Anion Gap BUN Creatinine Estim Creat Clear Calc Estimated GFR POC Glucose 107 73 80 Random Glucose Calcium 09/14/22 09/14/22 06:02 07:14 Sodium 137 Potassium 4.6 Chloride 103 Carbon Dioxide 20 L Anion Gap 19 BUN 67 H Creatinine 5.00 H* Estim Creat Clear Calc 16.8 Estimated GFR 10 POC Glucose 71 Random Glucose 63 Calcium 5.6 L* Microbiology Microbiology Results: Microbiology 09/09/22 Unknown Urine clean catch - Urine guzmán top Urine Culture - Final Procedures Date of Service Date of Service: 09/14/22 Assessment & Plan Assessment and plan (1) AMISHA (acute kidney injury): Status: Acute (2) (HFpEF) heart failure with preserved ejection fraction: Status: Acute (3) HTN (hypertension): Status: Acute (4) CKD (chronic kidney disease) stage 4, GFR 15-29 ml/min: Status: Acute Plan kidney fucntion stable at a new baseline multifactorial AMISHA: -acute hypertensive nephrosclerosis -renal hypoperfusion in the setting of CHF decompensation cannot also exclude progression of underlying CKD suspect type 3 cardio renal syndrome HFpEF volume status above dry weight known severe CKD due to hypertensive and diabetic kidney disease baseline Scr ~ 3.5 mg/dl followed by Dr Gilbert elevated serum potassium due to poor distal flow and metabolic acidosis anemia due to CKD will require KWAN iron profile showed low iron saturation REC hold losartan continue sodium bicarbonate 650 mg bid continue bumetanide 2 mg IV bid until discharge bumetanide 2 mg po upon discharge sodium zirconium as needed protect non dominant arm follow kidney function and electrolytes Time Spent With Patient Time: Total time managing care of this patient today ____ minutes. Progress Note: Quality Stroke Does the patient have a stroke diagnosis?: No
[2022-09-14 11:17] LABS: Glucose, Whole Blood 125 mg/dL (60-115)
--- NOTE | 2022-09-14 11:17 | HO.PM.IMPN ---
Subjective Subjective Date of Service: 09/14/22 Interval History: f/u AMISHA on CKD, fluid overload and uncontrolled HTN still doesn't feel good, Scr still hgih Physical Exam Vital Signs: Vital Signs: Last Vital Signs Temp 98.8 F 09/14/22 08:00 Pulse 89 09/14/22 08:00 Resp 18 09/14/22 08:00 BP 145/77 H 09/14/22 08:00 Pulse Ox 93 09/14/22 08:00 O2 Del Method 09/14/22 08:00 O2 Flow Rate 2 09/13/22 23:17 BMI result Body Mass Index 41.5 Const: Other: General: AO X 3, no acute distress Resp: CTA bilateral CVS: S1,S2,RRR, 2+ tense edema GI: +BS, NT, no distention Skin: No rash Neuro: motor grossly intact Psych: appropriate affect Objective Data Active Medications Acetaminophen (Acetaminophen 325 Mg Tablet) 650 mg PO Q6H PRN PRN Reason: Pain, Mild (Pain Scale 1-3) Last Admin: 09/12/22 17:43 Dose: 650 mg Documented By: KARLIE Atorvastatin Calcium (Atorvastatin Calcium 80 Mg Tablet) 80 mg PO DAILY [facility] Last Admin: 09/13/22 08:40 Dose: 80 mg Documented By: GUY Bumetanide (Bumetanide 1 Mg/4 Ml Vial) 2 mg IVPUSH BID@0900,1700 [facility]; Protocol Last Admin: 09/14/22 07:55 Dose: 2 mg Documented By: ALEE Dextrose (Dextrose 50 % 25 Gm/50 Ml Syringe) 25 gm IVPUSH Q15M PRN; Protocol PRN Reason: per Hypoglycemia Standing Ord. Last Admin: 09/14/22 02:14 Dose: 25 gm Documented By: MILAGRO Diphenhydramine HCl (Diphenhydramine Hcl 50 Mg/Ml Vial) 25 mg IVPUSH Q6H PRN PRN Reason: Itching Last Admin: 09/12/22 23:01 Dose: 25 mg Documented By: ROSE Docusate Sodium (Docusate Sodium 100 Mg Capsule) 100 mg PO BID [facility] Last Admin: 09/14/22 09:57 Dose: Not Given Documented By: ALEE Non-Admin Reason: Patient Asleep Empagliflozin (Empagliflozin 25 Mg Tablet) 25 mg PO DAILY [facility] Last Admin: 09/13/22 08:40 Dose: 25 mg Documented By: GUY Enoxaparin Sodium (Enoxaparin Sodium 30 Mg/0.3 Ml Syringe) 30 mg SUBCUT BEDTIME [facility] Last Admin: 09/13/22 19:54 Dose: 30 mg Documented By: MILAGRO Famotidine (Famotidine 20 Mg Tablet) 20 mg PO BID PRN PRN Reason: indigestion Gabapentin (Gabapentin 300 Mg Capsule) 300 mg PO DAILY [facility] [place] Last Admin: 09/13/22 08:40 Dose: 300 mg Documented By: GUY Glucose (Glucose Gel 15 Gm Gel..Gram.) 15 gm PO Q15M PRN; Protocol PRN Reason: per Hypoglycemia Standing Ord. Last Admin: 09/13/22 16:38 Dose: 15 gm Documented By: ERIC Hydralazine HCl (Hydralazine Hcl 50 Mg Tablet) 50 mg PO TID [facility]; Protocol Last Admin: 09/13/22 19:54 Dose: 50 mg Documented By: MILAGRO Dextrose/Sodium Chloride (D5ns) 1,000 mls @ 125 mls/hr IVCONT .Q8H [facility] Last Admin: 09/14/22 02:32 Dose: 125 mls/hr Documented By: MILAGRO Promethazine HCl 12.5 mg/ (Sodium Chloride) 50.5 mls @ 202 mls/hr IV Q6H PRN PRN Reason: Nausea Last Infusion: 09/14/22 09:25 Dose: 0 mls/hr Documented By: ALEE Insulin Human Lispro (Insulin Lispro 100 Unit/Ml 3 Ml Vial) 0 unit SUBCUT QIDACHS [facility]; Protocol Last Admin: 09/14/22 07:25 Dose: Not Given Documented By: ALEE Non-Admin Reason: No Insulin Coverage Lorazepam (Lorazepam 0.5 Mg Tablet) 0.5 mg PO Q4H PRN PRN Reason: Anxiety Magnesium Hydroxide (Milk Of Magnesia 30 Ml Oral.Susp) 30 ml PO DAILY PRN PRN Reason: Constipation Melatonin (Melatonin 3 Mg Tablet) 6 mg PO BEDTIME PRN PRN Reason: Insomnia Last Admin: 09/13/22 19:59 Dose: 6 mg Documented By: MILAGRO Nifedipine (Nifedipine Er 60 Mg Tab.Er.24) 60 mg PO DAILY [facility]; Protocol Last Admin: 09/13/22 08:40 Dose: 60 mg Documented By: GUY Ondansetron HCl (Ondansetron Hcl 4 Mg/2 Ml Vial) 4 mg IVPUSH Q8H PRN PRN Reason: Nausea and Vomiting Last Admin: 09/14/22 02:43 Dose: 4 mg Documented By: MILAGRO Oxycodone HCl (Oxycodone Hcl Immed Release 5 Mg Tablet) 5 mg PO Q6H PRN PRN Reason: Pain, Severe (Pain Scale 7-10) Last Admin: 09/11/22 14:31 Dose: 5 mg Documented By: KARLIE Pharmacy Consult (Consult Rx Perform Med Rec) 1 each MISCELLANE ONCE PRN PRN Reason: Consult order Sertraline HCl (Sertraline Hcl 50 Mg Tablet) 50 mg PO DAILY [facility] [place] Last Admin: 09/13/22 08:40 Dose: 50 mg Documented By: GUY Sodium Bicarbonate (Sodium Bicarbonate 650 Mg Tablet) 650 mg PO BID [facility] Last Admin: 09/13/22 19:54 Dose: 650 mg Documented By: MILAGRO Sodium Chloride (0.9 % Sodium Chloride Flush 3 Ml Syringe) 3 ml IVFLUSH QSHIFT [facility] [place] Last Admin: 09/14/22 07:56 Dose: 3 ml Documented By: ALEE Sodium Zirconium Cyclosilicate (Sodium Zirconium Cyclosilicate 10 Gm Powd.Pack) 10 gm PO DAILY [facility] Last Admin: 09/13/22 08:40 Dose: 10 gm Documented By: GUY Labs 09/10/22 06:17 09/14/22 06:02 Labs: Laboratory Results - last 24 hr 09/13/22 09/13/22 09/13/22 11:10 16:30 17:00 Anion Gap Estim Creat Clear Calc Estimated GFR POC Glucose 102 45 L* 89 Random Glucose Calcium 09/13/22 09/13/22 09/13/22 20:15 21:10 22:26 Anion Gap Estim Creat Clear Calc Estimated GFR POC Glucose 42 L* 85 50 L* Random Glucose Calcium 09/13/22 09/14/22 09/14/22 23:16 00:52 02:06 Anion Gap Estim Creat Clear Calc Estimated GFR POC Glucose 102 71 47 L* Random Glucose Calcium 09/14/22 09/14/22 09/14/22 03:27 04:52 05:49 Anion Gap Estim Creat Clear Calc Estimated GFR POC Glucose 107 73 80 Random Glucose Calcium 09/14/22 09/14/22 06:02 07:14 Anion Gap 19 Estim Creat Clear Calc 16.8 Estimated GFR 10 POC Glucose 71 Random Glucose 63 Calcium 5.6 L* Assessment and Plan (1) CKD (chronic kidney disease) stage 4, GFR 15-29 ml/min: Status: Acute (2) HTN (hypertension): Status: Acute (3) (HFpEF) heart failure with preserved ejection fraction: Status: Acute Plan 41-year-old female with pertinent history of CKD stage 4, congestive heart failure with preserved ejection fraction, essential hypertension, insulin-dependent diabetes mellitus, anemia of CKD, essential hypertension who presents to the emergency department for evaluation of generalized body swelling. #. Anasarca in a patient with: #. Acute on chronic congestive heart failure with preserved ejection fraction - due to medication noncompliance with uncontrolled HTN. continue Bumex IV. Strict I's and O's. Low-salt diet. Monitor weight, thus far positive fluid balance - CT abdomen confirmed anasarca, no other acute finding..Cardiology and Nephrology helping with management with discussed possible diuretics drip at this point #. Acute kidney injury on CKD stage 4: Monitor urine output and creatinine with diuresis. Nephrology input noted, Urine studies; renal ultrasound normal, Cr slightly worse today ? related to drop in BP..Reduce BP meds #. HypERkalemia: resolved, lokelma daily #. [id number] diabetes mellitus with hyperglycemia: A1c = 5.8, ISS #. Uncontrolled HTN as part of above problem.. BP is much better and in fact has had some very number. Hydralazine to 50 tid,, hold Losartan, reduce nifedipine to 60. Norvasc stopped #. anemia of CKD of likely chronic disease, s/p 1 unit of RBC on 09/09 with good effect # dizziness--check orthostatic BP DVT prophylaxis: Lovenox 30 mg daily Full code Low-salt diet need for inpatient: acute renal failure, cardiorenal syndorme, needs IV diuretics close monitoring of labs and monitoring for rsponse Time Spent With Patient Time: Total time managing care of this patient today ____ minutes. Quality Stroke Does the patient have a stroke diagnosis?: No VTE Prior VTE?: No VTE Risk Level:: Medical - moderate - high VTE Device Contraindication: Treatment Not Indicated VTE Drug Contraindication: N/A - Med Ordered
--- NOTE | 2022-09-14 11:28 | HO.PM.IMPN ---
Subjective Subjective Date of Service: 09/14/22 Interval History: f/u AMISHA on CKD, fluid overload and uncontrolled HTN Doesn't feel good, nausea Physical Exam Vital Signs: Vital Signs: Last Vital Signs Temp 98.8 F 09/14/22 08:00 Pulse 89 09/14/22 08:00 Resp 18 09/14/22 08:00 BP 145/77 H 09/14/22 08:00 Pulse Ox 93 09/14/22 08:00 O2 Del Method 09/14/22 08:00 O2 Flow Rate 2 09/13/22 23:17 BMI result Body Mass Index 41.5 Const: Other: General: AO X 3, no acute distress Resp: CTA bilateral CVS: S1,S2,RRR, 2+ tense edema GI: +BS, NT, no distention Skin: No rash Neuro: motor grossly intact Psych: appropriate affect Objective Data Active Medications Acetaminophen (Acetaminophen 325 Mg Tablet) 650 mg PO Q6H PRN PRN Reason: Pain, Mild (Pain Scale 1-3) Last Admin: 09/12/22 17:43 Dose: 650 mg Documented By: KARLIE Atorvastatin Calcium (Atorvastatin Calcium 80 Mg Tablet) 80 mg PO DAILY [facility] Last Admin: 09/13/22 08:40 Dose: 80 mg Documented By: GUY Bumetanide (Bumetanide 1 Mg/4 Ml Vial) 2 mg IVPUSH BID@0900,1700 [facility]; Protocol Last Admin: 09/14/22 07:55 Dose: 2 mg Documented By: ALEE Dextrose (Dextrose 50 % 25 Gm/50 Ml Syringe) 25 gm IVPUSH Q15M PRN; Protocol PRN Reason: per Hypoglycemia Standing Ord. Last Admin: 09/14/22 02:14 Dose: 25 gm Documented By: MILAGRO Diphenhydramine HCl (Diphenhydramine Hcl 50 Mg/Ml Vial) 25 mg IVPUSH Q6H PRN PRN Reason: Itching Last Admin: 09/12/22 23:01 Dose: 25 mg Documented By: ROSE Docusate Sodium (Docusate Sodium 100 Mg Capsule) 100 mg PO BID [facility] Last Admin: 09/14/22 09:57 Dose: Not Given Documented By: ALEE Non-Admin Reason: Patient Asleep Empagliflozin (Empagliflozin 25 Mg Tablet) 25 mg PO DAILY [facility] Last Admin: 09/13/22 08:40 Dose: 25 mg Documented By: GUY Enoxaparin Sodium (Enoxaparin Sodium 30 Mg/0.3 Ml Syringe) 30 mg SUBCUT BEDTIME [facility] Last Admin: 09/13/22 19:54 Dose: 30 mg Documented By: MILAGRO Famotidine (Famotidine 20 Mg Tablet) 20 mg PO BID PRN PRN Reason: indigestion Gabapentin (Gabapentin 300 Mg Capsule) 300 mg PO DAILY [facility] Last Admin: 09/13/22 08:40 Dose: 300 mg Documented By: GUY Glucose (Glucose Gel 15 Gm Gel..Gram.) 15 gm PO Q15M PRN; Protocol PRN Reason: per Hypoglycemia Standing Ord. Last Admin: 09/13/22 16:38 Dose: 15 gm Documented By: ERIC Hydralazine HCl (Hydralazine Hcl 50 Mg Tablet) 50 mg PO TID [facility]; Protocol Last Admin: 09/13/22 19:54 Dose: 50 mg Documented By: MILAGRO Promethazine HCl 12.5 mg/ (Sodium Chloride) 50.5 mls @ 202 mls/hr IV Q6H PRN PRN Reason: Nausea Last Infusion: 09/14/22 09:25 Dose: 0 mls/hr Documented By: ALEE Insulin Human Lispro (Insulin Lispro 100 Unit/Ml 3 Ml Vial) 0 unit SUBCUT QIDACHS [facility]; Protocol Last Admin: 09/14/22 11:21 Dose: Not Given Documented By: ALEE Non-Admin Reason: No Insulin Coverage Lorazepam (Lorazepam 0.5 Mg Tablet) 0.5 mg PO Q4H PRN PRN Reason: Anxiety Magnesium Hydroxide (Milk Of Magnesia 30 Ml Oral.Susp) 30 ml PO DAILY PRN PRN Reason: Constipation Melatonin (Melatonin 3 Mg Tablet) 6 mg PO BEDTIME PRN PRN Reason: Insomnia Last Admin: 09/13/22 19:59 Dose: 6 mg Documented By: MILAGRO Nifedipine (Nifedipine Er 60 Mg Tab.Er.24) 60 mg PO DAILY [facility]; Protocol Last Admin: 09/13/22 08:40 Dose: 60 mg Documented By: GUY Ondansetron HCl (Ondansetron Hcl 4 Mg/2 Ml Vial) 4 mg IVPUSH Q8H PRN PRN Reason: Nausea and Vomiting Last Admin: 09/14/22 02:43 Dose: 4 mg Documented By: MILAGRO Oxycodone HCl (Oxycodone Hcl Immed Release 5 Mg Tablet) 5 mg PO Q6H PRN PRN Reason: Pain, Severe (Pain Scale 7-10) Last Admin: 09/11/22 14:31 Dose: 5 mg Documented By: KARLIE Pharmacy Consult (Consult Rx Perform Med Rec) 1 each MISCELLANE ONCE PRN PRN Reason: Consult order Sertraline HCl (Sertraline Hcl 50 Mg Tablet) 50 mg PO DAILY [facility] Last Admin: 09/13/22 08:40 Dose: 50 mg Documented By: GUY Sodium Bicarbonate (Sodium Bicarbonate 650 Mg Tablet) 650 mg PO BID [facility] Last Admin: 09/13/22 19:54 Dose: 650 mg Documented By: MILAGRO Sodium Chloride (0.9 % Sodium Chloride Flush 3 Ml Syringe) 3 ml IVFLUSH QSHIFT [facility] Last Admin: 09/14/22 07:56 Dose: 3 ml Documented By: ALEE Sodium Zirconium Cyclosilicate (Sodium Zirconium Cyclosilicate 10 Gm Powd.Pack) 10 gm PO DAILY [facility] Last Admin: 09/13/22 08:40 Dose: 10 gm Documented By: GUY Labs 09/10/22 06:17 09/14/22 06:02 Labs: Laboratory Results - last 24 hr 09/13/22 09/13/22 09/13/22 16:30 17:00 20:15 Anion Gap Estim Creat Clear Calc Estimated GFR POC Glucose 45 L* 89 42 L* Random Glucose Calcium 09/13/22 09/13/22 09/13/22 21:10 22:26 23:16 Anion Gap Estim Creat Clear Calc Estimated GFR POC Glucose 85 50 L* 102 Random Glucose Calcium 09/14/22 09/14/22 09/14/22 00:52 02:06 03:27 Anion Gap Estim Creat Clear Calc Estimated GFR POC Glucose 71 47 L* 107 Random Glucose Calcium 09/14/22 09/14/22 09/14/22 04:52 05:49 06:02 Anion Gap 19 Estim Creat Clear Calc 16.8 Estimated GFR 10 POC Glucose 73 80 Random Glucose 63 Calcium 5.6 L* 09/14/22 09/14/22 07:14 11:08 Anion Gap Estim Creat Clear Calc Estimated GFR POC Glucose 71 125 H Random Glucose Calcium Assessment and Plan (1) CKD (chronic kidney disease) stage 4, GFR 15-29 ml/min: Status: Acute (2) (HFpEF) heart failure with preserved ejection fraction: Status: Acute Plan 41-year-old female with pertinent history of CKD stage 4, congestive heart failure with preserved ejection fraction, essential hypertension, insulin-dependent diabetes mellitus, anemia of CKD, essential hypertension who presents to the emergency department for evaluation of generalized body swelling. #. Anasarca in a patient with: #. Acute on chronic congestive heart failure with preserved ejection fraction - due to medication noncompliance with uncontrolled HTN. continue Bumex IV. Strict I's and O's. Low-salt diet. Monitor weight, thus far positive fluid balance - CT abdomen confirmed anasarca, no other acute finding..Cardiology and Nephrology helping with management with discussed possible diuretics drip at this point #. Acute kidney injury on CKD stage 4: Monitor urine output and creatinine with diuresis. Nephrology input noted, Urine studies; renal ultrasound normal. Renal function essentially unchanged. #. HypERkalemia: resolved, lokelma daily #. uyt-zofokyn-cvixzaath diabetes mellitus with hyperglycemia: A1c = 5.8, ISS #. Uncontrolled HTN as part of above problem.. BP is overall in better range. Continue Present meds #. anemia of CKD of likely chronic disease, s/p 1 unit of RBC on 09/09 with good effect # dizziness--check orthostatic BP DVT prophylaxis: Lovenox 30 mg daily Full code Low-salt diet need for inpatient: acute renal failure, cardiorenal syndorme, needs IV diuretics close monitoring of labs and monitoring for rsponse Time Spent With Patient Time: Total time managing care of this patient today ____ minutes. Quality Stroke Does the patient have a stroke diagnosis?: No VTE Prior VTE?: No VTE Risk Level:: Medical - moderate - high VTE Device Contraindication: Treatment Not Indicated VTE Drug Contraindication: N/A - Med Ordered
[2022-09-14] MEDS: Sodium Bicarbonate 650 MG TABLET PO ×2 (12:39→21:32)
[2022-09-14] MEDS: NIFEdipine ER 60 MG TAB.ER.24 PO (12:39)
[2022-09-14] MEDS: Sertraline HCL 50 MG TABLET PO (12:39)
[2022-09-14] MEDS: Atorvastatin Calcium 80 MG TABLET PO (12:40)
[2022-09-14] MEDS: Gabapentin 300 MG CAPSULE PO (12:40)
[2022-09-14] MEDS: Empagliflozin 25 MG TABLET PO (12:40)
[2022-09-14] MEDS: hydrALAZINE HCl 50 MG TABLET PO ×3 (12:40→21:33)
[2022-09-14] MEDS: Sodium Zirconium Cyclosilicate 10 GM POWD.PACK PO (12:44)
[2022-09-14 16:00] VITALS: BP 150/86; PULSE 84; RESP 18; TEMP 37.2; O2SAT 97
[2022-09-14 17:07] LABS: Glucose, Whole Blood 216 mg/dL (60-115)
[2022-09-14] MEDS: Insulin Lispro 100 UNIT/ML 3 ML VIAL SUBCUT ×2 (17:20→21:32)
[2022-09-14] MEDS: LORazepam 0.5 MG TABLET PO ×2 (17:20→21:32)
[2022-09-14 20:00] VITALS: BP 161/74; PULSE 82; RESP 18; TEMP 36.6; O2SAT 92
[2022-09-14 20:32] LABS: Glucose, Whole Blood 210 mg/dL (60-115)
[2022-09-14] MEDS: Docusate Sodium 100 MG CAPSULE PO (21:32)
[2022-09-14] MEDS: Enoxaparin Sodium 30 MG/0.3 ML SYRINGE SUBCUT (21:33)
[2022-09-15] VITALS: BP 159/82; PULSE 79; TEMP 36.2; O2SAT 93
[2022-09-15 04:00] VITALS: BP 159/78; PULSE 80; RESP 18; TEMP 37.2; O2SAT 93
[2022-09-15 07:20] VITALS: BP 145/80; PULSE 78; RESP 17; TEMP 36.8; O2SAT 95
[2022-09-15 07:25] LABS: Glucose, Whole Blood 155 mg/dL (60-115)
[2022-09-15 07:29] LABS: Anion Gap 18 (12-20); Blood Urea Nitrogen 67 mg/dL (9-16); Carbon Dioxide 19 mmol/L (22-29); Chloride 105 mmol/L (96-108); Creatinine Clr Calc Pharmacy 16.2; Estimated Glomerular Filt Rate 9; Glucose Random 134 mg/dL (60-115); Potassium 4.3 mmol/L (3.3-5.1); Sodium 138 mmol/L (135-145)
[2022-09-15 07:33] LABS: Calcium 5.9 mg/dL (8.4-10.2)
[2022-09-15] MEDS: Sertraline HCL 50 MG TABLET PO (07:56)
[2022-09-15] MEDS: Insulin Lispro 100 UNIT/ML 3 ML VIAL SUBCUT ×2 (07:56→12:30)
[2022-09-15] MEDS: Sodium Bicarbonate 650 MG TABLET PO (07:56)
[2022-09-15] MEDS: Sodium Zirconium Cyclosilicate 10 GM POWD.PACK PO (07:57)
[2022-09-15] MEDS: hydrALAZINE HCl 50 MG TABLET PO (07:57)
[2022-09-15] MEDS: Atorvastatin Calcium 80 MG TABLET PO (07:57)
[2022-09-15] MEDS: Empagliflozin 25 MG TABLET PO (07:57)
[2022-09-15] MEDS: NIFEdipine ER 60 MG TAB.ER.24 PO (07:57)
[2022-09-15] MEDS: Gabapentin 300 MG CAPSULE PO (07:57)
--- NOTE | 2022-09-15 09:17 | PC.NURSE ---
pt has been receving IV bumex for fluid overload. pt's IV infiltrated and refuses new IV to be done. MD notified and aware. MD to consult with fitness coach before changing to PO.
--- NOTE | 2022-09-15 09:28 | PM.PNNEP ---
Subjective Subjective Date of Service: 09/15/22 Interval history: f/u AMISHA on CKD, fluid overload and uncontrolled HTN Lying flat Physical Exam Vital Signs: Vital Signs: Last Vital Signs Temp 98.2 F 09/15/22 07:20 Pulse 78 09/15/22 07:20 Resp 17 09/15/22 07:20 BP 145/80 H 09/15/22 07:20 Pulse Ox 95 09/15/22 07:20 O2 Del Method 09/15/22 07:20 O2 Flow Rate 2 09/13/22 23:17 BMI result Body Mass Index 41.5 Const: General: no acute distress HEENT: Head: Yes normocephalic and Yes atraumatic Neck: Neck: Yes supple Resp: Auscultation: diminished lung sounds Cardio: Heart sounds: S1 normal heart sound present and S2 normal heart sound present GI: Palpation (GI): Soft to palpation and nontender Extrem: General: Yes edema Objective Data Labs 09/10/22 06:17 09/15/22 06:32 Labs: Laboratory Results - last 24 hr 09/14/22 09/14/22 09/14/22 11:08 16:53 20:24 Sodium Potassium Chloride Carbon Dioxide Anion Gap BUN Creatinine Estim Creat Clear Calc Estimated GFR POC Glucose 125 H 216 H 210 H Random Glucose Calcium 09/15/22 09/15/22 06:32 07:18 Sodium 138 Potassium 4.3 Chloride 105 Carbon Dioxide 19 L Anion Gap 18 BUN 67 H Creatinine 5.19 H* Estim Creat Clear Calc 16.2 Estimated GFR 9 POC Glucose 155 H Random Glucose 134 H Calcium 5.9 L* Microbiology Microbiology Results: Microbiology 09/09/22 Unknown Urine clean catch - Urine guzmán top Urine Culture - Final Procedures Date of Service Date of Service: 09/15/22 Assessment & Plan Assessment and plan (1) AMISHA (acute kidney injury): Status: Acute (2) (HFpEF) heart failure with preserved ejection fraction: Status: Acute (3) HTN (hypertension): Status: Acute (4) CKD (chronic kidney disease) stage 4, GFR 15-29 ml/min: Status: Acute Plan kidney function stable at baseline multifactorial AMISHA: -acute hypertensive nephrosclerosis -renal hypoperfusion in the setting of CHF decompensation cannot also exclude progression of underlying CKD suspect type 3 cardio renal syndrome HFpEF volume status above dry weight known severe CKD due to hypertensive and diabetic kidney disease baseline Scr ~ 3.5 mg/dl followed by Dr Gilbert elevated serum potassium due to poor distal flow and metabolic acidosis anemia due to CKD will require KWAN iron profile showed low iron saturation REC hold losartan continue sodium bicarbonate 650 mg bid continue bumetanide 2 mg IV bid until discharge bumetanide 2 mg po upon discharge sodium zirconium as needed protect non dominant arm Will arrange for out pt follow up follow kidney function and electrolytes Time Spent With Patient Time: Total time managing care of this patient today ____ minutes. Progress Note: Quality Stroke Does the patient have a stroke diagnosis?: No
[2022-09-15] MEDS: Bumetanide 1 MG TABLET 2 MG PO (10:51)
--- NOTE | 2022-09-15 10:58 | P.DS_ITS ---
DS: Providers Provider Date of Service: 09/15/22 Date of admission: 09/09/22 00:49 Primary care physician: Kayode Bolton MD Consults: 09/09/22 00:39 Consult to Nephrology Routine Consulting Provider: Angel Lerma Reason for consultation: AMISHA on CKD 09/10/22 13:53 Consult to Cardiology Routine Consulting Provider: Boogie Cartagena Reason for consultation: Heart failure Has provider been notified: Yes DS: Diagnosis Discharge Diagnosis (1) AMISHA (acute kidney injury): Status: Acute (2) (HFpEF) heart failure with preserved ejection fraction: Status: Acute (3) HTN (hypertension): Status: Acute (4) CKD (chronic kidney disease) stage 4, GFR 15-29 ml/min: Status: Acute DS: Summary Hospital Course Hospital Course: Chief Complaint: Generalized body swelling This is a 41-year-old female with pertinent history of CKD stage 4,? congestive heart failure with preserved ejection fraction, essential hypertension, insulin- dependent diabetes mellitus, anemia of CKD, essential hypertension who presents to the emergency department for evaluation of generalized body swelling.? Patient states that over the last 1 month she has gained approximately 20 lb.? Patient's feet, legs, knees, abdominal have swollen and she has been having difficulty walking or bending.? Also complains of dyspnea worse with exertion.? Patient admits that she is not compliant with her medications.? Did not follow- up with Nephrology.? States she has been trying to get compliant but misses. multiple doses throughout the week.? Noticed decreased urine output. In the emergency department, creatinine and potassium noted to be elevated. Hospital course: #. Anasarca in a patient with: #.? Acute on chronic congestive heart failure with preserved ejection fraction - due to medication noncompliance with uncontrolled HTN.? Treated with IV Bumex IV.?.? Low-salt diet. Symptomatically has improved. Nephrology has been following. Patient lost IV access today and is refusing to have another IV inserted and wants to go home, discussed with Nephrology and given stable Cr at around 5 will change to PO Bumex 2 mg twice daily and compliance emphazised. CT CT abdomen confirmed anasarca, no other acute finding..Cardiology also help with managemntd #. Acute kidney injury on CKD stage 4: Creatinine now stable around 5 and will follow up with Nephrology on outpatient basis, should avoid NSAID #.? HypERkalemia:? resolved, lokelma daily ?#. [id number] diabetes mellitus with hyperglycemia:? A1c = 5.8, ISS ?#. Uncontrolled HTN as part of above problem.. BP were initally realy high and due to non compliance after meds adjusteent doing much better. Presently 145/80 ? #. anemia of CKD of likely chronic disease, s/p 1 unit of RBC? on 09/09 with good effect # dizziness- likely due to transient drop in BP but resolved and didn't want orthostatic check Time Spent with Patient Time attestation: Total time managing care of this patient today ____ minutes. Discharge coordination time: Greater than 30 minutes Quality: Safe Use of Opioids Does Pt have an Active Cancer Diagnosis on the Problem List?: No Quality: Stroke Does the patient have a stroke diagnosis?: No Physical Exam Vital Signs: Vital Signs: Last Vital Signs Temp 98.2 F 09/15/22 07:20 Pulse 78 09/15/22 07:20 Resp 17 09/15/22 07:20 BP 145/80 H 09/15/22 07:20 Pulse Ox 95 09/15/22 07:20 O2 Del Method 09/15/22 07:20 O2 Flow Rate 2 09/13/22 23:17 BMI result Body Mass Index 41.5 DS: Data Data Completed and Pending Completed studies during hospitalization [Text1]: Procedures Transfusion of Nonautologous Red Blood Cells into Peripheral Vein, Percutaneous Approach (07/12/22) Labs on day of discharge: Laboratory Results - last 24 hr 09/14/22 09/14/22 09/14/22 11:08 16:53 20:24 Sodium Potassium Chloride Carbon Dioxide Anion Gap BUN Creatinine Estim Creat Clear Calc Estimated GFR POC Glucose 125 H 216 H 210 H Random Glucose Calcium 09/15/22 09/15/22 06:32 07:18 Sodium 138 Potassium 4.3 Chloride 105 Carbon Dioxide 19 L Anion Gap 18 BUN 67 H Creatinine 5.19 H* Estim Creat Clear Calc 16.2 Estimated GFR 9 POC Glucose 155 H Random Glucose 134 H Calcium 5.9 L* Discharge Plan Discharge Anticipated Discharge Date/Time: 09/15/22 12:47 Patient Disposition: Home Health Service Discharge Diagnosis: Acute on chronic kidney failure, Heart failure with preserved EF, uncontrolled HTN Referrals: [facility] [Other] - 1 Week Kayode Bolton MD [Primary Care Provider] - 1 Week Discharge Medications: Continued atorvastatin 80 mg tablet 80 mg PO DAILY nifedipine 90 mg tablet extended release 24hr 90 mg PO DAILY gabapentin 300 mg capsule 300 mg PO DAILY sertraline 50 mg tablet 50 mg PO DAILY Jardiance 25 mg tablet 25 mg PO DAILY famotidine 20 mg tablet 1 tab PO BID PRN (Reason: indigestion) glipizide 5 mg tablet 5 mg PO BID Qty: 60 0RF hydralazine 50 mg tablet 50 mg PO TID Qty: 90 0RF Changed bumetanide 2 mg tablet 2 mg PO BID Qty: 60 0RF Discontinued losartan 25 mg tablet 25 mg PO DAILY amlodipine 10 mg Tablet 10 mg PO DAILY Qty: 30 0RF Protocol: Hold for SBP< HOLD for SBP < : 90 Discharge Orders: Discharge Order (Routine); Ordered 09/15/22 Ordered By: Damion Walton Diet: Diabetic diet Activity on Discharge: As tolerated Stand Alone Forms: Patient Portal Discharge page Care Plan Goals: REcovery from heart failure and renal failure Health Concerns: chronic kidney failure Heart failure Uncontrolled high blood pressre Plan of Treatment: Take Bumex 2 mg twice daily, Take all your blood pressure medication as directed. Notice that Losartan and Norvasc have been discontinued. Follow up with your kidney doctor in a week, Follow up with your primary care provider in a week Assessment: See above Discharge Date/Time: 09/15/22 14:15
[2022-09-15 11:06] LABS: Glucose, Whole Blood 170 mg/dL (60-115)
[2022-09-15 11:32] VITALS: BP 147/78; PULSE 82; TEMP 37.1; O2SAT 95
--- NOTE | 2022-09-15 14:46 | MHC.CM.PN ---
ismael dcd home no sklilled servcies ordered by
--- NOTE | 2022-09-16 13:34 | MHC.CM.PN ---
PT DCD WITH [facility] WHO WILL SEE IN 48 HRS
== END 2022-09-15 14:15 | disposition home health service (06) | DRG 194 ==
LOC: HO.ED 22:51 → HO.EDOVER 09-09 00:55 → HO.S3 09-09 21:41 → HO.IMC 09-10 17:00
PROVIDERS: Internal Medicine Nephrology; Admitting Provider Student in an Organized Health Care Education/Training Program; Emergency Provider Emergency Medicine; PCP Internal Medicine; Visit Provider Internal Medicine
DX: I13.0 Hypertensive heart and chronic kidney disease with heart failure and stage 1 through stage 4 chronic kidney disease, or unspecified chronic kidney disease (principal); N17.9 Acute kidney failure, unspecified; E87.20 Acidosis, unspecified; D63.1 Anemia in chronic kidney disease; E11.649 Type 2 diabetes mellitus with hypoglycemia without coma; D50.9 Iron deficiency anemia, unspecified; E11.22 Type 2 diabetes mellitus with diabetic chronic kidney disease; E11.65 Type 2 diabetes mellitus with hyperglycemia; E87.5 Hyperkalemia; N18.4 Chronic kidney disease, stage 4 (severe); I50.33 Acute on chronic diastolic (congestive) heart failure; Z91.14 Patient's other noncompliance with medication regimen; Z20.822 Contact with and (suspected) exposure to COVID-19; Z79.84 Long term (current) use of oral hypoglycemic drugs; Z79.899 Other long term (current) drug therapy
CPT/HCPCS: 36415; 71045; 74176; 76775; 80048; 81001; 81025; 82728; 82947; 83036; 83540; 83735; 84156; 84443; 84540; 85025; 85027; 86850; 86900; 86901; 86923; 87086; 87635; 92950; 93005; 93306; 93356; 99285; J1200; J1610; J1650; J1756; J2354; J2405; J2550; J2765; P9016; Q9957

== ENCOUNTER 2024-02-09 15:19 | Outpatient (AMB) | payer MEDICARE, MEDICAID, SELFPAY ==
[2024-02-09 15:50] VITALS: BP 132/74; PULSE 74; TEMP 36.6; O2SAT 97; BMI 32.0
--- NOTE | 2024-02-09 15:50 | AM.OFFWIN_ITS ---
Intake Vital Signs 02/09/24 15:50 Height 5 ft 2 in Weight 175 lb BMI 32.0 BP 132/74 Blood Pressure Location Lt brachial Position Sitting Pulse 74 Pulse Source Pulse Oximeter Temp 97.8 F Temp Source Temporal Artery Scan Pulse Oximetry (%) 97 Intake Visit Reasons: [employer] ?LT hand middle finger injury Intake Note: pt is here for left middle finger blackand blue, had xray done at [facility] an was told it wasnt broken but had calcium build up. patient stated its painful and wants narcotics for the pain. I advised patient we do not give narcotics in the walk in but the provider can discuss it further with her. Patient Tobacco Use Status: Never used Tobacco Allergies No Known Allergies [No Known Allergies*] Allergy (Verified 09/08/22 21:15) Do you need a note to return to daycare/school/sports/work: No HPI HPI Comments History of Present Illness Details This is a 43-year-old female with a past medical history of CHF, insulin-dependent diabetes, hyperlipidemia, gastroesophageal reflux disease and end-stage renal disease on dialysis presenting for evaluation of pain in her left middle finger that she has had for the past 1 week. Patient denies any injury or trauma to her left hand or left 3rd digit. Patient has been taking Tylenol only without relief of her discomfort. Patient had imaging of the left hand performed on February 08, 2024 which was ordered by her primary care physician. Results are reviewed which read ?there is no osseous abnormality. ? Patient is requesting narcotic medication for her discomfort. 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, managed as type 2 Diabetes Social History Household Members: Family Housing: Apartment Do you presently have visiting nurse or other home services: No Unable to assess alcohol history related to: Unknown Alcohol intake: never Comment: not high fall Patient Tobacco Use Status: Never used Tobacco Substance Use Type: Marijuana service: No Current occupational status: employed Review of Systems Const All systems reviewed & are unremarkable except as noted in HPI and below Reports as per HPI ENT Reports no additional complaints Card Reports no additional complaints Resp Reports no additional complaints Musc Details: Left 3rd digit pain Reports no additional complaints Skin/Breast Reports system reviewed and no additional complaints, except as documented and Reports unusual bruising Neuro Reports no additional complaints Psych Reports no additional complaints Endo Reports no additional complaints Lon/Lymph Reports no additional complaints Physical Exam Vital Signs: Last Vital Signs Temp 97.8 F 02/09/24 15:50 Pulse 74 02/09/24 15:50 BP 132/74 02/09/24 15:50 Pulse Ox 97 02/09/24 15:50 BMI result Body Mass Index 32.0 Const General: cooperative, no acute distress, well developed, alert, awake and Physically active Nutritional Appearance: average body habitus Orientation/consciousness: patient oriented x3 Limitations: no limitations Skin Other: Mild ecchymosis noted on the dorsal surface of the left 3rd digit; no cutaneous wounds noted General skin exam: ecchymosis Lesions: no lesions Wounds: no wounds Neuro General: patient oriented x3 Extrem Other: no edema of left 3rd digit, left hand is warm and well perfused, radial pulse intact; there is pain to palpation of the dorsal and palmar surface of the left 3rd digit; passive ROM left 3rd digit elicits pain, normal capillary refill Left upper extremity: normal capillary refill Psych Appearance: grossly normal Mental Status: mental status grossly normal Affect: Other affect and mood findings present (anxious) Attitude: Belligerent attititude/behavior present and Avoids eye contact (atti titude/behavior) Insight: Limited insight present (Psych) Judgement: Limited judgement present (Psych) Assessment & Plan Assessment & Plan (1) Pain of left middle finger: Comment: Imaging from February 08, 2024 is received and reviewed and there is no osseous abnormality noted. Code(s): M79.645 - Pain in left finger(s) Plan: Tylenol every 6-8 hours as needed for pain. Patient is referred back to her primary care physician for ongoing pain management. Coding Level of Care Code New Pt Level 3 (02203) Diagnoses Pain of left middle finger M79.645 Time Spent (min) 20
== END 2024-02-09 16:53 | disposition home or self-care (01) ==
PROVIDERS: PCP Internal Medicine; Visit Provider Physician Assistant
DX: M79.645 Pain in left finger(s) (principal)
CPT/HCPCS: 99203